=== PATIENT | female | born 1930 | race Caucasian/White ===

== ENCOUNTER 2017-09-12 14:55 | Inpatient (IN) | payer OTHER ==
[2017-09-12 15:24] VITALS: BMI 17.2
--- NOTE | 2017-09-12 15:27 | PDOC ---
History of Present Illness - General Chief Complaint: Bleeding from Anus Stated Complaint: RECTAL BLEEDING Time Seen by Provider: 09/12/17 15:25 History Source: Patient, Family (Daughter interpreted) Exam Limitations: No Limitations - History of Present Illness Initial Comments: 09/12/17 16:20 Pt is an 87 yo F with PMHx of mitral stenosis and Afib (on warfarin), TIA (no deficits), bladder cancer (in remission), low blood pressure presenting with a week's hx of dark stools that became darker this am. As a result, patient called her daughter (from [place]) who brought her into the ED today along with what looked like dark tarry stool in a bowl. No omi red blood was noted recently, but about a month earlier, she had noticed tissue stained with blood while wiping. Patient denies constipation. The pt lives at home with her . The pt also describes increased generalized weakness, but no dizziness , no nausea/vomiting, no bleeding from any other orifice, no fever, no abdominal pain or hematuria. Pt has no cough, no chest pain or palpitations, no SOB. Patient takes 3mg of warfarin every weekday and skips weekends. Last dose was Wednesday. Patient passed stool last this am. No prior hx of diarrhea, no jaundice. She had endoscopy and colonoscopy about 3 years ago and had been treated for H. Pylori infection previously. 09/12/17 18:43 Timing/Duration: 1 week Severity: moderate Associated Symptoms: reports: weakness. denies: chest pain, cough, diaphoresis , fever/chills, headaches, shortness of breath, syncope Past History - Travel Traveled outside of the country in the last 30 days: No Close contact w/someone who was outside of country & ill: No - Past Medical History Allergies/Adverse Reactions: Allergies Allergy/AdvReac Type Severity Reaction Status Date / Time No Known Allergies Allergy Verified 09/12/17 15:49 Home Medications: Ambulatory Orders Metoprolol Tartrate [Lopressor -] 25 mg PO DAILY #0 04/17/13 Warfarin Sodium [Coumadin] 3 mg PO DAILY #0 04/17/13 Digoxin [Lanoxin -] 0.125 mg PO Q48H 09/12/17 Anemia: No Asthma: No Cardiac Disorders: Yes (MITRAL VALVE STENOSIS, afib) CVA: Yes COPD: No Dementia: Yes GI Disorders: Yes (H Pylori) HTN: Yes - Surgical History Cholecystectomy: Yes - Immunization History Td Vaccination: No Immunization Up to Date: No - Suicide/Smoking/Psychosocial Hx Smoking History: Never smoked Have you smoked in the past 12 months: No Information on smoking cessation initiated: No Hx Alcohol Use: No Drug/Substance Use Hx: No Substance Use Type: None Review of Systems - Review of Systems Able to Perform ROS?: Yes (The daughter helped ) Is the patient limited Kyrgyz proficient: No Constitutional: Yes: Loss of Appetite (eats small amounts of food). No: Chills , Diaphoresis, Fever HEENTM: No: Nose Bleeding Respiratory: No: Cough, Orthopnea, Shortness of Breath, SOB at Rest, Productive cough, Hemoptysis Cardiac (ROS): No: Chest Pain, Edema, Palpitations, Syncope ABD/GI: Yes: Tarry Stools. No: Abdominal Distended, Constipated, Difficulty Swallowing, Nausea, Vomiting : No: Burning, Dysuria, Discharge, Flank Pain, Hematuria, Incontinence Musculoskeletal: No: Back Pain Neurological: No: Headache, Numbness, Paresthesia, Unsteady Gait Hematologic/Lymphatic: No: Anemia, Easy Bleeding *Physical Exam - Vital Signs Last Vital Signs Temp Pulse Resp BP Pulse Ox 97.5 F L 75 20 127/57 98 09/12/17 15:16 09/12/17 15:16 09/12/17 15:16 09/12/17 15:16 09/12/17 15:16 - Physical Exam General Appearance: Yes: Appropriately Dressed, Thin HEENT: positive: Normal ENT Inspection, Symmetrical, Pharynx Normal, Other (No scleral icterus, no pale conjuctiva) Neck: positive: Supple Respiratory/Chest: positive: Lungs Clear, Normal Breath Sounds Cardiovascular: positive: Regular Rate, S1, S2, Irregularly Irregular Vascular Pulses: Dorsalis-Pedis (R): 2+, Doralis-Pedis (L): 2+ Gastrointestinal/Abdominal: positive: Normal Bowel Sounds, Soft Rectal Exam: positive: other (Anterior skin tag, no hemorrhoids, no obvious masses, soft stool in vault, maroon colored stool on gloved finger) Musculoskeletal: positive: Normal Inspection Extremity: positive: Normal Capillary Refill Integumentary: positive: Warm Neurologic: positive: Fully Oriented, Alert, Normal Mood/Affect, Motor Strength 5/5 ED Treatment Course - LABORATORY CBC & Chemistry Diagram: 09/13/17 07:00 09/13/17 07:00 Medical Decision Making - Medical Decision Making 09/12/17 18:[address] Lockwood. Spoke with him,but was referred to Dr Zarate who is employee communications manager. Spoke with Dr Zarate Pt noted to be currently hemodynamically stable-not hypotensive or tachycardic, with no active bleeding since the am - labs were still pending at the time. He wanted to be called back following results of labs for INR and current CBC 09/12/17 18:49 Dr Zarate called back and put in a note with his recommendations- including iv Vit K, repeat CBC, transfusion treshold at 8g 09/12/17 18:[address] Beltre and he will need for hospitalist to admit Spoke with Dr Lawrence who has accepted the patient for admission to tele *DC/Admit/Observation/Transfer Diagnosis at time of Disposition: GI bleed Qualifiers: GI bleed type/associated pathology: unspecified gastrointestinal hemorrhage type Qualified Code(s): K92.2 - Gastrointestinal hemorrhage, unspecified - Discharge Dispostion Condition at time of disposition: Fair Admit: Yes - Referrals - Patient Instructions - Post Discharge Activity - Attestations Physician Attestion: 09/12/17 18:57 Ree Santacruz MD
[2017-09-12] MEDS ORDERED: PANTOPRAZOLE SODIUM 80 MG in SODIUM CHLORIDE 100 ML IVPB SCH ×2 (16:00→21:30)
[2017-09-12] MEDS ORDERED: PANTOPRAZOLE SODIUM 40 MG VIAL IVPUSH ONE (16:09)
[2017-09-12] MEDS ORDERED: PANTOPRAZOLE SODIUM 40 MG VIAL ONE (16:29)
[2017-09-12] MEDS ORDERED: PANTOPRAZOLE SODIUM 40 MG/100 ML BAG IVPB ONE (16:38)
--- NOTE | 2017-09-12 16:44 | PDOC ---
Attending Attestation - Resident Resident Name: NeetaRee I - ED Attending Attestation I have performed the following: I have examined & evaluated the patient, The case was reviewed & discussed with the resident, I agree w/resident's findings & plan, Exceptions are as noted - HPI HPI: 09/12/17 16:40 "Pt is a 71 yo F with a PMHx of Atrial Fibrillation (on Warfarin), Hypotension, Bladder CA who presents to the ED with dark stool for the past two weeks. Patient notes maroon colored stools this morning. Pt also endorses generalized weakness. Denies lightheadedness/dizziness. Denies CP/SOB/palpitations. Denies abdominal pain. Denies N/V. Pt states she stopped her warfarin 2 days ago due to concern for GI bleed. Pt reports h/o H pylori, no other known GI problems. PCP: Dr. Beltre " - Physicial Exam PE: 09/12/17 16:41 "GENERAL: Awake, alert, and fully oriented, in no acute distress HEAD: No signs of trauma EYES: PERRLA, EOMI, sclera anicteric, conjunctiva clear ENT: Auricles normal inspection, hearing grossly normal, nares patent, oropharynx clear without exudates. Moist mucosa NECK: Nontender, no stepoffs, Normal ROM, supple, no lymphadenopathy, JVD, or masses LUNGS: Breath sounds equal, clear to auscultation bilaterally. No wheezes, and no crackles HEART: Regular rate and rhythm, normal S1 and S2, no murmurs, rubs or gallops ABDOMEN: Soft, nontender, normoactive bowel sounds. No guarding, no rebound. No masses EXTREMITIES: Normal range of motion, no edema. No clubbing or cyanosis. No cords, erythema, or tenderness NEUROLOGICAL: Cranial nerves II through XII intact. 5/5 strength and sensation in all extremities, Normal speech, normal gait SKIN: Warm, Dry, normal turgor, no rashes or lesions noted." RECTAL: + maroon stool - Medical Decision Making 09/12/17 16:41 87 F with likely GI bleed. Suspect upper GI source given melenotic stool. Pt has h/o afib, will r/o mesenteric ischemia with lactate. - Labs, coags, T&S - Protonix gtt - GI consult - Admit
[2017-09-12 16:57] LABS: BASO % 0.6 % (0-2.0); EOS % 2.3 % (0-4.5); HEMATOCRIT 27.8 % (32.4-45.2); HEMOGLOBIN 9.1 GM/dL (10.7-15.3); LYMPH % 23.7 % (8-40); MCHC 32.8 g/dl (32.0-36.0); MEAN CELL VOLUME 94.5 fl (80-96); MEAN PLT VOLUME 8.9 fl (7.5-11.1); MONO % 12.3 % (3.8-10.2); NEUT % 61.1 % (42.8-82.8); PLATELET COUNT 131 K/MM3 (134-434); RBC 2.94 M/mm3 (3.60-5.2); RDW 16.8 % (11.6-15.6); WHITE BLOOD COUNT 5.1 K/mm3 (4.0-10.0)
[2017-09-12 17:10] LABS: INR 2.89 (0.82-1.09); PROTHROMBIN TIME (PATIENT) 32.7 SEC (9.98-11.88)
[2017-09-12 17:12] LABS: ACTIVATED PTT 37.6 SECONDS (26.9-34.4)
[2017-09-12 17:26] LABS: ALBUMIN 3.1 g/dl (3.4-5.0); ANION GAP 7 (8-16); BILIRUBIN,TOTAL 0.8 mg/dL (0.2-1.0); BLOOD UREA NITROGEN 24 mg/dL (7-18); CALCIUM 8.4 mg/dL (8.5-10.1); CHLORIDE 110 mmol/L (98-107); CO2 26 mmol/L (21-32); CREATININE 0.8 mg/dL (0.55-1.02); GLUCOSE,RANDOM 84 mg/dL (74-106); POTASSIUM 3.8 mmol/L (3.5-5.1); SGOT/AST 21 U/L (15-37); SGPT/ALT 15 U/L (12-78); SODIUM 143 mmol/L (136-145); TOT PROT 6.3 g/dl (6.4-8.2)
[2017-09-12 17:37] LABS: ALK PHOS 87 U/L (45-117)
--- NOTE | 2017-09-12 17:48 | PN ---
Progress Note (short form) - Note Progress Note: GI CONSULTATION: PLEASE SEE THE COMPLETE CONSULT DICTATON IN BRIEF: ELD 87F WITH CARDAIC/NEUROLOGIC DISEASE/AF ON A/C WOTIH ASA AND COUMADIN ADMIT WITH WEAKNESS AND MARROON STOOL PRE-HYDRATION HGB 9.1, DOWN FROM 13 IN 2013 LYTES PENDING SUSPECT POST-HYDRATION WUILL DROP TO 8 AND PT WILL LIKELY WARRANT A UNIT OR PRBC BASED UPON AGE NOW HEMODYNE STABLE AND INR OF 4/ PT OF 30 WULD GIVE VITMAIN K TO BRING DOWN INR IF SHE BECOMES UNSTABLE, THEN WOULD GIVE FFP SUSPECT LBIG/ LIKELY DIVERTICULAR OR A DIFFUSE OOZE ?AVM'S WILL TRY TO ACCESS PRIOR EGD/COLON REPORTS FROM> 6 YEARS AGO RECC: CLEARS PO/ NPO AT MN/ IV PPI/ VIT K F/U H/H--IF HGB <8-8.5 CONSIDER PRBC'S F/U COAGS BASED ONHER STATUS IN NEXT 16 HOURS, MAY NEED EGD/COLON AND OR CT ANGIO VERONIQUE YE MD
[2017-09-12] MEDS ORDERED: PHYTONADIONE 10 MG/1 ML AMP IVPB ONE (18:19)
[2017-09-12] MEDS ORDERED: PHYTONADIONE 10 MG/1 ML AMP ONE (18:25)
--- NOTE | 2017-09-12 18:29 | CONS ---
DATE OF CONSULTATION: 09/12/2017 I was asked by the ER team to evaluate the patient for GI bleeding. The patient is an 87-year-old woman from [place] who speaks limited Swedish. The history is via her daughter at the bedside. Apparently the patient is known to Dr. Lockwood and they report that she has had endoscopy and colonoscopy in the past. Initially they thought 3 years ago, but maybe more like 5 or 6 years ago. They do not really recall the findings, but do not believe they found anything too significant. She does have a history of Helicobacter pylori supposedly and a sensitive stomach. Other than that, the history that the patient has had over the past couple of days to a week is some darker stools. She became a little bit more weak and dizzy and her appetite has been off. She called the daughter who noted this and yesterday apparently she even had a darker stool, so she came to the hospital. The patient has not had any significant abdominal pain, nausea, vomiting, or upper GI symptoms. No dysphagia or odynophagia. Her appetite has been fair of late, but she has not been losing significant weight, according to the family member. The patient does take chronic anticoagulation with Coumadin for multiple cardiac and neurologic issues. PAST MEDICAL HISTORY: Apparently the patient has a past medical history that includes chronic atrial fibrillation. She has had a CVA in the past. She has atherosclerotic coronary artery disease, carotid artery disease, mitral stenosis, hyperlipidemia, and a history of bladder cancer and she is status post cholecystectomy. SOCIAL HISTORY: The patient is from [place]. 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 She lives at home with the . She does not smoke or drink. MEDICATIONS: They were uncertain of, but according to the hospital record, it looks like the last medications listed were actually from 2012. She has basically been on Coumadin, some metoprolol, digoxin, multiple cardiac medications, Lipitor, aspirin. Currently in the ER she is getting simply IV Protonix. PHYSICAL EXAMINATION: General: She is slightly pale in appearance, but in absolutely no acute distress. Vital Signs: Stable. Her systolic blood pressure is above 130. She is not tachycardic. Her heart rate is in the 70s. HEENT: Her sclerae are anicteric. Neck: Supple. Abdomen: Flat, symmetric. No significant scarring. Bowel sounds are quite active. There are no masses, rebound, or guarding. There is no tenderness to deep palpation. Rectal: Reveals omi maroon stool that is strongly guaiac positive. LABORATORY DATA: A lot of her lab tests are still pending, but what is currently back from today is a white count of 5, hemoglobin of 9.1, hematocrit of 27, with an MCV of 94 and 131,000 platelets. Her hemoglobin last was in 2013 and was noted to be 13. Her coagulations reveal an elevated INR at 4 with a Pro time of 30. Her chemistries are still pending. Her serum potassium is 4.6. Her lactic acid is 1.5. Her electrolytes and renal function are still pending. Her liver enzymes are still pending. IMPRESSION: It is my impression that the patient is an 87-year-old woman from [place] with multiple cardiac and neurologic issues. She is status post cerebrovascular accident, has heart disease, carotid disease, chronic atrial fibrillation on Digoxin, anticoagulation with Coumadin and aspirin, and currently comes in with a hemodynamically stable gastrointestinal bleed, which appears to be lower at this time, based on the fact that it is more bright red blood. She is hemodynamically stable and has no upper gastrointestinal complaints. The BUN and creatinine are currently pending. Her hemoglobin has gone from a baseline of 13 back in 2013; we do not have recent labs to compare, down to 9.1. RECOMMENDATIONS: At this time, I would recommend that she be monitored to Intensive Care Unit setting, she undergo follow up labs, she be given a unit of packed cells, she be kept on a proton pump inhibitor, and we will evaluate in the morning whether she should undergo an upper endoscopy. If negative, she will then need colonoscopy after a GoLYTELY purge. If she remains stable and once her INR is improved, then she may be best off having the endoscopy and colonoscopy at the same time after GoLYTELY purge in 48 hours from now. So for now, I would certainly give her some vitamin K and if she has onset of active or hemodynamic significant bleeding, then she is going to need some FFP. At the present time, I would keep her on a clear liquid diet or n.p.o. with IV proton pump inhibition and we will continue to be available to aid in management of this patient. BERNARD PIPER M.D. TONI/[id number]
--- NOTE | 2017-09-12 20:22 | HP ---
CHIEF COMPLAINT: Generalized Weakness, Maroon stools PCP: Dr. Beltre HISTORY OF PRESENT ILLNESS: 87 y/o with a PMH of Afib (on Coumadin), TIA (no deficits), Mitral Valve Stenosis, HTN, HLD, Bladder Ca (in remission). Who presents to the ED with her daughter for low blood pressure, generalized weakness x 1 week, maroon stools x am. Patient is [place] and only speaks Citizen Of [place]. 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 Patient reports rectal bleeding all day from melena to BRB. Patient reports having her last colonoscopy with Dr. childress, 3 years ago- found bacteria. Patient denies abdominal pain and cramping. Patient denies fever , chills, cough, dizziness, WILDER, SOB, CP, N/V/D, hematuria, dysuria. ER course was notable for: (1) Stool Occult- positive (2) Hgb 9.1 (3) Recent Travel: None PAST MEDICAL HISTORY: See HPI PAST SURGICAL HISTORY: Cholecystectomy Social History: Smoking: Never Alcohol: None Drugs: None Resides with spouse Family History: Non-contributory Allergies No Known Allergies Allergy (Verified 09/12/17 15:49) HOME MEDICATIONS: Home Medications Medication Instructions Recorded Metoprolol Tartrate [Lopressor -] 25 mg PO DAILY #0 04/17/13 Warfarin Sodium [Coumadin] 3 mg PO DAILY #0 04/17/13 Digoxin [Lanoxin -] 0.125 mg PO Q48H 09/12/17 REVIEW OF SYSTEMS CONSTITUTIONAL: generalized weakness, malaise, Absent: fever, chills, diaphoresis, loss of appetite, weight change HEENT: Absent: rhinorrhea, nasal congestion, throat pain, throat swelling, difficulty swallowing, mouth swelling, ear pain, eye pain, visual changes CARDIOVASCULAR: Absent: chest pain, syncope, palpitations, irregular heart rate, lightheadedness , peripheral edema RESPIRATORY: Absent: cough, shortness of breath, dyspnea with exertion, orthopnea, wheezing, stridor, hemoptysis GASTROINTESTINAL: maroon stools, melena, hematochezia Absent: abdominal pain, abdominal distension, nausea, vomiting, diarrhea, constipation GENITOURINARY: Absent: dysuria, frequency, urgency, hesitancy, hematuria, flank pain, genital pain MUSCULOSKELETAL: Absent: myalgia, arthralgia, joint swelling, back pain, neck pain SKIN: Absent: rash, itching, pallor HEMATOLOGIC/IMMUNOLOGIC: Absent: easy bleeding, easy bruising, lymphadenopathy, frequent infections ENDOCRINE: Absent: unexplained weight gain, unexplained weight loss, heat intolerance, cold intolerance NEUROLOGIC: Absent: headache, focal weakness or paresthesias, dizziness, unsteady gait, seizure, mental status changes, bladder or bowel incontinence PSYCHIATRIC: Absent: anxiety, depression, suicidal or homicidal ideation, hallucinations. PHYSICAL EXAMINATION Vital Signs - 24 hr 09/12/17 09/12/17 15:16 15:57 Temperature 97.5 F L Pulse Rate 75 Respiratory 20 Rate Blood Pressure 127/57 O2 Sat by Pulse 98 98 Oximetry (%) GENERAL: Awake, alert, and fully oriented, in no acute distress. HEAD: Normal with no signs of trauma. EYES: Pupils equal, round and reactive to light, extraocular movements intact, sclera anicteric, conjunctiva clear. No lid lag. EARS, NOSE, THROAT: Ears normal, nares patent, oropharynx clear without exudates. Dry mucous membranes. NECK: Normal range of motion, supple without lymphadenopathy, JVD, or masses. LUNGS: Breath sounds equal, clear to auscultation bilaterally. No wheezes, and no crackles. No accessory muscle use. HEART: Irregular rate and rhythm, normal S1 and S2 systolic grade 2 murmur. No rub or gallop. ABDOMEN: Soft, nontender, not distended, hypoactive bowel sounds, no guarding, no rebound, no masses. No hepatomegaly or splenomegaly. MUSCULOSKELETAL: Normal range of motion at all joints. No bony deformities or tenderness. No CVA tenderness. UPPER EXTREMITIES: 2+ pulses, warm, well-perfused. No cyanosis. No clubbing. No peripheral edema. LOWER EXTREMITIES: 2+ pulses, warm, well-perfused. No calf tenderness. No peripheral edema. NEUROLOGICAL: Cranial nerves II-XII intact. Normal speech. Gait not observed. PSYCHIATRIC: Cooperative. Good eye contact. Appropriate mood and affect. SKIN: Warm, dry, normal turgor, no rashes or lesions noted, normal capillary refill. Laboratory Results - last 24 hr 09/12/17 09/12/17 09/12/17 16:24 16:24 16:24 WBC 5.1 D RBC 2.94 L D Hgb 9.1 L D Hct 27.8 L D MCV 94.5 MCH 31.0 MCHC 32.8 RDW 16.8 H D Plt Count 131 L MPV 8.9 Neutrophils % 61.1 Lymphocytes % 23.7 D Monocytes % 12.3 H Eosinophils % 2.3 Basophils % 0.6 PT with INR 32.70 H INR 2.89 H PTT (Actin FS) 37.6 H Sodium 143 Potassium 3.8 Chloride 110 H Carbon Dioxide 26 Anion Gap 7 L BUN 24 H Creatinine 0.8 Creat Clearance w eGFR > 60 Random Glucose 84 Lactic Acid Calcium 8.4 L Total Bilirubin 0.8 D AST 21 ALT 15 Alkaline Phosphatase 87 Total Protein 6.3 L Albumin 3.1 L Stool Occult Blood Digoxin 0.2918 L Blood Type Antibody Screen 09/12/17 09/12/17 09/12/17 16:24 16:24 16:24 WBC RBC Hgb Hct MCV MCH MCHC RDW Plt Count MPV Neutrophils % Lymphocytes % Monocytes % Eosinophils % Basophils % PT with INR INR PTT (Actin FS) Sodium Potassium Chloride Carbon Dioxide Anion Gap BUN Creatinine Creat Clearance w eGFR Random Glucose Lactic Acid 1.5 Calcium Total Bilirubin AST ALT Alkaline Phosphatase Total Protein Albumin Stool Occult Blood Positive Digoxin Blood Type AB NEGATIVE Antibody Screen Negative ASSESSMENT/PLAN: 87 y/o woman presents to the ED with weakness, maroon stools. Admitted to Telemetry Acute GI Bleed Problems: 1. Acute GI Bleed 2. Generalized Weakness 3. Hypertension 4. Atrial Fibrillation 5. TIA 6. Hyperlipidemia 7. Bladder Ca 8. Mitral Valve Stenosis FEN - Replete lytes prn - NPO Code Status: Full Code Dispo: Requires inpatient Care Problem List - Problem (1) GI bleed Assessment/Plan: - Likely secondary to Diverticular - GI following - Hgb 9.1 - INR 2.89 - Stool Occult- positive - Will transfuse with PRBCs if Hgb < 8-8.5 - Clear Diet till midnight - NPO after midnight - Repeat CBC tonight, then AM - Monitor vitals Code(s): K92.2 - GASTROINTESTINAL HEMORRHAGE, UNSPECIFIED (2) Afib Assessment/Plan: - [id number] 6 - INR 2.89 - Hold Coumadin 2/2 GI Bleed - Dig Level- 0.2918 - Continue Digoxin - EKG- reviewed - Continue cardiac monitoring Code(s): I48.91 - UNSPECIFIED ATRIAL FIBRILLATION (3) TIA (transient ischemic attack) Assessment/Plan: - See Above Code(s): G45.9 - TRANSIENT CEREBRAL ISCHEMIC ATTACK, UNSPECIFIED (4) Mitral valve stenosis Assessment/Plan: - INR 2.89 - Will hold Coumadin 2/2 GI Bleed Code(s): I05.0 - RHEUMATIC MITRAL STENOSIS (5) HTN (hypertension) Assessment/Plan: - stable - Monitor BP - Hold home med tonight 2/2 GI Bleed - Monitor renal function Code(s): I10 - ESSENTIAL (PRIMARY) HYPERTENSION (6) Bladder cancer Assessment/Plan: - stable - In remission - f/u with Oncology outpatient as indicated Code(s): C67.9 - MALIGNANT NEOPLASM OF BLADDER, UNSPECIFIED (7) DVT prophylaxis Assessment/Plan: - OOB - SCDs - Hold AC 2/2 Acute GI Bleed Code(s): [id number] - Visit type - Emergency Visit Emergency Visit: Yes ED Registration Date: 09/12/17 Care time: The patient presented to the Emergency Department on the above date and was hospitalized for further evaluation of their emergent condition. - New Patient This patient is new to me today: Yes Date on this admission: 09/12/17 - Critical Care Critical Care patient: No Hospitalist Screening - Colonoscopy Questionnaire Colonoscopy Questionnaire: Colonoscopy Questionnaire - Patient: 50 - 75 years old and never had a screening colonoscopy: No History of colon or rectal polyps, or CA: No History of IBD, Crohn's disease or UC: No History of abdominal radiation therapy as a child: No - Relative: 1 with colon or rectal CA, or polyps at age 60 or younger: Unknown Colon or rectal CA diagnosed at age 45 or younger: Unknown Multiple relatives with colon or rectal CA: Unknown - Outcome: Screening Result: Negative Screen
[2017-09-12] MEDS: PANTOPRAZOLE SODIUM 160 MG in DEXTROSE 5%-WATER - 290 ML IVPB SCH (22:29)
[2017-09-12 23:38] LABS: BASO % 0.4 % (0-2.0); EOS % 2.5 % (0-4.5); HEMATOCRIT 26.5 % (32.4-45.2); HEMOGLOBIN 8.9 GM/dL (10.7-15.3); LYMPH % 24.3 % (8-40); MCH 31.4 pg (25.7-33.7); MCHC 33.5 g/dl (32.0-36.0); MEAN CELL VOLUME 93.9 fl (80-96); MEAN PLT VOLUME 8.4 fl (7.5-11.1); MONO % 11.1 % (3.8-10.2); NEUT % 61.7 % (42.8-82.8); PLATELET COUNT 126 K/MM3 (134-434); RBC 2.83 M/mm3 (3.60-5.2); RDW 16.7 % (11.6-15.6)
--- NOTE | 2017-09-13 07:22 | PN ---
Progress Note, Physician Chief Complaint: 87 y.o F with valvular AFIB , on Coumadin was admitted to ER for generalized weakness and maroon stools and was found to have GI bleed. History of Present Illness: RHD. Mitral stenosis. Chronic AFIB. Previously CVA/TIA. LE varicose veins. History of bladder cancer - Current Medication List Current Medications: Active Medications Digoxin (Lanoxin -) 0.125 mg PO Q48H [facility] Pantoprazole Sodium 160 mg/ (Dextrose) 290 mls @ 14.5 mls/hr IVPB Q20H [facility] Last Admin: 09/12/17 22:29 Dose: 14.5 mls/hr Metoprolol Tartrate (Lopressor -) 25 mg PO DAILY [facility] - Objective Vital Signs: Vital Signs Temperature 97.7 F 09/13/17 06:00 Pulse Rate 87 09/13/17 06:00 Respiratory Rate 19 09/13/17 06:00 Blood Pressure 124/59 09/13/17 06:00 O2 Sat by Pulse Oximetry (%) 94 L 09/12/17 22:39 Constitutional: Yes: Anxious, Mild Distress Eyes: Yes: Conjunctiva Clear, EOM Intact HENT: Yes: Atraumatic, Normocephalic Neck: Yes: Supple, Trachea Midline Cardiovascular: Yes: Tachycardia, Pulse Irregular, S1, S2 Respiratory: Yes: Regular, CTA Bilaterally Gastrointestinal: Yes: Soft, Melena, Rectal Bleeding. No: Ascites, Tenderness, Vomiting ...Rectal Exam: Yes: Deferred Genitourinary: No: Anuria, Bladder Distention Breast(s): Yes: WNL Musculoskeletal: Yes: WNL Extremities: No: Cold, Cyanosis Edema: LLE: Trace, RLE: Trace Peripheral Pulses WNL: Yes Integumentary: Yes: WNL Neurological: Yes: WNL ...Motor Strength: WNL Psychiatric: Yes: WNL Labs: INR, PTT INR 2.89 (0.82-1.09) H 09/12/17 16:24 Problem List - Problems (1) Afib Assessment/Plan: Hold Coumadin. Continue Metoprolol and Digoxin PO. Telemetry Code(s): I48.91 - UNSPECIFIED ATRIAL FIBRILLATION Qualifiers: Atrial fibrillation type: chronic Qualified Code(s): I48.2 - Chronic atrial fibrillation (2) GI bleed Assessment/Plan: GI follow up, colonoscopy for evaluating LGI bleed Code(s): K92.2 - GASTROINTESTINAL HEMORRHAGE, UNSPECIFIED Qualifiers: GI bleed type/associated pathology: unspecified gastrointestinal hemorrhage type Qualified Code(s): K92.2 - Gastrointestinal hemorrhage, unspecified (3) Mitral valve stenosis Code(s): I05.0 - RHEUMATIC MITRAL STENOSIS (4) TIA (transient ischemic attack) Assessment/Plan: Risk of TIA /CVA is high. Will re-start Coumadin when stable. Code(s): G45.9 - TRANSIENT CEREBRAL ISCHEMIC ATTACK, UNSPECIFIED
[2017-09-13 07:37] LABS: BASO % 0.5 % (0-2.0); EOS % 2.2 % (0-4.5); HEMATOCRIT 26.7 % (32.4-45.2); LYMPH % 18.8 % (8-40); MCH 31.6 pg (25.7-33.7); MCHC 33.7 g/dl (32.0-36.0); MEAN CELL VOLUME 93.7 fl (80-96); MEAN PLT VOLUME 8.2 fl (7.5-11.1); MONO % 9.2 % (3.8-10.2); NEUT % 69.3 % (42.8-82.8); PLATELET COUNT 127 K/MM3 (134-434); RBC 2.85 M/mm3 (3.60-5.2); RDW 16.3 % (11.6-15.6); WHITE BLOOD COUNT 6.3 K/mm3 (4.0-10.0)
[2017-09-13 07:47] LABS: INR 1.48 (0.82-1.09); PROTHROMBIN TIME (PATIENT) 16.7 SEC (9.98-11.88)
[2017-09-13 07:56] LABS: ANION GAP 6 (8-16); BLOOD UREA NITROGEN 19 mg/dL (7-18); CALCIUM 8.1 mg/dL (8.5-10.1); CHLORIDE 110 mmol/L (98-107); CO2 26 mmol/L (21-32); CREATININE 0.8 mg/dL (0.55-1.02); GLUCOSE,RANDOM 85 mg/dL (74-106); MAGNESIUM 1.6 mg/dL (1.8-2.4); PHOSPHOROUS 2.9 mg/dL (2.5-4.9); POTASSIUM 3.9 mmol/L (3.5-5.1); SODIUM 142 mmol/L (136-145)
[2017-09-13] MEDS: DIGOXIN 0.125 MG TABLET (FP) PO SCH ×2 (08:45→11:34)
[2017-09-13] MEDS: METOPROLOL TARTRATE 50 MG TABLET (FP) PO SCH ×2 (08:45→11:35)
[2017-09-13 10:39] LABS: ARTERIAL BLD GAS O2 SATURATION 86.7 % (90-98.9); ARTERIAL BLOOD GAS BASE EXCESS -0.2 meq/l (-2-2); ARTERIAL BLOOD GAS PCO2 35.8 mmHg (35-45); ARTERIAL BLOOD GAS PO2 53.4 mmHg (68-100); ARTERIAL BLOOD GAS pH 7.43 (7.35-7.45)
[2017-09-13 10:40] LABS: ALLENS TEST POSITIVE
--- NOTE | 2017-09-13 11:08 | EKG ---
Test Reason : Blood Pressure : / mmHG Vent. Rate : 087 BPM Atrial Rate : 357 BPM P-R Int : 000 ms QRS Dur : 076 ms QT Int : 368 ms P-R-T Axes : 000 073 065 degrees QTc Int : 442 ms ATRIAL FIBRILLATION T WAVE ABNORMALITY, CONSIDER ANTERIOR ISCHEMIA ABNORMAL ECG WHEN COMPARED WITH ECG OF 15-APR-2013 09:12, NO SIGNIFICANT CHANGE WAS FOUND Confirmed by SERGE JACKSON MD ([id number]) on 09/13/2017 11:08:17 AM Referred By: Confirmed By:SERGE JACKSON MD
--- NOTE | 2017-09-13 12:33 | PN ---
GI Progress Note Subjective: GI Note: The bleeding has fortunately subsided without requiring transfusion. She should ideally have EGD and a colonoscopy before resuming her anticoagulation but I suspect that her cardiopulmonary status will preclude this. I discussed her situation with Dr Beltre and cardiology and pulmonary will be consulted. In the interim I have obtained informed consents for both EGD and colonoscopy after informed Diane in her chinik language of the potential for such risks as perforation and hemorrhage as well as cardiopulmonary arrest. She last had both procedures done in 2007 when no significant findings were made. - Objective Vital Signs: Vital Signs Temperature 97.7 F 09/13/17 06:00 Pulse Rate 122 H 09/13/17 08:58 Respiratory Rate 18 09/13/17 08:58 Blood Pressure 130/56 09/13/17 08:58 O2 Sat by Pulse Oximetry (%) 94 L 09/12/17 22:39 Constitutional: No Distress ...Auscultate: Yes: Normoactive Bowel Sounds ...Palpate: Yes: Soft, Other (nontender) Labs: CBC, BMP 09/13/17 07:00 09/13/17 07:00 INR, PTT INR 1.48 (0.82-1.09) H D 09/13/17 07:00 Laboratory Tests 09/12/17 09/12/17 09/13/17 16:24 16:24 07:00 WBC 6.3 Hgb 9.1 L D 9.0 L Plt Count 127 L INR 2.89 H 09/13/17 07:00 WBC Hgb Plt Count INR 1.48 H D Problem List - Problems (1) GI bleed Assessment/Plan: Potential bleeding etiologies include vascular ectasias, erosive gastritis / GERD or ulcer disease, diverticuli and neoplasms among others. Await cardiology and pulmonary consultation to determine the feasibility of endoscopy. Code(s): K92.2 - GASTROINTESTINAL HEMORRHAGE, UNSPECIFIED Qualifiers: GI bleed type/associated pathology: unspecified gastrointestinal hemorrhage type Qualified Code(s): K92.2 - Gastrointestinal hemorrhage, unspecified
--- NOTE | 2017-09-13 12:44 | CON.CARD ---
Consult Consult Specialty:: Cardiology Reason for Consultation:: clearence for endoscopy - History of Present Illness History of Present Illness: PMH CVA - no residual weakness ( subtherapeutic INR ) 2012 HHD HTN Moderate AR Moderate Mitral stenosis mean gradient 5-7 mmHg 2016 Rheumatic heart disease - History Source History Provided By: Patient, Medical Record - Past Medical History Cardio/Vascular: Yes: AFIB, Mitral Stenosis - Alcohol/Substance Use Hx Alcohol Use: No - Smoking History Smoking history: Never smoked Have you smoked in the past 12 months: No Home Medications - Allergies Allergies/Adverse Reactions: Allergies Allergy/AdvReac Type Severity Reaction Status Date / Time No Known Allergies Allergy Verified 09/12/17 15:49 - Home Medications Home Medications: Ambulatory Orders Metoprolol Tartrate [Lopressor -] 25 mg PO DAILY #0 04/17/13 Warfarin Sodium [Coumadin] 3 mg PO DAILY #0 04/17/13 Digoxin [Lanoxin -] 0.125 mg PO Q48H 09/12/17 Review of Systems - Review of Systems Constitutional: reports: No Symptoms Eyes: reports: No Symptoms HENT: reports: No Symptoms Neck: reports: No Symptoms Cardiovascular: reports: No Symptoms Gastrointestinal: reports: Melena Genitourinary: reports: No Symptoms Breasts: reports: No Symptoms Reported Musculoskeletal: reports: No Symptoms Integumentary: reports: No Symptoms Neurological: reports: No Symptoms Endocrine: reports: No Symptoms Hematology/Lymphatic: reports: No Symptoms Psychiatric: reports: No Symptoms Vital Signs: Vital Signs Temperature 97.7 F 09/13/17 06:00 Pulse Rate 122 H 09/13/17 08:58 Respiratory Rate 18 09/13/17 08:58 Blood Pressure 130/56 09/13/17 08:58 O2 Sat by Pulse Oximetry (%) 94 L 09/12/17 22:39 Constitutional: Yes: Well Nourished, No Distress, Calm Eyes: Yes: WNL, Conjunctiva Clear, EOM Intact HENT: Yes: WNL, Atraumatic, Normocephalic Neck: Yes: WNL, Supple, Trachea Midline Respiratory: Yes: WNL, Regular, CTA Bilaterally Gastrointestinal: Yes: WNL, Normal Bowel Sounds Renal/: Yes: WNL Cardiovascular: Yes: WNL, Regular Rate and Rhythm Musculoskeletal: Yes: WNL Extremities: Yes: WNL Integumentary: Yes: WNL Neurological: Yes: WNL, Alert, Oriented ...Motor Strength: WNL Psychiatric: Yes: WNL, Alert, Oriented - Other Data Labs, Other Data: CBC, BMP 09/13/17 07:00 09/13/17 07:00 INR, PTT INR 1.48 (0.82-1.09) H D 09/13/17 07:00 Imaging - Results Chest X-ray: Pending EKG: Image Reviewed (af rep abn) Assessment/Plan A fib CVA - no residual weakness ( subtherapeutic INR ) 2012 HHD HTN Moderate AR Moderate Mitral stenosis mean gradient 5-7 mmHg 2017 Rheumatic heart disease GI bleed Recent ECHO nl EF mod MS moderate PHT Plan Patient is cleared for endoscopy from cardiac point of view. AC should be restarted MARIA ANTONIA when allowed from GI point of view - since patient is very high risk for CVA ( h/o CVA/ MS/ AF)
--- NOTE | 2017-09-13 14:38 | PN ---
Progress Note (short form) - Note Progress Note: PULMONARY CONSULTATION DICTATED 09/13/17 IMP ACUTE HYPOXEMIC RESPIRATORY FAILURE ETIOLOGY TO BE DETERMINED ?CHF,? CHRONIC LUNG DISEASE ?ILD,COPD GI BLEED AFIB MITRAL STENOSIS PULMONARY HTN RHD H/O TIA PLAN O2 CHEST X-RAY RATE CONTROL MONITOR H+H DR HEATH Problem List - Problems (1) Hypoxemia requiring supplemental oxygen Code(s): R09.02 - HYPOXEMIA; Z99.81 - DEPENDENCE ON SUPPLEMENTAL OXYGEN (2) Afib Code(s): I48.91 - UNSPECIFIED ATRIAL FIBRILLATION Qualifiers: Atrial fibrillation type: chronic Qualified Code(s): I48.2 - Chronic atrial fibrillation (3) Bladder cancer Code(s): C67.9 - MALIGNANT NEOPLASM OF BLADDER, UNSPECIFIED (4) GI bleed Code(s): K92.2 - GASTROINTESTINAL HEMORRHAGE, UNSPECIFIED Qualifiers: GI bleed type/associated pathology: unspecified gastrointestinal hemorrhage type Qualified Code(s): K92.2 - Gastrointestinal hemorrhage, unspecified (5) HTN (hypertension) Code(s): I10 - ESSENTIAL (PRIMARY) HYPERTENSION (6) Mitral valve stenosis Code(s): I05.0 - RHEUMATIC MITRAL STENOSIS (7) TIA (transient ischemic attack) Code(s): G45.9 - TRANSIENT CEREBRAL ISCHEMIC ATTACK, UNSPECIFIED (8) Acute hypoxemic respiratory failure Code(s): J96.01 - ACUTE RESPIRATORY FAILURE WITH HYPOXIA
--- NOTE | 2017-09-13 17:24 | CONS ---
DATE OF CONSULTATION: 09/13/2017 PULMONARY CONSULTATION REFERRING PHYSICIAN: Paul Beltre MD HISTORY OF PRESENT ILLNESS: The patient is an 87-year-old white female with past medical history of atrial fibrillation maintained on Coumadin, TIA, mitral stenosis, hypertension, hyperlipidemia, bladder CA in remission, apparently nonsmoker, admitted to [facility] secondary to low blood pressure, generalized weakness for 1 week, and loose stools in the morning. According to the patient' s daughter, the patient started developing and noted to have low bp and generalized weakness for a week. On day of admission, she has loose stools. Apparently denied any complaints of chest pain, nausea, or vomiting. Apparently, she was having rectal bleeding all day from melena and then turned to bright red blood. Apparently, she had a colonoscopy 3 years ago and found to have bacteria. Patient was admitted. On admission, she was noted to be hypotensive with blood pressure 100/56. She was also noted to have a hemoglobin of initially 9.1 g and hematocrit is 27. She was evaluated by Dr. Villeda earlier, and patient is scheduled for a colonoscopy. Of note, earlier today the patient was evaluated with the nurse, and routine pulse oximetry was noted at 75 on RA. She was placed on 3 L with improvement in her O2 saturation. She is a nonsmoker. There is no apparent history of occupational exposure to chemicals. Although reviewing the old medical record, she has had a history of hypercapnic respiratory failure in the past with a pH of 7.33 and a PCO2 of 52 and a PO2 of 41 that was on 2 L in 2010. She underwent a repeat blood gas earlier today which revealed a PO2 of 53. Patient denies shortness of breath or cough. No chest pains or palpitations. PAST MEDICAL HISTORY: Includes atrial fibrillation, patient's INR on admission was therapeutic at 2.89; mitral stenosis; history of hypoxemia, 2010; TIA: mitral stenosis; hypertension; hyperlipidemia; bladder CA in remission. REVIEW OF SYSTEMS: Unable to obtain at this time. Patient speaks Korean. CURRENT MEDICATIONS: Include Lopressor, digoxin, and pantoprazole. PHYSICAL EXAMINATION: General: The patient is an elderly white female, thin, well developed, awake, alert, in no acute distress. Vital Signs: She is currently afebrile. Blood pressure is 130/56, respiratory rate is 18, O2 saturation initially was 75 on room air, currently 98 on 3 L, heart rate is 110. HEENT: Exam is normocephalic, atraumatic. Neck: Supple. Heart: Irregularly irregular. S1, S2. Chest: Bibasilar crackles. Abdomen: Soft. Bowel sounds positive. Extremities: No cyanosis or edema. LABORATORIES: WBC is 6.3, hemoglobin 9, hematocrit 26, platelet count 127,000. INR is 1.48, initially 2.89. Blood gas pH 7.43, PCO2 of 35, PO2 of 53, bicarbonate of 23, and a saturation of 86. BUN 19, creatinine 0.8. Chest x-ray not performed, will order. IMPRESSION: 1. Hypoxemic respiratory failure etiology undetermined, possible underlying congestive heart failure, chronic underlying pulmonary disease in view of the patient's history of respiratory failure with hypercapnic hypoxic respiratory failure in the past. 2. Gastrointestinal bleed. 3. Atrial fibrillation. 4. Mitral stenosis. 5. History of transient ischemic attack. PLAN: Supplemental O2. Obtain chest x-ray. Monitor hemoglobin and hematocrit. Further recommendations to follow after the chest x-ray is performed. LEONCIO HEATH M.D. [id number] MTDD
[2017-09-13] MEDS ORDERED: MAGNESIUM SULF 50% (8.12 MEQ/2 ML-1 GM VIAL) IVPB ONE (20:00)
[2017-09-13] MEDS ORDERED: MAGNESIUM SULFATE IN WATER 2 GM/50 ML IVPB IVPB ONE (21:00)
[2017-09-13] MEDS: PANTOPRAZOLE SODIUM 160 MG in DEXTROSE 5%-WATER - 290 ML IVPB SCH (22:01)
[2017-09-14 07:28] LABS: BASO % 0.5 % (0-2.0); HEMATOCRIT 27.4 % (32.4-45.2); HEMOGLOBIN 9.1 GM/dL (10.7-15.3); LYMPH % 21.4 % (8-40); MCH 31.6 pg (25.7-33.7); MCHC 33.4 g/dl (32.0-36.0); MEAN CELL VOLUME 94.5 fl (80-96); MONO % 9.3 % (3.8-10.2); NEUT % 64.8 % (42.8-82.8); PLATELET COUNT 126 K/MM3 (134-434); RDW 16.2 % (11.6-15.6); WHITE BLOOD COUNT 6.9 K/mm3 (4.0-10.0)
[2017-09-14 07:43] LABS: INR 1.17 (0.82-1.09); PROTHROMBIN TIME (PATIENT) 13.2 SEC (9.7-13.0)
[2017-09-14 07:56] LABS: ALBUMIN 2.8 g/dl (3.4-5.0); ALK PHOS 83 U/L (45-117); ANION GAP 6 (8-16); BILIRUBIN,TOTAL 2.5 mg/dL (0.2-1.0); BLOOD UREA NITROGEN 15 mg/dL (7-18); CHLORIDE 110 mmol/L (98-107); CO2 27 mmol/L (21-32); CREATININE 0.9 mg/dL (0.55-1.02); GLUCOSE,RANDOM 84 mg/dL (74-106); SGOT/AST 17 U/L (15-37); SGPT/ALT 11 U/L (12-78); SODIUM 143 mmol/L (136-145); TOT PROT 5.7 g/dl (6.4-8.2)
--- NOTE | 2017-09-14 09:52 | PN ---
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 ( subtherapeutic INR ) 2012 HHD HTN Moderate AR Moderate Mitral stenosis mean gradient 5-7 mmHg 2016 Rheumatic heart disease - Current Medication List Current Medications: Active Medications Digoxin (Lanoxin -) 0.125 mg PO Q2D [facility] Last Admin: 09/13/17 11:34 Dose: Not Given Pantoprazole Sodium 160 mg/ (Dextrose) 290 mls @ 14.5 mls/hr IVPB Q20H [facility] Last Admin: 09/13/17 22:01 Dose: 14.5 mls/hr Metoprolol Tartrate (Lopressor -) 25 mg PO DAILY [facility] Last Admin: 09/13/17 11:35 Dose: Not Given - Objective Vital Signs: Vital Signs Temperature 98.4 F 09/14/17 09:01 Pulse Rate 72 09/14/17 09:01 Respiratory Rate 20 09/14/17 09:01 Blood Pressure 126/54 09/14/17 09:01 O2 Sat by Pulse Oximetry (%) 98 09/14/17 08:46 Eyes: Yes: WNL, Conjunctiva Clear, EOM Intact HENT: Yes: WNL, Atraumatic, Normocephalic Neck: Yes: WNL, Supple, Trachea Midline Cardiovascular: Yes: WNL, Regular Rate and Rhythm Respiratory: Yes: WNL, Regular, CTA Bilaterally Gastrointestinal: Yes: WNL, Normal Bowel Sounds Genitourinary: Yes: WNL Musculoskeletal: Yes: WNL Extremities: Yes: WNL Edema: No Integumentary: Yes: WNL Neurological: Yes: WNL, Alert, Oriented ...Motor Strength: WNL Psychiatric: Yes: WNL Labs: CBC, BMP 09/14/17 07:10 09/14/17 07:10 INR, PTT INR 1.17 (0.82-1.09) H 09/14/17 07:10 Assessment/Plan A fib CVA - no residual weakness ( subtherapeutic INR ) 2012 HHD HTN Moderate AR Moderate Mitral stenosis mean gradient 5-7 mmHg 2016 Rheumatic heart disease GI bleed Recent ECHO nl EF mod MS moderate PHT Plan Patient is cleared for endoscopy from cardiac point of view. AC should be restarted MARIA ANTONIA when allowed from GI point of view - since patient is very high risk for CVA ( h/o CVA/ MS/ AF)
[2017-09-14 10:20] LABS: BASO % 0.5 % (0-2.0); EOS % 3.4 % (0-4.5); HEMATOCRIT 26.3 % (32.4-45.2); HEMOGLOBIN 8.8 GM/dL (10.7-15.3); LYMPH % 15.8 % (8-40); MCH 31.4 pg (25.7-33.7); MCHC 33.4 g/dl (32.0-36.0); MEAN PLT VOLUME 8.1 fl (7.5-11.1); MONO % 9.9 % (3.8-10.2); NEUT % 70.4 % (42.8-82.8); PLATELET COUNT 125 K/MM3 (134-434); RDW 16.1 % (11.6-15.6); WHITE BLOOD COUNT 6.4 K/mm3 (4.0-10.0)
--- NOTE | 2017-09-14 10:47 | PN ---
Progress Note, Physician History of Present Illness: pulmonary alert,no distress on nasal O2 sat 99% . pt noted to have bloody ( bright red blood) earlier. - Current Medication List Current Medications: Active Medications Digoxin (Lanoxin -) 0.125 mg PO Q2D [facility] Last Admin: 09/13/17 11:34 Dose: Not Given Pantoprazole Sodium 160 mg/ (Dextrose) 290 mls @ 14.5 mls/hr IVPB Q20H [facility] Last Admin: 09/13/17 22:01 Dose: 14.5 mls/hr Metoprolol Tartrate (Lopressor -) 25 mg PO DAILY [facility] Last Admin: 09/13/17 11:35 Dose: Not Given - Objective Vital Signs: Vital Signs Temperature 98.4 F 09/14/17 09:01 Pulse Rate 72 09/14/17 09:01 Respiratory Rate 20 09/14/17 09:01 Blood Pressure 126/54 09/14/17 09:01 O2 Sat by Pulse Oximetry (%) 98 09/14/17 08:46 Constitutional: Yes: Calm, Thin Eyes: Yes: WNL HENT: Yes: WNL Neck: Yes: WNL Cardiovascular: Yes: Pulse Irregular, S1, S2 Respiratory: Yes: Rales ( yasmin crackles) Gastrointestinal: Yes: Normal Bowel Sounds, Soft Extremities: Yes: WNL Edema: No Labs: CBC, BMP 09/14/17 10:00 09/14/17 07:10 INR, PTT INR 1.17 (0.82-1.09) H 09/14/17 07:10 - ....Imaging Chest X-ray: Report Reviewed, Image Reviewed (mild congestion increased marking bilaterally,small left pleural effusion) Problem List - Problems (1) Hypoxemia requiring supplemental oxygen Code(s): R09.02 - HYPOXEMIA; Z99.81 - DEPENDENCE ON SUPPLEMENTAL OXYGEN (2) Afib Code(s): I48.91 - UNSPECIFIED ATRIAL FIBRILLATION Qualifiers: Atrial fibrillation type: chronic Qualified Code(s): I48.2 - Chronic atrial fibrillation (3) Bladder cancer Code(s): C67.9 - MALIGNANT NEOPLASM OF BLADDER, UNSPECIFIED (4) GI bleed Code(s): K92.2 - GASTROINTESTINAL HEMORRHAGE, UNSPECIFIED Qualifiers: GI bleed type/associated pathology: unspecified gastrointestinal hemorrhage type Qualified Code(s): K92.2 - Gastrointestinal hemorrhage, unspecified (5) HTN (hypertension) Code(s): I10 - ESSENTIAL (PRIMARY) HYPERTENSION (6) Mitral valve stenosis Code(s): I05.0 - RHEUMATIC MITRAL STENOSIS (7) TIA (transient ischemic attack) Code(s): G45.9 - TRANSIENT CEREBRAL ISCHEMIC ATTACK, UNSPECIFIED (8) Acute hypoxemic respiratory failure Code(s): J96.01 - ACUTE RESPIRATORY FAILURE WITH HYPOXIA Assessment/Plan IMP ACUTE HYPOXEMIC RESPIRATORY FAILURE ETIOLOGY TO BE DETERMINED ?CHF,? CHRONIC LUNG DISEASE ?ILD,COPD GI BLEED ACTIVE AFIB MITRAL STENOSIS PULMONARY HTN RHD H/O TIA PLAN O2 CHEST CT RATE CONTROL MONITOR H+H IN VIEW OF ACTIVE GI BLEEDING THERE NO PULMONARY CONTRAINDICATION FOR GI W/U DR HEATH Problem List - Problems (1) Hypoxemia requiring supplemental oxygen Code(s): R09.02 - HYPOXEMIA; Z99.81 - DEPENDENCE ON SUPPLEMENTAL OXYGEN (2) Afib Code(s): I48.91 - UNSPECIFIED ATRIAL FIBRILLATION Qualifiers: Atrial fibrillation type: chronic Qualified Code(s): I48.2 - Chronic atrial fibrillation (3) Bladder cancer Code(s): C67.9 - MALIGNANT NEOPLASM OF BLADDER, UNSPECIFIED (4) GI bleed Code(s): K92.2 - GASTROINTESTINAL HEMORRHAGE, UNSPECIFIED Qualifiers: GI bleed type/associated pathology: unspecified gastrointestinal hemorrhage type Qualified Code(s): K92.2 - Gastrointestinal hemorrhage, unspecified (5) HTN (hypertension) Code(s): I10 - ESSENTIAL (PRIMARY) HYPERTENSION (6) Mitral valve stenosis Code(s): I05.0 - RHEUMATIC MITRAL STENOSIS (7) TIA (transient ischemic attack) Code(s): G45.9 - TRANSIENT CEREBRAL ISCHEMIC ATTACK, UNSPECIFIED (8) Acute hypoxemic respiratory failure Code(s): J96.01 - ACUTE RESPIRATORY FAILURE WITH HYPOXIA
[2017-09-14] MEDS: METOPROLOL TARTRATE 50 MG TABLET (FP) PO SCH (10:52)
--- NOTE | 2017-09-14 13:03 | PN ---
Progress Note, Physician Chief Complaint: Episode of BRBPR. History of Present Illness: RHD. Mitral stenosis. Chronic AFIB. Previously CVA/TIA. LE varicose veins. History of bladder cancer - Current Medication List Current Medications: Active Medications Digoxin (Lanoxin -) 0.125 mg PO Q2D [facility] Last Admin: 09/13/17 11:34 Dose: Not Given Pantoprazole Sodium 160 mg/ (Dextrose) 290 mls @ 14.5 mls/hr IVPB Q20H [facility] Last Admin: 09/13/17 22:01 Dose: 14.5 mls/hr Metoprolol Tartrate (Lopressor -) 25 mg PO DAILY [facility] Last Admin: 09/14/17 10:52 Dose: 25 mg - Objective Vital Signs: Vital Signs Temperature 98.4 F 09/14/17 09:01 Pulse Rate 72 09/14/17 09:01 Respiratory Rate 20 09/14/17 09:01 Blood Pressure 126/54 09/14/17 09:01 O2 Sat by Pulse Oximetry (%) 98 09/14/17 08:46 Constitutional: Yes: Anxious Eyes: Yes: Conjunctiva Clear, EOM Intact HENT: Yes: Atraumatic, Normocephalic Neck: Yes: Supple, Trachea Midline Cardiovascular: Yes: Tachycardia, Pulse Irregular (AFIB) Respiratory: Yes: Regular, Diminished (RLL), On Nasal O2, Rales (few B/B) ...Rectal Exam: Yes: Deferred Genitourinary: No: Anuria, Bladder Distention Breast(s): Yes: WNL Musculoskeletal: No: Back Pain, Joint Stiffness Extremities: Yes: WNL, Other (varicose veins) Edema: No Peripheral Pulses WNL: Yes Neurological: Yes: Alert, Oriented ...Motor Strength: WNL Psychiatric: Yes: WNL Labs: CBC, BMP 09/14/17 10:00 09/14/17 07:10 INR, PTT INR 1.17 (0.82-1.09) H 09/14/17 07:10 - ....Imaging Cat Scan: Pending (Chest/abdomen/pelvis) Problem List - Problems (1) Afib Assessment/Plan: Hold Coumadin. Continue Metoprolol and Digoxin PO. Telemetry Code(s): I48.91 - UNSPECIFIED ATRIAL FIBRILLATION Qualifiers: Atrial fibrillation type: chronic Qualified Code(s): I48.2 - Chronic atrial fibrillation (2) GI bleed Assessment/Plan: GI follow up, colonoscopy for evaluating LGI bleed CT chest/abdomen/pelvis -pending Code(s): K92.2 - GASTROINTESTINAL HEMORRHAGE, UNSPECIFIED Qualifiers: GI bleed type/associated pathology: unspecified gastrointestinal hemorrhage type Qualified Code(s): K92.2 - Gastrointestinal hemorrhage, unspecified (3) Mitral valve stenosis Code(s): I05.0 - RHEUMATIC MITRAL STENOSIS (4) TIA (transient ischemic attack) Assessment/Plan: Risk of TIA /CVA is high. Will re-start Coumadin when stable. Code(s): G45.9 - TRANSIENT CEREBRAL ISCHEMIC ATTACK, UNSPECIFIED (5) Hypoxemia requiring supplemental oxygen Assessment/Plan: B/L pleural effusion R>L related to CHF. 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 Continue NC O2, seen by pulmonology Code(s): R09.02 - HYPOXEMIA; Z99.81 - DEPENDENCE ON SUPPLEMENTAL OXYGEN (6) Coagulopathy Assessment/Plan: Related to Coumadin. Received vit K. Now with recurrent GI bleed. Will need to A/C when stable Code(s): D68.9 - COAGULATION DEFECT, UNSPECIFIED
[2017-09-14] MEDS ORDERED: PEG3350/SOD SULF,BICARB,CL/KCL 4,000 ML SOLN.RECON PO ONE (14:11)
--- NOTE | 2017-09-14 14:20 | PN ---
GI Progress Note Subjective: GI NOte: Had an episode with large amount of hematochezia this morning. CTA however reveals no active bleeding and her Hb remains relatively stable. Given this it is quite possible that she has an hemorrhoidal bleed. If these are internal hemorrhoids then a rubber band ligation would be indicated. I have therefore discussed his with Diane and extended her consent to include rubber band ligation of internal hemorhoids. Antibiotic prophylaxis will therefore be ordered. Cardiology and pulmonary consultation are greatly appreciated and have cleared the patient for both endoscopies. Will proceed with prep today and undertake procedures tomorrow so that anticoagulation can be resumed - Objective Vital Signs: Vital Signs Temperature 98.4 F 09/14/17 09:01 Pulse Rate 72 09/14/17 09:01 Respiratory Rate 20 09/14/17 09:01 Blood Pressure 126/54 09/14/17 09:01 O2 Sat by Pulse Oximetry (%) 98 09/14/17 08:46 Laboratory Tests 09/12/17 09/12/17 09/14/17 16:24 23:15 07:10 Hgb 9.1 L D 8.9 L 9.1 L 09/14/17 10:00 Hgb 8.8 L Constitutional: No Distress Cardiovascular: Yes: Pulse Irregular, Murmur (early diastolic murmur) Respiratory: Yes: CTA Bilaterally ...Auscultate: Yes: Normoactive Bowel Sounds ...Palpate: Yes: Soft, Other (nontender) Labs: CBC, BMP 09/14/17 10:00 09/14/17 07:10 INR, PTT INR 1.17 (0.82-1.09) H 09/14/17 07:10 Problem List - Problems (1) GI bleed Assessment/Plan: Given her bleeding pattern the most likely etiology is hemorrhoidal bleeding. Cardiology and pulmonary clearances appreciated. Code(s): K92.2 - GASTROINTESTINAL HEMORRHAGE, UNSPECIFIED Qualifiers: GI bleed type/associated pathology: unspecified gastrointestinal hemorrhage type Qualified Code(s): K92.2 - Gastrointestinal hemorrhage, unspecified
[2017-09-14] MEDS ORDERED: METOPROLOL TARTRATE 25 MG TABLET (FP) PO SCH (14:39)
[2017-09-14] MEDS ORDERED: BISACODYL 5 MG TABLET.DR (FP) PO ONE (20:00)
[2017-09-14] MEDS: PANTOPRAZOLE 40 MG TABLET (FP) PO SCH (21:27)
[2017-09-15] MEDS ORDERED: ceFAZolin SODIUM 1 GM VIAL ONE ×3 (06:08→22:33)
[2017-09-15] MEDS ORDERED: DEXTROSE 5%-WATER - 50 ML IVPB ONE ×3 (06:08→22:34)
[2017-09-15] MEDS: CEFAZOLIN 1 GM in DEXTROSE 5%-WATER - 50 ML IVPB SCH ×3 (06:16→22:40)
[2017-09-15 06:54] LABS: BASO % 0.5 % (0-2.0); EOS % 1.7 % (0-4.5); HEMATOCRIT 26.6 % (32.4-45.2); HEMOGLOBIN 8.9 GM/dL (10.7-15.3); LYMPH % 18.6 % (8-40); MCH 31.4 pg (25.7-33.7); MCHC 33.3 g/dl (32.0-36.0); MEAN CELL VOLUME 94.2 fl (80-96); MEAN PLT VOLUME 8.3 fl (7.5-11.1); NEUT % 68.2 % (42.8-82.8); PLATELET COUNT 136 K/MM3 (134-434); RBC 2.83 M/mm3 (3.60-5.2); RDW 16.3 % (11.6-15.6); WHITE BLOOD COUNT 6.9 K/mm3 (4.0-10.0)
[2017-09-15 07:11] LABS: INR 1.23 (0.82-1.09); PROTHROMBIN TIME (PATIENT) 13.9 SEC (9.7-13.0)
[2017-09-15 07:22] LABS: ALBUMIN 2.9 g/dl (3.4-5.0); ANION GAP 7 (8-16); BLOOD UREA NITROGEN 14 mg/dL (7-18); CALCIUM 7.9 mg/dL (8.5-10.1); CHLORIDE 108 mmol/L (98-107); CO2 27 mmol/L (21-32); CREATININE 0.8 mg/dL (0.55-1.02); GLUCOSE,RANDOM 75 mg/dL (74-106); MAGNESIUM 1.8 mg/dL (1.8-2.4); POTASSIUM 3.4 mmol/L (3.5-5.1); SGOT/AST 18 U/L (15-37); SGPT/ALT 12 U/L (12-78); SODIUM 142 mmol/L (136-145)
[2017-09-15 07:24] LABS: ALK PHOS 82 U/L (45-117); BILIRUBIN,TOTAL 1.9 mg/dL (0.2-1.0); TOT PROT 5.5 g/dl (6.4-8.2)
[2017-09-15] MEDS: PANTOPRAZOLE 40 MG TABLET (FP) PO SCH ×2 (10:05→22:40)
--- NOTE | 2017-09-15 12:18 | PN ---
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 ( subtherapeutic INR ) 2012 HHD HTN Moderate AR Moderate Mitral stenosis mean gradient 5-7 mmHg 2017 Rheumatic heart disease - Current Medication List Current Medications: Active Medications Digoxin (Lanoxin -) 0.125 mg PO Q2D [facility] Last Admin: 09/13/17 11:34 Dose: Not Given Cefazolin Sodium 1 gm/ (Dextrose) 50 mls @ 100 mls/hr IVPB BID [facility] Stop: 09/18/17 23:00 Last Admin: 09/15/17 06:16 Dose: 100 mls/hr Metoprolol Tartrate (Lopressor -) 25 mg PO DAILY [facility] Pantoprazole Sodium (Protonix -) 40 mg PO BID [facility] Last Admin: 09/14/17 21:27 Dose: 40 mg - Objective Vital Signs: Vital Signs Temperature 98.3 F 09/15/17 06:00 Pulse Rate 93 H 09/15/17 06:00 Respiratory Rate 17 09/15/17 06:00 Blood Pressure 102/50 09/15/17 06:00 O2 Sat by Pulse Oximetry (%) 96 09/14/17 21:00 Eyes: Yes: WNL, Conjunctiva Clear, EOM Intact HENT: Yes: WNL, Atraumatic, Normocephalic Neck: Yes: WNL, Supple, Trachea Midline Cardiovascular: Yes: Pulse Irregular, S1, S2 Respiratory: Yes: WNL, Regular, CTA Bilaterally Gastrointestinal: Yes: WNL, Normal Bowel Sounds Genitourinary: Yes: WNL Musculoskeletal: Yes: WNL Extremities: Yes: WNL Edema: No Integumentary: Yes: WNL Neurological: Yes: WNL, Alert, Oriented ...Motor Strength: WNL Psychiatric: Yes: WNL Labs: CBC, BMP 09/15/17 06:25 09/15/17 06:25 INR, PTT INR 1.23 (0.82-1.09) H 09/15/17 06:25 Assessment/Plan A fib CVA - no residual weakness ( subtherapeutic INR ) 2012 HHD HTN Moderate AR Moderate Mitral stenosis mean gradient 5-7 mmHg 2017 Rheumatic heart disease GI bleed Recent ECHO nl EF mod MS moderate PHT Plan Patient is cleared for endoscopy from cardiac point of view. AC should be restarted MARIA ANTONIA when allowed from GI point of view - since patient is very high risk for CVA ( h/o CVA/ MS/ AF)
[2017-09-15] MEDS ORDERED: LIDOCAINE HCL/PF 1% SDV 5ML VIAL ONE (12:34)
[2017-09-15] MEDS ORDERED: PROPOFOL 20 ML ONE (12:34)
[2017-09-15] MEDS ORDERED: ESMOLOL HCL 100,000 MCG/10 ML VIAL ONE (12:38)
--- NOTE | 2017-09-15 14:25 | PN ---
Progress Note, Physician Chief Complaint: Patient was seen after EGD/Colonoscopy, discussed with Dr. 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 Spoke to Jackie, explained high risk of CVA, hemiplegia etc and . Unfortunately Comadin has to be held as per GI x 2 weeks as per GI. Will re-start MARIA ANTONIA History of Present Illness: RHD. Mitral stenosis. Chronic AFIB. Previously CVA/TIA. LE varicose veins. History of bladder cancer - Current Medication List Current Medications: Active Medications Digoxin (Lanoxin -) 0.125 mg PO Q2D [facility] Last Admin: 09/13/17 11:34 Dose: Not Given Cefazolin Sodium 1 gm/ (Dextrose) 50 mls @ 100 mls/hr IVPB BID [facility] Stop: 09/18/17 23:00 Last Admin: 09/15/17 06:16 Dose: 100 mls/hr Metoprolol Tartrate (Lopressor -) 25 mg PO DAILY [facility] Pantoprazole Sodium (Protonix -) 40 mg PO BID [facility] Last Admin: 09/14/17 21:27 Dose: 40 mg - Objective Vital Signs: Vital Signs Temperature 97.7 F 09/15/17 13:52 Pulse Rate 82 09/15/17 13:52 Respiratory Rate 18 09/15/17 13:52 Blood Pressure 106/47 09/15/17 13:52 O2 Sat by Pulse Oximetry (%) 97 09/15/17 13:52 Constitutional: Yes: Calm, Cachectic, Pallor, Thin Eyes: Yes: Conjunctiva Clear, EOM Intact HENT: Yes: Atraumatic, Normocephalic Neck: Yes: Supple, Trachea Midline Cardiovascular: Yes: Tachycardia, Murmur (systolic, diastolic), S1, S2 Respiratory: Yes: Regular, CTA Bilaterally Gastrointestinal: Yes: Normal Bowel Sounds, Soft. No: Abdomen, Obese, Ascites ...Rectal Exam: Yes: Deferred Genitourinary: No: Anuria, Bladder Distention, CVA Tenderness - Left, CVA Tenderness - Right Extremities: Yes: Other (varicose veins) Peripheral Pulses WNL: No Neurological: Yes: Alert. No: Aphasia, Pre-Existing Deficit, Seizure ...Motor Strength: WNL Psychiatric: Yes: WNL Labs: CBC, BMP 09/15/17 06:25 09/15/17 06:25 INR, PTT INR 1.23 (0.82-1.09) H 09/15/17 06:25 Problem List - Problems (1) Afib Assessment/Plan: Hold Coumadin. Continue Metoprolol and Digoxin PO. Telemetry Code(s): I48.91 - UNSPECIFIED ATRIAL FIBRILLATION Qualifiers: Atrial fibrillation type: chronic Qualified Code(s): I48.2 - Chronic atrial fibrillation (2) GI bleed Assessment/Plan: AVOID A/C x2 weeks GI F/U Code(s): K92.2 - GASTROINTESTINAL HEMORRHAGE, UNSPECIFIED Qualifiers: GI bleed type/associated pathology: unspecified gastrointestinal hemorrhage type Qualified Code(s): K92.2 - Gastrointestinal hemorrhage, unspecified (3) Mitral valve stenosis Assessment/Plan: Not on A/C Rate control Code(s): I05.0 - RHEUMATIC MITRAL STENOSIS (4) Hypoxemia requiring supplemental oxygen Assessment/Plan: B/L pleural effusion R>L related to CHF. 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 Continue NC O2, seen by pulmonology Code(s): R09.02 - HYPOXEMIA; Z99.81 - DEPENDENCE ON SUPPLEMENTAL OXYGEN (5) Coagulopathy Assessment/Plan: Related to Coumadin. Received vit K. Now with recurrent GI bleed. Will need to A/C when stable Code(s): D68.9 - COAGULATION DEFECT, UNSPECIFIED
--- NOTE | 2017-09-15 14:26 | PN ---
Progress Note (short form) - Note Progress Note: GI Procedures NOte: Please see EGD and colonoscopy reports. No UGI bleeding. The colonoscopy was extremely difficult due to a redundant weak walled colon that was prone to looping. The greatest amount of blood was found in the cecum but was collecting there from two bleeding hepatic flexure angiodypslasias which were ablated using APC. The findings were discussed with Dr Beltre, the patient and her daughter , Jackie. Given the APC ulcers, no anticoagulation should be given for 10 days. The CVA risk was discussed with the patient and her daughter. Problem List - Problems (1) GI bleed Code(s): K92.2 - GASTROINTESTINAL HEMORRHAGE, UNSPECIFIED Qualifiers: Qualified Code(s): K92.2 - Gastrointestinal hemorrhage, unspecified
[2017-09-15] MEDS: METOPROLOL TARTRATE 25 MG TABLET (FP) PO SCH ×2 (15:26→22:40)
[2017-09-15] MEDS: DIGOXIN 0.125 MG TABLET (FP) PO SCH (15:27)
[2017-09-16 06:56] LABS: HEMOGLOBIN 9.1 GM/dL (10.7-15.3); MCH 31.5 pg (25.7-33.7); MCHC 33.5 g/dl (32.0-36.0); MEAN CELL VOLUME 93.9 fl (80-96); MEAN PLT VOLUME 8.3 fl (7.5-11.1); PLATELET COUNT 138 K/MM3 (134-434); RBC 2.88 M/mm3 (3.60-5.2); RDW 16.2 % (11.6-15.6); WHITE BLOOD COUNT 7.4 K/mm3 (4.0-10.0)
[2017-09-16 07:11] LABS: ANION GAP 8 (8-16); BLOOD UREA NITROGEN 13 mg/dL (7-18); CALCIUM 8.2 mg/dL (8.5-10.1); CHLORIDE 107 mmol/L (98-107); CO2 27 mmol/L (21-32); CREATININE 0.8 mg/dL (0.55-1.02); GLUCOSE,RANDOM 70 mg/dL (74-106); POTASSIUM 3.7 mmol/L (3.5-5.1); SODIUM 142 mmol/L (136-145)
[2017-09-16 07:24] LABS: INR 1.19 (0.82-1.09); PROTHROMBIN TIME (PATIENT) 13.4 SEC (9.7-13.0)
--- NOTE | 2017-09-16 07:52 | PN ---
Progress Note, Physician Chief Complaint: No bleeding last night, today comfortable, no pain History of Present Illness: RHD. Mitral stenosis. Chronic AFIB. Previously CVA/TIA. LE varicose veins. History of bladder cancer - Current Medication List Current Medications: Active Medications Digoxin (Lanoxin -) 0.125 mg PO Q2D [facility] Last Admin: 09/15/17 15:27 Dose: 0.125 mg Cefazolin Sodium 1 gm/ (Dextrose) 50 mls @ 100 mls/hr IVPB BID [facility] Stop: 09/18/17 23:00 Last Admin: 09/15/17 22:40 Dose: 100 mls/hr Metoprolol Tartrate (Lopressor -) 25 mg PO BID [facility] Last Admin: 09/15/17 22:40 Dose: 25 mg Pantoprazole Sodium (Protonix -) 40 mg PO BID [facility] Last Admin: 09/15/17 22:40 Dose: 40 mg - Objective Vital Signs: Vital Signs Temperature 97.6 F 09/16/17 05:00 Pulse Rate 67 09/16/17 05:00 Respiratory Rate 17 09/16/17 05:00 Blood Pressure 124/47 09/16/17 05:00 O2 Sat by Pulse Oximetry (%) 96 09/15/17 21:00 Constitutional: Yes: No Distress, Anxious, Mild Distress, Pallor, Thin Eyes: Yes: Conjunctiva Clear, EOM Intact HENT: Yes: Atraumatic Neck: Yes: Supple, Trachea Midline. No: Lymphadenopathy Cardiovascular: Yes: Pulse Irregular (AFIB with controlled VR), S1, S2 Respiratory: Yes: Regular, CTA Bilaterally Gastrointestinal: Yes: Normal Bowel Sounds, Soft. No: Abdomen, Obese, Ascites ...Rectal Exam: Yes: Deferred Genitourinary: No: Anuria Breast(s): Yes: WNL Extremities: Yes: WNL, Other (Vaeicose veins). No: Amputation, Calf Tenderness , Cyanosis Edema: No Peripheral Pulses WNL: No Neurological: Yes: Alert, Oriented, Cran Nerves II-XII Intact. No: Aphasia, Asterixis, Ataxia, Dysarthria, Facial Droop, Lethargy, Loss of Sensation, Numbness, Pre-Existing Deficit, Seizure, Tremors, Unresponsive ...Motor Strength: WNL Psychiatric: Yes: WNL Labs: CBC, BMP 09/16/17 06:20 09/16/17 06:20 INR, PTT INR 1.19 (0.82-1.09) H 09/16/17 06:20 Problem List - Problems (1) Afib Assessment/Plan: D/C for 10 days Coumadin. Continue Metoprolol and Digoxin PO. Telemetry Code(s): I48.91 - UNSPECIFIED ATRIAL FIBRILLATION Qualifiers: Atrial fibrillation type: chronic Qualified Code(s): I48.2 - Chronic atrial fibrillation (2) GI bleed Assessment/Plan: AVOID A/C x10 days GI F/U observe for recurrent bleeding Code(s): K92.2 - GASTROINTESTINAL HEMORRHAGE, UNSPECIFIED Qualifiers: GI bleed type/associated pathology: unspecified gastrointestinal hemorrhage type Qualified Code(s): K92.2 - Gastrointestinal hemorrhage, unspecified (3) Mitral valve stenosis Assessment/Plan: Not on A/C Rate control Code(s): I05.0 - RHEUMATIC MITRAL STENOSIS (4) Hypoxemia requiring supplemental oxygen Assessment/Plan: B/L pleural effusion R>L related to CHF. 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 Continue NC O2, seen by pulmonology Code(s): R09.02 - HYPOXEMIA; Z99.81 - DEPENDENCE ON SUPPLEMENTAL OXYGEN (5) Coagulopathy Assessment/Plan: Related to Coumadin. Received vit K. Now with recurrent GI bleed. Will need to A/C when stable Code(s): D68.9 - COAGULATION DEFECT, UNSPECIFIED
[2017-09-16] MEDS ORDERED: ceFAZolin SODIUM 1 GM VIAL ONE ×2 (08:10→22:13)
[2017-09-16] MEDS ORDERED: DEXTROSE 5%-WATER - 50 ML IVPB ONE ×2 (08:11→22:13)
[2017-09-16] MEDS: CEFAZOLIN 1 GM in DEXTROSE 5%-WATER - 50 ML IVPB SCH ×2 (09:16→22:17)
[2017-09-16] MEDS: METOPROLOL TARTRATE 25 MG TABLET (FP) PO SCH ×2 (09:16→22:17)
[2017-09-16] MEDS: PANTOPRAZOLE 40 MG TABLET (FP) PO SCH ×2 (09:16→22:17)
--- NOTE | 2017-09-16 09:57 | PN ---
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 ( subtherapeutic INR ) 2012 HHD HTN Moderate AR Moderate Mitral stenosis mean gradient 5-7 mmHg 2016 Rheumatic heart disease - Current Medication List Current Medications: Active Medications Digoxin (Lanoxin -) 0.125 mg PO Q2D [facility] Last Admin: 09/15/17 15:27 Dose: 0.125 mg Cefazolin Sodium 1 gm/ (Dextrose) 50 mls @ 100 mls/hr IVPB BID [facility] Stop: 09/18/17 23:00 Last Admin: 09/16/17 09:16 Dose: 100 mls/hr Metoprolol Tartrate (Lopressor -) 25 mg PO BID [facility] Last Admin: 09/16/17 09:16 Dose: 25 mg Pantoprazole Sodium (Protonix -) 40 mg PO BID [facility] Last Admin: 09/16/17 09:16 Dose: 40 mg - Objective Vital Signs: Vital Signs Temperature 97.6 F 09/16/17 05:00 Pulse Rate 67 09/16/17 05:00 Respiratory Rate 17 09/16/17 05:00 Blood Pressure 124/47 09/16/17 05:00 O2 Sat by Pulse Oximetry (%) 96 09/15/17 21:00 Eyes: Yes: WNL, Conjunctiva Clear, EOM Intact HENT: Yes: WNL, Atraumatic, Normocephalic Neck: Yes: WNL, Supple, Trachea Midline Cardiovascular: Yes: Pulse Irregular, S1, S2 Respiratory: Yes: WNL, Regular, CTA Bilaterally Gastrointestinal: Yes: WNL, Normal Bowel Sounds Genitourinary: Yes: WNL Musculoskeletal: Yes: WNL Extremities: Yes: WNL Edema: No Integumentary: Yes: WNL Neurological: Yes: WNL, Alert, Oriented ...Motor Strength: WNL Psychiatric: Yes: WNL Labs: CBC, BMP 09/16/17 06:20 09/16/17 06:20 INR, PTT INR 1.19 (0.82-1.09) H 09/16/17 06:20 Assessment/Plan A fib CVA - no residual weakness ( subtherapeutic INR ) 2012 HHD HTN Moderate AR Moderate Mitral stenosis mean gradient 5-7 mmHg 2016 Rheumatic heart disease LGI bleed Recent ECHO nl EF mod MS moderate PHT Plan GI note appreciated -two bleeding hepatic flexure angiodypslasias which were ablated using APC 10 days of AC as per GI recommendation due to high risks of bleeding patient is very high risk for CVA ( h/o CVA/ MS/ AF) d/c telemetry
--- NOTE | 2017-09-16 12:10 | PN ---
Progress Note (short form) - Note Progress Note: PULMONARY Denies shortness of breath or chest pain. No fevers recorded. Last Vital Signs Temp Pulse Resp BP Pulse Ox 97.6 F 67 17 124/47 96 09/16/17 05:00 09/16/17 05:00 09/16/17 05:00 09/16/17 05:00 09/15/17 21:00 Intake & Output 09/13/17 09/14/17 09/15/17 09/16/17 23:59 23:59 23:59 23:59 Intake Total 338 1062 1880 140 Balance 338 1062 1880 140 Gen: NAD lying supine Heart: RRR, +systolic murmur Lung: decreased breath sounds at the bases Abd: soft, nontender Ext: no edema CBC, BMP 09/16/17 06:20 09/16/17 06:20 Active Medications Digoxin (Lanoxin -) 0.125 mg PO Q2D [facility] Last Admin: 09/15/17 15:27 Dose: 0.125 mg Cefazolin Sodium 1 gm/ (Dextrose) 50 mls @ 100 mls/hr IVPB BID [facility] Stop: 09/18/17 23:00 Last Admin: 09/16/17 09:16 Dose: 100 mls/hr Metoprolol Tartrate (Lopressor -) 25 mg PO BID [facility] Last Admin: 09/16/17 09:16 Dose: 25 mg Pantoprazole Sodium (Protonix -) 40 mg PO BID [facility] Last Admin: 09/16/17 09:16 Dose: 40 mg A/P GI Bleed/Angiodysplasia s/p APC Acute on Chronic Diastolic Heart Failure Atrial Fibrillation Mitral Stenosis Interstitial Lung Disease Pulmonary HTN Pleural Effusions h/o TIA - rate controlled - holding anticoagulation, resume when ok with GI - consider diuresis with lasix - monitor urine output, creatinine - DVT prophylaxis
[2017-09-16 14:33] LABS: RETICULOCYTES 2.49 % (0.5-1.5)
[2017-09-17] MEDS: PANTOPRAZOLE 40 MG TABLET (FP) PO SCH ×2 (09:36→21:09)
[2017-09-17] MEDS: DIGOXIN 0.125 MG TABLET (FP) PO SCH (09:36)
[2017-09-17] MEDS: METOPROLOL TARTRATE 25 MG TABLET (FP) PO SCH ×2 (09:36→21:09)
--- NOTE | 2017-09-17 09:42 | PN ---
Progress Note, Physician Chief Complaint: Tolerates clear liquids, no Bleed History of Present Illness: RHD. Mitral stenosis. Chronic AFIB. Previously CVA/TIA. LE varicose veins. History of bladder cancer - Current Medication List Current Medications: Active Medications Digoxin (Lanoxin -) 0.125 mg PO Q2D [facility] Last Admin: 09/17/17 09:36 Dose: 0.125 mg Metoprolol Tartrate (Lopressor -) 25 mg PO BID [facility] Last Admin: 09/17/17 09:36 Dose: 25 mg Pantoprazole Sodium (Protonix -) 40 mg PO BID [facility] Last Admin: 09/17/17 09:36 Dose: 40 mg - Objective Vital Signs: Vital Signs Temperature 98.8 F 09/17/17 05:00 Pulse Rate 77 09/17/17 09:36 Respiratory Rate 20 09/17/17 05:00 Blood Pressure 130/72 09/17/17 05:00 O2 Sat by Pulse Oximetry (%) 98 09/16/17 21:00 Constitutional: Yes: Anxious, Mild Distress, Pallor, Thin Eyes: Yes: Conjunctiva Clear, EOM Intact HENT: Yes: Atraumatic, Normocephalic Neck: Yes: Supple, Trachea Midline Cardiovascular: Yes: Pulse Irregular, Murmur (diast with OS of MS and decresceno LSB of AI), S1, S2 Respiratory: Yes: Regular, On Nasal O2. No: Dullness Gastrointestinal: Yes: Normal Bowel Sounds, Soft. No: Ascites ...Rectal Exam: Yes: Deferred Genitourinary: No: Anuria Musculoskeletal: Yes: Back Pain Extremities: Yes: Other. No: Cold, Cyanosis (varicose veins) Integumentary: Yes: WNL Neurological: Yes: WNL ...Motor Strength: WNL Psychiatric: Yes: WNL Labs: CBC, BMP 09/16/17 06:20 09/16/17 06:20 INR, PTT INR 1.19 (0.82-1.09) H 09/16/17 06:20 Problem List - Problems (1) Afib Assessment/Plan: D/C for 10 days Coumadin. Continue Metoprolol and Digoxin PO. Telemetry Code(s): I48.91 - UNSPECIFIED ATRIAL FIBRILLATION Qualifiers: Atrial fibrillation type: chronic Qualified Code(s): I48.2 - Chronic atrial fibrillation (2) GI bleed Assessment/Plan: AVOID A/C x10 days GI F/U observe for recurrent bleeding Advance diet Code(s): K92.2 - GASTROINTESTINAL HEMORRHAGE, UNSPECIFIED Qualifiers: GI bleed type/associated pathology: unspecified gastrointestinal hemorrhage type Qualified Code(s): K92.2 - Gastrointestinal hemorrhage, unspecified (3) Mitral valve stenosis Code(s): I05.0 - RHEUMATIC MITRAL STENOSIS (4) Hypoxemia requiring supplemental oxygen Assessment/Plan: B/L pleural effusion R>L related to CHF. 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 ILD as pulmonology?- will order pre and post ex pulse ox Code(s): R09.02 - HYPOXEMIA; Z99.81 - DEPENDENCE ON SUPPLEMENTAL OXYGEN (5) Coagulopathy Assessment/Plan: Related to Coumadin. Received vit K. Now with recurrent GI bleed. Will need to A/C when stable Code(s): D68.9 - COAGULATION DEFECT, UNSPECIFIED
--- NOTE | 2017-09-17 09:44 | DS ---
Physical Examination Vital Signs: Vital Signs Temperature 98.8 F 09/17/17 05:00 Pulse Rate 77 09/17/17 09:36 Respiratory Rate 20 09/17/17 05:00 Blood Pressure 130/72 09/17/17 05:00 O2 Sat by Pulse Oximetry (%) 98 09/16/17 21:00 Constitutional: Yes: Anxious, Mild Distress Eyes: Yes: Conjunctiva Clear, EOM Intact HENT: Yes: Atraumatic, Normocephalic Neck: Yes: Supple, Trachea Midline Cardiovascular: Yes: Tachycardia, Pulse Irregular, Murmur Respiratory: Yes: Regular, CTA Bilaterally Gastrointestinal: Yes: Soft. No: Abdomen, Obese, Palpable Mass ...Rectal Exam: Yes: Deferred Extremities: No: Amputation, Calf Tenderness Edema: No Integumentary: Yes: WNL Neurological: Yes: WNL ...Motor Strength: WNL Psychiatric: Yes: WNL Labs: CBC, BMP 09/16/17 06:20 09/16/17 06:20 Discharge Summary Reason For Visit: GASTROINTESTINAL HEMORRHAGE Current Active Problems Acute hypoxemic respiratory failure (Acute) Coagulopathy (Acute) Hypoxemia requiring supplemental oxygen (Acute) Condition: Fair - Instructions Referrals: Paul Beltre MD [Primary Care Provider] - Disposition: VNS/HOME HEALTH CARE - Home Medications Comprehensive Discharge Medication List: Ambulatory Orders Metoprolol Tartrate [Lopressor -] 25 mg PO DAILY #0 04/17/13 Warfarin Sodium [Coumadin] 3 mg PO DAILY #0 04/17/13 Digoxin [Lanoxin -] 0.125 mg PO Q48H 09/12/17
--- NOTE | 2017-09-17 11:00 | PN ---
Progress Note, Physician History of Present Illness: pulmonary alert,nad,-sob,-cp.pt does not qualify for home o2 - Current Medication List Current Medications: Active Medications Digoxin (Lanoxin -) 0.125 mg PO Q2D [facility] Last Admin: 09/17/17 09:36 Dose: 0.125 mg Metoprolol Tartrate (Lopressor -) 25 mg PO BID [facility] Last Admin: 09/17/17 09:36 Dose: 25 mg Pantoprazole Sodium (Protonix -) 40 mg PO BID [facility] Last Admin: 09/17/17 09:36 Dose: 40 mg - Objective Vital Signs: Vital Signs Temperature 98.8 F 09/17/17 05:00 Pulse Rate 77 09/17/17 10:22 Respiratory Rate 20 09/17/17 05:00 Blood Pressure 130/72 09/17/17 05:00 O2 Sat by Pulse Oximetry (%) 97 09/17/17 10:22 Constitutional: Yes: Well Nourished, Calm Eyes: Yes: WNL HENT: Yes: WNL Neck: Yes: WNL Cardiovascular: Yes: Pulse Irregular, S1, S2 Respiratory: Yes: CTA Bilaterally Gastrointestinal: Yes: Normal Bowel Sounds, Soft Extremities: Yes: WNL Edema: No Labs: Problem List - Problems (1) Hypoxemia requiring supplemental oxygen Code(s): R09.02 - HYPOXEMIA; Z99.81 - DEPENDENCE ON SUPPLEMENTAL OXYGEN (2) Afib Code(s): I48.91 - UNSPECIFIED ATRIAL FIBRILLATION Qualifiers: Atrial fibrillation type: chronic Qualified Code(s): I48.2 - Chronic atrial fibrillation (3) Bladder cancer Code(s): C67.9 - MALIGNANT NEOPLASM OF BLADDER, UNSPECIFIED (4) GI bleed Code(s): K92.2 - GASTROINTESTINAL HEMORRHAGE, UNSPECIFIED Qualifiers: GI bleed type/associated pathology: unspecified gastrointestinal hemorrhage type Qualified Code(s): K92.2 - Gastrointestinal hemorrhage, unspecified (5) HTN (hypertension) Code(s): I10 - ESSENTIAL (PRIMARY) HYPERTENSION (6) Mitral valve stenosis Code(s): I05.0 - RHEUMATIC MITRAL STENOSIS (7) TIA (transient ischemic attack) Code(s): G45.9 - TRANSIENT CEREBRAL ISCHEMIC ATTACK, UNSPECIFIED (8) Acute hypoxemic respiratory failure Code(s): J96.01 - ACUTE RESPIRATORY FAILURE WITH HYPOXIA Assessment/Plan A/P GI Bleed/Angiodysplasia s/p APC Acute on Chronic Diastolic Heart Failure Atrial Fibrillation Mitral Stenosis Interstitial Lung Disease Pulmonary HTN Pleural Effusions h/o TIA - rate controlled - anticoagulation, resume when ok with GI - DVT prophylaxis DR HEATH
[2017-09-17 12:53] LABS: BASO % 0.4 % (0-2.0); HEMATOCRIT 28.6 % (32.4-45.2); HEMOGLOBIN 9.5 GM/dL (10.7-15.3); LYMPH % 13.8 % (8-40); MCH 31.5 pg (25.7-33.7); MCHC 33.3 g/dl (32.0-36.0); MEAN CELL VOLUME 94.4 fl (80-96); MEAN PLT VOLUME 7.4 fl (7.5-11.1); MONO % 9.8 % (3.8-10.2); PLATELET COUNT 162 K/MM3 (134-434); RBC 3.03 M/mm3 (3.60-5.2); WHITE BLOOD COUNT 7.4 K/mm3 (4.0-10.0)
--- NOTE | 2017-09-17 13:08 | PN ---
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 ( subtherapeutic INR ) 2012 HHD HTN Moderate AR Moderate Mitral stenosis mean gradient 5-7 mmHg 2016 Rheumatic heart disease - Current Medication List Current Medications: Active Medications Digoxin (Lanoxin -) 0.125 mg PO Q2D [facility] Last Admin: 09/17/17 09:36 Dose: 0.125 mg Metoprolol Tartrate (Lopressor -) 25 mg PO BID [facility] Last Admin: 09/17/17 09:36 Dose: 25 mg Pantoprazole Sodium (Protonix -) 40 mg PO BID [facility] Last Admin: 09/17/17 09:36 Dose: 40 mg - Objective Vital Signs: Vital Signs Temperature 98.1 F 09/17/17 09:00 Pulse Rate 77 09/17/17 10:22 Respiratory Rate 18 09/17/17 09:00 Blood Pressure 130/45 09/17/17 09:00 O2 Sat by Pulse Oximetry (%) 97 09/17/17 10:22 Eyes: Yes: WNL, Conjunctiva Clear, EOM Intact HENT: Yes: WNL, Atraumatic, Normocephalic Neck: Yes: WNL, Supple, Trachea Midline Cardiovascular: Yes: Pulse Irregular, S1, S2 Respiratory: Yes: WNL, Regular, CTA Bilaterally Gastrointestinal: Yes: WNL, Normal Bowel Sounds Genitourinary: Yes: WNL Musculoskeletal: Yes: WNL Extremities: Yes: WNL Edema: No Integumentary: Yes: WNL Neurological: Yes: WNL, Alert, Oriented ...Motor Strength: WNL Psychiatric: Yes: WNL Labs: CBC, BMP 09/16/17 06:20 INR, PTT INR 1.19 (0.82-1.09) H 09/16/17 06:20 Assessment/Plan A fib CVA - no residual weakness ( subtherapeutic INR ) 2012 HHD HTN Moderate AR Moderate Mitral stenosis mean gradient 5-7 mmHg 2016 Rheumatic heart disease LGI bleed Recent ECHO nl EF mod MS moderate PHT Plan GI note appreciated -two bleeding hepatic flexure angiodypslasias which were ablated using APC 10 days of AC as per GI recommendation due to high risks of bleeding patient is very high risk for CVA ( h/o CVA/ MS/ AF) will f/u as the outpatient
--- NOTE | 2017-09-17 15:38 | PN ---
GI Progress Note Subjective: Gi NOte: No bleeding since the cauterization. Fortunately no pain. Tolerating solids. - Objective Vital Signs: Vital Signs Temperature 98.5 F 09/17/17 14:00 Pulse Rate 79 09/17/17 14:00 Respiratory Rate 20 09/17/17 14:00 Blood Pressure 113/45 09/17/17 14:00 O2 Sat by Pulse Oximetry (%) 97 09/17/17 10:22 Laboratory Tests 09/16/17 09/17/17 06:20 12:40 Hgb 9.1 L 9.5 L Constitutional: No Distress ...Auscultate: Yes: Normoactive Bowel Sounds ...Palpate: Yes: Soft, Other (nontender) Labs: CBC, BMP 09/17/17 12:40 09/16/17 06:20 INR, PTT INR 1.19 (0.82-1.09) H 09/16/17 06:20 Assessment/Plan Resolved angiodysplasia bleed. No GI objections to discharge. Refrain from A/C until 10 days pass following the procedure Problem List - Problems (1) GI bleed Code(s): K92.2 - GASTROINTESTINAL HEMORRHAGE, UNSPECIFIED Qualifiers: GI bleed type/associated pathology: unspecified gastrointestinal hemorrhage type Qualified Code(s): K92.2 - Gastrointestinal hemorrhage, unspecified
[2017-09-18 08:04] LABS: BASO % 0.4 % (0-2.0); EOS % 1.6 % (0-4.5); HEMATOCRIT 25.5 % (32.4-45.2); HEMOGLOBIN 8.7 GM/dL (10.7-15.3); MCH 31.8 pg (25.7-33.7); MEAN CELL VOLUME 93.3 fl (80-96); MEAN PLT VOLUME 7.9 fl (7.5-11.1); MONO % 13.5 % (3.8-10.2); NEUT % 68.5 % (42.8-82.8); PLATELET COUNT 138 K/MM3 (134-434); RBC 2.73 M/mm3 (3.60-5.2); RDW 15.7 % (11.6-15.6); WHITE BLOOD COUNT 7.7 K/mm3 (4.0-10.0)
[2017-09-18] MEDS: METOPROLOL TARTRATE 25 MG TABLET (FP) PO SCH (09:59)
[2017-09-18] MEDS: PANTOPRAZOLE 40 MG TABLET (FP) PO SCH (09:59)
--- NOTE | 2017-09-18 11:10 | PN ---
Progress Note (short form) - Note Progress Note: PULMONARY Denies shortness of breath or chest pain. Last Vital Signs Temp Pulse Resp BP Pulse Ox 98.9 F 89 18 107/52 100 09/18/17 09:58 09/18/17 09:58 09/18/17 09:58 09/18/17 09:58 09/18/17 09:55 Gen: NAD lying supine Heart: RRR, +systolic murmur Lung: decreased breath sounds at the bases Abd: soft, nontender Ext: no edema CBC, BMP 09/18/17 07:27 09/16/17 06:20 Active Medications Digoxin (Lanoxin -) 0.125 mg PO Q2D [facility] Last Admin: 09/17/17 09:36 Dose: 0.125 mg Metoprolol Tartrate (Lopressor -) 25 mg PO BID [facility] Last Admin: 09/18/17 09:59 Dose: 25 mg Pantoprazole Sodium (Protonix -) 40 mg PO BID [facility] Last Admin: 09/18/17 09:59 Dose: 40 mg A/P GI Bleed/Angiodysplasia s/p APC Acute on Chronic Diastolic Heart Failure Atrial Fibrillation Mitral Stenosis Interstitial Lung Disease Pulmonary HTN Pleural Effusions h/o TIA - rate controlled - holding anticoagulation, resume when ok with GI - DVT prophylaxis - d/c planning
[2017-09-18 18:20] VITALS: BP 108/50; PULSE 88; TEMP 99.3
== END 2017-09-18 21:29 | disposition home health service (06) | DRG 813 ==
LOC: JER 14:55 → JERBED 18:58 → JER 19:54 → J4W 22:19
PROVIDERS: ADMIT Internal Medicine; ATTEND Nurse Practitioner Acute Care
PROC: 0D5L8ZZ Destruction of Transverse Colon, Via Natural or Artificial Opening Endoscopic (ICD-10-PCS; principal; 2017-09-15 11:00)
DX: D68.32 Hemorrhagic disorder due to extrinsic circulating anticoagulants (principal); K55.21 Angiodysplasia of colon with hemorrhage; I50.33 Acute on chronic diastolic (congestive) heart failure; J96.01 Acute respiratory failure with hypoxia; J84.9 Interstitial pulmonary disease, unspecified; I05.0 Rheumatic mitral stenosis; I11.0 Hypertensive heart disease with heart failure; I27.20 Pulmonary hypertension, unspecified; R53.1 Weakness
CPT/HCPCS: 36415; 36600; 71045-TC-FY; 71260-TC; 74174-TC; 80048; 80053; 80162; 82272; 82803; 83605; 83735; 83880; 84100; 85025; 85027; 85044; 85610; 85730; 86140; 86850; 86900; 86901; 93005; 93010; 93306-TC; 94761; 99285-25

== ENCOUNTER 2017-09-24 14:12 | Inpatient (IN) | payer OTHER ==
--- NOTE | 2017-09-24 14:39 | PDOC ---
History of Present Illness - General History Source: Patient, Family Exam Limitations: No Limitations - History of Present Illness Initial Comments: 09/24/17 15:27 The patient is a 87 year old female, [place]er speaking, accompanied by son, with a significant past medical history of AFib(on Coumadin), mitral valve stenosis, CVA (some residual balance issues), hyperlipidemia, and hypertension, who presents to the emergency department with right arm pain and numbness since earlier today. The patient reports she first noted an achy pain at her elbow and wrist approximately 2 hours ago, which lasted about an hour, with associated numbness and weakness. Patient reports her pain has resolved, but her numbness and weakness persists in her right arm. She reports when her symptoms first started she felt diaphoretic, weak, and dizzy, but denies any head trauma, headache,lightheadedness, changes in vision, neck or back pain, changes in speech, or changes in gait. Patient reports her symptoms are different than when she had her CVA. She denies any chest pain, shortness of breath, diaphoresis, or palpitations. She denies any fever or chills. She denies any abdominal pain, nausea, vomiting, diarrhea,constipation, melena, or hematochezia. Patient reports she has not been on Coumadin for approximately 1.5 weeks due to recent history of GI bleed. She denies any recent travel or sick contacts. Allergies: NKDA Past Surgical History: Cholecystectomy Social History: Non smoker. No ETOH or recreational drug use. PCP: Dr. Beltre Food Preparation Kitchen Aide: Dr. Cho GI: Dr. Lockwood <Ada Morales - Last Filed: 09/24/17 16:53> <Nessa Spears - Last Filed: 09/24/17 19:41> - General History Source: Patient, Family Exam Limitations: No Limitations <Linda Wylie - Last Filed: 09/25/17 21:02> - General Chief Complaint: Weakness Stated Complaint: WEAKNESS Time Seen by Provider: 09/24/17 14:32 Past History <Ada Morales - Last Filed: 09/24/17 16:53> <Nessa Spears - Last Filed: 09/24/17 19:41> - Past Medical History Anemia: No Asthma: No Cardiac Disorders: Yes (MITRAL VALVE STENOSIS, afib) CVA: Yes COPD: No Dementia: Yes GI Disorders: Yes (H Pylori) HTN: Yes - Surgical History Cholecystectomy: Yes - Immunization History Td Vaccination: No Immunization Up to Date: No - Suicide/Smoking/Psychosocial Hx Smoking History: Never smoked Have you smoked in the past 12 months: No Hx Alcohol Use: No Drug/Substance Use Hx: No Substance Use Type: None <Linda Wylie - Last Filed: 09/25/17 21:02> - Past Medical History Allergies/Adverse Reactions: Allergies Allergy/AdvReac Type Severity Reaction Status Date / Time No Known Allergies Allergy Verified 09/12/17 15:49 Home Medications: Ambulatory Orders Digoxin [Lanoxin -] 0.125 mg PO Q48H 09/12/17 Metoprolol Tartrate [Lopressor -] 25 mg PO BID #60 tab 09/17/17 Review of Systems - Review of Systems Able to Perform ROS?: Yes Comments:: 09/24/17 15:27 GENERAL/CONSTITUTIONAL: +Generalized weakness. No: fever, chills, loss of appetite. HEAD, EYES, EARS, NOSE AND THROAT: No: change in vision, ear pain, discharge, sore throat, throat swelling. CARDIOVASCULAR: +Diaphoresis. No: chest pain, lightheadedness, palpitations, syncope RESPIRATORY: No: cough, shortness of breath, wheezing, hemoptysis, stridor. GASTROINTESTINAL: No: nausea, vomiting, abdominal cramping, diarrhea, rectal bleeding, constipation. GENITOURINARY: No: dysuria, hematuria, frequency, urgency, flank pain. MUSCULOSKELETAL: +Right arm numbness, weakness, and pain. No: back pain, neck pain, joint pain, muscle swelling or pain SKIN AND BREASTS: No: lesions, pallor, rash or easy bruising. NEUROLOGIC: +Dizziness. No: headache, paresthesias, weakness ENDOCRINE: No: unexplained weight gain or loss HEMATOLOGIC/LYMPHATIC: No: anemia, easy bleeding, swelling nodes <Morales,Giomilsy - Last Filed: 09/24/17 16:53> *Physical Exam - Vital Signs Last Vital Signs Temp Pulse Resp BP Pulse Ox 98.7 F 74 20 128/71 96 09/24/17 14:40 09/24/17 14:40 09/24/17 14:40 09/24/17 14:40 09/24/17 14:40 - Physical Exam Comments: 09/24/17 15:27 GENERAL: The patient is in no acute distress. HEAD: Normal with no signs of trauma. EYES: PERRLA, EOMI, sclera anicteric, conjunctiva clear. ENT: Ears normal, nares patent, oropharynx clear without exudates. Moist mucous membranes. NECK: Normal range of motion, supple without lymphadenopathy, JVD, or masses. LUNGS: Breath sounds equal, clear to auscultation bilaterally. No wheezes, and no crackles. HEART: Irregularly irregular. No murmur, rub or gallop. ABDOMEN: Soft, nontender, normoactive bowel sounds. No guarding, no rebound. EXTREMITIES: RUE feels cool compared to left hand, and appears dusky in color. No numbness in the palm of her hand, only on radial and ulnar sides. LUE normal. Unable to hold up RUE when pronated, but able to hold up RUE for 10 seconds when supinated. No edema. No clubbing or cyanosis. No erythema, or tenderness. NEUROLOGICAL: Decreased sensation to medial and lateral aspect of right hand. Cranial nerves II through XII grossly intact. Normal speech. MUSCULOSKELETAL: Back non-tender to palpation, no CVA tenderness SKIN: Warm, Dry, normal turgor, no rashes or lesions noted. <Morales,Giomilsy - Last Filed: 09/24/17 16:53> - Vital Signs Last Vital Signs Temp Pulse Resp BP Pulse Ox 98.7 F 82 20 136/56 96 09/24/17 14:40 09/24/17 15:40 09/24/17 16:17 09/24/17 15:40 09/24/17 16:17 <Nessa Spears - Last Filed: 09/24/17 19:41> ED Treatment Course - LABORATORY CBC & Chemistry Diagram: 09/24/17 15:40 09/24/17 15:28 - RADIOLOGY Radiograph Interpretation: 09/24/17 16:42 EXAM: Duplex US RUE INTERPRETED BY: Dr. Mackenzie REVIEWED BY: Dr. Wylie IMPRESSION: Diminished monophasic flow is seen within the right subclavian, axillary, brachial, radial and ulnar arteries. The following peak systolic flow velocities were obtained: right subclavian artery 85 cm/s, axillary artery 44 cm /s, proximal brachial artery 15 cm/s, mid brachial artery 12 cm/s, distal brachial artery 13 cm/s, radial artery 9 cm/s, and ulnar artery 7 cm/s. Impression: Findings are noted consistent with prominently diminished flow throughout the right upper extremity as discussed above. EXAM: Head CT INTERPRETED BY: Dr. Kasper REVIEWED BY: Dr. Wylie IMPRESSION: No significant interval change Moderate atrophy and ventricular dilatation. Focal encephalomalacia/old infarct in the left cerebellum, inferiorly. No gross acute intracranial pathology is identified. Correlate clinically to determine further evaluation and follow-up. <Ada Morales - Last Filed: 09/24/17 16:53> - LABORATORY CBC & Chemistry Diagram: 09/24/17 15:40 09/24/17 15:28 - ADDITIONAL ORDERS Additional order review: Laboratory Results 09/24/17 09/24/17 09/24/17 17:00 15:28 14:44 PT with INR INR PTT (Actin FS) 27.9 Sodium 140 Potassium 4.0 Chloride 107 Carbon Dioxide 27 Anion Gap 6 L BUN 15 Creatinine 0.7 Creat Clearance w eGFR > 60 Random Glucose 83 Calcium 8.2 L Total Bilirubin 0.7 D AST 18 ALT 11 L Alkaline Phosphatase 82 Creatine Kinase 46 Troponin I < 0.02 B-Natriuretic Peptide 2893.77 H Total Protein 6.0 L Albumin 2.8 L Urine Color Urine Appearance Urine pH Ur Specific [place] Urine Protein Urine Glucose (UA) Urine Ketones Urine Blood Urine Nitrite Urine Bilirubin Urine Urobilinogen Ur Leukocyte Esterase Urine WBC (Auto) Urine RBC (Auto) Ur Epithelial Cells Hyaline Casts Urine Mucus Blood Type AB NEGATIVE Antibody Screen Negative 09/24/17 09/24/17 14:43 14:43 PT with INR 13.00 INR 1.15 H PTT (Actin FS) Sodium Potassium Chloride Carbon Dioxide Anion Gap BUN Creatinine Creat Clearance w eGFR Random Glucose Calcium Total Bilirubin AST ALT Alkaline Phosphatase Creatine Kinase Troponin I B-Natriuretic Peptide Total Protein Albumin Urine Color Yellow Urine Appearance Clear Urine pH 5.0 Ur Specific [place] 1.016 Urine Protein Negative Urine Glucose (UA) Negative Urine Ketones Negative Urine Blood 1+ H Urine Nitrite Negative Urine Bilirubin Negative Urine Urobilinogen Negative Ur Leukocyte Esterase Negative Urine WBC (Auto) 4 Urine RBC (Auto) 5 Ur Epithelial Cells Rare Hyaline Casts 1 Urine Mucus Rare Blood Type Antibody Screen 09/24/17 15:40 RBC 2.76 L MCV 92.2 MCHC 33.5 RDW 16.1 H MPV 7.7 Neutrophils % 74.4 Lymphocytes % 13.0 Monocytes % 10.8 H Eosinophils % 1.3 Basophils % 0.5 <ReganNessa - Last Filed: 09/24/17 19:41> - LABORATORY CBC & Chemistry Diagram: 09/25/17 05:00 09/25/17 05:00 - RADIOLOGY Radiology Studies Ordered: Category Date Time Status CHEST X-RAY PORTABLE* [RAD] Stat Radiology 09/24/17 14:37 Ordered <Linda Wylie - Last Filed: 09/25/17 21:02> Medical Decision Making - Medical Decision Making 09/24/17 16:53 First call placed to Dr. Lockwood at 16:45. Awaiting call back. Case discussed with Dr. Lockwood at 16:50. First call placed to Dr. Martin at 16:54. Awaiting call back. Case discussed with Dr. Martin at 16:55. <Ada Morales - Last Filed: 09/24/17 16:53> - Critical Care Time Total Critical Care Time (minutes): 60 Critical Care Statement: The care of this patient involved high complexity decision making to prevent further life threatening deterioration of the patient 's condition and/or to evaluate & treat vital organ system(s) failure or risk of failure. 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, likely healed now Can for forward with anticoagulation if needed 09/24/17 16:[address] Martin Recommends CTA chest and Upper extremity in order to clearly evaluate for the presence/location of thrombus Laboratory Tests 0509/24/17 09/24/17 15:28 15:40 17:00 WBC 4.8 D Hgb 8.5 L Hct 25.5 L Plt Count 182 D PTT (Actin FS) 27.9 BUN 15 Creatinine 0.7 Creatine Kinase 46 Troponin I < 0.02 B-Natriuretic Peptide 2893.77 H 09/24/17 17:12 Hand re assessed Unchanged Call placed to special procedures technologist They can take this patient now Heparin ordered for this patient (no bolus) 09/24/17 17:[address] to be performed and read 09/24/17 19:17 Ct unofficially read by Dr Martin who is in the ER to see this patient She has an axillary thrombus Clinical Impression: axillary thrombus to right arm, initial presentation <Linda Wylie - Last Filed: 09/25/17 21:02> *DC/Admit/Observation/Transfer - Attestations Scribe Attestion: 09/24/17 15:31 Documentation prepared by Ada Morales, acting as ophthalmic medical technician for Linda Wylie MD. <Ada Morales - Last Filed: 09/24/17 16:53> - Discharge Dispostion Admit: Yes <Nessa Spears - Last Filed: 09/24/17 19:41> <Linda Wylie - Last Filed: 09/25/17 21:02> Diagnosis at time of Disposition: DVT of upper extremity (deep vein thrombosis) Afib Qualifiers: Atrial fibrillation type: permanent Qualified Code(s): I48.2 - Chronic atrial fibrillation - Discharge Dispostion Condition at time of disposition: Guarded
[2017-09-24 15:44] LABS: BASO % 0.5 % (0-2.0); EOS % 1.3 % (0-4.5); HEMATOCRIT 25.5 % (32.4-45.2); HEMOGLOBIN 8.5 GM/dL (10.7-15.3); MCH 30.9 pg (25.7-33.7); MCHC 33.5 g/dl (32.0-36.0); MEAN CELL VOLUME 92.2 fl (80-96); MEAN PLT VOLUME 7.7 fl (7.5-11.1); MONO % 10.8 % (3.8-10.2); NEUT % 74.4 % (42.8-82.8); PLATELET COUNT 182 K/MM3 (134-434); RBC 2.76 M/mm3 (3.60-5.2); RDW 16.1 % (11.6-15.6); WHITE BLOOD COUNT 4.8 K/mm3 (4.0-10.0)
[2017-09-24 16:15] LABS: ALBUMIN 2.8 g/dl (3.4-5.0); ANION GAP 6 (8-16); BILIRUBIN,TOTAL 0.7 mg/dL (0.2-1.0); BLOOD UREA NITROGEN 15 mg/dL (7-18); CALCIUM 8.2 mg/dL (8.5-10.1); CHLORIDE 107 mmol/L (98-107); CO2 27 mmol/L (21-32); CREATININE 0.7 mg/dL (0.55-1.02); GLUCOSE,RANDOM 83 mg/dL (74-106); SGOT/AST 18 U/L (15-37); SGPT/ALT 11 U/L (12-78); SODIUM 140 mmol/L (136-145)
[2017-09-24 16:18] LABS: ALK PHOS 82 U/L (45-117); N-TERMINAL BNP 2893.77 pg/ml (5-450)
[2017-09-24 16:26] LABS: INR 1.15 (0.82-1.09)
[2017-09-24] MEDS ORDERED: HEPARIN - 25,000 UNIT in SODIUM CHLORIDE 495 ML IV SCH (17:00)
[2017-09-24] MEDS ORDERED: HEPARIN INFUSION - 25,000 UNITS/500 ML INFUS.BAG IVPB ONE (17:07)
[2017-09-24 17:53] LABS: URINE APPEARANCE CLEAR; URINE BILIRUBIN NEGATIVE (<2.0 mg/dL); URINE COLOR YELLOW; URINE GLUCOSE (UA) NEGATIVE (NEGATIVE); URINE KETONE NEGATIVE (NEGATIVE); URINE LEUK ESTERASE NEGATIVE (NEGATIVE); URINE NITRITE NEGATIVE (NEGATIVE); URINE PROTEIN NEGATIVE (NEGATIVE); URINE UROBILINOGEN NEGATIVE mg/dL (0.2-1.0)
[2017-09-24 17:56] LABS: EPI CELLS RARE /HPF (FEW); URINE HYALINE CAST 1 /lpf; URINE MUCUS RARE
--- NOTE | 2017-09-24 19:25 | CONSULT ---
Consult Consult Specialty:: Vascular Surgery - History of Present Illness History of Present Illness: 87 year old woman with chronic Afib was on anticoagulation until August when she developed GI bleed. 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 She has been off anticoagulation since then. She developed sudden onset of pain, numbness and coolness of the right hand earlier today. Her symptoms have improved since coming to the ER. - History Source History Provided By: Family Member Limitations to Obtaining History: Language Barrier - Past Medical History Cardio/Vascular: Yes: AFIB, Mitral Stenosis - Alcohol/Substance Use Hx Alcohol Use: No - Smoking History Smoking history: Never smoked Have you smoked in the past 12 months: No Home Medications - Allergies Allergies/Adverse Reactions: Allergies Allergy/AdvReac Type Severity Reaction Status Date / Time No Known Allergies Allergy Verified 09/12/17 15:49 - Home Medications Home Medications: Ambulatory Orders Digoxin [Lanoxin -] 0.125 mg PO Q48H 09/12/17 Metoprolol Tartrate [Lopressor -] 25 mg PO BID #60 tab 09/17/17 Physical Exam Vital Signs: Vital Signs Temperature 98.7 F 09/24/17 14:40 Pulse Rate 82 09/24/17 15:40 Respiratory Rate 20 09/24/17 16:17 Blood Pressure 136/56 09/24/17 15:40 O2 Sat by Pulse Oximetry (%) 96 09/24/17 16:17 Constitutional: Yes: Calm Eyes: Yes: WNL HENT: Yes: WNL Neck: Yes: Supple Cardiovascular: Yes: Pulse Irregular Respiratory: Yes: Regular Gastrointestinal: Yes: Soft Extremities: Yes: Other (Right hand is warm with slight cyanosis and delayed capillary refill. Motor and sensory exams are intact. Pulses are not palpable.) Peripheral Pulses WNL: No Labs: CBC, BMP 09/24/17 15:40 09/24/17 15:28 Imaging - Results Cat Scan: Image Reviewed (CTA shows occlusion of right axillary artery.) Ultrasound: Image Reviewed (Diminished flow in right subclavian,. axillary, brachial and distal arteries. Area of arterial occlusion was missed.) Problem List - Problems (1) Axillary artery embolus Assessment/Plan: Currently there is no evidence for limb threatening ischemia. Surgical embolectomy will be scheduled for tomorrow AM. IV Heparin started to prevent further thrombosis. Code(s): I74.2 - EMBOLISM AND THROMBOSIS OF ARTERIES OF THE UPPER EXTREMITIES (2) Afib Assessment/Plan: Decision will need to be lade regarding the safety of resuming chronic anticoagulation. Code(s): I48.91 - UNSPECIFIED ATRIAL FIBRILLATION Qualifiers: Atrial fibrillation type: chronic
[2017-09-24] MEDS ORDERED: HEPARIN NA (PORCINE) 5,000 UNITS/ML 1ML VIAL IVPUSH PRN ×2 (19:40)
--- NOTE | 2017-09-24 21:25 | HP ---
CHIEF COMPLAINT: R arm pain and numbness PCP: Alexsander HISTORY OF PRESENT ILLNESS: This is an 87 year old female with a past medical history significant for afib off her coumadin due to recent GI bleed who presented to the ED with right arm pain and numbness today. Pt denies chest pain, palpitations, headache, dizziness , focal weakness. ER course was notable for: (1) RUE doppler with diminished arterial flow Recent Travel: pt denies PAST MEDICAL HISTORY: Afib, mitral stenosis, CVA, HLD, HTN, recent GI bleed PAST SURGICAL HISTORY: cholecystectomy Social History: Smoking: pt denies Alcohol: pt denies Drugs: pt denies Family History: mother with CVA in her 60s father age 95 sister , pancreatic CA Allergies No Known Allergies Allergy (Verified 09/12/17 15:49) HOME MEDICATIONS: 3 Medication Instructions Recorded Digoxin [Lanoxin -] 0.125 mg PO Q48H 09/12/17 Metoprolol Tartrate [Lopressor -] 25 mg PO BID #60 tab 09/17/17 REVIEW OF SYSTEMS CONSTITUTIONAL: Absent: fever, chills, diaphoresis, generalized weakness, malaise, loss of appetite, weight change HEENT: Absent: rhinorrhea, nasal congestion, throat pain, throat swelling, difficulty swallowing, mouth swelling, ear pain, eye pain, visual changes CARDIOVASCULAR: Absent: chest pain, syncope, palpitations, irregular heart rate, lightheadedness , peripheral edema RESPIRATORY: Absent: cough, shortness of breath, dyspnea with exertion, orthopnea, wheezing, stridor, hemoptysis GASTROINTESTINAL: Absent: abdominal pain, abdominal distension, nausea, vomiting, diarrhea, constipation, melena, hematochezia GENITOURINARY: Absent: dysuria, frequency, urgency, hesitancy, hematuria, flank pain, genital pain MUSCULOSKELETAL: Present: right arm pain Absent: myalgia, arthralgia, joint swelling, back pain, neck pain SKIN: Absent: rash, itching, pallor HEMATOLOGIC/IMMUNOLOGIC: Absent: easy bleeding, easy bruising, lymphadenopathy, frequent infections ENDOCRINE: Absent: unexplained weight gain, unexplained weight loss, heat intolerance, cold intolerance NEUROLOGIC: Absent: headache, focal weakness or paresthesias, dizziness, unsteady gait, seizure, mental status changes, bladder or bowel incontinence PSYCHIATRIC: Absent: anxiety, depression, suicidal or homicidal ideation, hallucinations. PHYSICAL EXAMINATION Vital Signs - 24 hr 3 09/24/17 09/24/17 09/24/17 14:40 15:40 16:17 Temperature 98.7 F Pulse Rate 74 Pulse Rate [ 82 Apical] Respiratory 20 16 20 Rate Blood Pressure 128/71 Blood Pressure 136/56 [Left Arm] O2 Sat by Pulse 96 96 96 Oximetry (%) GENERAL: Awake, alert, and fully oriented, in no acute distress. HEAD: Normal with no signs of trauma. EYES: Pupils equal, round and reactive to light, extraocular movements intact, sclera anicteric, conjunctiva clear. No lid lag. EARS, NOSE, THROAT: Ears normal, nares patent, oropharynx clear without exudates. Moist mucous membranes. NECK: Normal range of motion, supple without lymphadenopathy, JVD, or masses. LUNGS: Breath sounds equal, clear to auscultation bilaterally. No wheezes, and no crackles. No accessory muscle use. HEART: Regular rate and rhythm, normal S1 and S2 without murmur, rub or gallop. ABDOMEN: Soft, nontender, not distended, normoactive bowel sounds, no guarding, no rebound, no masses. No hepatomegaly or splenomegaly. MUSCULOSKELETAL: Normal range of motion at all joints. No bony deformities or tenderness. No CVA tenderness. UPPER EXTREMITIES: absent radial, ulnar, brachial pulses R arm, cool to touch, left: pulses intact, warm, well-perfused. No cyanosis. No clubbing. No peripheral edema. LOWER EXTREMITIES: 2+ pulses, warm, well-perfused. No calf tenderness. No peripheral edema. NEUROLOGICAL: Cranial nerves II-XII intact. Normal speech. Normal gait. PSYCHIATRIC: Cooperative. Good eye contact. Appropriate mood and affect. SKIN: Warm, dry, normal turgor, no rashes or lesions noted, normal capillary refill. Laboratory Results - last 24 hr 3 09/24/17 09/24/17 09/24/17 14:43 14:43 14:44 WBC RBC Hgb Hct MCV MCH MCHC RDW Plt Count MPV Neutrophils % Lymphocytes % Monocytes % Eosinophils % Basophils % PT with INR 13.00 INR 1.15 H PTT (Actin FS) Sodium Potassium Chloride Carbon Dioxide Anion Gap BUN Creatinine Creat Clearance w eGFR Random Glucose Calcium Total Bilirubin AST ALT Alkaline Phosphatase Creatine Kinase Troponin I B-Natriuretic Peptide Total Protein Albumin Urine Color Yellow Urine Appearance Clear Urine pH 5.0 Ur Specific [place] 1.016 Urine Protein Negative Urine Glucose (UA) Negative Urine Ketones Negative Urine Blood 1+ H Urine Nitrite Negative Urine Bilirubin Negative Urine Urobilinogen Negative Ur Leukocyte Esterase Negative Urine WBC (Auto) 4 Urine RBC (Auto) 5 Ur Epithelial Cells Rare Hyaline Casts 1 Urine Mucus Rare Blood Type AB NEGATIVE Antibody Screen Negative 3 09/24/17 09/24/17 09/24/17 15:28 15:40 17:00 WBC 4.8 D RBC 2.76 L Hgb 8.5 L Hct 25.5 L MCV 92.2 MCH 30.9 MCHC 33.5 RDW 16.1 H Plt Count 182 D MPV 7.7 Neutrophils % 74.4 Lymphocytes % 13.0 Monocytes % 10.8 H Eosinophils % 1.3 Basophils % 0.5 PT with INR INR PTT (Actin FS) 27.9 Sodium 140 Potassium 4.0 Chloride 107 Carbon Dioxide 27 Anion Gap 6 L BUN 15 Creatinine 0.7 Creat Clearance w eGFR > 60 Random Glucose 83 Calcium 8.2 L Total Bilirubin 0.7 D AST 18 ALT 11 L Alkaline Phosphatase 82 Creatine Kinase 46 Troponin I < 0.02 B-Natriuretic Peptide 2893.77 H Total Protein 6.0 L Albumin 2.8 L Urine Color Urine Appearance Urine pH Ur Specific [place] Urine Protein Urine Glucose (UA) Urine Ketones Urine Blood Urine Nitrite Urine Bilirubin Urine Urobilinogen Ur Leukocyte Esterase Urine WBC (Auto) Urine RBC (Auto) Ur Epithelial Cells Hyaline Casts Urine Mucus Blood Type Antibody Screen ECG Atrial fibrilation Vent rate 75, QTC [address]/T wave changes Radiology Reports Right upper extremity arterial Doppler ultrasound Impression: Findings are noted consistent with prominently diminished flow throughout the right upper extremity as discussed above. Reported By: Sam Mackenzie MD 09/24/[address] head, non contrast IMPRESSION: No significant interval change Moderate atrophy and ventricular dilatation. Focal encephalomalacia/old infarct in the left cerebellum, inferiorly. No gross acute intracranial pathology is identified. Correlate clinically to determine further evaluation and follow-up. Reported By: Rogelio Kasper MD 09/24/17 1602 ASSESSMENT/PLAN: 87yF with PMH Afib, mitral stenosis, CVA, HLD, HTN, recent GI bleed ( hospitalized 09/12-09/18/17) who presented to the ED with right upper extremity pain and numbness. Right upper extremity arterial occlusion - CTA chest and RUE done, results pending - evaluated by vascular surgery, to go to OR in am for thrombectomy - heparin drip until then, PTT due at 1am - cardiology consult for input on restarting coumadin Recent GI bleed - pt reports no further s/s GI bleed, check stool guaiac Afib - rate controlled, cont current meds - cardio consult for input regarding resumption of coumadin HTN - bp controlled DVT PPX - on heparin drip FEN - defer IVF for now, tolerating po until 12am - bmp in am - NPO after midnight Dispo: Pt currently requires further inpatient management of her emergent condition. Visit type - Emergency Visit Emergency Visit: Yes ED Registration Date: 09/24/17 Care time: The patient presented to the Emergency Department on the above date and was hospitalized for further evaluation of their emergent condition. - New Patient This patient is new to me today: Yes Date on this admission: 09/24/17 - Critical Care Critical Care patient: No Hospitalist Screening - Colonoscopy Questionnaire Colonoscopy Questionnaire: Colonoscopy Questionnaire - Patient: 50 - 75 years old and never had a screening colonoscopy: No History of colon or rectal polyps, or CA: No History of IBD, Crohn's disease or UC: No History of abdominal radiation therapy as a child: No - Relative: 1 with colon or rectal CA, or polyps at age 60 or younger: No Colon or rectal CA diagnosed at age 45 or younger: No Multiple relatives with colon or rectal CA: No - Outcome: Screening Result: Negative Screen
[2017-09-24] MEDS ORDERED: DIGOXIN 0.125 MG TABLET (FP) PO SCH (22:00)
[2017-09-24] MEDS: METOPROLOL TARTRATE 25 MG TABLET (FP) PO SCH (22:20)
[2017-09-25 06:44] VITALS: BMI 16.9
[2017-09-25] MEDS: METOPROLOL TARTRATE 25 MG TABLET (FP) PO SCH ×3 (07:01→22:12)
[2017-09-25 07:33] LABS: HEMATOCRIT 26.7 % (32.4-45.2); HEMOGLOBIN 8.9 GM/dL (10.7-15.3); MCH 30.7 pg (25.7-33.7); MCHC 33.2 g/dl (32.0-36.0); MEAN CELL VOLUME 92.5 fl (80-96); MEAN PLT VOLUME 7.8 fl (7.5-11.1); PLATELET COUNT 194 K/MM3 (134-434); RBC 2.89 M/mm3 (3.60-5.2); RDW 15.8 % (11.6-15.6); WHITE BLOOD COUNT 4.9 K/mm3 (4.0-10.0)
[2017-09-25 07:39] LABS: ANION GAP 8 (8-16); BLOOD UREA NITROGEN 12 mg/dL (7-18); CALCIUM 8.4 mg/dL (8.5-10.1); CHLORIDE 105 mmol/L (98-107); CO2 28 mmol/L (21-32); CREATININE 0.6 mg/dL (0.55-1.02); GLUCOSE,RANDOM 75 mg/dL (74-106); PHOSPHOROUS 3.4 mg/dL (2.5-4.9); POTASSIUM 3.6 mmol/L (3.5-5.1); SODIUM 141 mmol/L (136-145)
--- NOTE | 2017-09-25 08:39 | CON.CARD ---
Consult Consult Specialty:: Cardiology for [facility] Referred by:: Dr. Edwards Reason for Consultation:: Atrial fibrillation - History of Present Illness Chief Complaint: right arm numbness History of Present Illness: "87 year old female, Lao speaking, accompanied by son, with a significant past medical history of AFib(on Coumadin), mitral valve stenosis, CVA (some residual balance issues), hyperlipidemia, and hypertension, who presents to the emergency department with right arm pain and numbness since earlier today. The patient reports she first noted an achy pain at her elbow and wrist approximately 2 hours ago, which lasted about an hour, with associated numbness and weakness. Patient reports her pain has resolved, but her numbness and weakness persists in her right arm. She reports when her symptoms first started she felt diaphoretic, weak, and dizzy, but denies any head trauma, headache, lightheadedness, changes in vision, neck or back pain, changes in speech, or changes in gait. Patient reports her symptoms are different than when she had her CVA. She denies any chest pain, shortness of breath, diaphoresis, or palpitations. She denies any fever or chills. She denies any abdominal pain, nausea, vomiting, diarrhea,constipation, melena, or hematochezia. Patient reports she has not been on Coumadin for approximately 1.5 weeks due to recent history of GI bleed. She denies any recent travel or sick contacts." This was obtained from review of medical record. 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 She was started on IV heparin gtts She denies CP or SOB. She has chronic Afib was on anticoagulation until August when she developed GI bleed. 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 She has been off anticoagulation since then. She developed sudden onset of pain, numbness and coolness of the right hand yesterday. - History Source History Provided By: Medical Record Limitations to Obtaining History: Language Barrier - Past Medical History Cardio/Vascular: Yes: AFIB, Mitral Stenosis Gastrointestinal: Yes: GI Bleed (from AVMs, off AC) ...: No - Alcohol/Substance Use Hx Alcohol Use: No - Smoking History Smoking history: Never smoked Have you smoked in the past 12 months: No Home Medications - Allergies Allergies/Adverse Reactions: Allergies Allergy/AdvReac Type Severity Reaction Status Date / Time No Known Allergies Allergy Verified 09/12/17 15:49 - Home Medications Home Medications: Ambulatory Orders Digoxin [Lanoxin -] 0.125 mg PO Q48H 09/12/17 Metoprolol Tartrate [Lopressor -] 25 mg PO BID #60 tab 09/17/17 Family Disease History - Family Disease History Family History: Unremarkable (non-contributory) Review of Systems Findings/Remarks: see HPI - Review of Systems Constitutional: reports: No Symptoms Eyes: reports: No Symptoms HENT: reports: No Symptoms Neck: reports: No Symptoms Cardiovascular: reports: Other (cool , numb right arm) Respiratory: reports: No Symptoms Gastrointestinal: reports: No Symptoms Genitourinary: reports: No Symptoms Breasts: reports: No Symptoms Reported Neurological: reports: Numbness Endocrine: denies: No Symptoms, Excessive Sweating, Flushing, Increased Hunger, Increased Thirst, Intolerance to Cold, Intolerance to Heat, Unexplained Weight Gain, Unexplained Weight Loss, Other Hematology/Lymphatic: denies: No Symptoms, Easily Bruised, Excessive Bleeding, Swollen Glands, Other Psychiatric: denies: No Symptoms, Altered Sleep Pattern, Anxiety, Depression, Hallucinations, Panic, Paranoia, Suicidal, Other - Risk Factors Known Risk Factors: Yes: Other (AF) Vital Signs: Vital Signs Temperature 97.7 F 09/25/17 06:00 Pulse Rate 65 09/25/17 06:00 Respiratory Rate 16 09/25/17 06:00 Blood Pressure 158/56 09/25/17 06:00 O2 Sat by Pulse Oximetry (%) 98 09/24/17 22:30 Constitutional: Yes: No Distress, Calm Eyes: Yes: Conjunctiva Clear, EOM Intact HENT: Yes: Atraumatic, Normocephalic Neck: Yes: Trachea Midline Respiratory: Yes: CTA Bilaterally Gastrointestinal: Yes: Soft Cardiovascular: Yes: Pulse Irregular JVD: No Carotid Bruit: No Heart Sounds: Yes: S1, S2 (irregular) Murmur: Yes: Diastolic Murmur Edema: No Peripheral Pulses: 2+ Left Carotid, 2+ Right Carotid, 2+ Left Doralis Pedis, 2+ Right Dorsalis Pedis Neurological: Yes: Alert ...Motor Strength: RUE (warm and well perfused this AM) - Other Data Labs, Other Data: CBC, BMP 09/25/17 05:00 09/25/17 05:00 INR, PTT INR 1.15 (0.82-1.09) H 09/24/17 14:43 Troponin, BNP 09/24/17 15:28 Troponin I < 0.02 B-Natriuretic Peptide 2893.77 H Troponin, BNP 09/24/17 15:28 Troponin I < 0.02 B-Natriuretic Peptide 2893.77 H Echo: Report Reviewed (: Moderate MS, mod-severe PHTN; Nl LV fxn) Imaging - Results Chest X-ray: Image Reviewed Cat Scan: Report Reviewed EKG: Image Reviewed Other: Image Reviewed (TELE: AF, rate controlled; pauses noted all < 3 seconds) Problem List - Problems (1) Afib Code(s): I48.91 - UNSPECIFIED ATRIAL FIBRILLATION Qualifiers: Atrial fibrillation type: permanent Qualified Code(s): I48.2 - Chronic atrial fibrillation (2) Axillary artery embolus Code(s): I74.2 - EMBOLISM AND THROMBOSIS OF ARTERIES OF THE UPPER EXTREMITIES (3) Bladder cancer Code(s): C67.9 - MALIGNANT NEOPLASM OF BLADDER, UNSPECIFIED Qualifiers: Bladder location: unspecified site Qualified Code(s): C67.9 - Malignant neoplasm of bladder, unspecified (4) GI bleed Code(s): K92.2 - GASTROINTESTINAL HEMORRHAGE, UNSPECIFIED Qualifiers: GI bleed type/associated pathology: unspecified gastrointestinal hemorrhage type Qualified Code(s): K92.2 - Gastrointestinal hemorrhage, unspecified (5) Mitral valve stenosis Code(s): I05.0 - RHEUMATIC MITRAL STENOSIS Qualifiers: Cardiac valve disease etiology: rheumatic Qualified Code(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 Cont. heparin gtts 2. Await results CTA, vascular f/u 3. Cont dig and metoprolol, rates are well controlled. Pauses noted but not clinically significant. Cont. telemetry. Coverage for [facility]
[2017-09-25] MEDS ORDERED: LIDOCAINE HCL 1%, 10 MG/ML (20ML VIAL) ONE (09:38)
[2017-09-25] MEDS ORDERED: HEPARIN NA (PORCINE) 5,000 UNITS/ML 1ML VIAL ONE ×2 (09:38→10:32)
[2017-09-25] MEDS ORDERED: POVIDONE-IODINE OINTMENT 10% - 28.4 GM TUBE ONE (09:38)
[2017-09-25] MEDS ORDERED: PANTOPRAZOLE SODIUM 40 MG VIAL IVPUSH SCH (10:00)
[2017-09-25] MEDS ORDERED: MIDAZOLAM HCL 2 MG/2 ML SINGLE DOSE VIAL ONE (10:09)
[2017-09-25] MEDS ORDERED: LIDOCAINE HCL 1%, 10 MG/ML (50 mL VIAL) IJ ONE (10:26)
[2017-09-25] MEDS ORDERED: ACETAMINOPHEN 325 MG TABLET (FP) PO PRN (11:15)
[2017-09-25] MEDS ORDERED: ONDANSETRON 4 MG/2 ML VIAL IVPUSH PRN (11:17)
--- NOTE | 2017-09-25 11:17 | OP ---
Operative Note - Note: Operative Date: 09/25/17 Pre-Operative Diagnosis: Right axillary artery embolic occlusion Operation: Right brachial embolectomy Findings: Embolic material retrieved from right axillary artery Post-Operative Diagnosis: Same as Pre-op Surgeon: Tim Martin Anesthesiologist/NET APPLICATION SUPPORT SPECIALIST: Jo Reyna Anesthesia: Fractional Specimens Removed: Right brachial embolus Estimated Blood Loss (mls): 30
[2017-09-25] MEDS ORDERED: LACTATED RINGERS SOLUTION 1,000 ML IV SCH (11:30)
[2017-09-25] MEDS ORDERED: HEPARIN NA (PORCINE) 5,000 UNITS/ML 1ML VIAL IVPUSH PRN ×4 (11:34)
--- NOTE | 2017-09-25 11:45 | OP ---
DATE OF OPERATION: 09/25/2017 SURGEON: Tim Singh MD PROCEDURE: Right brachial embolectomy. PREOPERATIVE DIAGNOSIS: Right axillary artery embolic occlusion. POSTOPERATIVE DIAGNOSIS: Right axillary artery embolic occlusion. ANESTHESIA: Fractional. ANESTHESIOLOGIST: Jo Reyna MD OPERATIVE FINDINGS: Preoperative duplex imaging in the operating room demonstrated the embolic material within the right axillary artery. At exploration the brachial artery was normal without any clot. There was no clot in the distal vessels. There was embolus removed from the axillary artery via the brachial artery. OPERATIVE PROCEDURE: Following routine patient identification with side and site verification, intravenous sedation was established. The right arm was prepped with ChloraPrep. Timeout was performed. Lidocaine 1% was infiltrated just above the elbow crease over the brachial artery which had been imaged preoperatively with duplex. Subcutaneous tissues were divided using cautery for hemostasis. The artery was identified and carefully dissected free. It was encircled proximally and distally with vessel loops. Small side branches were ligated with 4-0 ties and divided. The patient was systemically heparinized. The artery was occluded with the vessel loops and a transverse arteriotomy made. A No. 3 Dipika catheter was passed distally in the brachial artery and withdrawn with no clot and return of arterial backbleeding. The vessel was filled with heparin solution and was occluded with a vessel loop. Passage of the embolectomy catheter proximally returned the axillary embolus with hindu of strong arterial inflow. A 2nd pass of the catheter did not return any additional thrombus. The vessel was filled with heparin solution. The arteriotomy was closed with running suture of 6-0 Prolene. After completion of the suture line the vessels were released and there was good flow through the anastomosis with a palpable radial pulse at the wrist. Bleeding from the suture line was controlled with Surgicel. When hemostasis was achieved the wound was irrigated and closed with interrupted suture of 3-0 Vicryl in subcutaneous tissues and a running subcuticular suture of 4-0 Biosyn on the skin. Sterile dressing was applied and the patient was taken to the recovery room in stable condition. TIM SINGH M.D. VIVIEN/[id number]
[2017-09-25] MEDS ORDERED: oxyCODONE HCL 5 MG TABLET PO PRN (12:39)
[2017-09-25] MEDS: HEPARIN - 25,000 UNIT in SODIUM CHLORIDE 495 ML IV SCH (12:48)
--- NOTE | 2017-09-25 14:35 | EKG ---
Test Reason : Blood Pressure : / mmHG Vent. Rate : 074 BPM Atrial Rate : 312 BPM P-R Int : 000 ms QRS Dur : 076 ms QT Int : 364 ms P-R-T Axes : 000 077 080 degrees QTc Int : 404 ms ATRIAL FIBRILLATION ABNORMAL ECG WHEN COMPARED WITH ECG OF 12-SEP-2017 16:41, NO SIGNIFICANT CHANGE WAS FOUND Confirmed by MD Maldonado Daniel ([id number]) on 09/25/2017 2:35:30 PM Referred By: Confirmed By:Vadim Maldonado MD
[2017-09-25] MEDS: ACETAMINOPHEN 325 MG TABLET (FP) PO PRN (16:48)
--- NOTE | 2017-09-25 17:03 | PN ---
Physical Exam: SUBJECTIVE: Patient seen and examined at the bedside. Comfortable, in no acute distress. OBJECTIVE: Right brachial embolectomy Vital Signs Period Temp Pulse Resp BP Sys/Coulter Pulse Ox Last 24 Hr 97 F-98.8 F 65-92 16-20 116-158/45-70 98-100 GENERAL: The patient is awake, alert, and fully oriented, in no acute distress. HEAD: Normal with no signs of trauma. EYES: PERRL, extraocular movements intact, sclera anicteric, conjunctiva clear. No ptosis. ENT: Ears normal, nares patent, oropharynx clear without exudates, moist mucous membranes. NECK: Trachea midline, full range of motion, supple. LUNGS: Breath sounds equal, anteriorly, clear, no wheezes, no crackles, no accessory muscle use. HEART: Regular rate and rhythm, S1, S2 without murmur, rub or gallop. ABDOMEN: Soft, nontender, nondistended, normoactive bowel sounds, no guarding, no rebound, no hepatosplenomegaly, no masses. EXTREMITIES: 2+ pulses, warm, well-perfused, no edema. NEUROLOGICAL: Cranial nerves II through XII grossly intact. Normal speech, gait not observed. PSYCH: Normal mood, normal affect. SKIN: Warm, dry, normal turgor, no rashes or lesions noted Laboratory Results - last 24 hr 09/24/17 09/24/17 09/25/17 14:43 17:00 01:00 WBC RBC Hgb Hct MCV MCH MCHC RDW Plt Count MPV PTT (Actin FS) 27.9 55.5 H D Sodium Potassium Chloride Carbon Dioxide Anion Gap BUN Creatinine Random Glucose Calcium Phosphorus Magnesium Urine Color Yellow Urine Appearance Clear Urine pH 5.0 Ur Specific [place] 1.016 Urine Protein Negative Urine Glucose (UA) Negative Urine Ketones Negative Urine Blood 1+ H Urine Nitrite Negative Urine Bilirubin Negative Urine Urobilinogen Negative Ur Leukocyte Esterase Negative Urine WBC (Auto) 4 Urine RBC (Auto) 5 Ur Epithelial Cells Rare Hyaline Casts 1 Urine Mucus Rare 09/25/17 09/25/17 09/25/17 05:00 05:00 05:00 WBC 4.9 RBC 2.89 L Hgb 8.9 L Hct 26.7 L MCV 92.5 MCH 30.7 MCHC 33.2 RDW 15.8 H Plt Count 194 MPV 7.8 PTT (Actin FS) 55.8 H Sodium 141 Potassium 3.6 Chloride 105 Carbon Dioxide 28 Anion Gap 8 BUN 12 Creatinine 0.6 Random Glucose 75 Calcium 8.4 L Phosphorus 3.4 Magnesium 2.0 Urine Color Urine Appearance Urine pH Ur Specific [place] Urine Protein Urine Glucose (UA) Urine Ketones Urine Blood Urine Nitrite Urine Bilirubin Urine Urobilinogen Ur Leukocyte Esterase Urine WBC (Auto) Urine RBC (Auto) Ur Epithelial Cells Hyaline Casts Urine Mucus Active Medications Generic Name Dose Route Start Last Admin Trade Name Freq PRN Reason Stop Dose Admin Acetaminophen 650 mg 09/25/17 11:15 09/25/17 16:48 Tylenol - PO 650 mg Q4H PRN Administration FEVER Acetaminophen 325 mg 09/25/17 11:15 Tylenol - PO Q4H PRN PAIN LEVEL 1-5 Digoxin 0.125 mg 09/26/17 22:00 Lanoxin - PO Q48H [facility] Heparin Sodium (Porcine) 1,000 unit 09/25/17 11:34 Heparin - IVPUSH PRN PRN Heparin Heparin Sodium (Porcine) 5,000 unit 09/25/17 11:34 Heparin - IVPUSH PRN PRN Heparin Heparin Sodium (Porcine) 25, 500 mls @ 16 mls/hr 09/25/17 11:34 09/25/17 12: 48 000 unit/ Sodium Chloride IV 800 unit/hr TITR ASUNCION 16 mls/hr Protocol Administration 800 UNIT/HR Metoprolol Tartrate 25 mg 09/25/17 22:00 Lopressor - PO BID [facility] Ondansetron HCl 4 mg 09/25/17 11:17 Zofran Injection IVPUSH Q6H PRN NAUSEA AND/OR VOMITING Oxycodone HCl 5 mg 09/25/17 12:39 Roxicodone - PO Q4H PRN PAIN LEVEL 1-5 Pantoprazole Sodium 40 mg 09/26/17 10:00 Protonix Iv IVPUSH DAILY [facility] ASSESSMENT/PLAN: Patient is an 87 year old female with a significant past medicatl history of Afib, mitral stenosis, CVA, HLD, HTN, recent GI bleed with a recent hospitalization between 09/12-09/18/17. She presents to the ED today with right upper extremity pain and numbness. Vascular: Right upper extremity arterial occlusion CTA with complete occlusion of the right distal axillary artery negative for PE s/p Right brachial embolectomy Continue on heparin drip GI: Recent GI bleed Stool for occult blood ordered Monitor closely while on heparin drip On Protonix 40mg Card: Afib rate controlled On Lopressor 25mg BID Digoxin Hypertension, controlled Monitor BP F.E.N. Fluids: PO Electrolytes: monitor Nutrition: low salt diet Prophy: On heparin drip Protonix Visit type - Emergency Visit Emergency Visit: Yes ED Registration Date: 09/24/17 Care time: The patient presented to the Emergency Department on the above date and was hospitalized for further evaluation of their emergent condition. - New Patient This patient is new to me today: Yes Date on this admission: 09/25/17 - Critical Care Critical Care patient: No - Discharge Referral Referred to [facility] No
[2017-09-26 07:01] LABS: ALBUMIN 2.5 g/dl (3.4-5.0); ANION GAP 6 (8-16); BILIRUBIN,TOTAL 0.6 mg/dL (0.2-1.0); BLOOD UREA NITROGEN 11 mg/dL (7-18); CALCIUM 7.8 mg/dL (8.5-10.1); CHLORIDE 108 mmol/L (98-107); CO2 28 mmol/L (21-32); CREATININE 0.7 mg/dL (0.55-1.02); GLUCOSE,RANDOM 78 mg/dL (74-106); POTASSIUM 3.7 mmol/L (3.5-5.1); SGOT/AST 14 U/L (15-37); SGPT/ALT 9 U/L (12-78); SODIUM 142 mmol/L (136-145); TOT PROT 5.4 g/dl (6.4-8.2)
[2017-09-26 07:02] LABS: ALK PHOS 83 U/L (45-117)
[2017-09-26 07:06] LABS: MCH 30.5 pg (25.7-33.7); MCHC 33.2 g/dl (32.0-36.0); MEAN CELL VOLUME 91.8 fl (80-96); MEAN PLT VOLUME 7.3 fl (7.5-11.1); PLATELET COUNT 207 K/MM3 (134-434); RBC 2.94 M/mm3 (3.60-5.2); RDW 16.1 % (11.6-15.6); WHITE BLOOD COUNT 5.1 K/mm3 (4.0-10.0)
[2017-09-26] MEDS: METOPROLOL TARTRATE 25 MG TABLET (FP) PO SCH (08:33)
--- NOTE | 2017-09-26 09:09 | PN ---
Progress Note (short form) - Note Progress Note: Post op day#!.S/p Right upper extremity thrombectomy under MAC uneventful.Patient stable.No any anesthesia related problem.Patient DC from the anesthesia care.
[2017-09-26 09:11] LABS: ANISOCYTOSIS 1+; MACROCYTOSIS 1+; OVALOCYTE 1+; PLATELET ESTIMATE NORMAL; TARGET CELLS 1+
--- NOTE | 2017-09-26 09:31 | PN ---
Physical Exam: SUBJECTIVE: Patient seen and examined at the bedside. English speaking primarily. OBJECTIVE: s/p Right brachial embolectomy Episode of rapid afib with ambulation this a.m. Vital Signs Period Temp Pulse Resp BP Sys/Coulter Pulse Ox Last 24 Hr 97 F-98.3 F 64-84 16-20 113-151/48-70 96-100 GENERAL: The patient is awake, alert, HEAD: Normal with no signs of trauma. EYES: PERRL, extraocular movements intact, sclera anicteric, conjunctiva clear. No ptosis. ENT: Ears normal, nares patent, oropharynx clear without exudates, moist mucous membranes. NECK: Trachea midline, full range of motion, supple. LUNGS: Breath sounds equal, anteriorly, clear, no wheezes, no crackles, no accessory muscle use. HEART: Regular rate and rhythm, S1, S2 without murmur, rub or gallop. ABDOMEN: Soft, nontender, nondistended, normoactive bowel sounds, no guarding, no Right arm: + pulses NEUROLOGICAL: Normal speech, gait not observed. PSYCH: Normal mood, normal affect. Laboratory Results - last 24 hr 09/26/17 09/26/17 09/26/17 05:00 05:00 05:00 WBC 5.1 RBC 2.94 L Hgb 9.0 L Hct 27.0 L MCV 91.8 MCH 30.5 MCHC 33.2 RDW 16.1 H Plt Count 207 MPV 7.3 L Neutrophils % No Result Required. Neutrophils % (Manual) 71.7 Band Neutrophils % 0.0 Lymphocytes % No Result Required. Lymphocytes % (Manual) 16.2 Monocytes % (Manual) 5 Eosinophils % (Manual) 7.1 H Basophils % (Manual) 0.0 Myelocytes % (Man) 0 Promyelocytes % (Man) 0 Blast Cells % (Manual) 0 Nucleated RBC % 0 Metamyelocytes 0 Platelet Estimate Normal Anisocytosis 1+ Macrocytosis 1+ Target Cells 1+ Ovalocytes 1+ PTT (Actin FS) 64.7 H Sodium 142 Potassium 3.7 Chloride 108 H Carbon Dioxide 28 Anion Gap 6 L BUN 11 Creatinine 0.7 Creat Clearance w eGFR > 60 Random Glucose 78 Calcium 7.8 L Magnesium 2.0 Total Bilirubin 0.6 AST 14 L ALT 9 L Alkaline Phosphatase 83 Total Protein 5.4 L Albumin 2.5 L Active Medications Generic Name Dose Route Start Last Admin Trade Name Freq PRN Reason Stop Dose Admin Acetaminophen 650 mg 09/25/17 11:15 09/25/17 16:48 Tylenol - PO 650 mg Q4H PRN Administration FEVER Acetaminophen 325 mg 09/25/17 11:15 Tylenol - PO Q4H PRN PAIN LEVEL 1-5 Digoxin 0.125 mg 09/26/17 22:00 Lanoxin - PO Q48H [facility] Heparin Sodium (Porcine) 1,000 unit 09/25/17 11:34 Heparin - IVPUSH PRN PRN Heparin Heparin Sodium (Porcine) 5,000 unit 09/25/17 11:34 Heparin - IVPUSH PRN PRN Heparin Heparin Sodium (Porcine) 25, 500 mls @ 16 mls/hr 09/25/17 11:34 09/25/17 12: 48 000 unit/ Sodium Chloride IV 800 unit/hr TITR ASUNCION 16 mls/hr Protocol Administration 800 UNIT/HR Metoprolol Tartrate 25 mg 09/25/17 22:00 09/26/17 08:33 Lopressor - PO 25 mg BID ASUNCION Administration Ondansetron HCl 4 mg 09/25/17 11:17 Zofran Injection IVPUSH Q6H PRN NAUSEA AND/OR VOMITING Oxycodone HCl 5 mg 09/25/17 12:39 Roxicodone - PO Q4H PRN PAIN LEVEL 1-5 Pantoprazole Sodium 40 mg 09/26/17 10:00 Protonix Iv IVPUSH DAILY [facility] ASSESSMENT/PLAN: Patient is an 87 year old female with a significant past medical history of Afib , mitral stenosis, CVA, HLD, HTN, recent GI bleed with a recent hospitalization between 09/12-09/18/17. She presents to the ED today with right upper extremity pain and numbness. Vascular: Right upper extremity arterial occlusion CTA with complete occlusion of the right distal axillary artery negative for PE s/p Right brachial embolectomy on 09/25/2017 On heparin drip GI: Recent GI bleed Stool for occult blood ordered Monitor closely while on heparin drip On Protonix 40mg Card: Afib rate controlled, had burst of rapid heart rate with ambulation Lopressor 50mg BID (increased by cardiology) Digoxin q48 Hypertension, controlled Monitor BP F.E.N. Fluids: PO Electrolytes: monitor Nutrition: low salt diet Prophy: On heparin drip Protonix Visit type - Emergency Visit Emergency Visit: Yes ED Registration Date: 09/24/17 Care time: The patient presented to the Emergency Department on the above date and was hospitalized for further evaluation of their emergent condition. - New Patient This patient is new to me today: No - Critical Care Critical Care patient: No - Discharge Referral Referred to [facility] No
--- NOTE | 2017-09-26 09:51 | PN ---
Progress Note, Physician Chief Complaint: s/p right brachial embolectomy TELE: periods of AF w/ RVR w/ exertion - Current Medication List Current Medications: Active Medications Acetaminophen (Tylenol -) 650 mg PO Q4H PRN PRN Reason: FEVER Last Admin: 09/25/17 16:48 Dose: 650 mg Acetaminophen (Tylenol -) 325 mg PO Q4H PRN PRN Reason: PAIN LEVEL 1-5 Digoxin (Lanoxin -) 0.125 mg PO Q48H REPLACED BY [facility] Heparin Sodium (Porcine) (Heparin -) 1,000 unit IVPUSH PRN PRN PRN Reason: Heparin Heparin Sodium (Porcine) (Heparin -) 5,000 unit IVPUSH PRN PRN PRN Reason: Heparin Heparin Sodium (Porcine) 25, (000 unit/ Sodium Chloride) 500 mls @ 16 mls/hr IV TITR ASUNCION; 800 UNIT/HR PRN Reason: Protocol Last Admin: 09/25/17 12:48 Dose: 800 unit/hr, 16 mls/hr Metoprolol Tartrate (Lopressor -) 25 mg PO BID REPLACED BY [facility] Last Admin: 09/26/17 08:33 Dose: 25 mg Ondansetron HCl (Zofran Injection) 4 mg IVPUSH Q6H PRN PRN Reason: NAUSEA AND/OR VOMITING Oxycodone HCl (Roxicodone -) 5 mg PO Q4H PRN PRN Reason: PAIN LEVEL 1-5 Pantoprazole Sodium (Protonix Iv) 40 mg IVPUSH DAILY REPLACED BY [facility] - Objective Vital Signs: Vital Signs Temperature 98.3 F 09/26/17 06:00 Pulse Rate 76 09/26/17 06:00 Respiratory Rate 20 09/26/17 06:00 Blood Pressure 129/70 09/26/17 06:00 O2 Sat by Pulse Oximetry (%) 96 09/25/17 20:54 Constitutional: Yes: No Distress Cardiovascular: Yes: Pulse Irregular Respiratory: Yes: CTA Bilaterally Musculoskeletal: Yes: Other (right hand warm, 2+ radial pulse) Edema: No Neurological: Yes: Alert, Oriented ...Motor Strength: WNL Labs: CBC, BMP 09/26/17 05:00 09/26/17 05:00 INR, PTT INR 1.15 (0.82-1.09) H 09/24/17 14:43 Laboratory Tests 09/24/17 09/24/17 09/25/17 14:43 15:28 01:00 WBC Hgb Hct Plt Count INR 1.15 H PTT (Actin FS) 55.5 H D Sodium Potassium BUN Creatinine Creatine Kinase 46 Troponin I < 0.02 09/25/17 09/25/17 09/25/17 05:00 05:00 05:00 WBC 4.9 Hgb 8.9 L Hct 26.7 L Plt Count 194 INR PTT (Actin FS) 55.8 H Sodium 141 Potassium 3.6 BUN 12 Creatinine Creatine Kinase Troponin I 09/26/17 09/26/17 09/26/17 05:00 05:00 05:00 WBC 5.1 Hgb 9.0 L Hct Plt Count 207 INR PTT (Actin FS) 64.7 H Sodium Potassium 3.7 BUN Creatinine 0.7 Creatine Kinase Troponin I - ....Imaging EKG: Image Reviewed Problem List - Problems (1) Afib Code(s): I48.91 - UNSPECIFIED ATRIAL FIBRILLATION Qualifiers: Atrial fibrillation type: permanent Qualified Code(s): I48.2 - Chronic atrial fibrillation (2) Axillary artery embolus Code(s): I74.2 - EMBOLISM AND THROMBOSIS OF ARTERIES OF THE UPPER EXTREMITIES (3) Bladder cancer Code(s): C67.9 - MALIGNANT NEOPLASM OF BLADDER, UNSPECIFIED Qualifiers: Bladder location: unspecified site Qualified Code(s): C67.9 - Malignant neoplasm of bladder, unspecified (4) GI bleed Code(s): K92.2 - GASTROINTESTINAL HEMORRHAGE, UNSPECIFIED Qualifiers: GI bleed type/associated pathology: unspecified gastrointestinal hemorrhage type Qualified Code(s): K92.2 - Gastrointestinal hemorrhage, unspecified (5) Mitral valve stenosis Code(s): I05.0 - RHEUMATIC MITRAL STENOSIS Qualifiers: Cardiac valve disease etiology: rheumatic Qualified Code(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 Cont. heparin gtts 2. Titrate Lopressor Coverage for [facility]
[2017-09-26] MEDS: PANTOPRAZOLE SODIUM 40 MG VIAL IVPUSH SCH (09:56)
[2017-09-26] MEDS: METOPROLOL TARTRATE 50 MG TABLET (FP) PO SCH ×2 (10:00→22:09)
--- NOTE | 2017-09-26 18:01 | PN ---
Progress Note (short form) - Note Progress Note: POD 1 VSS Right arm dressing dry, minimal swelling hand warm, 2+ radial pulse Imp: S/p right brachial embolectomy Plan: IV Heparin, await decision on resuming oral anticoagulants in light of recent GI bleed Problem List - Problems (1) Axillary artery embolus Code(s): I74.2 - EMBOLISM AND THROMBOSIS OF ARTERIES OF THE UPPER EXTREMITIES (2) Afib Code(s): I48.91 - UNSPECIFIED ATRIAL FIBRILLATION Qualifiers: Atrial fibrillation type: permanent Qualified Code(s): I48.2 - Chronic atrial fibrillation
[2017-09-26] MEDS: DIGOXIN 0.125 MG TABLET (FP) PO SCH (22:09)
[2017-09-26] MEDS: HEPARIN - 25,000 UNIT in SODIUM CHLORIDE 495 ML IV SCH (22:10)
[2017-09-27 07:12] LABS: HEMATOCRIT 25.4 % (32.4-45.2); HEMOGLOBIN 8.4 GM/dL (10.7-15.3); MCH 30.2 pg (25.7-33.7); MEAN CELL VOLUME 91.5 fl (80-96); MEAN PLT VOLUME 7.7 fl (7.5-11.1); PLATELET COUNT 217 K/MM3 (134-434); RBC 2.78 M/mm3 (3.60-5.2); RDW 15.9 % (11.6-15.6); WHITE BLOOD COUNT 5.3 K/mm3 (4.0-10.0)
[2017-09-27 08:17] LABS: INR 1.12 (0.82-1.09); PROTHROMBIN TIME (PATIENT) 12.7 SEC (9.7-13.0)
[2017-09-27] MEDS ORDERED: WARFARIN NA 5 MG TABLET (UD) PO ONE (08:27)
--- NOTE | 2017-09-27 08:34 | PN ---
Progress Note (short form) - Note Progress Note: Anesthesia post op note POD#1. S/P Right brachial embolectomy. Pat seen and examined. VSS. No complaints. tolerating po, ambulating. No apparent post anesthesia complications. Signed off.
--- NOTE | 2017-09-27 08:38 | PN ---
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 The patient underwent successful embolectomy and was started on IV Heparin. No GI bleed. Doing well. Re-starting Coumadin was discussed wt GI and at this point they feel that the risks of CVA or embolic evets would justify re-starting Coumadin PO. Today comfortable, NAD. Vital Signs Temp 97.8 F 09/27/17 05:45 Pulse 74 09/27/17 05:45 Resp 20 09/27/17 05:45 BP 121/52 09/27/17 05:45 Pulse Ox 97 09/26/17 21:00 Intake & Output 09/26/17 09/26/17 09/27/17 11:59 23:59 11:59 Intake Total 292 472 196 Balance 292 472 196 Weight 90 lb Intake: IV 192 272 96 Saline Lock 192 272 96 Oral 100 200 100 Other: Voiding Method Toilet Toilet # Unmeasured Voids Void 2 1 Bowel Movement No Height 5 ft 1 in Body Mass Index (BMI) 16.9 lungs are Clear JVD B/L Heart S1S2 irregular, irregular, DM with OS, VR controlled. Abdomen soft, NT, ND No CCE RUE-+3 radial/ulnar pulses. dRESSING DRY, intact Current Active Problems Problem Status Onset Afib Acute Axillary artery embolus Acute DVT of upper extremity (deep vein thrombosis) Acute Laboratory Results - last 24 hr 09/26/17 09/27/17 09/27/17 05:00 06:30 06:30 WBC 5.3 RBC 2.78 L Hgb 8.4 L Hct 25.4 L MCV 91.5 MCH 30.2 MCHC 33.0 RDW 15.9 H Plt Count 217 MPV 7.7 Neutrophils % (Manual) 71.7 Band Neutrophils % 0.0 Lymphocytes % (Manual) 16.2 Monocytes % (Manual) 5 Eosinophils % (Manual) 7.1 H Basophils % (Manual) 0.0 Myelocytes % (Man) 0 Promyelocytes % (Man) 0 Blast Cells % (Manual) 0 Nucleated RBC % 0 Metamyelocytes 0 Platelet Estimate Normal Anisocytosis 1+ Macrocytosis 1+ Target Cells 1+ Ovalocytes 1+ PT with INR INR PTT (Actin FS) 64.2 H 09/27/17 06:30 WBC RBC Hgb Hct MCV MCH MCHC RDW Plt Count MPV Neutrophils % (Manual) Band Neutrophils % Lymphocytes % (Manual) Monocytes % (Manual) Eosinophils % (Manual) Basophils % (Manual) Myelocytes % (Man) Promyelocytes % (Man) Blast Cells % (Manual) Nucleated RBC % Metamyelocytes Platelet Estimate Anisocytosis Macrocytosis Target Cells Ovalocytes PT with INR 12.70 INR 1.12 PTT (Actin FS) Plan PT/INR daily Start Coumadin PO daily Continue meds
[2017-09-27] MEDS: PANTOPRAZOLE SODIUM 40 MG VIAL IVPUSH SCH (09:13)
[2017-09-27] MEDS: METOPROLOL TARTRATE 50 MG TABLET (FP) PO SCH ×2 (09:13→22:34)
[2017-09-27] MEDS: HEPARIN - 25,000 UNIT in SODIUM CHLORIDE 495 ML IV SCH (09:14)
[2017-09-27 10:06] LABS: BASO % 0.7 % (0-2.0); EOS % 3.8 % (0-4.5); HEMATOCRIT 25.2 % (32.4-45.2); HEMOGLOBIN 8.5 GM/dL (10.7-15.3); LYMPH % 22.5 % (8-40); MCH 30.8 pg (25.7-33.7); MCHC 33.5 g/dl (32.0-36.0); MEAN CELL VOLUME 91.8 fl (80-96); MONO % 11.7 % (3.8-10.2); NEUT % 61.3 % (42.8-82.8); PLATELET COUNT 223 K/MM3 (134-434); RBC 2.74 M/mm3 (3.60-5.2); WHITE BLOOD COUNT 5.3 K/mm3 (4.0-10.0)
[2017-09-27 10:20] LABS: ALBUMIN 2.5 g/dl (3.4-5.0); ANION GAP 5 (8-16); BLOOD UREA NITROGEN 8 mg/dL (7-18); CALCIUM 7.8 mg/dL (8.5-10.1); CHLORIDE 111 mmol/L (98-107); CO2 26 mmol/L (21-32); CREATININE 0.6 mg/dL (0.55-1.02); GLUCOSE,RANDOM 71 mg/dL (74-106); POTASSIUM 4.1 mmol/L (3.5-5.1); SGOT/AST 16 U/L (15-37); SGPT/ALT 10 U/L (12-78); SODIUM 142 mmol/L (136-145)
[2017-09-27 10:21] LABS: ALK PHOS 85 U/L (45-117); BILIRUBIN,TOTAL 0.6 mg/dL (0.2-1.0); TOT PROT 5.5 g/dl (6.4-8.2)
--- NOTE | 2017-09-27 11:43 | PN ---
Progress Note (short form) - Note Progress Note: POD#2 Right brachial embolectomy Vital Signs Period Temp Pulse Resp BP Sys/Coulter Pulse Ox Last 24 Hr 97.8 F-98.2 F 74-98 18-20 104-143/47-70 97 Right upper extremity: hand warm, +2 Radial/ulnar pulse. Human Resource Assistant strength good and moving extremity/hand without difficulty. dressing changed inc c/d/i. No ecchymosis/erythema. replaced dressing with new 4x4/tegaderm gauze. CBC, BMP 09/27/17 08:00 09/27/17 10:00 Laboratory Tests 09/27/17 09/27/17 06:30 06:30 PT with INR 12.70 INR 1.12 PTT (Actin FS) 64.2 H A/p: 87 yo female s/p right brachial embolectomy, POD#2 Hand warm, incision dry IV heparin and pt written for coumadin 5mg tonight and 3mg tomorrow by the medical team <Darline Muhammad - Last Filed: 09/27/17 11:49> Problem List - Problems (1) Axillary artery embolus Code(s): I74.2 - EMBOLISM AND THROMBOSIS OF ARTERIES OF THE UPPER EXTREMITIES (2) Afib Code(s): I48.91 - UNSPECIFIED ATRIAL FIBRILLATION Qualifiers: Atrial fibrillation type: permanent Qualified Code(s): I48.2 - Chronic atrial fibrillation <Tim Martin - Last Filed: 09/27/17 16:36>
--- NOTE | 2017-09-27 13:17 | PN ---
Progress Note, Physician History of Present Illness: "87 year old female, Malawian speaking, accompanied by son, with a significant past medical history of AFib(on Coumadin), mitral valve stenosis, CVA (some residual balance issues), hyperlipidemia, and hypertension, who presents to the emergency department with right arm pain and numbness since earlier today. The patient reports she first noted an achy pain at her elbow and wrist approximately 2 hours ago, which lasted about an hour, with associated numbness and weakness. Patient reports her pain has resolved, but her numbness and weakness persists in her right arm. She reports when her symptoms first started she felt diaphoretic, weak, and dizzy, but denies any head trauma, headache, lightheadedness, changes in vision, neck or back pain, changes in speech, or changes in gait. Patient reports her symptoms are different than when she had her CVA. She denies any chest pain, shortness of breath, diaphoresis, or palpitations. She denies any fever or chills. She denies any abdominal pain, nausea, vomiting, diarrhea,constipation, melena, or hematochezia. Patient reports she has not been on Coumadin for approximately 1.5 weeks due to recent history of GI bleed. She denies any recent travel or sick contacts." - Current Medication List Current Medications: Active Medications Acetaminophen (Tylenol -) 650 mg PO Q4H PRN PRN Reason: FEVER Last Admin: 09/25/17 16:48 Dose: 650 mg Acetaminophen (Tylenol -) 325 mg PO Q4H PRN PRN Reason: PAIN LEVEL 1-5 Digoxin (Lanoxin -) 0.125 mg PO Q48H [facility] Last Admin: 09/26/17 22:09 Dose: 0.125 mg Heparin Sodium (Porcine) (Heparin -) 1,000 unit IVPUSH PRN PRN PRN Reason: Heparin Heparin Sodium (Porcine) (Heparin -) 5,000 unit IVPUSH PRN PRN PRN Reason: Heparin Heparin Sodium (Porcine) 25, (000 unit/ Sodium Chloride) 500 mls @ 16 mls/hr IV TITR ASUNCION; 800 UNIT/HR PRN Reason: Protocol Last Admin: 09/27/17 09:14 Dose: 800 unit/hr, 16 mls/hr Metoprolol Tartrate (Lopressor -) 50 mg PO BID [facility] Last Admin: 09/27/17 09:13 Dose: 50 mg Ondansetron HCl (Zofran Injection) 4 mg IVPUSH Q6H PRN PRN Reason: NAUSEA AND/OR VOMITING Oxycodone HCl (Roxicodone -) 5 mg PO Q4H PRN PRN Reason: PAIN LEVEL 1-5 Pantoprazole Sodium (Protonix Iv) 40 mg IVPUSH DAILY [facility] Last Admin: 09/27/17 09:13 Dose: 40 mg Warfarin Sodium (Coumadin -) 3 mg PO DAILY@1800 [facility] - Objective Vital Signs: Vital Signs Temperature 97.8 F 09/27/17 09:00 Pulse Rate 82 09/27/17 09:00 Respiratory Rate 18 09/27/17 09:00 Blood Pressure 133/66 09/27/17 09:00 O2 Sat by Pulse Oximetry (%) 97 09/27/17 09:00 Eyes: Yes: WNL, Conjunctiva Clear, EOM Intact HENT: Yes: WNL, Atraumatic, Normocephalic Neck: Yes: WNL, Supple, Trachea Midline Cardiovascular: Yes: Pulse Irregular, Murmur, S1, S2 Respiratory: Yes: WNL, Regular, CTA Bilaterally Gastrointestinal: Yes: WNL, Normal Bowel Sounds Genitourinary: Yes: WNL Musculoskeletal: Yes: WNL Extremities: Yes: WNL Edema: No Integumentary: Yes: WNL Neurological: Yes: WNL, Alert, Oriented ...Motor Strength: WNL Psychiatric: Yes: WNL Labs: CBC, BMP 09/27/17 08:00 09/27/17 10:00 INR, PTT INR 1.12 (0.82-1.09) 09/27/17 06:30 Assessment/Plan IMP: Permanent AF, periods RVR Moderate MS H/o GI bleed off AC RUE arterial insufficiency w/p right brachial embolectomy anemia REC: 1. Cont. heparin gtts transition to coumadin 2. Titrate Lopressor f/u HCT
[2017-09-28 07:31] LABS: HEMATOCRIT 27.8 % (32.4-45.2); HEMOGLOBIN 9.3 GM/dL (10.7-15.3); MCH 30.7 pg (25.7-33.7); MCHC 33.3 g/dl (32.0-36.0); MEAN CELL VOLUME 92.2 fl (80-96); MEAN PLT VOLUME 7.8 fl (7.5-11.1); PLATELET COUNT 230 K/MM3 (134-434); RBC 3.02 M/mm3 (3.60-5.2); RDW 15.8 % (11.6-15.6); WHITE BLOOD COUNT 5.6 K/mm3 (4.0-10.0)
[2017-09-28 08:14] LABS: INR 1.16 (0.82-1.09); PROTHROMBIN TIME (PATIENT) 13.1 SEC (9.7-13.0)
[2017-09-28] MEDS: PANTOPRAZOLE SODIUM 40 MG VIAL IVPUSH SCH (11:11)
[2017-09-28] MEDS: METOPROLOL TARTRATE 50 MG TABLET (FP) PO SCH ×2 (11:11→21:54)
--- NOTE | 2017-09-28 13:37 | PN ---
Progress Note, Physician Chief Complaint: Patient feels well Right arm/hand warm with good pulse History of Present Illness: RHD. Mitral stenosis. Chronic AFIB. Previously CVA/TIA. LE varicose veins. History of bladder cancer - Current Medication List Current Medications: Active Medications Acetaminophen (Tylenol -) 650 mg PO Q4H PRN PRN Reason: FEVER Last Admin: 09/25/17 16:48 Dose: 650 mg Acetaminophen (Tylenol -) 325 mg PO Q4H PRN PRN Reason: PAIN LEVEL 1-5 Digoxin (Lanoxin -) 0.125 mg PO Q48H [facility] Last Admin: 09/26/17 22:09 Dose: 0.125 mg Heparin Sodium (Porcine) (Heparin -) 1,000 unit IVPUSH PRN PRN PRN Reason: Heparin Heparin Sodium (Porcine) (Heparin -) 5,000 unit IVPUSH PRN PRN PRN Reason: Heparin Heparin Sodium (Porcine) 25, (000 unit/ Sodium Chloride) 500 mls @ 16 mls/hr IV TITR ASUNCION; 800 UNIT/HR PRN Reason: Protocol Last Admin: 09/27/17 09:14 Dose: 800 unit/hr, 16 mls/hr Metoprolol Tartrate (Lopressor -) 50 mg PO BID [facility] Last Admin: 09/28/17 11:11 Dose: 50 mg Ondansetron HCl (Zofran Injection) 4 mg IVPUSH Q6H PRN PRN Reason: NAUSEA AND/OR VOMITING Oxycodone HCl (Roxicodone -) 5 mg PO Q4H PRN PRN Reason: PAIN LEVEL 1-5 Pantoprazole Sodium (Protonix Iv) 40 mg IVPUSH DAILY [facility] Last Admin: 09/28/17 11:11 Dose: 40 mg Warfarin Sodium (Coumadin -) 3 mg PO DAILY@1800 [facility] - Objective Vital Signs: Vital Signs Temperature 98.1 F 09/28/17 06:00 Pulse Rate 81 09/28/17 09:10 Respiratory Rate 22 09/28/17 09:10 Blood Pressure 149/52 09/28/17 09:10 O2 Sat by Pulse Oximetry (%) 94 L 09/27/17 21:00 Constitutional: Yes: No Distress, Calm, Pallor, Thin Eyes: Yes: Conjunctiva Clear, EOM Intact HENT: Yes: Atraumatic, Normocephalic Neck: Yes: Supple, Trachea Midline Cardiovascular: Yes: Pulse Irregular, JVD, Murmur (DM of MS, OS) Respiratory: Yes: Regular, CTA Bilaterally (Few rales). No: Cough Gastrointestinal: Yes: Normal Bowel Sounds. No: Abdomen, Obese ...Rectal Exam: Yes: Deferred Genitourinary: No: Anuria Breast(s): Yes: WNL Musculoskeletal: No: Joint Stiffness, Joint Swelling Extremities: No: Amputation, Calf Tenderness Edema: No Peripheral Pulses WNL: Yes Integumentary: Yes: Venous Stasis Changes Wound/Incision: Yes: Clean/Dry Neurological: Yes: Alert, Oriented ...Motor Strength: WNL Psychiatric: Yes: WNL Labs: CBC, BMP 09/28/17 07:10 09/27/17 10:00 INR, PTT INR 1.16 (0.82-1.09) H 09/28/17 07:10 Problem List - Problems (1) Afib Assessment/Plan: Continue Heparin Coumadin PO Follow INR Code(s): I48.91 - UNSPECIFIED ATRIAL FIBRILLATION Qualifiers: Atrial fibrillation type: permanent Qualified Code(s): I48.2 - Chronic atrial fibrillation (2) Axillary artery embolus Assessment/Plan: Follow RUE pulses Code(s): I74.2 - EMBOLISM AND THROMBOSIS OF ARTERIES OF THE UPPER EXTREMITIES (3) GI bleed Assessment/Plan: No GI bleed S/P GI bleed from AVM, S/p ablations AVM Pt at increased risk of re-bleed Discussed with GI Will attemt to keep INR around 2.0 Code(s): K92.2 - GASTROINTESTINAL HEMORRHAGE, UNSPECIFIED Qualifiers: GI bleed type/associated pathology: unspecified gastrointestinal hemorrhage type Qualified Code(s): K92.2 - Gastrointestinal hemorrhage, unspecified (4) Severe protein-calorie malnutrition Assessment/Plan: Supplements with Ensure PO Code(s): E43 - UNSPECIFIED SEVERE PROTEIN-CALORIE MALNUTRITION
--- NOTE | 2017-09-28 15:02 | PN ---
Progress Note, Physician Chief Complaint: Ptr A&Ox3; no pain in hand; no chest pain. History of Present Illness: The patient is a 87 year old white woman, Ukrainian speaking, accompanied by son, with a significant past medical history of AFib(on Coumadin), mitral valve stenosis, CVA (some residual balance issues), hyperlipidemia, and hypertension, who presents to the emergency department with right arm pain and numbness since earlier today. The patient reports she first noted an achy pain at her elbow and wrist approximately 2 hours ago, which lasted about an hour, with associated numbness and weakness. Patient reports her pain has resolved, but her numbness and weakness persists in her right arm. She reports when her symptoms first started she felt diaphoretic, weak, and dizzy, but denies any head trauma, headache,lightheadedness, changes in vision, neck or back pain, changes in speech, or changes in gait. Patient reports her symptoms are different than when she had her CVA. She denies any chest pain, shortness of breath, diaphoresis, or palpitations. She denies any fever or chills. She denies any abdominal pain, nausea, vomiting, diarrhea,constipation, melena, or hematochezia. Patient reports she has not been on Coumadin for approximately 1.5 weeks due to recent history of GI bleed. She denies any recent travel or sick contacts. Allergies: NKDA Past Surgical History: Cholecystectomy Social History: Non smoker. No ETOH or recreational drug use. PCP: Dr. Beltre Air Battle Manager: Dr. Cho GI: Dr. Lockwood - Current Medication List Current Medications: Active Medications Acetaminophen (Tylenol -) 650 mg PO Q4H PRN PRN Reason: FEVER Last Admin: 09/25/17 16:48 Dose: 650 mg Acetaminophen (Tylenol -) 325 mg PO Q4H PRN PRN Reason: PAIN LEVEL 1-5 Digoxin (Lanoxin -) 0.125 mg PO Q48H [facility] Last Admin: 09/26/17 22:09 Dose: 0.125 mg Heparin Sodium (Porcine) (Heparin -) 1,000 unit IVPUSH PRN PRN PRN Reason: Heparin Heparin Sodium (Porcine) (Heparin -) 5,000 unit IVPUSH PRN PRN PRN Reason: Heparin Heparin Sodium (Porcine) 25, (000 unit/ Sodium Chloride) 500 mls @ 16 mls/hr IV TITR ASUNCION; 800 UNIT/HR PRN Reason: Protocol Last Admin: 09/27/17 09:14 Dose: 800 unit/hr, 16 mls/hr Metoprolol Tartrate (Lopressor -) 50 mg PO BID [facility] Last Admin: 09/28/17 11:11 Dose: 50 mg Ondansetron HCl (Zofran Injection) 4 mg IVPUSH Q6H PRN PRN Reason: NAUSEA AND/OR VOMITING Oxycodone HCl (Roxicodone -) 5 mg PO Q4H PRN PRN Reason: PAIN LEVEL 1-5 Pantoprazole Sodium (Protonix Iv) 40 mg IVPUSH DAILY [facility] Last Admin: 09/28/17 11:11 Dose: 40 mg Warfarin Sodium (Coumadin -) 5 mg PO DAILY@1800 [facility] - Objective Vital Signs: Vital Signs Temperature 98.1 F 09/28/17 06:00 Pulse Rate 81 09/28/17 09:10 Respiratory Rate 22 09/28/17 09:10 Blood Pressure 149/52 09/28/17 09:10 O2 Sat by Pulse Oximetry (%) 94 L 09/27/17 21:00 Constitutional: Yes: No Distress Eyes: Yes: WNL HENT: Yes: WNL Neck: Yes: WNL Cardiovascular: Yes: Pulse Irregular Respiratory: Yes: WNL Gastrointestinal: Yes: Soft ...Rectal Exam: Yes: Deferred Genitourinary: No: Anuria Breast(s): Yes: WNL Musculoskeletal: Yes: Muscle Weakness Extremities: Yes: WNL Edema: No Peripheral Pulses WNL: Yes Integumentary: Yes: WNL Neurological: Yes: WNL Psychiatric: Yes: WNL Labs: CBC, BMP 09/28/17 07:10 09/27/17 10:00 INR, PTT INR 1.16 (0.82-1.09) H 09/28/17 07:10 Abnormal Lab Results 09/28/17 09/28/17 09/28/17 07:10 07:10 07:10 RBC 3.02 L Hgb 9.3 L Hct 27.8 L RDW 15.8 H PT with INR 13.10 H INR 1.16 H PTT (Actin FS) 82.3 H - ....Imaging Other: Image Reviewed (telemtery: AF with controlled VR) Problem List - Problems (1) Afib Assessment/Plan: On metoprolol tartrate bid for HR and BP. On digoxin: keep level 0.5-1.0 (level ordered from today's blood). On IV heparin; restart warfarin (valvular AF). Code(s): I48.91 - UNSPECIFIED ATRIAL FIBRILLATION Qualifiers: Atrial fibrillation type: permanent Qualified Code(s): I48.2 - Chronic atrial fibrillation (2) Axillary artery embolus Code(s): I74.2 - EMBOLISM AND THROMBOSIS OF ARTERIES OF THE UPPER EXTREMITIES (3) Bladder cancer Code(s): C67.9 - MALIGNANT NEOPLASM OF BLADDER, UNSPECIFIED Qualifiers: Bladder location: unspecified site Qualified Code(s): C67.9 - Malignant neoplasm of bladder, unspecified (4) GI bleed Assessment/Plan: hx anemia with ?GI bleed-->stopping warfarin weeks ago. Code(s): K92.2 - GASTROINTESTINAL HEMORRHAGE, UNSPECIFIED Qualifiers: GI bleed type/associated pathology: unspecified gastrointestinal hemorrhage type Qualified Code(s): K92.2 - Gastrointestinal hemorrhage, unspecified (5) HTN (hypertension) Code(s): I10 - ESSENTIAL (PRIMARY) HYPERTENSION (6) Mitral valve stenosis Code(s): I05.0 - RHEUMATIC MITRAL STENOSIS Qualifiers: Cardiac valve disease etiology: rheumatic Qualified Code(s): I05.0 - Rheumatic mitral stenosis
--- NOTE | 2017-09-28 17:19 | PATH ---
Surgical Pathology Report Patient Name: GILBERTO GUILLAUME [facility]. Rec. #: [id number] /Age/Gender: 1930 (Age: 87) / F Account: [id number] Location: 4 W TELEMETRY U Taken: 09/25/2017 Received: 09/27/2017 Reported: 09/28/2017 Physicians: Tim Martin M.D. Specimen(s) Received RIGHT BRACHIAL EMBOLUS Clinical History It Right brachial embolism Final Diagnosis BRACHIAL, RIGHT, EMBOLUS, EMBOLECTOMY: BLOOD/FIBRIN CLOT. Electronically Signed Pushpa Poole M.D. Gross Description Received in formalin labeled "right brachial embolus," is a 1.7 x 1.0 x 0.3 cm aggregate of red-brown blood clot. The specimen is entirely submitted in one cassette. /09/27/201709/27/2017
[2017-09-28] MEDS ORDERED: WARFARIN NA 3 MG TABLET PO SCH (18:00)
[2017-09-28] MEDS: WARFARIN NA 5 MG TABLET (UD) PO SCH (19:01)
[2017-09-28] MEDS: DIGOXIN 0.125 MG TABLET (FP) PO SCH (21:52)
--- NOTE | 2017-09-29 07:54 | PN ---
Progress Note, Physician Chief Complaint: Poor appetite, weakness History of Present Illness: RHD. Mitral stenosis. Chronic AFIB. Previously CVA/TIA. LE varicose veins. History of bladder cancer - Current Medication List Current Medications: Active Medications Acetaminophen (Tylenol -) 650 mg PO Q4H PRN PRN Reason: FEVER Last Admin: 09/25/17 16:48 Dose: 650 mg Acetaminophen (Tylenol -) 325 mg PO Q4H PRN PRN Reason: PAIN LEVEL 1-5 Digoxin (Lanoxin -) 0.125 mg PO Q48H [facility] Last Admin: 09/28/17 21:52 Dose: 0.125 mg Heparin Sodium (Porcine) (Heparin -) 1,000 unit IVPUSH PRN PRN PRN Reason: Heparin Heparin Sodium (Porcine) (Heparin -) 5,000 unit IVPUSH PRN PRN PRN Reason: Heparin Heparin Sodium (Porcine) 25, (000 unit/ Sodium Chloride) 500 mls @ 16 mls/hr IV TITR ASUNCION; 800 UNIT/HR PRN Reason: Protocol Last Admin: 09/27/17 09:14 Dose: 800 unit/hr, 16 mls/hr Metoprolol Tartrate (Lopressor -) 50 mg PO BID [facility] Last Admin: 09/28/17 21:54 Dose: 50 mg Ondansetron HCl (Zofran Injection) 4 mg IVPUSH Q6H PRN PRN Reason: NAUSEA AND/OR VOMITING Oxycodone HCl (Roxicodone -) 5 mg PO Q4H PRN PRN Reason: PAIN LEVEL 1-5 Pantoprazole Sodium (Protonix Iv) 40 mg IVPUSH DAILY [facility] Last Admin: 09/28/17 11:11 Dose: 40 mg Warfarin Sodium (Coumadin -) 5 mg PO DAILY@1800 [facility] Last Admin: 09/28/17 19:01 Dose: 5 mg - Objective Vital Signs: Vital Signs Temperature 98.6 F 09/29/17 05:40 Pulse Rate 68 09/29/17 05:40 Respiratory Rate 18 09/29/17 05:40 Blood Pressure 132/41 09/29/17 05:40 O2 Sat by Pulse Oximetry (%) 97 09/28/17 21:00 Constitutional: Yes: Anxious, Cachectic, Pallor, Thin Eyes: Yes: Conjunctiva Clear, EOM Intact HENT: Yes: Atraumatic, Normocephalic. No: Drooling Neck: Yes: Supple, Trachea Midline Cardiovascular: Yes: Pulse Irregular, JVD, Murmur (DM with), S1, S2. No: Rub Respiratory: Yes: Regular, CTA Bilaterally Gastrointestinal: Yes: Normal Bowel Sounds, Soft ...Rectal Exam: Yes: Deferred Genitourinary: No: Anuria, Bladder Distention, CVA Tenderness - Left, CVA Tenderness - Right Breast(s): Yes: WNL Musculoskeletal: No: Joint Stiffness, Joint Swelling Extremities: Yes: WNL, Other (varicose veins) Edema: No Integumentary: Yes: WNL Wound/Incision: Yes: Unapproximated Neurological: Yes: WNL, Alert ...Motor Strength: WNL Psychiatric: Yes: WNL Labs: CBC, BMP 09/27/17 10:00 INR, PTT INR 1.16 (0.82-1.09) H 09/28/17 07:10 Problem List - Problems (1) Afib Assessment/Plan: Continue Heparin Coumadin PO Follow INR Code(s): I48.91 - UNSPECIFIED ATRIAL FIBRILLATION Qualifiers: Atrial fibrillation type: permanent Qualified Code(s): I48.2 - Chronic atrial fibrillation (2) Axillary artery embolus Assessment/Plan: Follow RUE pulses Code(s): I74.2 - EMBOLISM AND THROMBOSIS OF ARTERIES OF THE UPPER EXTREMITIES (3) GI bleed Assessment/Plan: No GI bleed S/P GI bleed from AVM, S/p ablations AVM Pt at increased risk of re-bleed Discussed with GI Will attemt to keep INR around 2.0 Code(s): K92.2 - GASTROINTESTINAL HEMORRHAGE, UNSPECIFIED Qualifiers: GI bleed type/associated pathology: unspecified gastrointestinal hemorrhage type Qualified Code(s): K92.2 - Gastrointestinal hemorrhage, unspecified (4) Severe protein-calorie malnutrition Assessment/Plan: Supplements with Ensure PO Code(s): E43 - UNSPECIFIED SEVERE PROTEIN-CALORIE MALNUTRITION (5) Mitral stenosis and aortic incompetence Assessment/Plan: Discussed with cardiology No surgical treatment recommended Code(s): I08.0 - RHEUMATIC DISORDERS OF BOTH MITRAL AND AORTIC VALVES
[2017-09-29 09:06] LABS: INR 1.17 (0.82-1.09); PROTHROMBIN TIME (PATIENT) 13.2 SEC (9.7-13.0)
[2017-09-29 09:21] LABS: HEMATOCRIT 25.3 % (32.4-45.2); HEMOGLOBIN 8.5 GM/dL (10.7-15.3); MCH 30.8 pg (25.7-33.7); MCHC 33.8 g/dl (32.0-36.0); MEAN CELL VOLUME 91.2 fl (80-96); MEAN PLT VOLUME 8.3 fl (7.5-11.1); PLATELET COUNT 243 K/MM3 (134-434); RBC 2.77 M/mm3 (3.60-5.2); WHITE BLOOD COUNT 6.2 K/mm3 (4.0-10.0)
[2017-09-29] MEDS: METOPROLOL TARTRATE 50 MG TABLET (FP) PO SCH ×2 (11:07→21:35)
[2017-09-29] MEDS: PANTOPRAZOLE SODIUM 40 MG VIAL IVPUSH SCH (11:07)
--- NOTE | 2017-09-29 11:41 | PN ---
Progress Note, Physician History of Present Illness: "87 year old female, Hong Konger speaking, accompanied by son, with a significant past medical history of AFib(on Coumadin), mitral valve stenosis, CVA (some residual balance issues), hyperlipidemia, and hypertension, who presents to the emergency department with right arm pain and numbness since earlier today. The patient reports she first noted an achy pain at her elbow and wrist approximately 2 hours ago, which lasted about an hour, with associated numbness and weakness. Patient reports her pain has resolved, but her numbness and weakness persists in her right arm. She reports when her symptoms first started she felt diaphoretic, weak, and dizzy, but denies any head trauma, headache, lightheadedness, changes in vision, neck or back pain, changes in speech, or changes in gait. Patient reports her symptoms are different than when she had her CVA. She denies any chest pain, shortness of breath, diaphoresis, or palpitations. She denies any fever or chills. She denies any abdominal pain, nausea, vomiting, diarrhea,constipation, melena, or hematochezia. Patient reports she has not been on Coumadin for approximately 1.5 weeks due to recent history of GI bleed. She denies any recent travel or sick contacts." - Current Medication List Current Medications: Active Medications Acetaminophen (Tylenol -) 650 mg PO Q4H PRN PRN Reason: FEVER Last Admin: 09/25/17 16:48 Dose: 650 mg Acetaminophen (Tylenol -) 325 mg PO Q4H PRN PRN Reason: PAIN LEVEL 1-5 Digoxin (Lanoxin -) 0.125 mg PO Q48H [facility] Last Admin: 09/28/17 21:52 Dose: 0.125 mg Heparin Sodium (Porcine) (Heparin -) 1,000 unit IVPUSH PRN PRN PRN Reason: Heparin Heparin Sodium (Porcine) (Heparin -) 5,000 unit IVPUSH PRN PRN PRN Reason: Heparin Heparin Sodium (Porcine) 25, (000 unit/ Sodium Chloride) 500 mls @ 16 mls/hr IV TITR ASUNCION; 800 UNIT/HR PRN Reason: Protocol Last Admin: 09/27/17 09:14 Dose: 800 unit/hr, 16 mls/hr Metoprolol Tartrate (Lopressor -) 50 mg PO BID [facility] Last Admin: 09/29/17 11:07 Dose: 50 mg Ondansetron HCl (Zofran Injection) 4 mg IVPUSH Q6H PRN PRN Reason: NAUSEA AND/OR VOMITING Oxycodone HCl (Roxicodone -) 5 mg PO Q4H PRN PRN Reason: PAIN LEVEL 1-5 Pantoprazole Sodium (Protonix Iv) 40 mg IVPUSH DAILY [facility] Last Admin: 09/29/17 11:07 Dose: 40 mg Warfarin Sodium (Coumadin -) 5 mg PO DAILY@1800 [facility] Last Admin: 09/28/17 19:01 Dose: 5 mg - Objective Vital Signs: Vital Signs Temperature 98.6 F 09/29/17 05:40 Pulse Rate 68 09/29/17 05:40 Respiratory Rate 18 09/29/17 05:40 Blood Pressure 132/41 09/29/17 05:40 O2 Sat by Pulse Oximetry (%) 97 09/29/17 09:00 Eyes: Yes: WNL, Conjunctiva Clear, EOM Intact HENT: Yes: WNL, Atraumatic, Normocephalic Neck: Yes: WNL, Supple, Trachea Midline Cardiovascular: Yes: Pulse Irregular, Murmur, S1, S2 Respiratory: Yes: WNL, Regular, CTA Bilaterally Gastrointestinal: Yes: WNL, Normal Bowel Sounds Genitourinary: Yes: WNL Musculoskeletal: Yes: WNL Extremities: Yes: WNL Edema: No Integumentary: Yes: WNL Neurological: Yes: WNL, Alert, Oriented ...Motor Strength: WNL Psychiatric: Yes: WNL Labs: CBC, BMP 09/29/17 06:30 09/27/17 10:00 INR, PTT INR 1.17 (0.82-1.09) H 09/29/17 06:30 Assessment/Plan IMP: Permanent AF, periods RVR Moderate MS H/o GI bleed off AC RUE arterial insufficiency w/p right brachial embolectomy anemia REC: 1. Cont. heparin gtts transition to coumadin 2. Titrate Lopressor f/u HCT
[2017-09-29] MEDS: WARFARIN NA 5 MG TABLET (UD) PO SCH (18:36)
[2017-09-30] MEDS: HEPARIN - 25,000 UNIT in SODIUM CHLORIDE 495 ML IV SCH ×2 (05:27→09:05)
[2017-09-30 06:33] LABS: HEMATOCRIT 25.9 % (32.4-45.2); HEMOGLOBIN 8.7 GM/dL (10.7-15.3); MCH 30.7 pg (25.7-33.7); MCHC 33.7 g/dl (32.0-36.0); MEAN CELL VOLUME 91.1 fl (80-96); MEAN PLT VOLUME 7.5 fl (7.5-11.1); PLATELET COUNT 246 K/MM3 (134-434); RBC 2.84 M/mm3 (3.60-5.2); RDW 15.9 % (11.6-15.6); WHITE BLOOD COUNT 6.4 K/mm3 (4.0-10.0)
[2017-09-30 06:42] LABS: INR 1.59 (0.82-1.09)
--- NOTE | 2017-09-30 07:51 | PN ---
Progress Note (short form) - Note Progress Note: H/H stable, no new symptoms of GI bleeding. C/o right elbow pain. Vital Signs Temp 98.0 F 09/30/17 05:00 Pulse 81 09/30/17 05:00 Resp 18 09/30/17 05:00 BP 127/49 09/30/17 05:00 Pulse Ox 96 09/29/17 20:10 Intake & Output 09/29/17 09/29/17 09/30/17 11:59 23:59 11:59 Intake Total 412 456 112 Balance 412 456 112 Intake: IV 112 256 112 Heparin - 25,000 Unit In 112 256 112 Normal Saline - 495 ml @ 800 UNIT/HR 16 mls/hr IV TITR ASUNCION Rx#:[id number] Oral 300 200 Other: Voiding Method Toilet Toilet # Unmeasured Voids Void 2 2 2 Bowel Movement No Awake, alert neck JVD Lungs clear Heart S1S2 irregular, irregular, DM and OS Abdomen soft, nt/nd Good radial pulse right arm. Laboratory Results - last 24 hr 09/29/17 09/29/17 09/29/17 06:30 06:30 06:30 WBC 6.2 RBC 2.77 L Hgb 8.5 L Hct 25.3 L MCV 91.2 MCH 30.8 MCHC 33.8 RDW 16.0 H Plt Count 243 MPV 8.3 PT with INR 13.20 H INR 1.17 H PTT (Actin FS) 79.5 H 09/30/17 09/30/17 06:05 06:05 WBC 6.4 RBC 2.84 L Hgb 8.7 L Hct 25.9 L MCV 91.1 MCH 30.7 MCHC 33.7 RDW 15.9 H Plt Count 246 MPV 7.5 PT with INR 18.00 H INR 1.59 H D PTT (Actin FS) Current Active Problems Problem Status Onset Afib Acute Axillary artery embolus Acute DVT of upper extremity (deep vein thrombosis) Acute Mitral stenosis and aortic incompetence Acute Severe protein-calorie malnutrition Acute Plan Continue PO Coumadin Follow INR Heparin IV for the next 24 hrs Problem List - Problems (1) Afib Code(s): I48.91 - UNSPECIFIED ATRIAL FIBRILLATION Qualifiers: Atrial fibrillation type: permanent Qualified Code(s): I48.2 - Chronic atrial fibrillation (2) Axillary artery embolus Code(s): I74.2 - EMBOLISM AND THROMBOSIS OF ARTERIES OF THE UPPER EXTREMITIES (3) GI bleed Code(s): K92.2 - GASTROINTESTINAL HEMORRHAGE, UNSPECIFIED Qualifiers: GI bleed type/associated pathology: unspecified gastrointestinal hemorrhage type Qualified Code(s): K92.2 - Gastrointestinal hemorrhage, unspecified (4) Severe protein-calorie malnutrition Code(s): E43 - UNSPECIFIED SEVERE PROTEIN-CALORIE MALNUTRITION (5) Mitral stenosis and aortic incompetence Code(s): I08.0 - RHEUMATIC DISORDERS OF BOTH MITRAL AND AORTIC VALVES
[2017-09-30] MEDS: METOPROLOL TARTRATE 50 MG TABLET (FP) PO SCH ×2 (10:49→21:04)
[2017-09-30] MEDS: PANTOPRAZOLE SODIUM 40 MG VIAL IVPUSH SCH (10:49)
[2017-09-30] MEDS: ACETAMINOPHEN 325 MG TABLET (FP) PO PRN (10:52)
--- NOTE | 2017-09-30 12:10 | PN ---
Progress Note, Physician Chief Complaint: Ptr A&Ox3; no pain in hand; no chest pain. She does have pain in the right elbow. History of Present Illness: The patient is a 87 year old white woman, German speaking, accompanied by son, with a significant past medical history of AFib(on Coumadin), mitral valve stenosis, CVA (some residual balance issues), hyperlipidemia, and hypertension, who presents to the emergency department with right arm pain and numbness since earlier today. The patient reports she first noted an achy pain at her elbow and wrist approximately 2 hours ago, which lasted about an hour, with associated numbness and weakness. Patient reports her pain has resolved, but her numbness and weakness persists in her right arm. She reports when her symptoms first started she felt diaphoretic, weak, and dizzy, but denies any head trauma, headache,lightheadedness, changes in vision, neck or back pain, changes in speech, or changes in gait. Patient reports her symptoms are different than when she had her CVA. She denies any chest pain, shortness of breath, diaphoresis, or palpitations. She denies any fever or chills. She denies any abdominal pain, nausea, vomiting, diarrhea,constipation, melena, or hematochezia. Patient reports she has not been on Coumadin for approximately 1.5 weeks due to recent history of GI bleed. She denies any recent travel or sick contacts. Allergies: NKDA Past Surgical History: Cholecystectomy Social History: Non smoker. No ETOH or recreational drug use. PCP: Dr. Beltre Manual Arts Teacher: Dr. Cho GI: Dr. Lockwood - Current Medication List Current Medications: Active Medications Acetaminophen (Tylenol -) 650 mg PO Q4H PRN PRN Reason: FEVER Last Admin: 09/25/17 16:48 Dose: 650 mg Acetaminophen (Tylenol -) 325 mg PO Q4H PRN PRN Reason: PAIN LEVEL 1-5 Digoxin (Lanoxin -) 0.125 mg PO Q48H ASUNCION Last Admin: 09/28/17 21:52 Dose: 0.125 mg Heparin Sodium (Porcine) (Heparin -) 1,000 unit IVPUSH PRN PRN PRN Reason: Heparin Heparin Sodium (Porcine) (Heparin -) 5,000 unit IVPUSH PRN PRN PRN Reason: Heparin Heparin Sodium (Porcine) 25, (000 unit/ Sodium Chloride) 500 mls @ 16 mls/hr IV TITR ASUNCION; 800 UNIT/HR PRN Reason: Protocol Last Admin: 09/30/17 09:05 Dose: 700 unit/hr, 14 mls/hr Metoprolol Tartrate (Lopressor -) 50 mg PO BID [facility] Last Admin: 09/30/17 10:49 Dose: 50 mg Ondansetron HCl (Zofran Injection) 4 mg IVPUSH Q6H PRN PRN Reason: NAUSEA AND/OR VOMITING Oxycodone HCl (Roxicodone -) 5 mg PO Q4H PRN PRN Reason: PAIN LEVEL 1-5 Last Admin: 09/30/17 10:52 Dose: 5 mg Pantoprazole Sodium (Protonix Iv) 40 mg IVPUSH DAILY [facility] Last Admin: 09/30/17 10:49 Dose: 40 mg Warfarin Sodium (Coumadin -) 5 mg PO DAILY@1800 [facility] Last Admin: 09/29/17 18:36 Dose: 5 mg - Objective Vital Signs: Vital Signs Temperature 98 F 09/30/17 09:00 Pulse Rate 88 09/30/17 09:00 Respiratory Rate 18 09/30/17 09:00 Blood Pressure 116/60 09/30/17 09:00 O2 Sat by Pulse Oximetry (%) 96 09/29/17 20:10 Labs: CBC, BMP 09/30/17 06:05 09/27/17 10:00 INR, PTT INR 1.59 (0.82-1.09) H D 09/30/17 06:05 Problem List - Problems (1) Afib Assessment/Plan: On metoprolol tartrate bid for HR and BP. On digoxin; if continued use is needed, would keep level 0.5-1.0: presently 0.296. On IV heparin; restarted warfarin (valvular AF); d/c heparin when INR 2-3. Code(s): I48.91 - UNSPECIFIED ATRIAL FIBRILLATION Qualifiers: Atrial fibrillation type: permanent Qualified Code(s): I48.2 - Chronic atrial fibrillation (2) Axillary artery embolus Code(s): I74.2 - EMBOLISM AND THROMBOSIS OF ARTERIES OF THE UPPER EXTREMITIES (3) Bladder cancer Code(s): C67.9 - MALIGNANT NEOPLASM OF BLADDER, UNSPECIFIED Qualifiers: Bladder location: unspecified site Qualified Code(s): C67.9 - Malignant neoplasm of bladder, unspecified (4) GI bleed Assessment/Plan: hx anemia with ?GI bleed-->stopping warfarin weeks ago. Code(s): K92.2 - GASTROINTESTINAL HEMORRHAGE, UNSPECIFIED Qualifiers: GI bleed type/associated pathology: unspecified gastrointestinal hemorrhage type Qualified Code(s): K92.2 - Gastrointestinal hemorrhage, unspecified (5) HTN (hypertension) Code(s): I10 - ESSENTIAL (PRIMARY) HYPERTENSION (6) Mitral valve stenosis Code(s): I05.0 - RHEUMATIC MITRAL STENOSIS Qualifiers: Cardiac valve disease etiology: rheumatic Qualified Code(s): I05.0 - Rheumatic mitral stenosis
--- NOTE | 2017-09-30 13:09 | PN ---
Progress Note (short form) - Note Progress Note: VSS Right arm incision healing well. Minimal swelling Hand warm, 2+ brachial and radial pulses Imp: S/p right brachial embolectomy Plan: Continue anticoagulants as per medicine. Follow up 2 weeks in my office. Problem List - Problems (1) Axillary artery embolus Code(s): I74.2 - EMBOLISM AND THROMBOSIS OF ARTERIES OF THE UPPER EXTREMITIES (2) Afib Code(s): I48.91 - UNSPECIFIED ATRIAL FIBRILLATION Qualifiers: Atrial fibrillation type: permanent Qualified Code(s): I48.2 - Chronic atrial fibrillation
[2017-09-30] MEDS: WARFARIN NA 5 MG TABLET (UD) PO SCH (18:37)
--- NOTE | 2017-09-30 20:37 | CON.GI ---
Consult Consult Specialty:: GI: Dr. Reid covering for Dr. Lockwood who resumes care Referred by:: Dr. Paul Beltre Reason for Consultation:: Vomiting - History of Present Illness Chief Complaint: Gl[place] [employer] Raiser [id number] utilized: "I threw up a couple of times" History of Present Illness: 87F admitted 09/24 secondary to right arm pain. She was found to have a RUE DVT and underwent Rt. Brachail embolectomy 09/25/17. She states that she complained of arm pain earlier today, was given medicine for the pain (appears to have been roxicodone) and then subsequently threw up. She denied any associated abdominal pain. There was no rectal bleeding or melena and she states having a bowel movement every 2-3 days. She recently underwent EGD/Colonoscopy performed by Dr. Lockwood 09/15/17 on a recent admission for rectal bleeding. 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 She has a history of A. Fib and had been on coumadin prior to this. Anticoagulation was held given colon findings and therapeutics. - History Source History Provided By: Patient, Medical Record Limitations to Obtaining History: Poor Historian - Past Medical History Cardio/Vascular: Yes: AFIB, Mitral Stenosis Gastrointestinal: Yes: GI Bleed (from AVMs, off AC) ...: No - Past Surgical History Past Surgical History: Yes: Cholecystectomy (Open) Additional Surgical History: surgery on toes - Alcohol/Substance Use Hx Alcohol Use: No - Smoking History Smoking history: Never smoked Have you smoked in the past 12 months: No - Social History ADL: Independent Place of : Other ([place]) History of Recent Travel: No Home Medications - Allergies Allergies/Adverse Reactions: Allergies Allergy/AdvReac Type Severity Reaction Status Date / Time No Known Allergies Allergy Verified 09/12/17 15:49 - Home Medications Home Medications: Ambulatory Orders Digoxin [Lanoxin -] 0.125 mg PO Q48H 09/12/17 Metoprolol Tartrate [Lopressor -] 25 mg PO BID #60 tab 09/17/17 Family Disease History - Family Disease History Family Disease History: Other: Sister ( from thyroid cancer) Other Family History: No family history of colorectal cancer or other GI malignancy Review of Systems - Review of Systems Constitutional: denies: Fever Respiratory: denies: Cough Gastrointestinal: reports: Nausea (improved), Vomiting (resolved). denies: Abdominal Pain, Constipation, Diarrhea, Rectal Bleeding, Vomiting Blood Physical Exam-GI Vital Signs: Vital Signs Temperature 97.7 F 09/30/17 19:36 Pulse Rate 84 09/30/17 19:36 Respiratory Rate 18 09/30/17 19:37 Blood Pressure 143/71 09/30/17 19:36 O2 Sat by Pulse Oximetry (%) 97 09/30/17 19:37 Constitutional: Yes: Calm Eyes: No: Sclera Icterus Cardiovascular: Yes: Pulse Irregular (with regular rate) Respiratory: Yes: Rhonchi (at left lung base) Gastrointestinal Inspection: Yes: Hernia (non-tender hernia at incision site), Scars (+ RUQ scar). No: Distention ...Auscultate: Yes: Normoactive Bowel Sounds ...Palpate: No: Hepatomegaly, Tenderness ...Percussion: No: Tympanitic ...Rectal Exam: Yes: Other (No external lesions, no masses, no fecal impaction. 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 The timing of her nausea seemed to correlate with Ms. Santo received roxicodone. Advise: Avoidance of opiate analgesia Can change diet to full liquid in AM then sodium controlled for lunch if she is tolerating Aspiration precautions with head of bed elevated 35 degrees No need for IV protonix. Recent EGD revealing only mild gastritis. Can change to protonix 20mg once daily for GI prophylaxis Code(s): R11.10 - VOMITING, UNSPECIFIED Qualifiers: Vomiting type: unspecified Nausea presence: with nausea
[2017-09-30] MEDS: DIGOXIN 0.125 MG TABLET (FP) PO SCH (21:04)
[2017-10-01 07:26] LABS: HEMATOCRIT 25.3 % (32.4-45.2); HEMOGLOBIN 8.4 GM/dL (10.7-15.3); MCH 30.5 pg (25.7-33.7); MCHC 33.3 g/dl (32.0-36.0); MEAN CELL VOLUME 91.5 fl (80-96); MEAN PLT VOLUME 7.3 fl (7.5-11.1); PLATELET COUNT 238 K/MM3 (134-434); RBC 2.77 M/mm3 (3.60-5.2); RDW 15.8 % (11.6-15.6); WHITE BLOOD COUNT 5.7 K/mm3 (4.0-10.0)
[2017-10-01 08:07] LABS: INR 2.48 (0.82-1.09)
--- NOTE | 2017-10-01 08:45 | PN ---
Progress Note (short form) - Note Progress Note: Today feels better, no abdominal pain, no N/v GI consult appreciated. INR therapeutic. 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 RUE good radial pulse Current Active Problems Problem Status Onset Afib Acute Axillary artery embolus Acute DVT of upper extremity (deep vein thrombosis) Acute Mitral stenosis and aortic incompetence Acute Severe protein-calorie malnutrition Acute Vomiting Acute Laboratory Results - last 24 hr 09/30/17 10/01/17 10/01/17 15:15 06:45 06:45 WBC 5.7 RBC 2.77 L Hgb 8.4 L Hct 25.3 L MCV 91.5 MCH 30.5 MCHC 33.3 RDW 15.8 H Plt Count 238 MPV 7.3 L PT with INR INR PTT (Actin FS) 72.9 H 103.7 H D 10/01/17 06:45 WBC RBC Hgb Hct MCV MCH MCHC RDW Plt Count MPV PT with INR 28.00 H INR 2.48 H D PTT (Actin FS) Plan D/C Home on PO Coumadin f/u in the office next week Problem List - Problems (1) Afib Code(s): I48.91 - UNSPECIFIED ATRIAL FIBRILLATION Qualifiers: Atrial fibrillation type: permanent Qualified Code(s): I48.2 - Chronic atrial fibrillation (2) Axillary artery embolus Code(s): I74.2 - EMBOLISM AND THROMBOSIS OF ARTERIES OF THE UPPER EXTREMITIES (3) GI bleed Code(s): K92.2 - GASTROINTESTINAL HEMORRHAGE, UNSPECIFIED Qualifiers: GI bleed type/associated pathology: unspecified gastrointestinal hemorrhage type Qualified Code(s): K92.2 - Gastrointestinal hemorrhage, unspecified (4) Severe protein-calorie malnutrition Code(s): E43 - UNSPECIFIED SEVERE PROTEIN-CALORIE MALNUTRITION (5) Mitral stenosis and aortic incompetence Code(s): I08.0 - RHEUMATIC DISORDERS OF BOTH MITRAL AND AORTIC VALVES
--- NOTE | 2017-10-01 08:47 | DS ---
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 No: Bradycardia, Tachycardia Gastrointestinal: Yes: Normal Bowel Sounds, Soft. No: Abdomen, Obese, Ascites, Palpable Mass, Tenderness ...Rectal Exam: Yes: Deferred Renal/: No: Anuria, Bladder Distention, CVA Tenderness - Left, CVA Tenderness - Right Breast(s): Yes: WNL Musculoskeletal: No: Joint Stiffness, Joint Swelling Extremities: No: Amputation, Calf Tenderness Edema: No Peripheral Pulses WNL: Yes Integumentary: Yes: WNL Wound/Incision: Yes: Clean/Dry Neurological: Yes: WNL ...Motor Strength: WNL Psychiatric: Yes: WNL Labs: CBC, BMP 10/01/17 06:45 09/27/17 10:00 Discharge Summary Reason For Visit: ATRIAL FIBRILLATION; RUE embolism Current Active Problems Afib (Acute) Axillary artery embolus (Acute) DVT of upper extremity (deep vein thrombosis) (Acute) Mitral stenosis and aortic incompetence (Acute) Severe protein-calorie malnutrition (Acute) Vomiting (Acute) Condition: Improved - Instructions Referrals: Paul Beltre MD [Primary Care Provider] - Tim Martin MD [Staff Physician] - 2 Weeks (Call for appointment) - Home Medications Comprehensive Discharge Medication List: Ambulatory Orders Digoxin [Lanoxin -] 0.125 mg PO Q48H 09/12/17 Metoprolol Tartrate [Lopressor -] 25 mg PO BID #60 tab 09/17/17
[2017-10-01] MEDS: METOPROLOL TARTRATE 50 MG TABLET (FP) PO SCH (09:51)
[2017-10-01] MEDS ORDERED: PANTOPRAZOLE 20 MG TABLET (FP) PO SCH (10:00)
--- NOTE | 2017-10-01 11:52 | PN ---
Progress Note, Physician History of Present Illness: "87 year old female, Guinean speaking, accompanied by son, with a significant past medical history of AFib(on Coumadin), mitral valve stenosis, CVA (some residual balance issues), hyperlipidemia, and hypertension, who presents to the emergency department with right arm pain and numbness since earlier today. The patient reports she first noted an achy pain at her elbow and wrist approximately 2 hours ago, which lasted about an hour, with associated numbness and weakness. Patient reports her pain has resolved, but her numbness and weakness persists in her right arm. She reports when her symptoms first started she felt diaphoretic, weak, and dizzy, but denies any head trauma, headache, lightheadedness, changes in vision, neck or back pain, changes in speech, or changes in gait. Patient reports her symptoms are different than when she had her CVA. She denies any chest pain, shortness of breath, diaphoresis, or palpitations. She denies any fever or chills. She denies any abdominal pain, nausea, vomiting, diarrhea,constipation, melena, or hematochezia. Patient reports she has not been on Coumadin for approximately 1.5 weeks due to recent history of GI bleed. She denies any recent travel or sick contacts." - Current Medication List Current Medications: Active Medications Acetaminophen (Tylenol -) 650 mg PO Q4H PRN PRN Reason: FEVER Last Admin: 09/30/17 10:52 Dose: 650 mg Acetaminophen (Tylenol -) 325 mg PO Q4H PRN PRN Reason: PAIN LEVEL 1-5 Digoxin (Lanoxin -) 0.125 mg PO Q48H [facility] Last Admin: 09/30/17 21:04 Dose: 0.125 mg Heparin Sodium (Porcine) (Heparin -) 1,000 unit IVPUSH PRN PRN PRN Reason: Heparin Heparin Sodium (Porcine) (Heparin -) 5,000 unit IVPUSH PRN PRN PRN Reason: Heparin Heparin Sodium (Porcine) 25, (000 unit/ Sodium Chloride) 500 mls @ 16 mls/hr IV TITR ASUNCION; 800 UNIT/HR PRN Reason: Protocol Last Admin: 09/30/17 09:05 Dose: 700 unit/hr, 14 mls/hr Metoprolol Tartrate (Lopressor -) 50 mg PO BID [facility] Last Admin: 10/01/17 09:51 Dose: 50 mg Pantoprazole Sodium (Protonix -) 20 mg PO DAILY ASUNCION Last Admin: 10/01/17 09:51 Dose: 20 mg - Objective Vital Signs: Vital Signs Temperature 98.1 F 10/01/17 05:00 Pulse Rate 82 10/01/17 05:00 Respiratory Rate 18 10/01/17 05:00 Blood Pressure 122/60 10/01/17 05:00 O2 Sat by Pulse Oximetry (%) 97 09/30/17 19:37 Eyes: Yes: WNL, Conjunctiva Clear, EOM Intact HENT: Yes: WNL, Atraumatic, Normocephalic Neck: Yes: WNL, Supple, Trachea Midline Cardiovascular: Yes: WNL, Regular Rate and Rhythm Respiratory: Yes: WNL, Regular, CTA Bilaterally Gastrointestinal: Yes: WNL, Normal Bowel Sounds Genitourinary: Yes: WNL Musculoskeletal: Yes: WNL Extremities: Yes: WNL Edema: No Integumentary: Yes: WNL Neurological: Yes: WNL, Alert, Oriented ...Motor Strength: WNL Psychiatric: Yes: WNL Labs: CBC, BMP 10/01/17 06:45 09/27/17 10:00 INR, PTT INR 2.48 (0.82-1.09) H D 10/01/17 06:45 Assessment/Plan IMP: Permanent AF, periods RVR Moderate MS H/o GI bleed off AC RUE arterial insufficiency w/p right brachial embolectomy anemia REC: 1. Cont. coumadin 2. Titrate Lopressor f/u as outp
[2017-10-01 15:16] VITALS: BP 115/55; PULSE 85; TEMP 97.8
== END 2017-10-01 17:33 | disposition home or self-care (01) | DRG 252 ==
LOC: JER 14:12 → JERBED 19:42 → J4W 21:43
PROVIDERS: ADMIT Internal Medicine; ATTEND Internal Medicine
PROC: 03C70ZZ Extirpation of Matter from Right Brachial Artery, Open Approach (ICD-10-PCS; principal; 2017-09-24)
DX: I74.2 Embolism and thrombosis of arteries of the upper extremities (principal); E43 Unspecified severe protein-calorie malnutrition; R64 Cachexia; Z68.1 Body mass index [BMI] 19.9 or less, adult; I08.0 Rheumatic disorders of both mitral and aortic valves; I83.93 Asymptomatic varicose veins of bilateral lower extremities; I48.2 Chronic atrial fibrillation; Z79.01 Long term (current) use of anticoagulants; E78.5 Hyperlipidemia, unspecified; I10 Essential (primary) hypertension; Z86.718 Personal history of other venous thrombosis and embolism; D64.9 Anemia, unspecified; Z85.51 Personal history of malignant neoplasm of bladder; Z86.73 Personal history of transient ischemic attack (TIA), and cerebral infarction without residual deficits
CPT/HCPCS: 36415; 70450-TC; 71045-TC-FY; 71275-TC; 73206-TC-RT; 74018-TC-FY; 80048; 80053; 80162; 81003; 81015; 82550; 83735; 83880; 84100; 84484; 85025; 85027; 85610; 85730; 86850; 86900; 86901; 87086; 88304-TC; 93005; 93010; 93931; 94760; 99285-25; J1644

== ENCOUNTER 2018-06-14 13:03 | Inpatient (IN) | payer OTHER ==
--- NOTE | 2018-06-14 13:15 | PDOC ---
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 The pt denies recent trauma/injury and endorses compliance w/ her warfarin. Denies having re-vascularization procedure done in her BLE previously. Reports that her L foot to distal 1/3 LLE has paresthesia and acute on chronic LLE 'cesar-ing'. Denies recent illness, fevers/chills, WILDER, vision changes, chest pain, SOB, abdominal pain, N/V/C/D 06/14/18 13:53 Past History - Past Medical History Allergies/Adverse Reactions: Allergies Allergy/AdvReac Type Severity Reaction Status Date / Time No Known Allergies Allergy Verified 06/14/18 18:20 Home Medications: Ambulatory Orders Digoxin [Lanoxin -] 0.25 mg PO Q48H 09/12/17 Metoprolol Tartrate [Lopressor -] 25 mg PO BID 06/02/18 Warfarin Na [Coumadin -] 2 mg PO DAILY@1800 06/02/18 Anemia: No Asthma: No Cardiac Disorders: Yes (MITRAL VALVE STENOSIS, afib on Coumadin) CVA: Yes COPD: No Dementia: Yes (Forgetful) GI Disorders: Yes (H Pylori) HTN: Yes - Surgical History Cholecystectomy: Yes (50 yrs ago) - Immunization History Td Vaccination: No Immunization Up to Date: No - Suicide/Smoking/Psychosocial Hx Smoking History: Never smoked Have you smoked in the past 12 months: No Hx Alcohol Use: No Drug/Substance Use Hx: No Substance Use Type: None Review of Systems - Review of Systems Able to Perform ROS?: Yes Comments:: GENERAL/CONSTITUTIONAL: No fever or chills. No weakness HEAD, EYES, EARS, NOSE AND THROAT: No change in vision. No ear pain or discharge. No sore throat CARDIOVASCULAR: No chest pain or shortness of breath RESPIRATORY: Denies cough, hemoptysis GASTROINTESTINAL: No nausea, vomiting, diarrhea or constipation GENITOURINARY: No dysuria, frequency, or change in urination MUSCULOSKELETAL: chronic back pain; +chronic joint pain SKIN: L ant humphrey wound NEUROLOGIC: No headache, vertigo, loss of consciousness ENDOCRINE: No increased thirst. No abnormal weight change HEMATOLOGIC/LYMPHATIC: +RUE arterial clot in 2017 ALLERGIC/IMMUNOLOGIC: No hives or skin allergy 06/14/18 13:14 *Physical Exam - Vital Signs Vital Signs Temp Pulse Resp BP Pulse Ox 97.5 F L 80 16 172/72 H 97 06/14/18 13:05 06/14/18 13:05 06/14/18 13:05 06/14/18 13:05 06/14/18 13:05 06/14/18 14:02 - Physical Exam Comments: GENERAL: Awake, alert, and fully oriented, in mild distress HEAD: No signs of trauma, normocephalic, atraumatic EYES: PERRLA, EOMI, sclera anicteric, conjunctiva clear ENT: Hearing grossly normal, nares patent, oropharynx clear without exudates LUNGS: No distress, speaks full sentences, clear to auscultation bilaterally HEART: regular rate, irregularly irregular rhythm, no murmur appreciated ABDOMEN: Soft, nontender, normoactive bowel sounds. No guarding, no rebound EXTREMITIES: BLE venous stasis color change; LLE ant humphrey wound reported as chronic; L foot decreased ROM 2/2 pain; L foot generalized TTP NEUROLOGICAL: Cranial nerves II through XII grossly intact. Normal speech, normal gait, no focal sensorimotor deficits SKIN: L ant. humphrey wound w/o purulence or necrosis 06/14/18 13:15 ED Treatment Course - LABORATORY CBC & Chemistry Diagram: 06/14/18 13:46 06/14/18 13:46 Medical Decision Making - Critical Care Time Total Critical Care Time (minutes): 35 Critical Care Statement: The care of this patient involved high complexity decision making to prevent further life threatening deterioration of the patient 's condition and/or to evaluate & treat vital organ system(s) failure or risk of failure. - Medical Decision Making The pt is an 87F w/ a history of RUE arterial thrombus s/p embolectomy 09/2017, a -fib (coumadin), HTN, and chronic LLE wound who presents for 4 hours of acute on chronic LLE w/ associated extremity coolness and paresthesias ED Course CMP, CBC, T/S, Coags, Lactate ECG, CXR CTA for evaluation of acute arterial occlusion Ofirmev 1g IV once for pain 06/14/18 14:05 No leukocytosis No anemia Lytes wnl No GARFIELD LFTs wnl Lactate 1.5 INR 1.15 06/14/18 14:51 06/14/18 15:36 Will start heparin gtt PCP notified -Pepcid for hx of GI bleed Plan for admission for LLE acute arterial occlusion 06/14/18 17:38 Dispo: admit *DC/Admit/Observation/Transfer Diagnosis at time of Disposition: Arterial occlusion, lower extremity Afib Qualifiers: Atrial fibrillation type: unspecified Qualified Code(s): I48.91 - Unspecified atrial fibrillation HTN (hypertension) Qualifiers: Hypertension type: unspecified Qualified Code(s): I10 - Essential (primary) hypertension - Discharge Dispostion Condition at time of disposition: Guarded Decision to Admit order: Yes - Referrals - Patient Instructions - Post Discharge Activity
[2018-06-14] MEDS ORDERED: ACETAMINOPHEN 325 MG TABLET (FP) PO ONE (13:41)
[2018-06-14] MEDS ORDERED: ACETAMINOPHEN 1000 MG/100 ML VIAL (NON FORMULARY) IVPB ONE (13:42)
[2018-06-14] MEDS ORDERED: ACETAMINOPHEN INJECTION 100 ML IVPB ONE (13:45)
[2018-06-14 13:55] LABS: BASO % 0.8 % (0-2.0); HEMATOCRIT 37.4 % (32.4-45.2); HEMOGLOBIN 12.3 GM/dL (10.7-15.3); LYMPH % 18.8 % (8-40); MCH 31.5 pg (25.7-33.7); MCHC 32.9 g/dl (32.0-36.0); MEAN CELL VOLUME 95.7 fl (80-96); MONO % 9.9 % (3.8-10.2); NEUT % 67.5 % (42.8-82.8); PLATELET COUNT 155 K/MM3 (134-434); RBC 3.91 M/mm3 (3.60-5.2); WHITE BLOOD COUNT 4.5 K/mm3 (4.0-10.0)
[2018-06-14 14:14] LABS: INR 1.15 (0.83-1.09); PROTHROMBIN TIME (PATIENT) 13.6 SEC (9.7-13.0)
[2018-06-14 14:16] LABS: ACTIVATED PTT 25.5 SECONDS (25.2-36.5)
[2018-06-14 14:28] LABS: ALBUMIN 3.4 g/dl (3.4-5.0); ALK PHOS 96 U/L (45-117); ANION GAP 7 MMOL/L (8-16); BLOOD UREA NITROGEN 18 mg/dL (7-18); CALCIUM 8.6 mg/dL (8.5-10.1); CHLORIDE 104 mmol/L (98-107); CO2 28 mmol/L (21-32); CREATININE 0.8 mg/dL (0.55-1.3); GLUCOSE,RANDOM 129 mg/dL (74-106); POTASSIUM 3.9 mmol/L (3.5-5.1); SGOT/AST 22 U/L (15-37); SGPT/ALT 17 U/L (13-61); SODIUM 140 mmol/L (136-145)
--- NOTE | 2018-06-14 14:35 | PDOC ---
Attending Attestation - Resident Resident Name: Shawn Chau - ED Attending Attestation I have performed the following: I have examined & evaluated the patient, The case was reviewed & discussed with the resident, I agree w/resident's findings & plan, Exceptions are as noted - HPI HPI: 06/14/18 14:31 The patient is a 87 year old female, with a significant past medical history of HTN, mitral valve stenosis, afib (on warfarin), CVA, Dementia, H Pylori, who presents to the emergency department today complaining of 4 hours of acute onset LLE pain. The patient reports that her left foot feels slightly numb. 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 The patient denies chest pain, shortness of breath, headache and dizziness. Denies recent trauma or injury. Denies fever, chills, nausea, vomit, diarrhea and constipation. Denies dysuria, frequency, urgency and hematuria. Allergies: NKA Past surgical history: Cholecystectomy (50 yrs ago) Social history: No reported PCP: Dr. Beltre - Physicial Exam PE: 06/14/18 14:34 GENERAL: Awake, alert, and fully oriented, in no acute distress. HEAD: No signs of trauma EYES: PERRLA, EOMI, sclera anicteric, conjunctiva clear ENT: Auricles normal inspection, hearing grossly normal, nares patent, oropharynx clear without exudates. Moist mucosa NECK: Nontender, no stepoffs, Normal ROM, supple, no lymphadenopathy, JVD, or masses LUNGS: Breath sounds equal, clear to auscultation bilaterally. No wheezes, and no crackles HEART: Regular rate and rhythm, normal S1 and S2, no murmurs, rubs or gallops ABDOMEN: Soft, nontender, normoactive bowel sounds. No guarding, no rebound. No masses EXTREMITIES: +LLE with diminished DP pulse, cool to touch, diminished strength and sensation, Normal range of motion, no edema. NEUROLOGICAL: Cranial nerves II through XII intact. 5/5 strength and sensation in all extremities, Normal speech, normal gait, normal cerebellar function SKIN: Warm, Dry, normal turgor, no rashes or lesions noted. - Critical Care Time Total Critical Care Time: 60 Critical Care Statement: The care of this patient involved high complexity decision making to prevent further life threatening deterioration of the patient 's condition and/or to evaluate & treat vital organ system(s) failure or risk of failure. - Medical Decision Making 06/14/18 14:34 87 F with sudden onset LLE pain. Suspect acute arterial embolus given h/o Afib. - Labs, coags - CTA lower extremities - Pain control 06/14/18 16:53 Labs wnl INR subtherapeutic CTA obtained, awaiting read Vascular surgery team has evaluated pt, will discuss with Dr. Martin
--- NOTE | 2018-06-14 16:53 | CONSULT ---
Addendum entered and electronically signed by Krish Zepeda PA 06/14/18 17:13: INR subtherapeutic Recommend iv heparin bolus and drip Cardio Consult Echo Original Note: <Krish Zepeda - Last Filed: 06/14/18 16:56> - Consultation REQUESTING PROVIDER: Tim Martin - Vascular Surgery CONSULT REQUEST: We have been asked to surgically evaluate this patient for acute on chronic LLE pain PCP: Alexsander HPI: Called to evaluate 87 yo w/ PMHx as noted below. Arrives at [facility] ED secondary to c/o acute LLE pain x 4 hours. Grandson at bedside an acting as analytical lead as she only speaks Greenlandic. Reports that her distal 1/3 LLE to her toes has paresthesia and acute color change. Per Grandson, grandmother is very active (ambulates, gardens, walks w/o complaint of feeling like her legs get tired). Patient is compliant with her Coumadin (Afib). Denies fever, chills, CP, palpitations, SOB, MCL[place]IN. Denies rest pain or claudication. PMHx: Mitral Valve Stenosis, Afib, CVA, H. Pylori, HTN, RUE arterial occlusion, Chronic LLE wound, GI Bleed (AVM). PAD? PSHx: Cholecystectomy 50 yrs ago. Right brachial embolectomy 09/25/17. Colonoscopy Smoking History: Never smoked Home Medications: Digoxin [Lanoxin -] 0.25 mg PO Q48H 09/12/17 Cephalexin [Keflex] 250 mg PO TID 06/02/18 Metoprolol Tartrate [Lopressor -] 25 mg PO BID 06/02/18 Warfarin Na [Coumadin -] 2 mg PO DAILY@1800 06/02/18 Allergies: NKDA ROS: Systems reviewed and considered negative except for what's contained in HPI. PE: GENERAL: Awake, alert, and fully oriented, in no acute distress. HEAD: Normal with no signs of trauma. HEART: Afib ABDOMEN: Soft, NT. ND. No pulsatile mass. MUSCULOSKELETAL: No CVAT. UE: 2+ pulses, warm, well-perfused. No cyanosis. Cap refill <2 seconds. No peripheral edema. LE: No calf tenderness. No peripheral edema. Palpable RLE DP. Dopplerable PT. LLE with 2.54 x 2.54 cm shallow ulcer NEUROLOGICAL: Normal speech, gait not observed. PSYCH: Cooperative. Good eye contact. Appropriate mood and affect. Last Vital Signs Temp Pulse Resp BP Pulse Ox 97.5 F L 80 16 172/72 H 97 06/14/18 13:05 06/14/18 13:05 06/14/18 13:05 06/14/18 13:05 06/14/18 13:05 CBC, BMP 06/14/18 13:46 06/14/18 13:46 INR, PTT INR 1.15 (0.83-1.09) H 06/14/18 13:46 Blood Type Blood Type AB NEGATIVE 06/14/18 13:54 Problem List - Problems (1) Acute pain of left lower extremity Assessment/Plan: Wound dressed with xeroform / 4x4 / kerlix f/u CTA Vascular Surgery to continue following. Medical optimization Code(s): M79.605 - PAIN IN LEFT LEG (2) Afib Code(s): I48.91 - UNSPECIFIED ATRIAL FIBRILLATION Qualifiers: Atrial fibrillation type: unspecified Qualified Code(s): I48.91 - Unspecified atrial fibrillation (3) HTN (hypertension) Code(s): I10 - ESSENTIAL (PRIMARY) HYPERTENSION Qualifiers: Hypertension type: unspecified Qualified Code(s): I10 - Essential (primary ) hypertension Visit type - Case Type Case Type: ED Admission - Emergency Emergency Visit: Yes Care time: The patient presented to the Emergency Department on the above date and was hospitalized for further evaluation of their emergent condition. - New patient This patient is new to me today: Yes Date on this admission: 06/14/18 <Tim Martin - Last Filed: 06/15/18 19:24> - Consultation REQUESTING PROVIDER: CONSULT REQUEST: We have been asked to surgically evaluate this patient for ( specify). PCP:Paul Beltre HISTORY OF PRESENT ILLNESS: PMHx: PSHx: Home Medications Medication Instructions Recorded Digoxin [Lanoxin -] 0.25 mg PO Q48H 09/12/17 Metoprolol Tartrate [Lopressor -] 25 mg PO BID 06/02/18 Warfarin Sodium [Coumadin] 2 mg PO DAILY 06/14/18 Allergies Allergy/AdvReac Type Severity Reaction Status Date / Time No Known Allergies Allergy Verified 06/14/18 18:20 REVIEW OF SYSTEMS: CONSTITUTIONAL: Absent: fever, chills, diaphoresis, generalized weakness, malaise, loss of appetite, weight change CARDIOVASCULAR: Absent: chest pain, syncope, palpitations, irregular heart rate, lightheadedness , peripheral edema RESPIRATORY: Absent: cough, shortness of breath, dyspnea with exertion, wheezing, stridor, hemoptysis GASTROINTESTINAL: Absent: abdominal pain, abdominal distension, nausea, vomiting, diarrhea, constipation, melena, hematochezia GENITOURINARY: Absent: dysuria, frequency, urgency, hesitancy, hematuria, flank pain, genital pain MUSCULOSKELETAL: Absent: myalgia, arthralgia, joint swelling, back pain, neck pain SKIN: Absent: rash, itching, pallor HEMATOLOGIC/IMMUNOLOGIC: Absent: easy bleeding, easy bruising, lymphadenopathy NEUROLOGIC: Absent: headache, focal weakness, paresthesias, dizziness, unsteady gait, seizure, mental status changes, bladder or bowel incontinence PSYCHIATRIC: Absent: anxiety, depression, suicidal or homicidal ideation, hallucinations. PHYSICAL EXAM: GENERAL: Awake, alert, and fully oriented, in no acute distress. HEAD: Normal with no signs of trauma. EYES: PERRL, sclera anicteric, conjunctiva clear. NECK: Normal ROM, supple without lymphadenopathy, JVD, or masses. LUNGS: Clear to auscultation bilat anteriorly. No wheezes, and no crackles. No accessory muscle use. HEART: Regular rate and rhythm. No murmurs ABDOMEN: Soft, nontender, not distended, normoactive bowel sounds, no guarding, no rebound, no masses. No organomegaly. MUSCULOSKELETAL: Normal ROM at all joints. No bony deformities or tenderness. No CVA tenderness. UPPER EXTREMITIES: 2+ pulses, warm, well-perfused. No cyanosis. Cap refill <2 seconds. No peripheral edema. LOWER EXTREMITIES: 2+ pulses, warm, well-perfused. No calf tenderness. No peripheral edema. NEUROLOGICAL: Normal speech, gait not observed. PSYCH: Cooperative. Good eye contact. Appropriate mood and affect. SKIN: Warm, dry, normal turgor, no rashes or lesions noted. Vital Signs Temperature 98.0 F 06/15/18 15:23 Pulse Rate 72 06/15/18 15:23 Respiratory Rate 20 06/15/18 15:23 Blood Pressure 142/58 L 06/15/18 15:23 O2 Sat by Pulse Oximetry (%) 96 06/15/18 09:00 Lab Results WBC 5.4 K/mm3 (4.0-10.0) 06/15/18 06:00 RBC 3.52 M/mm3 (3.60-5.2) L 06/15/18 06:00 Hgb 11.2 GM/dL (10.7-15.3) 06/15/18 06:00 Hct 33.4 % (32.4-45.2) 06/15/18 06:00 MCV 94.9 fl (80-96) 06/15/18 06:00 MCHC 33.5 g/dl (32.0-36.0) 06/15/18 06:00 RDW 15.4 % (11.6-15.6) 06/15/18 06:00 Plt Count 132 K/MM3 (134-434) L 06/15/18 06:00 Sodium 140 mmol/L (136-145) 06/15/18 06:00 Potassium 3.7 mmol/L (3.5-5.1) 06/15/18 06:00 Chloride 107 mmol/L (98-107) 06/15/18 06:00 Carbon Dioxide 24 mmol/L (21-32) 06/15/18 06:00 Anion Gap 9 MMOL/L (8-16) 06/15/18 06:00 BUN 16 mg/dL (7-18) 06/15/18 06:00 Creatinine 0.9 mg/dL (0.55-1.3) 06/15/18 06:00 Random Glucose 80 mg/dL (74-106) 06/15/18 06:00 Calcium 8.3 mg/dL (8.5-10.1) L 06/15/18 06:00 Blood Type AB NEGATIVE 06/14/18 13:54 Antibody Screen Negative 06/14/18 13:50 INR 1.30 (0.83-1.09) H 06/15/18 06:00 History reviewed and patient examined in ED. Left foot pain for 12 hours, now improved. Prior history of distal embolus to right arm in past. Foot warm with normal capillary refill and doppler PT and DP present, palpable DP on right foot. Patient on IV heparin, CTA showed occlusion of DFA and mid/distal SFA at adductor canal. Imp: embolic occlusion DFA, chronic occlusion of SFA. Plan angiogram for tomorrow.
[2018-06-14] MEDS ORDERED: HEPARIN NA (PORCINE) 5,000 UNITS/ML 1ML VIAL IVPUSH PRN ×2 (17:19)
[2018-06-14] MEDS ORDERED: HEPARIN NA (PORCINE) 5,000 UNITS/ML 1ML VIAL ONE (17:24)
[2018-06-14] MEDS ORDERED: HEPARIN INFUSION - 25,000 UNITS/500 ML INFUS.BAG IVPB ONE (17:25)
[2018-06-14] MEDS ORDERED: HEPARIN INFUSION - 25,000 UNITS/500 ML INFUS.BAG IVPB SCH (17:30)
[2018-06-14] MEDS ORDERED: DIGOXIN 0.25 MG TABLET (FP) PO SCH ×2 (20:45→22:00)
--- NOTE | 2018-06-14 21:15 | CON.CARD ---
Consult Consult Specialty:: Cardiology - History of Present Illness History of Present Illness: HPI: Called to evaluate 87 yo w/ PMHx as noted below. Arrives at [facility] ED secondary to c/o acute LLE pain x 4 hours. Grandson at bedside an acting as american sign language interpreter as she only speaks Wallisian. Reports that her distal 1/3 LLE to her toes has paresthesia and acute color change. Per Grandson, grandmother is very active (ambulates, gardens, walks w/o complaint of feeling like her legs get tired). Patient is compliant with her Coumadin (Afib). Denies fever, chills, CP, palpitations, SOB, MCL[place]HLIN. Denies rest pain or claudication. PMHx: Mitral Valve Stenosis, Afib, CVA, H. Pylori, HTN, RUE arterial occlusion, Chronic LLE wound, GI Bleed (AVM). PAD? PSHx: Cholecystectomy 50 yrs ago. Right brachial embolectomy 09/25/17. 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, off AC) ...: No - Past Surgical History Past Surgical History: Yes: Cholecystectomy (Open) - Alcohol/Substance Use Hx Alcohol Use: No - Smoking History Smoking history: Never smoked Have you smoked in the past 12 months: No - Social History ADL: Independent History of Recent Travel: No Home Medications - Allergies Allergies/Adverse Reactions: Allergies Allergy/AdvReac Type Severity Reaction Status Date / Time No Known Allergies Allergy Verified 06/14/18 18:20 - Home Medications Home Medications: Ambulatory Orders Digoxin [Lanoxin -] 0.25 mg PO Q48H 09/12/17 Metoprolol Tartrate [Lopressor -] 25 mg PO BID 06/02/18 Warfarin Sodium [Coumadin] 2 mg PO DAILY 06/14/18 Family Disease History - Family Disease History Family Disease History: Other: Sister ( from thyroid cancer) Review of Systems Findings/Remarks: leg pain - Review of Systems Constitutional: reports: No Symptoms Eyes: reports: No Symptoms HENT: reports: No Symptoms Neck: reports: No Symptoms Cardiovascular: reports: No Symptoms Gastrointestinal: reports: No Symptoms Genitourinary: reports: No Symptoms Breasts: reports: No Symptoms Reported Musculoskeletal: reports: No Symptoms Integumentary: reports: No Symptoms Neurological: reports: No Symptoms Endocrine: reports: No Symptoms Hematology/Lymphatic: reports: No Symptoms Psychiatric: reports: No Symptoms Vital Signs: Vital Signs Temperature 98.0 F 06/14/18 18:00 Pulse Rate 80 06/14/18 18:00 Respiratory Rate 18 06/14/18 18:00 Blood Pressure 137/79 06/14/18 18:00 O2 Sat by Pulse Oximetry (%) 97 06/14/18 18:00 Constitutional: Yes: Well Nourished, No Distress, Calm Eyes: Yes: WNL, Conjunctiva Clear, EOM Intact HENT: Yes: WNL, Atraumatic, Normocephalic Neck: Yes: WNL, Supple, Trachea Midline Respiratory: Yes: WNL, Regular, CTA Bilaterally Gastrointestinal: Yes: WNL, Normal Bowel Sounds Renal/: Yes: WNL Cardiovascular: Yes: Pulse Irregular Heart Sounds: Yes: S1, S2 Murmur: Yes: Diastolic Murmur Musculoskeletal: Yes: WNL Extremities: Yes: WNL Integumentary: Yes: WNL Neurological: Yes: WNL, Alert, Oriented ...Motor Strength: WNL Psychiatric: Yes: WNL, Alert, Oriented - Other Data Labs, Other Data: CBC, BMP 06/14/18 13:46 06/14/18 13:46 INR, PTT INR 1.15 (0.83-1.09) H 06/14/18 13:46 Imaging - Results Chest X-ray: Image Reviewed (cm no i/e) EKG: Image Reviewed (af rep abn) Problem List - Problems (1) Acute pain of left lower extremity Code(s): M79.605 - PAIN IN LEFT LEG (2) Afib Code(s): I48.91 - UNSPECIFIED ATRIAL FIBRILLATION Qualifiers: Atrial fibrillation type: chronic Qualified Code(s): I48.2 - Chronic atrial fibrillation (3) Arterial occlusion, lower extremity Code(s): I70.209 - UNSP ATHSCL [place] ARTERIES OF EXTREMITIES, UNSP EXTREMITY (4) GI bleed Code(s): K92.2 - GASTROINTESTINAL HEMORRHAGE, UNSPECIFIED Qualifiers: GI bleed type/associated pathology: gastrointestinal hemorrhage with hematemesis Qualified Code(s): K92.0 - Hematemesis (5) HTN (hypertension) Code(s): I10 - ESSENTIAL (PRIMARY) HYPERTENSION Qualifiers: Hypertension type: unspecified Qualified Code(s): I10 - Essential (primary ) hypertension (6) Acute hypoxemic respiratory failure Code(s): J96.01 - ACUTE RESPIRATORY FAILURE WITH HYPOXIA (7) Axillary artery embolus Code(s): I74.2 - EMBOLISM AND THROMBOSIS OF ARTERIES OF THE UPPER EXTREMITIES (8) Bladder cancer Code(s): C67.9 - MALIGNANT NEOPLASM OF BLADDER, UNSPECIFIED Qualifiers: Bladder location: unspecified site Qualified Code(s): C67.9 - Malignant neoplasm of bladder, unspecified (9) Coagulopathy Code(s): D68.9 - COAGULATION DEFECT, UNSPECIFIED (10) DVT of upper extremity (deep vein thrombosis) Code(s): I82.629 - ACUTE EMBOLISM AND THROMBOSIS OF DEEP VN UNSP UP EXTREM (11) DVT prophylaxis Code(s): [id number] - (12) GI bleed Code(s): K92.2 - GASTROINTESTINAL HEMORRHAGE, UNSPECIFIED Qualifiers: GI bleed type/associated pathology: unspecified gastrointestinal hemorrhage type Qualified Code(s): K92.2 - Gastrointestinal hemorrhage, unspecified (13) Hypoxemia requiring supplemental oxygen Code(s): R09.02 - HYPOXEMIA; Z99.81 - DEPENDENCE ON SUPPLEMENTAL OXYGEN (14) Mitral stenosis and aortic incompetence Code(s): I08.0 - RHEUMATIC DISORDERS OF BOTH MITRAL AND AORTIC VALVES (15) Mitral valve stenosis Code(s): I05.0 - RHEUMATIC MITRAL STENOSIS Qualifiers: Cardiac valve disease etiology: rheumatic Qualified Code(s): I05.0 - Rheumatic mitral stenosis (16) Severe protein-calorie malnutrition Code(s): E43 - UNSPECIFIED SEVERE PROTEIN-CALORIE MALNUTRITION (17) Vomiting Code(s): R11.10 - VOMITING, UNSPECIFIED Qualifiers: Vomiting type: unspecified Nausea presence: with nausea Assessment/Plan 87 y.o F with valvular AFIB , moderate rhematic MS presented to ER room yesterday with acute LLE pain after skipping Warfarin. Her INR on admission was 1.1 CTA showed arterial occlusion LLE and after initiating IV Heparin the patient was admitted for further management. Vascular consult saw the patient in the ER 06/14/18 Plan iv heparin f/u vascular surgery
[2018-06-14] MEDS: DOCUSATE SODIUM 100 MG CAPSULE (FP) PO SCH (21:41)
[2018-06-14] MEDS ORDERED: SENNOSIDES 8.6MG TABLET (FP) PO SCH (22:00)
[2018-06-14] MEDS: METOPROLOL TARTRATE 25 MG TABLET (FP) PO SCH (22:37)
[2018-06-14] MEDS: FAMOTIDINE 20 MG/50 ML IVPB 20 MG/50 ML MG IVPB SCH (22:37)
--- NOTE | 2018-06-14 23:23 | HP ---
Admitting History and Physical - Primary Care Physician PCP: Paul Beltre - Admission Chief Complaint: LLE pain/ chronic wound History of Present Illness: 87 y/o with a PMH of Afib (on Coumadin and digoxin), TIA (no deficits), Mitral Valve Stenosis, HTN, HLD, PAD, Bladder Ca (in remission) and Right axillary artery occlusion (2018). Who presents to the ED with her daughter and son to ED due to LLE pain over the course of several hours. Family reports chronic LLE wound which was recently being treated with Keflex, however, abx course was not completed and pt self d/kev on saturday 06/10 due to GI upset. Patient endorses paresthesias and worsening discoloration. Patient denies fever, chills, cough, dizziness, WILDER, SOB, CP, N/V/D, hematuria, dysuria. No recent travel. CTA LLE done in ED. no palpable or dopplerable DP pulses were noted. ED course notable for normal labs, IV APAP given for LLE pain, INR 1.15. Heparin bolus 5000u + drip started in ED vascular was consulted with plans to perform possible surgical intervention pending cardiac clearance. 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 Colonoscopy - Smoking History Smoking history: Never smoked Have you smoked in the past 12 months: No - Alcohol/Substance Use Hx Alcohol Use: No - Social History Usual Living Arrangement: Yes: Alone ADL: Independent History of Recent Travel: No Other Social History: , lives alone. no home services Home Medications - Allergies Allergies/Adverse Reactions: Allergies Allergy/AdvReac Type Severity Reaction Status Date / Time No Known Allergies Allergy Verified 06/14/18 18:20 - Home Medications Home Medications: Ambulatory Orders Digoxin [Lanoxin -] 0.25 mg PO Q48H 09/12/17 Metoprolol Tartrate [Lopressor -] 25 mg PO BID 06/02/18 Warfarin Sodium [Coumadin] 2 mg PO DAILY 06/14/18 Family Disease History - Family Disease History Family Disease History: Other: Sister ( from thyroid cancer) Review of Systems - Review of Systems Constitutional: reports: No Symptoms Eyes: reports: No Symptoms HENT: reports: No Symptoms Neck: reports: No Symptoms Cardiovascular: reports: No Symptoms Respiratory: reports: No Symptoms Gastrointestinal: reports: No Symptoms Genitourinary: reports: No Symptoms Breasts: reports: No Symptoms Reported Musculoskeletal: reports: No Symptoms Integumentary: reports: Wound (LLE) Neurological: reports: Other (Pain LLE) Endocrine: reports: No Symptoms Hematology/Lymphatic: reports: No Symptoms Psychiatric: reports: No Symptoms Physical Examination Vital Signs: Vital Signs Temperature 98.0 F 06/14/18 18:00 Pulse Rate 80 06/14/18 18:00 Respiratory Rate 18 06/14/18 18:00 Blood Pressure 137/79 06/14/18 18:00 O2 Sat by Pulse Oximetry (%) 97 06/14/18 18:00 Constitutional: Yes: No Distress, Calm Eyes: Yes: Conjunctiva Clear, PERRL HENT: Yes: Atraumatic, Normocephalic Neck: Yes: Supple, Trachea Midline Cardiovascular: Yes: Pulse Irregular, Murmur (systolic) Respiratory: Yes: Regular, CTA Bilaterally Gastrointestinal: Yes: Normal Bowel Sounds, Soft ...Rectal Exam: Yes: Deferred Extremities: Yes: Cool, Other (LLE with lateral wound covered with xeroform and celia wrap) Edema: No Peripheral Pulses: Left Radial: 2+, Right Radial: 2+, Left Doralis Pedis: 0, Right Dorsalis Pedis: 1+ Wound/Incision: Yes: Dressing Dry and Intact Neurological: Yes: Alert, Oriented ...Motor Strength: WNL Psychiatric: Yes: Alert, Oriented Labs: CBC, BMP 06/14/18 13:46 06/14/18 13:46 Imaging - Results Chest X-ray: Report Reviewed (CXR 06/14/2018 no significant interval change. Moderate to marked cardiomegaly w/o gross evidence of lung disease.) Cat Scan: Report Reviewed (Aorta with runoff CTA 06/14/2018 official read pending ) Problem List - Problems (1) Arterial occlusion, lower extremity Assessment/Plan: vasc following intervention planned pending cardiac clearance hold coumadin heparin drip started, PTT due at MN. Goal PTT 70-90 Code(s): I70.209 - UNSP ATHSCL [place] ARTERIES OF EXTREMITIES, UNSP EXTREMITY (2) HTN (hypertension) Assessment/Plan: metoprolol 25mg BID cardiac diet Code(s): I10 - ESSENTIAL (PRIMARY) HYPERTENSION Qualifiers: Hypertension type: unspecified Qualified Code(s): I10 - Essential (primary ) hypertension (3) Mitral stenosis and aortic incompetence Assessment/Plan: Dr. Cho follows pt. echo ordered for AM Code(s): I08.0 - RHEUMATIC DISORDERS OF BOTH MITRAL AND AORTIC VALVES (4) Afib Assessment/Plan: hold coumadin check digoxin level in AM Cont cardiac telemetry Code(s): I48.91 - UNSPECIFIED ATRIAL FIBRILLATION Qualifiers: Atrial fibrillation type: unspecified Qualified Code(s): I48.91 - Unspecified atrial fibrillation Assessment/Plan PPX -bleeding precautions -fall precautions -pepcid BID due to h/o GI bleed -bowel regimen with senna and colace -Full code Visit type - Emergency Visit Emergency Visit: Yes ED Registration Date: 06/14/18 Care time: The patient presented to the Emergency Department on the above date and was hospitalized for further evaluation of their emergent condition. - New Patient This patient is new to me today: Yes Date on this admission: 06/14/18 - Critical Care Critical Care patient: No
[2018-06-14] MEDS ORDERED: ACETAMINOPHEN 1000 MG/100 ML VIAL (NON FORMULARY) IVPB PRN (23:53)
[2018-06-15 07:04] LABS: BASO % 0.7 % (0-2.0); EOS % 3.8 % (0-4.5); HEMATOCRIT 33.4 % (32.4-45.2); HEMOGLOBIN 11.2 GM/dL (10.7-15.3); LYMPH % 25.7 % (8-40); MCH 31.8 pg (25.7-33.7); MCHC 33.5 g/dl (32.0-36.0); MEAN CELL VOLUME 94.9 fl (80-96); MEAN PLT VOLUME 8.2 fl (7.5-11.1); MONO % 12.7 % (3.8-10.2); NEUT % 57.1 % (42.8-82.8); PLATELET COUNT 132 K/MM3 (134-434); RBC 3.52 M/mm3 (3.60-5.2); RDW 15.4 % (11.6-15.6); WHITE BLOOD COUNT 5.4 K/mm3 (4.0-10.0)
[2018-06-15 07:16] LABS: INR 1.3 (0.83-1.09); PROTHROMBIN TIME (PATIENT) 15.4 SEC (9.7-13.0)
[2018-06-15 07:49] LABS: ACTIVATED PTT 119.9 SECONDS (25.2-36.5)
[2018-06-15 08:03] LABS: ALK PHOS 82 U/L (45-117); ANION GAP 9 MMOL/L (8-16); BLOOD UREA NITROGEN 16 mg/dL (7-18); CALCIUM 8.3 mg/dL (8.5-10.1); CHLORIDE 107 mmol/L (98-107); CHOLESTEROL 144 mg/dL (50-200); CO2 24 mmol/L (21-32); CREATININE 0.9 mg/dL (0.55-1.3); GLUCOSE,RANDOM 80 mg/dL (74-106); HDL CHOLESTEROL 49 mg/dL (40-60); N-TERMINAL BNP 1679.1 pg/ml (5-450); PHOSPHOROUS 3.5 mg/dL (2.5-4.9); POTASSIUM 3.7 mmol/L (3.5-5.1); SGOT/AST 17 U/L (15-37); SGPT/ALT 16 U/L (13-61); SODIUM 140 mmol/L (136-145); TOT PROT 5.8 g/dl (6.4-8.2); TRIGLYCERIDES 49 mg/dL (0-150)
--- NOTE | 2018-06-15 08:11 | PN ---
Progress Note, Physician Chief Complaint: 87 y.o F with valvular AFIB presented to ER room yesterday with acute LLE pain after skipping Warfarin. Her INR on admission was 1.1 CTA showed arterial occlusion LLE and after initiating IV Heparin the patient was admitted for further management. Vascular consult saw the patient in the ER 06/14/18 History of Present Illness: RHD. Mitral stenosis. Chronic AFIB. 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 LE varicose veins. Chronic ulcer left humphrey . History of bladder cancer - Current Medication List Current Medications: Active Medications Acetaminophen (Ofirmev Injection -) 650 mg IVPB Q6H PRN PRN Reason: PAIN LEVEL 6-10 Last Admin: 06/15/18 02:05 Dose: 650 mg Digoxin (Lanoxin -) 0.25 mg PO Q2D@1000 [facility] Last Admin: 06/14/18 23:27 Dose: 0.25 mg Docusate Sodium (Colace -) 100 mg PO BID [facility] Last Admin: 06/14/18 21:41 Dose: Not Given Heparin Sodium (Porcine) (Heparin -) 1,000 unit IVPUSH PRN PRN PRN Reason: Heparin Last Admin: 06/14/18 17:29 Dose: 1,000 unit Heparin Sodium (Porcine) (Heparin -) 5,000 unit IVPUSH PRN PRN PRN Reason: Heparin Heparin Sodium/Dextrose (Heparin Infusion -) 25,000 units in 500 mls @ 16 mls/ hr IVPB TITR [facility]; Protocol Last Titration: 06/15/18 01:45 Dose: 750 units/hr, 15 mls/hr Famotidine/Sodium Chloride (Pepcid 20 Mg Premixed Ivpb -) 20 mg in 50 mls @ 100 mls/hr IVPB BID [facility] Last Admin: 06/14/18 22:37 Dose: 100 mls/hr Metoprolol Tartrate (Lopressor -) 25 mg PO BID [facility] Last Admin: 06/14/18 22:37 Dose: 25 mg Senna (Senna -) 2 tab PO HS [facility] Last Admin: 06/14/18 21:41 Dose: Not Given - Objective Vital Signs: Vital Signs Temperature 97.9 F 06/15/18 06:00 Pulse Rate 77 06/15/18 06:00 Respiratory Rate 18 06/15/18 06:00 Blood Pressure 131/58 L 06/15/18 06:00 O2 Sat by Pulse Oximetry (%) 97 06/14/18 18:00 Constitutional: Yes: Anxious, Moderate Distress, Pallor, Thin Eyes: Yes: Conjunctiva Clear, EOM Intact HENT: Yes: Atraumatic, Normocephalic Neck: Yes: Supple. No: Decreased ROM, Lymphadenopathy, Rigid, Tenderness, Thyromegaly Cardiovascular: Yes: Pulse Irregular, JVD, S1, S2 Respiratory: Yes: Regular, CTA Bilaterally Gastrointestinal: Yes: Normal Bowel Sounds, Soft, Other (RUQ scar healed.). No : Palpable Mass, Pulsatile Mass ...Rectal Exam: Yes: Deferred Genitourinary: No: Anuria, Bladder Distention, CVA Tenderness - Left, CVA Tenderness - Right Breast(s): Yes: WNL Extremities: Yes: Cool (left foot) Edema: No Peripheral Pulses WNL: No Peripheral Pulses: Left Doralis Pedis: 0, Right Dorsalis Pedis: 1+ Integumentary: Yes: Venous Stasis Changes (ulcer left humphrey) ...Motor Strength: WNL Psychiatric: Yes: Alert, Oriented. No: Agitated, Suicidal Ideation Labs: CBC, BMP 06/15/18 06:00 06/15/18 06:00 INR, PTT INR 1.30 (0.83-1.09) H 06/15/18 06:00 Problem List - Problems (1) Afib Assessment/Plan: Continue IV Heparin. Cardiology consult appreciated. Code(s): I48.91 - UNSPECIFIED ATRIAL FIBRILLATION Qualifiers: Atrial fibrillation type: chronic Qualified Code(s): I48.2 - Chronic atrial fibrillation (2) Arterial occlusion, lower extremity Assessment/Plan: Continue IV Heparin. Spoke to vascular surgeon Dr Martin , he is considering LLE angioplasty. Code(s): I70.209 - UNSP ATHSCL [place] ARTERIES OF EXTREMITIES, UNSP EXTREMITY (3) GI bleed Assessment/Plan: Continue IV Famotidine BID. Follow H/H. Code(s): K92.2 - GASTROINTESTINAL HEMORRHAGE, UNSPECIFIED Qualifiers: GI bleed type/associated pathology: gastrointestinal hemorrhage with hematemesis Qualified Code(s): K92.0 - Hematemesis
[2018-06-15] MEDS ORDERED: LACTATED RINGERS SOLUTION 1,000 ML/1,000 ML INFUS.BAG IV SCH (08:30)
[2018-06-15] MEDS: FAMOTIDINE 20 MG/50 ML IVPB 20 MG/50 ML MG IVPB SCH (09:14)
[2018-06-15] MEDS: DOCUSATE SODIUM 100 MG CAPSULE (FP) PO SCH (09:14)
[2018-06-15] MEDS: METOPROLOL TARTRATE 25 MG TABLET (FP) PO SCH (09:15)
--- NOTE | 2018-06-15 10:02 | EKG ---
Test Reason : Blood Pressure : / mmHG Vent. Rate : 075 BPM Atrial Rate : 060 BPM P-R Int : 000 ms QRS Dur : 078 ms QT Int : 398 ms P-R-T Axes : 000 060 071 degrees QTc Int : 444 ms ATRIAL FIBRILLATION ABNORMAL ECG WHEN COMPARED WITH ECG OF 24-SEP-2017 14:29, NONSPECIFIC T WAVE ABNORMALITY NOW EVIDENT IN INFERIOR LEADS Confirmed by LEVI MESA, JAYANT ([id number]) on 06/15/2018 10:01:51 AM Referred By: Confirmed By:JAYANT SIMS MD
--- NOTE | 2018-06-15 10:11 | PN ---
Progress Note (short form) - Note Progress Note: Dr. Beltre attending at bedside this am. Pt complains of pain at ulcer site. She was made aware that she is npo for angiogram today. Vital Signs Period Temp Pulse Resp BP Sys/Coulter Pulse Ox Last 24 Hr 97.5 F-98.0 F 76-82 16-18 131-172/58-79 97-97 GEN: appears comfortable LLE: no palpable or pulse with doppler detected today. Forefoot cool. Ulcer unchanged to LLE, small 1x1 cm clean base ulcer. CBC, BMP 06/15/18 06:00 06/15/18 06:00 Laboratory Tests 06/15/18 06:00 PT with INR 15.40 H INR 1.30 H PTT (Actin FS) 119.9 H A/P: 87 yo female with LLE acute on chronic ischemia to LLE Plan for OR today as per Dr. Treviño, the pt is npo. IV heparin as per the protocol. Being held now for increased value and restarted at lower dose, repeat PTT at 3 today
--- NOTE | 2018-06-15 12:21 | PN ---
Progress Note, Physician History of Present Illness: HPI: Called to evaluate 87 yo w/ PMHx as noted below. Arrives at [facility] ED secondary to c/o acute LLE pain x 4 hours. Grandson at bedside an acting as nurse ortho as she only speaks [place]. Reports that her distal 1/3 LLE to her toes has paresthesia and acute color change. Per Grandson, grandmother is very active (ambulates, gardens, walks w/o complaint of feeling like her legs get tired). Patient is compliant with her Coumadin (Afib). Denies fever, chills, CP, palpitations, SOB, [place]. Denies rest pain or claudication. PMHx: Mitral Valve Stenosis, Afib, CVA, H. Pylori, HTN, RUE arterial occlusion, Chronic LLE wound, GI Bleed (AVM). PAD? PSHx: Cholecystectomy 50 yrs ago. Right brachial embolectomy 09/25/17. Colonoscopy - Current Medication List Current Medications: Active Medications Acetaminophen (Ofirmev Injection -) 650 mg IVPB Q6H PRN PRN Reason: PAIN LEVEL 6-10 Last Admin: 06/15/18 02:05 Dose: 650 mg Digoxin (Lanoxin -) 0.25 mg PO Q2D@1000 [facility] Last Admin: 06/14/18 23:27 Dose: 0.25 mg Docusate Sodium (Colace -) 100 mg PO BID [facility] Last Admin: 06/15/18 09:14 Dose: 100 mg Gentamicin Sulfate (Garamycin 0.1% Ointment -) 1 applic TP QID [facility] Heparin Sodium (Porcine) (Heparin -) 1,000 unit IVPUSH PRN PRN PRN Reason: Heparin Last Admin: 06/14/18 17:29 Dose: 1,000 unit Heparin Sodium (Porcine) (Heparin -) 5,000 unit IVPUSH PRN PRN PRN Reason: Heparin Heparin Sodium/Dextrose (Heparin Infusion -) 25,000 units in 500 mls @ 16 mls/ hr IVPB TITR [facility]; Protocol Stop: 06/15/18 16:00 Last Titration: 06/15/18 09:15 Dose: 600 units/hr, 12 mls/hr Famotidine/Sodium Chloride (Pepcid 20 Mg Premixed Ivpb -) 20 mg in 50 mls @ 100 mls/hr IVPB BID [facility] Last Admin: 06/15/18 09:14 Dose: 100 mls/hr Lactated Ringer's (Lactated Ringers Solution) 1,000 ml in 1,000 mls @ 42 mls/ hr IV ASDIR [facility] Last Admin: 06/15/18 09:15 Dose: 42 mls/hr Metoprolol Tartrate (Lopressor -) 25 mg PO BID [facility] Last Admin: 06/15/18 09:15 Dose: 25 mg Senna (Senna -) 2 tab PO HS [facility] Last Admin: 06/14/18 21:41 Dose: Not Given - Objective Vital Signs: Vital Signs Temperature 97.7 F 06/15/18 10:00 Pulse Rate 62 06/15/18 10:00 Respiratory Rate 20 06/15/18 10:00 Blood Pressure 152/71 06/15/18 10:00 O2 Sat by Pulse Oximetry (%) 96 06/15/18 09:00 Eyes: Yes: WNL, Conjunctiva Clear, EOM Intact HENT: Yes: WNL, Atraumatic, Normocephalic Neck: Yes: WNL, Supple, Trachea Midline Cardiovascular: Yes: Pulse Irregular, Murmur, S1, S2 Respiratory: Yes: WNL, Regular, CTA Bilaterally Gastrointestinal: Yes: WNL, Normal Bowel Sounds Genitourinary: Yes: WNL Musculoskeletal: Yes: WNL Extremities: Yes: WNL Edema: No Peripheral Pulses: Left Doralis Pedis: 0 Integumentary: Yes: WNL Neurological: Yes: WNL, Alert, Oriented ...Motor Strength: WNL Psychiatric: Yes: WNL Labs: CBC, BMP 06/15/18 06:00 06/15/18 06:00 INR, PTT INR 1.30 (0.83-1.09) H 06/15/18 06:00 Problem List - Problems (1) Acute pain of left lower extremity Code(s): M79.605 - PAIN IN LEFT LEG (2) Afib Code(s): I48.91 - UNSPECIFIED ATRIAL FIBRILLATION Qualifiers: Atrial fibrillation type: chronic Qualified Code(s): I48.2 - Chronic atrial fibrillation (3) Arterial occlusion, lower extremity Code(s): I70.209 - UNSP ATHSCL [place] ARTERIES OF EXTREMITIES, UNSP EXTREMITY (4) GI bleed Code(s): K92.2 - GASTROINTESTINAL HEMORRHAGE, UNSPECIFIED Qualifiers: GI bleed type/associated pathology: gastrointestinal hemorrhage with hematemesis Qualified Code(s): K92.0 - Hematemesis (5) HTN (hypertension) Code(s): I10 - ESSENTIAL (PRIMARY) HYPERTENSION Qualifiers: Hypertension type: unspecified Qualified Code(s): I10 - Essential (primary ) hypertension (6) Acute hypoxemic respiratory failure Code(s): J96.01 - ACUTE RESPIRATORY FAILURE WITH HYPOXIA (7) Axillary artery embolus Code(s): I74.2 - EMBOLISM AND THROMBOSIS OF ARTERIES OF THE UPPER EXTREMITIES (8) Bladder cancer Code(s): C67.9 - MALIGNANT NEOPLASM OF BLADDER, UNSPECIFIED Qualifiers: Bladder location: unspecified site Qualified Code(s): C67.9 - Malignant neoplasm of bladder, unspecified (9) Coagulopathy Code(s): D68.9 - COAGULATION DEFECT, UNSPECIFIED (10) DVT of upper extremity (deep vein thrombosis) Code(s): I82.629 - ACUTE EMBOLISM AND THROMBOSIS OF DEEP VN UNSP UP EXTREM (11) DVT prophylaxis Code(s): FGY4281 - (12) GI bleed Code(s): K92.2 - GASTROINTESTINAL HEMORRHAGE, UNSPECIFIED Qualifiers: GI bleed type/associated pathology: unspecified gastrointestinal hemorrhage type Qualified Code(s): K92.2 - Gastrointestinal hemorrhage, unspecified (13) Hypoxemia requiring supplemental oxygen Code(s): R09.02 - HYPOXEMIA; Z99.81 - DEPENDENCE ON SUPPLEMENTAL OXYGEN (14) Mitral stenosis and aortic incompetence Code(s): I08.0 - RHEUMATIC DISORDERS OF BOTH MITRAL AND AORTIC VALVES (15) Mitral valve stenosis Code(s): I05.0 - RHEUMATIC MITRAL STENOSIS Qualifiers: Cardiac valve disease etiology: rheumatic Qualified Code(s): I05.0 - Rheumatic mitral stenosis (16) Severe protein-calorie malnutrition Code(s): E43 - UNSPECIFIED SEVERE PROTEIN-CALORIE MALNUTRITION (17) Vomiting Code(s): R11.10 - VOMITING, UNSPECIFIED Qualifiers: Vomiting type: unspecified Nausea presence: with nausea Assessment/Plan 87 y.o F with valvular AFIB , moderate rhematic MS presented to ER room yesterday with acute LLE pain after skipping Warfarin. Her INR on admission was 1.1 CTA showed arterial occlusion LLE and after initiating IV Heparin the patient was admitted for further management. Vascular consult saw the patient in the ER 06/14/18 Plan iv heparin f/u vascular surgery for OR today for thrombectomy LLext
--- NOTE | 2018-06-15 12:37 | CON.GI ---
Consult Consult Specialty:: Gastroenterology Referred by:: Dr Beltre Reason for Consultation:: Abdominal pain and nausea - History of Present Illness Chief Complaint: LLE pain History of Present Illness: 87F is admitted for LLE pain found to be due to a vascular occlusion with intervention planned by Olga Lidia Bermudez later today. She developed nausea and dyspepsia which Diane attributes to antibiotics. She speaks to me in her [place]ian language. She denies constipation, diarrhea and vomiting. No colicky abdominal pain to suggest bowel ischemia. EGD on 09/15/17 revealed mild gastritis. 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 - Past Medical History [employer]: Yes: TIA Cardio/Vascular: Yes: AFIB, Mitral Stenosis Gastrointestinal: Yes: Gastritis, GI Bleed (09/15 hepatic flexure AVM bleed cauterized) Renal/: Yes: Cancer (bladder (in remission)) ...: No - Past Surgical History Past Surgical History: Yes: Cholecystectomy (Open), Colonoscopy, Upper Endoscopy - Alcohol/Substance Use Hx Alcohol Use: No - Smoking History Smoking history: Never smoked Have you smoked in the past 12 months: No - Social History Usual Living Arrangement: With Child ADL: Family Assistance Place of : Other ([place]) Came to [place] (year): age 22 History of Recent Travel: No Home Medications - Allergies Allergies/Adverse Reactions: Allergies Allergy/AdvReac Type Severity Reaction Status Date / Time No Known Allergies Allergy Verified 06/14/18 18:20 - Home Medications Home Medications: Ambulatory Orders Digoxin [Lanoxin -] 0.25 mg PO Q48H 09/12/17 Metoprolol Tartrate [Lopressor -] 25 mg PO BID 06/02/18 Warfarin Sodium [Coumadin] 2 mg PO DAILY 06/14/18 Family Disease History - Family Disease History Family Disease History: Diabetes: Father, CA: Sister ( from thyroid cancer, gastric ca), Other: Mother (CVA), Sister Review of Systems - Review of Systems Constitutional: reports: Lethargy, Loss of Appetite Eyes: reports: No Symptoms HENT: reports: No Symptoms Neck: reports: No Symptoms Cardiovascular: reports: Palpitations Respiratory: reports: No Symptoms Gastrointestinal: reports: Abdominal Pain, Nausea Physical Exam-GI Vital Signs: Vital Signs Temperature 97.7 F 06/15/18 10:00 Pulse Rate 62 06/15/18 10:00 Respiratory Rate 20 06/15/18 10:00 Blood Pressure 152/71 06/15/18 10:00 O2 Sat by Pulse Oximetry (%) 96 06/15/18 09:00 CBC,CMP WBC 5.4 K/mm3 (4.0-10.0) 06/15/18 06:00 RBC 3.52 M/mm3 (3.60-5.2) L 06/15/18 06:00 Hgb 11.2 GM/dL (10.7-15.3) 06/15/18 06:00 Hct 33.4 % (32.4-45.2) 06/15/18 06:00 MCV 94.9 fl (80-96) 06/15/18 06:00 MCH 31.8 pg (25.7-33.7) 06/15/18 06:00 MCHC 33.5 g/dl (32.0-36.0) 06/15/18 06:00 RDW 15.4 % (11.6-15.6) 06/15/18 06:00 Plt Count 132 K/MM3 (134-434) L 06/15/18 06:00 MPV 8.2 fl (7.5-11.1) 06/15/18 06:00 Absolute Neuts (auto) 3.1 K/mm3 (1.5-8.0) 06/15/18 06:00 Neutrophils % 57.1 % (42.8-82.8) 06/15/18 06:00 Lymphocytes % 25.7 % (8-40) D 06/15/18 06:00 Monocytes % 12.7 % (3.8-10.2) H 06/15/18 06:00 Eosinophils % 3.8 % (0-4.5) 06/15/18 06:00 Basophils % 0.7 % (0-2.0) 06/15/18 06:00 Nucleated RBC % 0 % (0-0) 06/15/18 06:00 Sodium 140 mmol/L (136-145) 06/15/18 06:00 Potassium 3.7 mmol/L (3.5-5.1) 06/15/18 06:00 Chloride 107 mmol/L (98-107) 06/15/18 06:00 Carbon Dioxide 24 mmol/L (21-32) 06/15/18 06:00 Anion Gap 9 MMOL/L (8-16) 06/15/18 06:00 BUN 16 mg/dL (7-18) 06/15/18 06:00 Creatinine 0.9 mg/dL (0.55-1.3) 06/15/18 06:00 Creat Clearance w eGFR 59.51 (>60) 06/15/18 06:00 Random Glucose 80 mg/dL (74-106) 06/15/18 06:00 Hemoglobin A1c % 5.5 % (4.2-6.3) 06/15/18 06:00 Lactic Acid 1.5 mmol/L (0.4-2.0) 06/14/18 13:50 Calcium 8.3 mg/dL (8.5-10.1) L 06/15/18 06:00 Phosphorus 3.5 mg/dL (2.5-4.9) 06/15/18 06:00 Magnesium 2.0 mg/dL (1.8-2.4) 06/15/18 06:00 Total Bilirubin 1.0 mg/dL (0.2-1) 06/15/18 06:00 AST 17 U/L (15-37) 06/15/18 06:00 ALT 16 U/L (13-61) 06/15/18 06:00 Alkaline Phosphatase 82 U/L (45-117) 06/15/18 06:00 Creatine Kinase 54 U/L (26-192) 06/15/18 06:00 Troponin I 0.03 ng/ml (0.00-0.05) 06/15/18 06:00 B-Natriuretic Peptide 1679.1 pg/ml (5-450) H 06/15/18 06:00 Total Protein 5.8 g/dl (6.4-8.2) L 06/15/18 06:00 Albumin 3.0 g/dl (3.4-5.0) L 06/15/18 06:00 Triglycerides 49 mg/dL (0-150) 06/15/18 06:00 Cholesterol 144 mg/dL (50-200) 06/15/18 06:00 Total LDL Cholesterol 83 mg/dL (5-100) 06/15/18 06:00 HDL Cholesterol 49 mg/dL (40-60) 06/15/18 06:00 Current Medications Generic Name Dose Route Start Last Admin Trade Name Anh PRN Reason Stop Dose Admin Acetaminophen 650 mg 06/14/18 23:53 06/15/18 02:05 Ofirmev Injection - IVPB 650 mg Q6H PRN Administration PAIN LEVEL 6-10 Digoxin 0.25 mg 06/14/18 22:00 06/14/18 23:27 Lanoxin - PO 0.25 mg Q2D@1000 [facility] Administration Docusate Sodium 100 mg 06/14/18 22:00 06/15/18 09:14 Colace - PO 100 mg BID [facility] Administration Gentamicin Sulfate 1 applic 06/15/18 14:00 Garamycin 0.1% Ointment - TP QID [facility] Heparin Sodium (Porcine) 1,000 unit 06/14/18 17:19 06/14/18 17:29 Heparin - IVPUSH 1,000 unit PRN PRN Administration Heparin Heparin Sodium (Porcine) 5,000 unit 06/14/18 17:19 Heparin - IVPUSH PRN PRN Heparin Heparin Sodium/Dextrose 25,000 units in 500 mls @ 16 mls/hr 06/14/18 17:30 09:15 Heparin Infusion - IVPB 06/15/18 16:00 600 units/hr TITR [facility] 12 mls/hr Titration Protocol 800 UNITS/HR Famotidine/Sodium Chloride 20 mg in 50 mls @ 100 mls/hr 06/14/18 22:00 09:14 Pepcid 20 Mg Premixed Ivpb - IVPB 100 mls/hr BID [facility] Administration Lactated Ringer's 1,000 ml in 1,000 mls @ 42 mls/hr 06/15/18 08:30 06/15/18 09:15 Lactated Ringers Solution IV 42 mls/hr ASDIR [facility] Administration Metoprolol Tartrate 25 mg 06/14/18 22:00 06/15/18 09:15 Lopressor - PO 25 mg BID [facility] Administration Senna 2 tab 06/14/18 22:00 06/14/18 21:41 Senna - PO Not Given HS [facility] Constitutional: Yes: Calm Eyes: Yes: Conjunctiva Clear HENT: Yes: Atraumatic Cardiovascular: Yes: Pulse Irregular Respiratory: Yes: CTA Bilaterally Gastrointestinal Inspection: Yes: Scars (healed oblique RUQ incision) ...Auscultate: Yes: Normoactive Bowel Sounds ...Palpate: Yes: Soft, Other (nontender) ...Rectal Exam: Yes: Guaiac Negative (brown guaiac negative stool) Labs: CBC, BMP 06/15/18 06:00 06/15/18 06:00 INR, PTT INR 1.30 (0.83-1.09) H 06/15/18 06:00 Problem List - Problems (1) Dyspepsia Assessment/Plan: I suspect that this dyspepsia and nausea are related to the antibiotics as Diane claims. No further investigation is planned at this time but a PPI will be given to protect against stress gastritis . Code(s): R10.13 - EPIGASTRIC PAIN (2) Nausea Code(s): R11.0 - NAUSEA (3) Angiodysplasia of colon with hemorrhage Code(s): K55.21 - ANGIODYSPLASIA OF COLON WITH HEMORRHAGE (4) Gastritis Code(s): K29.70 - GASTRITIS, UNSPECIFIED, WITHOUT BLEEDING (5) History of cholecystectomy Code(s): Z90.49 - ACQUIRED ABSENCE OF OTHER SPECIFIED PARTS OF DIGESTIVE TRACT (6) Acute pain of left lower extremity Code(s): M79.605 - PAIN IN LEFT LEG (7) Afib Code(s): I48.91 - UNSPECIFIED ATRIAL FIBRILLATION Qualifiers: Atrial fibrillation type: chronic Qualified Code(s): I48.2 - Chronic atrial fibrillation (8) Mitral valve stenosis Code(s): I05.0 - RHEUMATIC MITRAL STENOSIS Qualifiers: Cardiac valve disease etiology: rheumatic Qualified Code(s): I05.0 - Rheumatic mitral stenosis Assessment/Plan Dyspepsia and nausea due to antibiotic intolerance PPI to protect against stress gastritis
[2018-06-15] MEDS ORDERED: PT OWN MED DRAWER 7, Y5N ONE ×2 (13:23→23:33)
[2018-06-15] MEDS: GENTAMICIN SO4 0.1% TOPICAL OINTMENT 15 GM/TUBE TUBE TP SCH ×2 (13:24→17:33)
--- NOTE | 2018-06-15 14:37 | ECHO ---
Name: GILBERTO GUILLAUME Exam:Adult Echocardiogram Study Date: 06/15/2018 11:50 AM Age: 87 yrs Reason For Study: A-Fib Height: 59 in Weight: 92 lb BSA: 1.3 m2 MMode/2D Measurements & Calculations IVSd: 0.83 cm Ao root diam: 2.6 cm LVIDd: 4.5 cm LA dimension: 4.3 cm LVIDs: 3.1 cm LVPWd: 0.77 cm EDV(Teich): 93.5 ml LVOT diam: 2.0 cm ESV(Teich): 37.3 ml LAV (MOD-bp): 77.7 ml Doppler Measurements & Calculations MV E max constantine: 122.0 cm/sec MVA(VTI): 0.93 cm2 MV A max constantine: 75.9 cm/sec MV V2 max: 209.6 cm/sec MV E/A: 1.6 MV max P.6 mmHg MV dec time: 0.16 sec MV V2 mean: 139.9 cm/sec MV mean P.7 mmHg MV V2 VTI: 64.0 cm Ao V2 max: 213.4 cm/sec AI max constantine: 454.4 cm/sec Ao max P.2 mmHg AI max P.7 mmHg Ao V2 mean: 124.6 cm/sec Ao mean P.0 mmHg AI dec slope: 208.7 cm/sec2 Ao V2 VTI: 38.9 cm MAGALI(I,D): 1.5 cm2 AI P1/2t: 637.6 msec MAGALI(V,D): 1.2 cm2 LV V1 max P.8 mmHg SV(LVOT): 59.3 ml LV V1 mean P.6 mmHg LV V1 max: 83.2 cm/sec LV V1 mean: 58.5 cm/sec LV V1 VTI: 19.4 cm TR max constantine: 323.7 cm/sec Med Peak E' Constantine: 4.0 cm/sec TR max P.6 mmHg Med E/e': 30.3 Lat Peak E' Constantine: 5.1 cm/sec Lat E/e': 23.9 PI Vmax: 252.5 cm/sec Procedure A two-dimensional transthoracic echocardiogram with color flow and Doppler was performed. Left Ventricle The left ventricular size, thickness and function are normal. The left ventricular ejection fraction is normal. The left ventricular wall motion is normal. Right Ventricle The right ventricle is normal in size and function. Atria The left atrium is severely dilated. The right atrium is moderate to severely dilated. Mitral Valve Rheumatic mitral stenosis. There is moderate mitral stenosis. There is trace mitral regurgitation. Tricuspid Valve There is mild tricuspid valve thickening. There is no tricuspid stenosis. There is moderate to severe tricuspid regurgitation. Right ventricular systolic pressure is elevated at 50-60mmHg. Aortic Valve The aortic valve is normal in structure and function. No hemodynamically significant valvular aortic stenosis. Moderate aortic regurgitation. Pulmonic Valve The pulmonic valve is not well visualized. There is no pulmonic valvular stenosis. Moderate pulmonic valvular regurgitation. Great Vessels The aortic root is normal size. Pericardium/Pleura There is a mild pericardial effusion. Interpretation Summary The left ventricular size, thickness and function are normal The left ventricular ejection fraction is normal. The left ventricular wall motion is normal. The left atrium is severely dilated. Rheumatic mitral stenosis. There is moderate mitral stenosis. The right atrium is moderate to severely dilated. There is a mild pericardial effusion. Moderate pulmonic valvular regurgitation. Moderate aortic regurgitation. There is trace mitral regurgitation. There is moderate to severe tricuspid regurgitation. Right ventricular systolic pressure is elevated at 50-60mmHg. MD Easton Cho 06/15/2018 02:37 PM
[2018-06-15] MEDS ORDERED: LIDOCAINE HCL/PF 2% SDV 5ML VIAL ONE (15:52)
[2018-06-15] MEDS ORDERED: PROPOFOL 20 ML ONE ×2 (15:53→17:47)
[2018-06-15] MEDS ORDERED: ONDANSETRON 4 MG/2 ML VIAL IVPUSH PRN ×2 (15:58→19:46)
[2018-06-15] MEDS ORDERED: HEPARIN NA (PORCINE) 5,000 UNITS/ML 1ML VIAL ONE ×2 (16:05→18:33)
[2018-06-15] MEDS ORDERED: LIDOCAINE HCL 1%, 10 MG/ML (20ML VIAL) ONE (16:05)
[2018-06-15] MEDS ORDERED: MIDAZOLAM HCL 2 MG/2 ML SINGLE DOSE VIAL ONE (16:54)
[2018-06-15] MEDS ORDERED: ceFAZolin SODIUM 1 GM VIAL IVPB ONE (17:17)
[2018-06-15] MEDS ORDERED: SODIUM CHLORIDE 0.9% P/F 10 ML VIAL IJ ONE (17:17)
[2018-06-15] MEDS ORDERED: ceFAZolin SODIUM 1 GM VIAL ONE (17:17)
[2018-06-15] MEDS ORDERED: ROCURONIUM BROMIDE 50 MG/5 ML VIAL ONE (17:23)
[2018-06-15] MEDS ORDERED: LIDOCAINE HCL 1%, 10 MG/ML (20ML VIAL) INF ONE (17:26)
[2018-06-15] MEDS ORDERED: ALTEPLASE 2 MG VIAL CVP ONE ×2 (17:45→19:46)
[2018-06-15] MEDS ORDERED: DEXAMETHASONE SOD PHOSPHATE 4 MG/1 ML VIAL ONE (18:49)
[2018-06-15] MEDS ORDERED: KETOROLAC TROMETHAMINE 30 MG/1 ML VIAL ONE (18:49)
[2018-06-15] MEDS ORDERED: ETOMIDATE 20 MG/10 ML AMPUL IVPUSH ONE (18:51)
[2018-06-15] MEDS ORDERED: POVIDONE-IODINE OINTMENT 10% - 28.4 GM TUBE ONE (18:52)
--- NOTE | 2018-06-15 19:33 | OP ---
Operative Note - Note: Operative Date: 06/15/18 Pre-Operative Diagnosis: Occlusion left femoral artery Operation: Angiogram with angioplasty and TPA administration left deep and superficial femoral artery. Open left femoral thrombectomy Findings: Occlusion of deep femoral artery distal to origin Occlusion of distal SFA Patent popliteal, AT and PT arteries. Post-Operative Diagnosis: Same as Pre-op Surgeon: Tim Martin Supervisor Cigar Processing: Darline Muhammad Anesthesiologist/POWER TOOL REPAIR TECHNICIAN: Patrice Tan Anesthesia: General Specimens Removed: Embolic material from deep and superficial femoral arteries Estimated Blood Loss (mls): 50
[2018-06-15] MEDS ORDERED: HEPARIN NA (PORCINE) 5,000 UNITS/ML 1ML VIAL IVPUSH PRN ×2 (19:46)
[2018-06-15] MEDS ORDERED: PROTAMINE SULFATE 50 MG/5 ML VIAL ONE (19:54)
[2018-06-15] MEDS ORDERED: VASOPRESSIN 20 UNITS/ML VIAL IV ONE (19:54)
[2018-06-15] MEDS ORDERED: PROTAMINE SULFATE 50 MG/5 ML VIAL IVPUSH ONE (20:00)
[2018-06-15 20:05] LABS: HEMATOCRIT 28.3 % (32.4-45.2); HEMOGLOBIN 9.3 GM/dL (10.7-15.3); MCH 31.6 pg (25.7-33.7); MEAN CELL VOLUME 95.9 fl (80-96); MEAN PLT VOLUME 8.1 fl (7.5-11.1); PLATELET COUNT 133 K/MM3 (134-434); RBC 2.95 M/mm3 (3.60-5.2); RDW 15.1 % (11.6-15.6); WHITE BLOOD COUNT 9.4 K/mm3 (4.0-10.0)
[2018-06-15 20:30] LABS: ALBUMIN 2.5 g/dl (3.4-5.0); ALK PHOS 72 U/L (45-117); ANION GAP 7 MMOL/L (8-16); BILIRUBIN,TOTAL 0.9 mg/dL (0.2-1); BLOOD UREA NITROGEN 13 mg/dL (7-18); CHLORIDE 111 mmol/L (98-107); CO2 25 mmol/L (21-32); GLUCOSE,RANDOM 99 mg/dL (74-106); POTASSIUM 3.6 mmol/L (3.5-5.1); SGOT/AST 17 U/L (15-37); SGPT/ALT 15 U/L (13-61); SODIUM 143 mmol/L (136-145); TOT PROT 5.4 g/dl (6.4-8.2)
--- NOTE | 2018-06-15 23:09 | CONSULT ---
Consult Consult Specialty:: ICU Reason for Consultation:: ICU monitoring post open left femoral thrombectomy - History of Present Illness Chief Complaint: left leg pain History of Present Illness: pt is bulgarian speaking, son provided the history and aided in translation. chart reviewed for pmhx and previous events. 87 yr old woman with afib on coumadin, mitral stenosis, HTN, HLD, hx of GI bleed , brought in by family for left leg pain for past 2 wks.as per son, patient lives in the basement of the house. 2 weeks ago she hurt her left lower leg and was bleeding for few days she took a lower dose of the warfarin to decr the bleeding and this morning she developed pain and discoloration in her left leg and was brought to the hospital by her family. - History Source History Provided By: Patient, Family Member Limitations to Obtaining History: Language Barrier - Past Medical History DIRECTOR PRODUCT DEVELOPMENT: Yes: TIA Cardio/Vascular: Yes: AFIB, Mitral Stenosis Gastrointestinal: Yes: Gastritis, GI Bleed (09/15 hepatic flexure AVM bleed cauterized) Renal/: Yes: Cancer (bladder (in remission)) ...: No - Past Surgical History Past Surgical History: Yes: Cholecystectomy (Open), Colonoscopy, Upper Endoscopy - Alcohol/Substance Use Hx Alcohol Use: No - Smoking History Smoking history: Never smoked Have you smoked in the past 12 months: No - Social History Usual Living Arrangement: With Child ADL: Family Assistance History of Recent Travel: No Home Medications - Allergies Allergies/Adverse Reactions: Allergies Allergy/AdvReac Type Severity Reaction Status Date / Time No Known Allergies Allergy Verified 06/14/18 18:20 - Home Medications Home Medications: Ambulatory Orders Digoxin [Lanoxin -] 0.25 mg PO Q48H 09/12/17 Metoprolol Tartrate [Lopressor -] 25 mg PO BID 06/02/18 Warfarin Sodium [Coumadin] 2 mg PO DAILY 06/14/18 Family Disease History - Family Disease History Family Disease History: Diabetes: Father, CA: Sister ( from thyroid cancer, gastric ca), Other: Mother (CVA), Sister Review of Systems Unable to obtain ROS, reason: as reported by the son - Review of Systems Constitutional: denies: Unintentional Wgt. Loss, Weakness Cardiovascular: denies: Chest Pain, Palpitations, Shortness of Breath Respiratory: reports: No Symptoms Gastrointestinal: reports: Abdominal Pain Musculoskeletal: reports: Extremity Pain (leg left) Neurological: reports: No Symptoms Hematology/Lymphatic: denies: Easily Bruised, Excessive Bleeding Physical Exam Vital Signs: Vital Signs Temperature 97.6 F 06/15/18 22:40 Pulse Rate 85 06/15/18 22:40 Respiratory Rate 16 06/15/18 22:40 Blood Pressure 112/75 06/15/18 22:40 O2 Sat by Pulse Oximetry (%) 100 06/15/18 22:30 Constitutional: Yes: No Distress, Calm Eyes: Yes: Conjunctiva Clear, EOM Intact, PERRL HENT: Yes: Atraumatic, Normocephalic. No: Pharyngeal Erythema, Thrush Neck: Yes: Supple, Trachea Midline. No: Lymphadenopathy, Thyromegaly Cardiovascular: Yes: Pulse Irregular, S1, S2 Respiratory: Yes: Regular, CTA Bilaterally Gastrointestinal: Yes: Normal Bowel Sounds, Soft Extremities: Yes: Other (left femoral dressing with blood contained under tegaderm, left thigh wrapped with compression wrap, soft, left ankle dressing CDI) Edema: No Peripheral Pulses WNL: Yes (doppler DP and TP pulses on left leg) Neurological: Yes: Alert, Oriented (to person, knows this is a hospital) Labs: CBC, BMP 06/15/18 19:50 06/15/18 19:50 Assessment/Plan 87 yr old woman with Afib on coumadin with recent missed doses presented to the ED for left leg pain found to have occlusion left femoral s/p open left femoral thrombectomy likely due to subtherapeutic INR. had post-op mild bleeding at femoral incision site and swelling at left thigh, had sandbag placed at site and compression wrapping around thigh with cessation of bleeding and improvement of thigh swelling Neurological - normally oriented x3, confused post-op, re-evaluate in the morning Cardiovascular - Afib, s/p thrombectomy - was on heparin drip for left femoral occlusion, now held while being monitored post-op for bleeding - doppler pulse checks q1h, pain control with tylenol - on dig q48hr, lopressor 25mg po BID - to resume AC as per vasc surgery - pain control as needed Respiratory maintaining own airway, on nasal cannula 4lpm Renal monitor renal fxn closely s/p flouroscopy Fluids, electrolytes, nutrition (FEN) LR @42cc/hr regular soft diet, as per son she eats soft diet at home - schuler in place Hematology close monitoring post-op for anemia, currently stable, repeat in the AM thrombocytopenia - could be acute phase reactant, intermittently low in chart, trend Gastrointestinal - had dyspepsia pre-op GI consulted, likely due to recent abx use Prophylaxis protonix IVpush 40 senna and colace for bowel regimen SCD for VTE PT consulted to evaluate mobility Full code as per son
[2018-06-15] MEDS: LACTATED RINGERS SOLUTION 1,000 ML/1,000 ML INFUS.BAG IV SCH (23:31)
[2018-06-16] MEDS: SENNOSIDES 8.6MG TABLET (FP) PO SCH ×2 (00:07→21:56)
[2018-06-16] MEDS: METOPROLOL TARTRATE 25 MG TABLET (FP) PO SCH ×3 (00:07→21:56)
[2018-06-16] MEDS: DOCUSATE SODIUM 100 MG CAPSULE (FP) PO SCH ×3 (00:07→21:57)
[2018-06-16] MEDS: GENTAMICIN SO4 0.1% TOPICAL OINTMENT 15 GM/TUBE TUBE TP SCH ×5 (00:08→21:59)
[2018-06-16] MEDS: ACETAMINOPHEN 1000 MG/100 ML VIAL (NON FORMULARY) IVPB PRN ×2 (00:10→06:17)
[2018-06-16 00:31] LABS: HEMATOCRIT 31.7 % (32.4-45.2); HEMOGLOBIN 10.7 GM/dL (10.7-15.3); MCH 31.7 pg (25.7-33.7); MCHC 33.7 g/dl (32.0-36.0); MEAN PLT VOLUME 8.3 fl (7.5-11.1); PLATELET COUNT 121 K/MM3 (134-434); RBC 3.38 M/mm3 (3.60-5.2); RDW 15.4 % (11.6-15.6); WHITE BLOOD COUNT 15.1 K/mm3 (4.0-10.0)
[2018-06-16 06:32] LABS: BASO % 0.1 % (0-2.0); HEMATOCRIT 31.5 % (32.4-45.2); HEMOGLOBIN 10.7 GM/dL (10.7-15.3); LYMPH % 7.7 % (8-40); MCH 31.8 pg (25.7-33.7); MCHC 33.9 g/dl (32.0-36.0); MEAN CELL VOLUME 93.9 fl (80-96); MEAN PLT VOLUME 8.6 fl (7.5-11.1); MONO % 3.4 % (3.8-10.2); NEUT % 88.8 % (42.8-82.8); PLATELET COUNT 122 K/MM3 (134-434); RBC 3.36 M/mm3 (3.60-5.2); RDW 15.9 % (11.6-15.6); WHITE BLOOD COUNT 9.7 K/mm3 (4.0-10.0)
[2018-06-16 06:56] LABS: ALBUMIN 2.6 g/dl (3.4-5.0); ALK PHOS 69 U/L (45-117); ANION GAP 9 MMOL/L (8-16); BILIRUBIN,TOTAL 1.9 mg/dL (0.2-1); BLOOD UREA NITROGEN 21 mg/dL (7-18); CALCIUM 7.5 mg/dL (8.5-10.1); CHLORIDE 110 mmol/L (98-107); CO2 23 mmol/L (21-32); CREATININE 1.1 mg/dL (0.55-1.3); GLUCOSE,RANDOM 115 mg/dL (74-106); POTASSIUM 4.5 mmol/L (3.5-5.1); SGOT/AST 16 U/L (15-37); SGPT/ALT 15 U/L (13-61); SODIUM 142 mmol/L (136-145); TOT PROT 5.3 g/dl (6.4-8.2)
--- NOTE | 2018-06-16 08:06 | PN ---
Progress Note, Physician Chief Complaint: The patient underwent yesterdayleft femoral TPA and angioplasty and open thrombectomy. Comfortable in the ICU today, denies LLE pain. History of Present Illness: RHD. Mitral stenosis. Chronic AFIB. 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 LE varicose veins. Chronic ulcer left humphrey . History of bladder cancer - Current Medication List Current Medications: Active Medications Acetaminophen (Ofirmev Injection -) 650 mg IVPB Q6H PRN PRN Reason: PAIN LEVEL 6-10 Last Admin: 06/16/18 06:17 Dose: 650 mg Chlorhexidine Gluconate (Hibiclens For Decolonization -) 1 applic TP HS [facility] Digoxin (Lanoxin -) 0.25 mg PO Q2D@1000 [facility] Docusate Sodium (Colace -) 100 mg PO BID [facility] Last Admin: 06/16/18 00:07 Dose: 100 mg Gentamicin Sulfate (Garamycin 0.1% Ointment -) 1 applic TP QID [facility] Last Admin: 06/16/18 00:08 Dose: 1 applic Lactated Ringer's (Lactated Ringers Solution) 1,000 ml in 1,000 mls @ 42 mls/ hr IV ASDIR [facility] Last Admin: 06/15/18 23:31 Dose: Not Given Metoprolol Tartrate (Lopressor -) 25 mg PO BID [facility] Last Admin: 06/16/18 00:07 Dose: 25 mg Mupirocin (Bactroban Ointment (For Decolonization) -) 1 applic NS BID [facility] Stop: 06/20/18 21:59 Pantoprazole Sodium (Protonix Iv) 40 mg IVPUSH DAILY [facility] Senna (Senna -) 2 tab PO [facility] Last Admin: 06/16/18 00:07 Dose: 2 tab - Objective Vital Signs: Vital Signs Temperature 97.1 F L 06/16/18 06:00 Pulse Rate 68 06/16/18 07:15 Respiratory Rate 18 06/16/18 07:15 Blood Pressure 94/45 L 06/16/18 07:15 O2 Sat by Pulse Oximetry (%) 100 06/16/18 07:53 Constitutional: Yes: No Distress, Calm, Pallor, Thin Eyes: Yes: Conjunctiva Clear, EOM Intact HENT: Yes: Atraumatic, Normocephalic. No: Drooling Neck: Yes: Supple, Trachea Midline. No: Decreased ROM, Lymphadenopathy Cardiovascular: Yes: Pulse Irregular, JVD, Murmur (OS, protodiastolic and presystolic), S1 (Accentuated) Respiratory: Yes: Regular, CTA Bilaterally. No: Diminished Gastrointestinal: Yes: Normal Bowel Sounds, Soft. No: Abdomen, Obese, Ascites ...Rectal Exam: Yes: Deferred Genitourinary: No: Anuria, Bladder Distention Breast(s): Yes: WNL Extremities: No: Calf Tenderness, Cold, Cyanosis Edema: No Peripheral Pulses WNL: No Integumentary: Yes: Other (LEFT LE ulcer) Wound/Incision: Yes: Dressing Dry and Intact Neurological: Yes: Alert, Oriented. No: Aphasia, Dysarthria ...Motor Strength: WNL Psychiatric: Yes: WNL Labs: CBC, BMP 06/16/18 05:30 06/16/18 05:30 INR, PTT INR 1.30 (0.83-1.09) H 06/15/18 06:00 Problem List - Problems (1) Afib Assessment/Plan: When allowed by surgery restart IV Heparin. Cardiology consult f/u Restart Coumadin when allowed by surgery. Code(s): I48.91 - UNSPECIFIED ATRIAL FIBRILLATION Qualifiers: Atrial fibrillation type: chronic Qualified Code(s): I48.2 - Chronic atrial fibrillation (2) Arterial occlusion, lower extremity Assessment/Plan: restart Heparin per surgery vascular f/u Code(s): I70.209 - UNSP ATHSCL [place] ARTERIES OF EXTREMITIES, UNSP EXTREMITY (3) GI bleed Assessment/Plan: Continue IV Famotidine BID. Follow H/H. Code(s): K92.2 - GASTROINTESTINAL HEMORRHAGE, UNSPECIFIED Qualifiers: GI bleed type/associated pathology: gastrointestinal hemorrhage with hematemesis Qualified Code(s): K92.0 - Hematemesis
--- NOTE | 2018-06-16 08:50 | PN ---
Progress Note, Physician Chief Complaint: Pt sitting up in bed; denies pain. 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 The pt denies recent trauma/injury and endorses compliance w/ her warfarin. Denies having re-vascularization procedure done in her BLE previously. Reports that her L foot to distal 1/3 LLE has paresthesia and acute on chronic LLE 'cesar-ing'. - Current Medication List Current Medications: Active Medications Acetaminophen (Ofirmev Injection -) 650 mg IVPB Q6H PRN PRN Reason: PAIN LEVEL 6-10 Last Admin: 06/16/18 06:17 Dose: 650 mg Chlorhexidine Gluconate (Hibiclens For Decolonization -) 1 applic TP HS [facility] Digoxin (Lanoxin -) 0.25 mg PO Q2D@1000 [facility] Docusate Sodium (Colace -) 100 mg PO BID [facility] Last Admin: 06/16/18 00:07 Dose: 100 mg Gentamicin Sulfate (Garamycin 0.1% Ointment -) 1 applic TP QID [facility] Last Admin: 06/16/18 00:08 Dose: 1 applic Lactated Ringer's (Lactated Ringers Solution) 1,000 ml in 1,000 mls @ 42 mls/ hr IV ASDIR [facility] Last Admin: 06/15/18 23:31 Dose: Not Given Metoprolol Tartrate (Lopressor -) 25 mg PO BID [facility] Last Admin: 06/16/18 00:07 Dose: 25 mg Mupirocin (Bactroban Ointment (For Decolonization) -) 1 applic NS BID [facility] Stop: 06/20/18 21:59 Pantoprazole Sodium (Protonix Iv) 40 mg IVPUSH DAILY [facility] Senna (Senna -) 2 tab PO HS [facility] Last Admin: 06/16/18 00:07 Dose: 2 tab - Objective Vital Signs: Vital Signs Temperature 97.1 F L 06/16/18 06:00 Pulse Rate 68 06/16/18 07:15 Respiratory Rate 18 06/16/18 07:15 Blood Pressure 94/45 L 06/16/18 07:15 O2 Sat by Pulse Oximetry (%) 100 06/16/18 07:53 Constitutional: Yes: Calm, Thin Eyes: Yes: WNL HENT: Yes: WNL Neck: Yes: WNL Cardiovascular: Yes: Pulse Irregular, S1 (varies in intensiy) Respiratory: Yes: Regular Gastrointestinal: Yes: Soft ...Rectal Exam: Yes: Deferred Genitourinary: No: Anuria Breast(s): Yes: WNL Musculoskeletal: Yes: Muscle Weakness Extremities: Yes: Cool Edema: No Peripheral Pulses WNL: No Peripheral Pulses: Left Doralis Pedis: 1+ Integumentary: Yes: Bruising, Venous Stasis Changes, Other (left foot bandaged) Wound/Incision: Yes: Dressing Dry and Intact Neurological: Yes: WNL Psychiatric: Yes: WNL Labs: CBC, BMP 06/16/18 05:30 06/16/18 05:30 INR, PTT INR 1.30 (0.83-1.09) H 06/15/18 06:00 Abnormal Lab Results 06/14/18 06/15/18 06/15/18 13:50 14:15 19:50 WBC RBC 2.95 L Hgb 9.3 L Hct 28.3 L D RDW Plt Count 133 L Absolute Neuts (auto) Neutrophils % Lymphocytes % Monocytes % PTT (Actin FS) 79.5 H Chloride Anion Gap BUN Random Glucose Calcium Total Bilirubin Total Protein Albumin Crossmatch See Detail 06/15/18 06/16/18 06/16/18 19:50 00:00 05:30 WBC 15.1 H RBC 3.38 L 3.36 L Hgb Hct 31.7 L 31.5 L RDW 15.9 H Plt Count 121 L 122 L Absolute Neuts (auto) 8.6 H Neutrophils % 88.8 H D Lymphocytes % 7.7 L D Monocytes % 3.4 L PTT (Actin FS) Chloride 111 H Anion Gap 7 L BUN Random Glucose Calcium 8.0 L Total Bilirubin Total Protein 5.4 L Albumin 2.5 L Crossmatch 06/16/18 05:30 WBC RBC Hgb Hct RDW Plt Count Absolute Neuts (auto) Neutrophils % Lymphocytes % Monocytes % PTT (Actin FS) Chloride 110 H Anion Gap BUN 21 H Random Glucose 115 H Calcium 7.5 L Total Bilirubin 1.9 H Total Protein 5.3 L Albumin 2.6 L Crossmatch - ....Imaging Other: Image Reviewed (telemtery: AF with controlled VR) Problem List - Problems (1) Moderate to severe pulmonary hypertension Assessment/Plan: Hx diastolic CHF, moderate mS and AR. Code(s): I27.20 - PULMONARY HYPERTENSION, UNSPECIFIED (2) Afib Assessment/Plan: Now off digoxin. On metoprolol for HR and BP control; telemetry shows perios of AF with RVR; will increase metoprolol to 25 mg bid. Keep INR 2-3 with warfarin. Code(s): I48.91 - UNSPECIFIED ATRIAL FIBRILLATION Qualifiers: Atrial fibrillation type: chronic Qualified Code(s): I48.2 - Chronic atrial fibrillation (3) Arterial occlusion, lower extremity Assessment/Plan: Deep femoral artery occlusion distal to origin. Distal SFA occlusion. Popliteal AT and PT arteries: patent. Pt is now s/p LE Angiogram with angioplasty and TPA administration of left deep and superficial femoral artery; open left femoral thrombectomy (Dr. Martin). As per pt's RN, surgical permission to restart anticoagulation. IV heparin until warfarin-->therapeutic INR (as discussed with Dr. Beltre, valvular AF precludes use of DOAC). Code(s): I70.209 - UNSP ATHSCL [place] ARTERIES OF EXTREMITIES, UNSP EXTREMITY (4) HTN (hypertension) Code(s): I10 - ESSENTIAL (PRIMARY) HYPERTENSION Qualifiers: Hypertension type: unspecified Qualified Code(s): I10 - Essential (primary ) hypertension (5) Mitral stenosis and aortic incompetence Code(s): I08.0 - RHEUMATIC DISORDERS OF BOTH MITRAL AND AORTIC VALVES (6) Severe protein-calorie malnutrition Code(s): E43 - UNSPECIFIED SEVERE PROTEIN-CALORIE MALNUTRITION (7) Pericardial effusion Assessment/Plan: Mild (on ECHO). Code(s): I31.3 - PERICARDIAL EFFUSION (NONINFLAMMATORY) (8) Cardiomegaly Assessment/Plan: ECHO:normal LVEF and LV size; significant bilateral atrial diatation; moderate MS; moderately severe TR, moderate SD and AR; mild pericardial effusion. Code(s): I51.7 - CARDIOMEGALY (9) Anemia Code(s): D64.9 - ANEMIA, UNSPECIFIED Assessment/Plan CCU time spent evaluating pt, formulating plan: 35 minutes.
[2018-06-16] MEDS: PANTOPRAZOLE SODIUM 40 MG VIAL IVPUSH SCH (09:22)
[2018-06-16] MEDS ORDERED: WARFARIN NA 5 MG TABLET (UD) PO ONE ×2 (09:47→18:00)
[2018-06-16 09:48] LABS: MAGNESIUM 1.8 mg/dL (1.8-2.4)
--- NOTE | 2018-06-16 09:49 | PN ---
Progress Note (short form) - Note Progress Note: POD 1 Following femoral thrombectomy she became hypotensive in PACU and was resuscitated with transfusion, pressors and fluid. This AM she is awake and alert, complains of thigh pain. BP 90 systolic Both groins clean and dry, no swelling. left thigh swelling, soft, no change from last evening. Left foot warm with 3+ PT doppler Hgb 10.7 after 1 unit PRBC yesterday, no change since midnight Imp: Post-op hypotension resolved. Small hematoma in left thigh related to wire induced perforation of branch of deep femoral artery. No evidence for ongoing blood loss. Plan: May resume Heparin drip Monitor pulses. Resume diet and activity as per ICU team.
[2018-06-16] MEDS ORDERED: DIGOXIN 0.25 MG TABLET (FP) PO SCH (10:00)
[2018-06-16] MEDS ORDERED: PANTOPRAZOLE SODIUM 40 MG VIAL IVPUSH SCH (10:00)
[2018-06-16] MEDS ORDERED: HEPARIN NA (PORCINE) 5,000 UNITS/ML 1ML VIAL IVPUSH PRN ×2 (10:14)
[2018-06-16] MEDS ORDERED: PT OWN MED DRAWER 7, Y5N ONE ×2 (10:33→12:31)
[2018-06-16] MEDS ORDERED: oxyCODONE HCL 5 MG TABLET PO PRN (11:15)
--- NOTE | 2018-06-16 11:55 | PN ---
Teaching Attending Note Name of Resident: Holly Rubin ATTENDING PHYSICIAN STATEMENT I saw and evaluated the patient. I reviewed the resident's note and discussed the case with the resident. I agree with the resident's findings and plan as documented. SUBJECTIVE: Pt seen and examined in the ICU. Some discomfort in left leg. Denies shortness of breath or chest pain. No fevers recorded. OBJECTIVE: Vital Signs Period Temp Pulse Resp BP Sys/Coulter Pulse Ox Last 24 Hr 96.0 F-98.0 F 47-127 14-22 41-156/21-98 94-100 Intake & Output 06/13/18 06/14/18 06/15/18 06/16/18 23:59 23:59 23:59 23:59 Intake Total 2224 1862 Output Total 600 300 Balance 1624 1562 Weight 41.532 kg Gen: NAD at rest Heart: RRR Lung: decreased breath sounds at the bases Abd: soft, nontender Ext: cool +dopplers CBC, BMP 06/16/18 05:30 06/16/18 05:30 Active Medications Acetaminophen (Ofirmev Injection -) 650 mg IVPB Q6H PRN PRN Reason: PAIN LEVEL 6-10 Last Admin: 06/16/18 06:17 Dose: 650 mg Chlorhexidine Gluconate (Hibiclens For Decolonization -) 1 applic TP HS [facility] Digoxin (Lanoxin -) 0.25 mg PO Q2D@1000 [facility] Last Admin: 06/16/18 09:22 Dose: 0.25 mg Docusate Sodium (Colace -) 100 mg PO BID [facility] Last Admin: 06/16/18 09:22 Dose: 100 mg Gentamicin Sulfate (Garamycin 0.1% Ointment -) 1 applic TP QID [facility] Last Admin: 06/16/18 09:23 Dose: 1 applic Heparin Sodium (Porcine) (Heparin -) 1,000 unit IVPUSH PRN PRN PRN Reason: Heparin Heparin Sodium (Porcine) (Heparin -) 5,000 unit IVPUSH PRN PRN PRN Reason: Heparin Lactated Ringer's (Lactated Ringers Solution) 1,000 ml in 1,000 mls @ 42 mls/ hr IV ASDIR [facility] Last Admin: 06/15/18 23:31 Dose: Not Given Heparin Sodium (Porcine) 25, (000 unit/ Sodium Chloride) 500 mls @ 16 mls/hr IV TITR [facility]; Protocol Metoprolol Tartrate (Lopressor -) 25 mg PO BID [facility] Last Admin: 06/16/18 09:23 Dose: Not Given Mupirocin (Bactroban Ointment (For Decolonization) -) 1 applic NS BID [facility] Stop: 06/21/18 21:59 Oxycodone HCl (Roxicodone -) 5 mg PO Q6H PRN PRN Reason: PAIN LEVEL 6-10 Pantoprazole Sodium (Protonix Iv) 40 mg IVPUSH DAILY [facility] Last Admin: 06/16/18 09:22 Dose: 40 mg Senna (Senna -) 2 tab PO [facility] Last Admin: 06/16/18 00:07 Dose: 2 tab Warfarin Sodium (Coumadin -) 5 mg PO ONCE@1800 [facility] Stop: 06/16/18 18:01 Warfarin Sodium (Coumadin -) 2 mg PO DAILY@1800 [facility] ASSESSMENT AND PLAN: Acute Deep Femoral Artery Occlusion s/p Angiogram/Angioplasty/Thrombolysis/Open Left Femoral Thrombectomy Post op Bleeding Atrial Fibrillation Mitral Stenosis Pulmonary HTN HTN Hyperlipidemia - pulse checks - resume anticoagulation - monitor surgical site - monitor H/H - IVF boluses as needed - monitor urine output, creatinine - pain control - continue ICU monitoring critical care time spent in reviewing chart, evaluating patient and formulating plan 35 min
[2018-06-16] MEDS: HEPARIN - 25,000 UNIT in SODIUM CHLORIDE 495 ML IV SCH (12:35)
--- NOTE | 2018-06-16 14:57 | PN ---
Physical Exam: SUBJECTIVE: Patient seen and examined this morning s/p Angiogram, Angioplasty of Left Deep and superficial Femoral artery. No longer complaining of pain. Denies any fevers, chills, chest pain, SOB, nausea, vomiting, diarrhea, constipation. OBJECTIVE: Vital Signs Period Temp Pulse Resp BP Sys/Coulter Pulse Ox Last 24 Hr 96.0 F-98.0 F 47-127 14-22 41-156/21-98 94-100 GENERAL: A&Ox3, NAD, Vietnamese Speaking HEAD: NCAT EYES: PERRL, EOMI ENT: Moist mucous membranes. NECK: Supple. LUNGS: Diminished breath sounds at the bases, no wheezes, no crackles HEART: Regular rate and rhythm, S1, S2, Grade 2/6 systolic ABDOMEN: Soft, nontender, nondistended, + bowel sounds, no guarding, no rebound EXTREMITIES: Dopplerable pulses, B/L LE venous statsis changes. Left lower extremity thigh wound wrapped in dressing without tenderness or surrounding edema. Additionally, Left lower extremity 1x2 cm wound site near the ankle without active drainage. NEUROLOGICAL: Cranial nerves II through XII grossly intact. SKIN: Warm, dry Laboratory Results - last 24 hr 06/14/18 06/15/18 06/15/18 13:50 14:15 19:50 WBC 9.4 RBC 2.95 L Hgb 9.3 L Hct 28.3 L D MCV 95.9 MCH 31.6 MCHC 33.0 RDW 15.1 Plt Count 133 L MPV 8.1 Absolute Neuts (auto) Neutrophils % Lymphocytes % Monocytes % Eosinophils % Basophils % Nucleated RBC % PTT (Actin FS) 79.5 H Sodium Potassium Chloride Carbon Dioxide Anion Gap BUN Creatinine Creat Clearance w eGFR Random Glucose Calcium Magnesium Total Bilirubin AST ALT Alkaline Phosphatase Total Protein Albumin TSH Blood Type AB NEGATIVE Antibody Screen Negative Crossmatch See Detail 06/15/18 06/15/18 06/16/18 19:50 19:54 00:00 WBC 15.1 H RBC 3.38 L Hgb 10.7 Hct 31.7 L MCV 94.0 MCH 31.7 MCHC 33.7 RDW 15.4 Plt Count 121 L MPV 8.3 Absolute Neuts (auto) Neutrophils % Lymphocytes % Monocytes % Eosinophils % Basophils % Nucleated RBC % PTT (Actin FS) Cancelled Sodium 143 Potassium 3.6 Chloride 111 H Carbon Dioxide 25 Anion Gap 7 L BUN 13 Creatinine 1.0 Creat Clearance w eGFR 52.69 Random Glucose 99 Calcium 8.0 L Magnesium Total Bilirubin 0.9 AST 17 ALT 15 Alkaline Phosphatase 72 Total Protein 5.4 L Albumin 2.5 L TSH Blood Type Antibody Screen Crossmatch 06/16/18 06/16/18 06/16/18 05:30 05:30 05:30 WBC 9.7 RBC 3.36 L Hgb 10.7 Hct 31.5 L MCV 93.9 MCH 31.8 MCHC 33.9 RDW 15.9 H Plt Count 122 L MPV 8.6 Absolute Neuts (auto) 8.6 H Neutrophils % 88.8 H D Lymphocytes % 7.7 L D Monocytes % 3.4 L Eosinophils % 0.0 D Basophils % 0.1 Nucleated RBC % 0 PTT (Actin FS) 26.5 Sodium 142 Potassium 4.5 Chloride 110 H Carbon Dioxide 23 Anion Gap 9 BUN 21 H Creatinine 1.1 Creat Clearance w eGFR 47.21 Random Glucose 115 H Calcium 7.5 L Magnesium 1.8 Total Bilirubin 1.9 H AST 16 ALT 15 Alkaline Phosphatase 69 Total Protein 5.3 L Albumin 2.6 L TSH 1.06 Blood Type Antibody Screen Crossmatch Active Medications Acetaminophen (Ofirmev Injection -) 650 mg IVPB Q6H PRN PRN Reason: PAIN LEVEL 6-10 Last Admin: 06/16/18 06:17 Dose: 650 mg Chlorhexidine Gluconate (Hibiclens For Decolonization -) 1 applic TP HS [facility] Digoxin (Lanoxin -) 0.25 mg PO Q2D@1000 [facility] Last Admin: 06/16/18 09:22 Dose: 0.25 mg Docusate Sodium (Colace -) 100 mg PO BID [facility] Last Admin: 06/16/18 09:22 Dose: 100 mg Gentamicin Sulfate (Garamycin 0.1% Ointment -) 1 applic TP QID [facility] Last Admin: 06/16/18 09:23 Dose: 1 applic Heparin Sodium (Porcine) (Heparin -) 1,000 unit IVPUSH PRN PRN PRN Reason: Heparin Heparin Sodium (Porcine) (Heparin -) 5,000 unit IVPUSH PRN PRN PRN Reason: Heparin Lactated Ringer's (Lactated Ringers Solution) 1,000 ml in 1,000 mls @ 42 mls/ hr IV ASDIR [facility] Last Admin: 06/15/18 23:31 Dose: Not Given Heparin Sodium (Porcine) 25, (000 unit/ Sodium Chloride) 500 mls @ 16 mls/hr IV TITR [facility]; Protocol Last Admin: 06/16/18 12:35 Dose: 800 unit/hr, 16 mls/hr Metoprolol Tartrate (Lopressor -) 25 mg PO BID [facility] Last Admin: 06/16/18 09:23 Dose: Not Given Mupirocin (Bactroban Ointment (For Decolonization) -) 1 applic NS BID [facility] Stop: 06/21/18 21:59 Oxycodone HCl (Roxicodone -) 5 mg PO Q6H PRN PRN Reason: PAIN LEVEL 6-10 Pantoprazole Sodium (Protonix Iv) 40 mg IVPUSH DAILY [facility] Last Admin: 06/16/18 09:22 Dose: 40 mg Senna (Senna -) 2 tab PO HS [facility] Last Admin: 06/16/18 00:07 Dose: 2 tab Warfarin Sodium (Coumadin -) 5 mg PO ONCE@1800 [facility] Stop: 06/16/18 18:01 Warfarin Sodium (Coumadin -) 2 mg PO DAILY@1800 [facility] ASSESSMENT/PLAN: 87 y/o F with PMHx of Afib (on coumadin and digoxin), TIA (no deficits), Mitral Valve Stenosis, HTN, HLD, PAD, Bladder Ca (in remission), Right axillary artery occlusion (2018) who was found to 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 Martin) Consulted -Cardiology (Dr. Henley) consulted, Appreciate Rec's -Continue Heparin Drip -Warfarin 5mg x1 this evening; Resume 2mg dosing from tmrw, INR goal 2.5-3.5 -Monitor Pulses Q1H -Continue home dose digoxin; Keep level 0.5-1.0 -Continue home dose Metoprolol -Pain control with Tylenol, Oxycodone -Continue to monitor H&H; S/P 1 unit pRBCs PostOp -Bolus (500 mls) as needed for hypotension -EKG: ATRIAL FIBRILLATION, ST & T WAVE ABNORMALITY, VR 75, QTc 444 -ECHO: LV EF is normal, LV wall motion is normal, Rheumatic MS, Moderate MS, Mild pericardial effusion, Moderate PVR, Moderate AR, Trace MR, moderate to severe TR #Pulmonary -Maintaining airway -Continue Supplemental O2 to maintain SpO2 >90% #GI Elevated Total Biliruibin Recent Dyspepsia Hx of GI Bleed -GI (Dr. Lockwood) consulted, Appreciate Rec's -Continue Famotidine -Bowel regimen via Senna, Colace -Continue to monitor Total Biliruibin #Renal Hx of Bladder Ca (in remission) -No Active issues -Continue to monitor #Hematology Leukocytosis, likely reactive Thrombocytopenia S/P 1 Unit pRBCs Post OP -Continue to monitor for Anemia, Thrombocytopenia post-op -No active bleeding #Endocrine Hx of DM -Recent A1c 5.5 -BGMs ISS ACHS #ID Leukocytosis, Afebrile -Likely reactive, No source of infection -Continue to monitor off Abx #PPx -DVT: Heparin Drip -GI: Protonix #FEN -LR @ 42 mls/hr -Lytes WNL -Soft diet #FTD -maintain Sarmiento Dispo: Continue to monitor in ICU Code Status; Full code Visit type - Emergency Visit Emergency Visit: Yes ED Registration Date: 06/14/18 Care time: The patient presented to the Emergency Department on the above date and was hospitalized for further evaluation of their emergent condition. - New Patient This patient is new to me today: Yes Date on this admission: 06/16/18 - Critical Care Critical Care patient: Yes Total Critical Care Time (in minutes): 50 Critical Care Statement: The care of this patient involved high complexity decision making to prevent further life threatening deterioration of the patient 's condition and/or to evaluate & treat vital organ system(s) failure or risk of failure.
[2018-06-16] MEDS: LACTATED RINGERS SOLUTION 1,000 ML/1,000 ML INFUS.BAG IV SCH (21:57)
[2018-06-16] MEDS: MUPIROCIN 2% TOPICAL OINTMENT FOR DECOLONIZATION NS SCH (21:57)
[2018-06-16] MEDS: CHLORHEXIDINE GLUCONATE 4% CLEANSER FOR DECOLONIZATION TP SCH (21:59)
[2018-06-17 06:27] LABS: BASO % 0.2 % (0-2.0); EOS % 0.5 % (0-4.5); HEMATOCRIT 26.8 % (32.4-45.2); HEMOGLOBIN 9.3 GM/dL (10.7-15.3); LYMPH % 11.3 % (8-40); MCH 32.1 pg (25.7-33.7); MCHC 34.7 g/dl (32.0-36.0); MEAN CELL VOLUME 92.4 fl (80-96); MEAN PLT VOLUME 8.2 fl (7.5-11.1); MONO % 6.6 % (3.8-10.2); NEUT % 81.4 % (42.8-82.8); PLATELET COUNT 128 K/MM3 (134-434); RBC 2.91 M/mm3 (3.60-5.2); RDW 15.8 % (11.6-15.6); WHITE BLOOD COUNT 15.3 K/mm3 (4.0-10.0)
[2018-06-17 06:40] LABS: INR 1.6 (0.83-1.09)
--- NOTE | 2018-06-17 07:33 | PN ---
Progress Note (short form) - Note Progress Note: 87yo F s/p LLE thrombectomy, pt seen and examined at bedside. Pt started on heparin drip yesterday as per medicine/cardiology. Pt denies leg pain or swelling. Last Vital Signs Temp Pulse Resp BP Pulse Ox 98.6 F 64 17 108/33 L 100 06/17/18 06:00 06/17/18 06:00 06/17/18 06:00 06/17/18 06:00 06/16/18 20:48 CBC, BMP 06/17/18 05:15 PE: Gen: a&O x3 Resp: breathing comfortably Ext: LLE show dopplarable DP pulse, incision is clean and dry, no pulsatile masses, no edema. Problem List - Problems (1) Arterial occlusion, lower extremity Assessment/Plan: Plan -continue heparin drip and bridge to oral anticoagulation as per medicine -OOB -GI ppx -consider transfer to floor if cleared by Med/ICU Code(s): I70.209 - UNSP ATHSCL [place] ARTERIES OF EXTREMITIES, UNSP EXTREMITY
[2018-06-17 07:53] LABS: ALBUMIN 2.7 g/dl (3.4-5.0); ALK PHOS 66 U/L (45-117); ANION GAP 9 MMOL/L (8-16); BILIRUBIN,DIRECT 0.3 mg/dL (0.0-0.2); BILIRUBIN,TOTAL 0.7 mg/dL (0.2-1); BLOOD UREA NITROGEN 34 mg/dL (7-18); CALCIUM 7.8 mg/dL (8.5-10.1); CHLORIDE 111 mmol/L (98-107); CO2 24 mmol/L (21-32); CREATININE 1.2 mg/dL (0.55-1.3); GLUCOSE,RANDOM 84 mg/dL (74-106); MAGNESIUM 1.9 mg/dL (1.8-2.4); PHOSPHOROUS 2.8 mg/dL (2.5-4.9); POTASSIUM 4.4 mmol/L (3.5-5.1); SGOT/AST 14 U/L (15-37); SGPT/ALT 13 U/L (13-61); SODIUM 143 mmol/L (136-145); TOT PROT 5.2 g/dl (6.4-8.2)
--- NOTE | 2018-06-17 08:42 | PN ---
Progress Note, Physician Chief Complaint: Feels less pain in left foot, Heparin drip and po Coumadin restarted History of Present Illness: RHD. Mitral stenosis. Chronic AFIB. 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 LE varicose veins. Chronic ulcer left humphrey . History of bladder cancer - Current Medication List Current Medications: Active Medications Acetaminophen (Ofirmev Injection -) 650 mg IVPB Q6H PRN PRN Reason: PAIN LEVEL 6-10 Last Admin: 06/16/18 06:17 Dose: 650 mg Chlorhexidine Gluconate (Hibiclens For Decolonization -) 1 applic TP HS [facility] Last Admin: 06/16/18 21:59 Dose: 1 applic Docusate Sodium (Colace -) 100 mg PO BID [facility] Last Admin: 06/16/18 21:57 Dose: 100 mg Gentamicin Sulfate (Garamycin 0.1% Ointment -) 1 applic TP QID [facility] Last Admin: 06/16/18 21:59 Dose: 1 applic Heparin Sodium (Porcine) (Heparin -) 1,000 unit IVPUSH PRN PRN PRN Reason: Heparin Heparin Sodium (Porcine) (Heparin -) 5,000 unit IVPUSH PRN PRN PRN Reason: Heparin Lactated Ringer's (Lactated Ringers Solution) 1,000 ml in 1,000 mls @ 42 mls/ hr IV ASDIR [facility] Last Admin: 06/16/18 21:57 Dose: 42 mls/hr Heparin Sodium (Porcine) 25, (000 unit/ Sodium Chloride) 500 mls @ 16 mls/hr IV TITR [facility]; Protocol Last Titration: 06/17/18 07:45 Dose: 0 unit/hr, 0 mls/hr Metoprolol Tartrate (Lopressor -) 12.5 mg PO BID [facility] Last Admin: 06/16/18 21:56 Dose: 12.5 mg Mupirocin (Bactroban Ointment (For Decolonization) -) 1 applic NS BID [facility] Stop: 06/21/18 21:59 Last Admin: 06/16/18 21:57 Dose: 1 applic Oxycodone HCl (Roxicodone -) 5 mg PO Q6H PRN PRN Reason: PAIN LEVEL 6-10 Pantoprazole Sodium (Protonix Iv) 40 mg IVPUSH DAILY [facility] Last Admin: 06/16/18 09:22 Dose: 40 mg Senna (Senna -) 2 tab PO HS [facility] Last Admin: 06/16/18 21:56 Dose: 2 tab Warfarin Sodium (Coumadin -) 2 mg PO DAILY@1800 [facility] - Objective Vital Signs: Vital Signs Temperature 98.6 F 06/17/18 06:00 Pulse Rate 64 06/17/18 06:00 Respiratory Rate 17 06/17/18 06:00 Blood Pressure 108/33 L 06/17/18 06:00 O2 Sat by Pulse Oximetry (%) 100 06/16/18 20:48 Constitutional: Yes: Anxious, Mild Distress Eyes: Yes: Conjunctiva Clear, EOM Intact HENT: Yes: Atraumatic, Normocephalic Neck: Yes: Supple, Trachea Midline Cardiovascular: Yes: Pulse Irregular, JVD Respiratory: Yes: Regular, CTA Bilaterally Gastrointestinal: Yes: Normal Bowel Sounds, Soft. No: Abdomen, Obese Genitourinary: No: Anuria Breast(s): Yes: WNL Musculoskeletal: No: Joint Stiffness, Joint Swelling, Muscle Weakness Extremities: Yes: Other (varicose veins). No: Calf Tenderness, Cold Edema: No Peripheral Pulses WNL: No Integumentary: Yes: Other (left humphrey ulcer) Neurological: Yes: Alert, Oriented, Unsteady Gait. No: Aphasia, Dysarthria ...Motor Strength: WNL Psychiatric: Yes: WNL Labs: CBC, BMP 06/17/18 05:15 06/17/18 05:15 INR, PTT INR 1.60 (0.83-1.09) H 06/17/18 05:15 Problem List - Problems (1) Afib Assessment/Plan: Follow INR and stop Heparin when therapeutic. Code(s): I48.91 - UNSPECIFIED ATRIAL FIBRILLATION Qualifiers: Atrial fibrillation type: chronic Qualified Code(s): I48.2 - Chronic atrial fibrillation (2) Arterial occlusion, lower extremity Assessment/Plan: vascular f/u Code(s): I70.209 - UNSP ATHSCL [place] ARTERIES OF EXTREMITIES, UNSP EXTREMITY (3) GI bleed Assessment/Plan: Continue IV Famotidine BID. Follow H/H. Code(s): K92.2 - GASTROINTESTINAL HEMORRHAGE, UNSPECIFIED Qualifiers: GI bleed type/associated pathology: gastrointestinal hemorrhage with hematemesis Qualified Code(s): K92.0 - Hematemesis
[2018-06-17] MEDS: HEPARIN - 25,000 UNIT in SODIUM CHLORIDE 495 ML IV SCH (08:45)
--- NOTE | 2018-06-17 09:22 | OP ---
DATE OF OPERATION: 06/15/2018 SURGEON: Tim Martin MD SHIP JOINER: ERNIE Craig PROCEDURE: Ultrasound-guided cannulation of the right common femoral artery. Angiogram of the left lower extremity. Second order cannulation, left lower extremity artery. Infusion of tPA into the left deep femoral artery. Angioplasty of the left superficial femoral artery. Open thromboembolectomy of the left femoral artery. PREOPERATIVE DIAGNOSIS: Left lower extremity ischemia with occlusion of the superficial femoral and deep femoral arteries. POSTOPERATIVE DIAGNOSIS: Left lower extremity ischemia with occlusion of the superficial femoral and deep femoral arteries. ANESTHESIA: General. ANESTHESIOLOGIST: Patrice Tan MD OPERATIVE FINDINGS: There was occlusion of the left deep femoral artery distal to its origin, with reconstitution distally. This appeared to be embolic in nature. There was also occlusion of the distal left superficial femoral artery for approximately 3 cm of length, with collaterals around the area suggesting a more chronic occlusion. This also proved to be embolic material in this area. OPERATIVE PROCEDURE: The patient was brought to the operating room and placed in the supine position. Intravenous sedation was established, later changed to general anesthesia. Both groins were prepped with ChloraPrep and sterilely draped. Timeout was performed. Using real time duplex imaging, the right common femoral artery was identified and found to be patent with pulsatile flow. Lidocaine 1% was infiltrated over the vessel, and under ultrasound guidance it was cannulated with a Micropuncture needle. A wire was advanced proximally and the needle was exchanged for a 5-Stateless catheter. The catheter was exchanged over the wire for a 5-Stateless sheath. An Omniflush catheter was advanced into the abdominal aorta, and angiography was performed showing no evidence of stenosis or occlusion of the iliac and vessels. The wire was then advanced into the left iliac artery distally to the level of the common femoral artery. The catheter was advanced over the wire, and angiography of the left femoral artery was obtained. Distal images were obtained by repositioning the table and C-arm. A stiff wire was passed through the catheter, and it was exchanged for a long 6-Stateless sheath. Using road mapping, the sheath was advanced into the deep femoral artery. The patient was systemically heparinized. A wire and catheter were then advanced through the area of occlusion into the distal deep femoral artery. Angiography was performed to confirm distal placement. Next, 4 mg of tPA was then infused through the sheath directly into the deep femoral artery. A 3-Stateless Dipika catheter was advanced over the wire and used to remove embolic material from the vessel. This material was sent to Pathology. Additional imaging revealed partial occlusion of the vessel. Decision was made to treat the superficial femoral artery and restore distal flow. Therefore, the sheath was pulled back into the common femoral artery and redirected into the superficial femoral artery over a wire. A wire and catheter were then advanced to the point of occlusion and through the area of occlusion into the distal femoral artery. Angiography showed a patent distal femoral, popliteal, and tibial arteries. A filter wire was then advanced through the catheter into the popliteal artery. The catheter was removed. The Dipika catheter was used to remove thrombotic material from the vessel, and then the vessel was dilated with a 5 mm x 40 mm angioplasty balloon. There was then complete resolution of the stenosis. Decision was made to transition to an open thrombectomy at this point. Therefore, the filter was removed through a catheter, and the sheath was pulled back into the iliac artery. A longitudinal incision was made over the left common femoral artery, and subcutaneous tissues were divided with cautery. The common, deep, and superficial femoral arteries were individually secured with Vesseloops. The arteries were occluded with the Vesseloops and a transverse arteriotomy made in the distal common femoral artery over the bifurcation. No. 3 Dipika catheter was passed into the deep femoral artery and withdrawn, with removal of thrombus. The vessel was flushed with heparin saline solution. Thrombectomy of the superficial femoral artery was then performed, with removal of thrombus. Angiography directly into both deep and superficial femoral arteries was obtained. This revealed resolution of the occlusion. There was a small area of extravasation off of the branch of the deep femoral artery, presumably due to a wire injury. Distal flow in the leg through the popliteal and tibial arteries was seen, with runoff to the foot via the anterior tibial and peroneal arteries, with collaterals to the posterior circulation. The arteriotomy was then closed with interrupted and running suture of 6-0 Prolene. Flow was restored to the leg, and there were good Doppler signals in both deep and superficial femoral vessels. The wound was closed with interrupted suture of 3-0 Vicryl on the subcutaneous tissues and skin femi. The sheath was then pulled back over the aortic bifurcation and removed. The arteriotomy was closed with a Perclose device. Sterile dressings were applied and the patient was taken to recovery room in stable condition. Alfredo [id number]
[2018-06-17] MEDS ORDERED: PT OWN MED DRAWER 7, Y5N ONE ×2 (10:04→22:29)
[2018-06-17] MEDS: PANTOPRAZOLE SODIUM 40 MG VIAL IVPUSH SCH (10:11)
[2018-06-17] MEDS: GENTAMICIN SO4 0.1% TOPICAL OINTMENT 15 GM/TUBE TUBE TP SCH ×4 (10:16→22:31)
[2018-06-17] MEDS: MUPIROCIN 2% TOPICAL OINTMENT FOR DECOLONIZATION NS SCH ×2 (10:16→22:30)
[2018-06-17] MEDS: METOPROLOL TARTRATE 25 MG TABLET (FP) PO SCH ×2 (10:16→22:27)
[2018-06-17] MEDS: DOCUSATE SODIUM 100 MG CAPSULE (FP) PO SCH ×2 (10:17→22:27)
[2018-06-17 11:07] LABS: INR 1.72 (0.83-1.09); PROTHROMBIN TIME (PATIENT) 20.4 SEC (9.7-13.0)
--- NOTE | 2018-06-17 12:00 | PN ---
Physical Exam: SUBJECTIVE: Patient seen and examined this morning. Primarily latvian speaking ( [employer] [id number]). Denies any pain over the wound site. No Active bleeding overnight, No acute events. Denies any fevers, chills, chest pain, SOB OBJECTIVE: Vital Signs Period Temp Pulse Resp BP Sys/Coulter Pulse Ox Last 24 Hr 97.7 F-98.6 F 59-90 15-18 95-128/30-80 100 GENERAL: A&Ox3, NAD HEAD: NCAT EYES: PERRL, EOMI ENT: Moist mucous membranes. NECK: Supple. LUNGS: Diminished breath sounds at the bases, no wheezes, no crackles HEART: Regular rate and rhythm, S1, S2, Grade 2/6 systolic ABDOMEN: Soft, nontender, nondistended, + bowel sounds, no guarding, no rebound EXTREMITIES: Dopplerable pulses, B/L LE venous statsis changes. Left lower extremity thigh wound wrapped in dressing without tenderness or surrounding edema. Additionally, Left lower extremity 1x2 cm wound site near the ankle without active drainage. NEUROLOGICAL: Cranial nerves II through XII grossly intact. SKIN: Warm, dry Laboratory Results - last 24 hr 06/16/18 06/17/18 06/17/18 18:00 05:15 05:15 WBC RBC Hgb Hct MCV MCH MCHC RDW Plt Count MPV Absolute Neuts (auto) Neutrophils % Lymphocytes % Monocytes % Eosinophils % Basophils % Nucleated RBC % PT with INR INR PTT (Actin FS) 103.5 H 108.1 H Sodium 143 Potassium 4.4 Chloride 111 H Carbon Dioxide 24 Anion Gap 9 BUN 34 H Creatinine 1.2 Creat Clearance w eGFR 42.70 Random Glucose 84 Calcium 7.8 L Phosphorus 2.8 Magnesium 1.9 Total Bilirubin 0.7 Direct Bilirubin 0.3 H AST 14 L ALT 13 Alkaline Phosphatase 66 Total Protein 5.2 L Albumin 2.7 L 06/17/18 06/17/18 06/17/18 05:15 05:15 10:05 WBC 15.3 H RBC 2.91 L Hgb 9.3 L Hct 26.8 L MCV 92.4 MCH 32.1 MCHC 34.7 RDW 15.8 H Plt Count 128 L MPV 8.2 Absolute Neuts (auto) 12.5 H Neutrophils % 81.4 Lymphocytes % 11.3 D Monocytes % 6.6 D Eosinophils % 0.5 D Basophils % 0.2 Nucleated RBC % 0 PT with INR 19.00 H 20.40 H INR 1.60 H 1.72 H PTT (Actin FS) Sodium Potassium Chloride Carbon Dioxide Anion Gap BUN Creatinine Creat Clearance w eGFR Random Glucose Calcium Phosphorus Magnesium Total Bilirubin Direct Bilirubin AST ALT Alkaline Phosphatase Total Protein Albumin Active Medications Acetaminophen (Ofirmev Injection -) 650 mg IVPB Q6H PRN PRN Reason: PAIN LEVEL 6-10 Last Admin: 06/16/18 06:17 Dose: 650 mg Chlorhexidine Gluconate (Hibiclens For Decolonization -) 1 applic TP HS [facility] Last Admin: 06/16/18 21:59 Dose: 1 applic Docusate Sodium (Colace -) 100 mg PO BID [facility] Last Admin: 06/17/18 10:17 Dose: 100 mg Gentamicin Sulfate (Garamycin 0.1% Ointment -) 1 applic TP QID [facility] Last Admin: 06/17/18 10:16 Dose: Not Given Heparin Sodium (Porcine) (Heparin -) 1,000 unit IVPUSH PRN PRN PRN Reason: Heparin Heparin Sodium (Porcine) (Heparin -) 5,000 unit IVPUSH PRN PRN PRN Reason: Heparin Lactated Ringer's (Lactated Ringers Solution) 1,000 ml in 1,000 mls @ 42 mls/ hr IV ASDIR [facility] Last Admin: 06/16/18 21:57 Dose: 42 mls/hr Heparin Sodium (Porcine) 25, (000 unit/ Sodium Chloride) 500 mls @ 16 mls/hr IV TITR [facility]; Protocol Last Admin: 06/17/18 08:45 Dose: 500 unit/hr, 10 mls/hr Metoprolol Tartrate (Lopressor -) 12.5 mg PO BID [facility] Last Admin: 06/17/18 10:16 Dose: Not Given Mupirocin (Bactroban Ointment (For Decolonization) -) 1 applic NS BID [facility] Stop: 06/21/18 21:59 Last Admin: 06/17/18 10:16 Dose: 1 applic Oxycodone HCl (Roxicodone -) 5 mg PO Q6H PRN PRN Reason: PAIN LEVEL 6-10 Pantoprazole Sodium (Protonix Iv) 40 mg IVPUSH DAILY [facility] Last Admin: 06/17/18 10:11 Dose: 40 mg Senna (Senna -) 2 tab PO HS [facility] Last Admin: 06/16/18 21:56 Dose: 2 tab Warfarin Sodium (Coumadin -) 2 mg PO DAILY@1800 [facility] ASSESSMENT/PLAN: 87 y/o F with PMHx of Afib (on coumadin and digoxin), TIA (no deficits), Mitral Valve Stenosis, HTN, HLD, PAD, Bladder Ca (in remission), Right axillary artery occlusion (2018) who was found to 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 Martin) Consulted -Cardiology (Dr. Henley) consulted, Appreciate Rec's -Continue Heparin Drip -Warfarin 2mg; INR goal 2.5-3.5 -Monitor Pulses Q1H -Continue home dose digoxin; Keep level 0.5-1.0 -Home dose Metoprolol decreased to 12.5mg BID -Pain control with Tylenol, Oxycodone -Continue to monitor H&H; S/P 1 unit pRBCs PostOp -Bolus (500 mls) as needed for hypotension -EKG: ATRIAL FIBRILLATION, ST & T WAVE ABNORMALITY, VR 75, QTc 444 -ECHO: LV EF is normal, LV wall motion is normal, Rheumatic MS, Moderate MS, Mild pericardial effusion, Moderate PVR, Moderate AR, Trace MR, moderate to severe TR #Pulmonary -Maintaining airway -Continue Supplemental O2 to maintain SpO2 >90% #GI Elevated Total Biliruibin, resolved Recent Dyspepsia Hx of GI Bleed -GI (Dr. Lockwood) consulted, Appreciate Rec's -Continue Famotidine -Bowel regimen via Senna, Colace #Renal Hx of Bladder Ca (in remission) -No Active issues -Continue to monitor #Hematology Leukocytosis, likely reactive Thrombocytopenia S/P 1 Unit pRBCs Post OP -Continue to monitor for Anemia, Thrombocytopenia post-op -No active bleeding #Endocrine Hx of DM -Recent A1c 5.5 -BGMs ISS ACHS #ID Leukocytosis, Afebrile -No source of infection -Continue to monitor off Abx #PPx -DVT: Heparin Drip -GI: Protonix #FEN -LR @ 42 mls/hr -Lytes WNL -Soft diet #FTD -maintain Sarmiento Dispo: Transfer to Tele Code Status; Full code Visit type - Emergency Visit Emergency Visit: Yes ED Registration Date: 06/14/18 Care time: The patient presented to the Emergency Department on the above date and was hospitalized for further evaluation of their emergent condition. - New Patient This patient is new to me today: No - Critical Care Critical Care patient: Yes Total Critical Care Time (in minutes): 36 Critical Care Statement: The care of this patient involved high complexity decision making to prevent further life threatening deterioration of the patient 's condition and/or to evaluate & treat vital organ system(s) failure or risk of failure.
--- NOTE | 2018-06-17 12:37 | PN ---
Teaching Attending Note Name of Resident: Holly Rubin ATTENDING PHYSICIAN STATEMENT I saw and evaluated the patient. I reviewed the resident's note and discussed the case with the resident. I agree with the resident's findings and plan as documented. SUBJECTIVE: Patient seen and examined in the ICU. Reports only mild discomfort in her left leg. Denies shortness of breath or chest pain. No fevers recorded. OBJECTIVE: Intake & Output 06/14/18 06/15/18 06/16/18 06/17/18 23:59 23:59 23:59 23:59 Intake Total 2224 3482 435 Output Total 600 700 100 Balance 1624 2782 335 Weight 91 lb 9 oz 91 lb 100 lb 3 oz Last Vital Signs Temp Pulse Resp BP Pulse Ox 97.7 F 63 17 103/44 L 100 06/17/18 10:00 06/17/18 12:00 06/17/18 12:00 06/17/18 12:00 06/17/18 09:00 Active Medications Acetaminophen (Ofirmev Injection -) 650 mg IVPB Q6H PRN PRN Reason: PAIN LEVEL 6-10 Last Admin: 06/16/18 06:17 Dose: 650 mg Chlorhexidine Gluconate (Hibiclens For Decolonization -) 1 applic TP HS ASUNCION Last Admin: 06/16/18 21:59 Dose: 1 applic Docusate Sodium (Colace -) 100 mg PO BID [facility] Last Admin: 06/17/18 10:17 Dose: 100 mg Gentamicin Sulfate (Garamycin 0.1% Ointment -) 1 applic TP QID [facility] Last Admin: 06/17/18 10:16 Dose: Not Given Heparin Sodium (Porcine) (Heparin -) 1,000 unit IVPUSH PRN PRN PRN Reason: Heparin Heparin Sodium (Porcine) (Heparin -) 5,000 unit IVPUSH PRN PRN PRN Reason: Heparin Lactated Ringer's (Lactated Ringers Solution) 1,000 ml in 1,000 mls @ 42 mls/ hr IV ASDIR ASUNCION Last Admin: 06/16/18 21:57 Dose: 42 mls/hr Heparin Sodium (Porcine) 25, (000 unit/ Sodium Chloride) 500 mls @ 16 mls/hr IV TITR ASUNCION; Protocol Last Admin: 06/17/18 08:45 Dose: 500 unit/hr, 10 mls/hr Metoprolol Tartrate (Lopressor -) 12.5 mg PO BID [facility] Last Admin: 06/17/18 10:16 Dose: Not Given Mupirocin (Bactroban Ointment (For Decolonization) -) 1 applic NS BID [facility] Stop: 06/21/18 21:59 Last Admin: 06/17/18 10:16 Dose: 1 applic Oxycodone HCl (Roxicodone -) 5 mg PO Q6H PRN PRN Reason: PAIN LEVEL 6-10 Pantoprazole Sodium (Protonix Iv) 40 mg IVPUSH DAILY [facility] Last Admin: 06/17/18 10:11 Dose: 40 mg Senna (Senna -) 2 tab PO HS [facility] Last Admin: 06/16/18 21:56 Dose: 2 tab Warfarin Sodium (Coumadin -) 2 mg PO DAILY@1800 [facility] Gen: NAD at rest Heart: RRR Lung: decreased breath sounds at the bases Abd: soft, nontender Ext: warm, (+) dopplers Laboratory Results - last 24 hr 06/16/18 06/17/18 06/17/18 18:00 05:15 05:15 WBC RBC Hgb Hct MCV MCH MCHC RDW Plt Count MPV Absolute Neuts (auto) Neutrophils % Lymphocytes % Monocytes % Eosinophils % Basophils % Nucleated RBC % PT with INR INR PTT (Actin FS) 103.5 H 108.1 H Sodium 143 Potassium 4.4 Chloride 111 H Carbon Dioxide 24 Anion Gap 9 BUN 34 H Creatinine 1.2 Creat Clearance w eGFR 42.70 Random Glucose 84 Calcium 7.8 L Phosphorus 2.8 Magnesium 1.9 Total Bilirubin 0.7 Direct Bilirubin 0.3 H AST 14 L ALT 13 Alkaline Phosphatase 66 Total Protein 5.2 L Albumin 2.7 L 06/17/18 06/17/18 06/17/18 05:15 05:15 10:05 WBC 15.3 H RBC 2.91 L Hgb 9.3 L Hct 26.8 L MCV 92.4 MCH 32.1 MCHC 34.7 RDW 15.8 H Plt Count 128 L MPV 8.2 Absolute Neuts (auto) 12.5 H Neutrophils % 81.4 Lymphocytes % 11.3 D Monocytes % 6.6 D Eosinophils % 0.5 D Basophils % 0.2 Nucleated RBC % 0 PT with INR 19.00 H 20.40 H INR 1.60 H 1.72 H PTT (Actin FS) Sodium Potassium Chloride Carbon Dioxide Anion Gap BUN Creatinine Creat Clearance w eGFR Random Glucose Calcium Phosphorus Magnesium Total Bilirubin Direct Bilirubin AST ALT Alkaline Phosphatase Total Protein Albumin ASSESSMENT AND PLAN: Acute Deep Femoral Artery Occlusion s/p Angiogram/Angioplasty/Thrombolysis/Open Left Femoral Thrombectomy Post op Bleeding Atrial Fibrillation Mitral Stenosis Pulmonary HTN HTN Hyperlipidemia - pulse checks - IV Heparin per protocol & Coumadin - monitor surgical site for bleeding - monitor H/H - IVF boluses as needed - monitor urine output, creatinine - pain control - Cardiac Telemetry monitoring Dr Morrell Critical care time spent in reviewing chart, evaluating patient and formulating plan 35 min
[2018-06-17] MEDS ORDERED: WARFARIN NA 2 MG TABLET (UD) PO SCH (18:00)
--- NOTE | 2018-06-17 20:57 | PATH ---
Surgical Pathology Report Patient Name: GILBERTO GUILLAUME [facility]. Rec. 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 Specimen(s) Received TISSUE OF LOWER LEFT LEG Clinical History Occlusion of left lower extremity Final Diagnosis CLOT, LEG, LEFT, OPEN THROMBECTOMY: BLOOD/FIBRIN CLOT. Electronically Signed Pushpa Poole M.D. Gross Description Received in formalin labeled "clot left leg," is a 1.8 x 1.0 x 0.2 cm aggregate of red-brown portions of blood clot. The specimen is submitted in toto in one cassette. /06/16/2018 saudi06/16/2018
[2018-06-17] MEDS: SENNOSIDES 8.6MG TABLET (FP) PO SCH (22:27)
[2018-06-17] MEDS: CHLORHEXIDINE GLUCONATE 4% CLEANSER FOR DECOLONIZATION TP SCH (22:31)
[2018-06-17] MEDS: LACTATED RINGERS SOLUTION 1,000 ML/1,000 ML INFUS.BAG IV SCH (22:31)
[2018-06-18 05:58] LABS: HEMATOCRIT 23.5 % (32.4-45.2); HEMOGLOBIN 8.4 GM/dL (10.7-15.3); MCHC 35.5 g/dl (32.0-36.0); PLATELET COUNT 123 K/MM3 (134-434); RBC 2.53 M/mm3 (3.60-5.2); WHITE BLOOD COUNT 9.1 K/mm3 (4.0-10.0)
[2018-06-18 07:48] LABS: ALBUMIN 2.5 g/dl (3.4-5.0); ALK PHOS 77 U/L (45-117); ANION GAP 4 MMOL/L (8-16); BILIRUBIN,TOTAL 0.8 mg/dL (0.2-1); BLOOD UREA NITROGEN 17 mg/dL (7-18); CALCIUM 7.6 mg/dL (8.5-10.1); CHLORIDE 111 mmol/L (98-107); CO2 27 mmol/L (21-32); CREATININE 0.8 mg/dL (0.55-1.3); GLUCOSE,RANDOM 86 mg/dL (74-106); POTASSIUM 4.1 mmol/L (3.5-5.1); SGOT/AST 24 U/L (15-37); SGPT/ALT 15 U/L (13-61); SODIUM 142 mmol/L (136-145); TOT PROT 5.1 g/dl (6.4-8.2)
--- NOTE | 2018-06-18 08:11 | PN ---
Progress Note (short form) - Note Progress Note: PULM/CCM Patient seen and examined in the ICU. Not on O2. Walking to bathroom, eating. INR bet 2 - 3 off Heparin. Active Medications Acetaminophen (Tylenol -) 650 mg PO Q6H PRN PRN Reason: PAIN LEVEL 4 - 6 Last Admin: 06/18/18 17:51 Dose: 650 mg Docusate Sodium (Colace -) 100 mg PO BID [facility] Gentamicin Sulfate (Garamycin 0.1% Ointment -) 1 applic TP DAILY [facility] Last Admin: 06/18/18 11:45 Dose: Not Given Heparin Sodium (Porcine) (Heparin -) 1,000 unit IVPUSH PRN PRN PRN Reason: Heparin Heparin Sodium (Porcine) (Heparin -) 5,000 unit IVPUSH PRN PRN PRN Reason: Heparin Lactated Ringer's (Lactated Ringers Solution) 1,000 ml in 1,000 mls @ 42 mls/ hr IV ASDIR [facility] Metoprolol Tartrate (Lopressor -) 12.5 mg PO BID [facility] Oxycodone HCl (Roxicodone -) 5 mg PO Q6H PRN PRN Reason: PAIN LEVEL 6-10 Pantoprazole Sodium (Protonix -) 40 mg PO DAILY [facility] Last Admin: 06/18/18 11:50 Dose: 40 mg Senna (Senna -) 2 tab PO HS [facility] Warfarin Sodium (Coumadin -) 2 mg PO DAILY@1800 [facility] Last Admin: 06/18/18 17:50 Dose: 2 mg Vital Signs Period Temp Pulse Resp BP Sys/Coulter Pulse Ox Last 24 Hr 97.8 F-98 F 48-89 17-21 96-140/32-54 100-100 Intake & Output 06/15/18 06/16/18 06/17/18 06/18/18 23:59 23:59 23:59 23:59 Intake Total 2224 3482 1616 1639 Output Total 265 703 8874 750 Balance 1624 2782 616 889 Weight 41.277 kg 45.444 kg 46.068 kg Gen: NAD at rest Heart: RRR Lung: decreased breath sounds at the bases Abd: soft, nontender, groin dressing dry Ext: + Pulses, L foot warm --> palpable DP pulses CBC, BMP 06/18/18 13:30 06/18/18 05:30 INR, PTT INR 2.13 (0.83-1.09) H 06/18/18 05:30 ASSESS: s/p Acute Deep L Femoral Artery Occlusion s/p Angiogram/Angioplasty/Thrombolysis/Open Left Femoral Thrombectomy Post op Bleeding Atrial Fibrillation Mitral Stenosis Pulmonary HTN HTN Hyperlipidemia PLAN: - Cont L LE pulse checks - Cont Coumadin - monitor surgical site for bleeding - monitor H/H - IVF boluses as needed - monitor urine output, creatinine - Pain control - Increase walking as tolerated. - D/c --> Tele DGL, [facility] ICU PULM/CCM 4459 Critical care time spent in reviewing chart, evaluating patient and formulating plan 36 min Critical Care Total Critical Care Time (in minutes): 36 Critical Care Statement: The care of this patient involved high complexity decision making to prevent further life threatening deterioration of the patient 's condition and/or to evaluate & treat vital organ system(s) failure or risk of failure.
[2018-06-18] MEDS: ACETAMINOPHEN 1000 MG/100 ML VIAL (NON FORMULARY) IVPB PRN (08:47)
--- NOTE | 2018-06-18 08:48 | PN ---
Physical Exam: SUBJECTIVE: Patient seen and examined in icu. sitting up in chair, eating her breakfast. appears comfortable. OBJECTIVE: awaiting inr left lower ext wound dressing c/d/i Vital Signs Period Temp Pulse Resp BP Sys/Coulter Pulse Ox Last 24 Hr 97.7 F-98 F 59-89 - 97-140/39-54 100-100 GENERAL: The patient is awake, alert, and fully oriented, in no acute distress. thin, frail appearing, HEAD: Normal with no signs of trauma. EYES: PERRL, extraocular movements intact, sclera anicteric, conjunctiva clear. No ptosis. ENT: Ears normal, nares patent, oropharynx clear without exudates, moist mucous membranes. NECK: Trachea midline, full range of motion, supple. LUNGS: Breath sounds equal, clear to auscultation bilaterally, no wheezes, no crackles, no accessory muscle use. HEART: Regular rate and rhythm ABDOMEN: Soft, nontender, nondistended, normoactive bowel sounds, no guarding, no rebound, no hepatosplenomegaly, no masses. EXTREMITIES: LLE ulceratin with gentamycin ointment treatment NEUROLOGICAL: calm PSYCH: Normal mood, normal affect. SKIN: LLE ulcer Laboratory Results - last 24 hr 06/14/18 06/17/18 06/17/18 13:50 10:05 15:00 WBC RBC Hgb Hct MCV MCH MCHC RDW Plt Count MPV PT with INR 20.40 H INR 1.72 H PTT (Actin FS) 82.1 H Sodium Potassium Chloride Carbon Dioxide Anion Gap BUN Creatinine Creat Clearance w eGFR Random Glucose Calcium Total Bilirubin AST ALT Alkaline Phosphatase Total Protein Albumin Crossmatch See Detail 06/18/18 06/18/18 06/18/18 05:30 05:30 05:30 WBC 9.1 RBC 2.53 L Hgb 8.4 L Hct 23.5 L MCV 93.0 MCH 33.0 MCHC 35.5 RDW 15.0 Plt Count 123 L MPV 8.0 PT with INR INR PTT (Actin FS) 76.8 H Sodium 142 Potassium 4.1 Chloride 111 H Carbon Dioxide 27 Anion Gap 4 L BUN 17 Creatinine 0.8 Creat Clearance w eGFR > 60 Random Glucose 86 Calcium 7.6 L Total Bilirubin 0.8 AST 24 ALT 15 Alkaline Phosphatase 77 Total Protein 5.1 L Albumin 2.5 L Crossmatch Active Medications Generic Name Dose Route Start Last Admin Trade Name Freq PRN Reason Stop Dose Admin Chlorhexidine Gluconate 1 applic 06/16/18 22:00 06/17/18 22:31 Hibiclens For Decolonization - TP 1 applic HS ASUNCION Administration Docusate Sodium 100 mg 06/15/18 22:00 06/17/18 22:27 Colace - PO 100 mg BID [facility] Administration Gentamicin Sulfate 1 applic 06/15/18 22:00 06/17/18 22:31 Garamycin 0.1% Ointment - TP 1 applic QID [facility]UNCION Administration Heparin Sodium (Porcine) 1,000 unit 06/16/18 10:14 Heparin - IVPUSH PRN PRN Heparin Heparin Sodium (Porcine) 5,000 unit 06/16/18 10:14 Heparin - IVPUSH PRN PRN Heparin Lactated Ringer's 1,000 ml in 1,000 mls @ 42 mls/hr 06/15/18 19:46 06/17/18 22:31 Lactated Ringers Solution IV Not Given ASDIR ASUNCION Heparin Sodium (Porcine) 25, 500 mls @ 16 mls/hr 06/16/18 10:15 06/17/18 15: 00 000 unit/ Sodium Chloride IV 450 unit/hr TITR ASUNCION 9 mls/hr Titration Protocol 800 UNIT/HR Metoprolol Tartrate 12.5 mg 06/16/18 22:00 06/17/18 22:27 Lopressor - PO 12.5 mg BID [facility] Administration Mupirocin 1 applic 06/16/18 22:00 06/17/18 22:30 Bactroban Ointment (For Decolonization) - NS 06/21/18 21:59 1 applic BID [facility] Administration Oxycodone HCl 5 mg 06/16/18 11:15 Roxicodone - PO Q6H PRN PAIN LEVEL 6-10 Pantoprazole Sodium 40 mg 06/16/18 10:00 06/17/18 10:11 Protonix Iv IVPUSH 40 mg DAILY [facility] Administration Senna 2 tab 06/15/18 22:00 06/17/18 22:27 Senna - PO 2 tab HS ASUNCION Administration Warfarin Sodium 2 mg 06/17/18 18:00 06/17/18 17:54 Coumadin - PO 2 mg DAILY@1800 AS[facility]ION Administration ASSESSMENT/PLAN: Patient is an 87 year old female with a past medical 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 Presents to the ED for chronic LLE pain. Noted to have subtherapeutic inr and started on heparin drip with bridge to coumadin problem list RHD. Mitral stenosis. Chronic AFIB. 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 Open left femoral thrombectomy POD#3 femoral thrombectomy. became hypotensive in pacu. monitored in icu. Right upper extremity arterial occlusion history Dressing changes with gentamycin Heme Blood loss anemia Slight drop in hmg/hct today. low stable. will monitor GI: History GI bleed Monitor closely while on heparin drip On Protonix 40mg Card: Afib rate controlled, Lopressor 12.5 mg BID Hypertension, controlled Monitor BP Subtherapeutic INR On heparin drip to coumadin bridge Await todays inr, stop INR when inr therapeutic (2-3 inr) F.E.N. Fluids: PO Electrolytes: monitor Nutrition: low salt diet Prophy: On heparin drip with bridge to coumadin Protonix Visit type - Emergency Visit Emergency Visit: Yes ED Registration Date: 06/14/18 Care time: The patient presented to the Emergency Department on the above date and was hospitalized for further evaluation of their emergent condition. - New Patient This patient is new to me today: Yes Date on this admission: 06/18/18 - Critical Care Critical Care patient: Yes Total Critical Care Time (in minutes): 45 Critical Care Statement: The care of this patient involved high complexity decision making to prevent further life threatening deterioration of the patient 's condition and/or to evaluate & treat vital organ system(s) failure or risk of failure. - Discharge Referral Referred to [facility] No
[2018-06-18] MEDS ORDERED: ACETAMINOPHEN 325 MG TABLET (FP) PO PRN (08:52)
[2018-06-18 08:53] LABS: INR 2.13 (0.83-1.09); PROTHROMBIN TIME (PATIENT) 25.3 SEC (9.7-13.0)
[2018-06-18] MEDS: DOCUSATE SODIUM 100 MG CAPSULE (FP) PO SCH ×2 (09:04→22:07)
[2018-06-18] MEDS: MUPIROCIN 2% TOPICAL OINTMENT FOR DECOLONIZATION NS SCH (09:04)
[2018-06-18] MEDS: METOPROLOL TARTRATE 25 MG TABLET (FP) PO SCH ×2 (09:05→22:07)
[2018-06-18] MEDS: GENTAMICIN SO4 0.1% TOPICAL OINTMENT 15 GM/TUBE TUBE TP SCH ×2 (09:05→11:45)
--- NOTE | 2018-06-18 09:40 | PN ---
Progress Note, Physician - Current Medication List Current Medications: Active Medications Acetaminophen (Tylenol -) 650 mg PO Q6H PRN PRN Reason: PAIN LEVEL 4 - 6 Chlorhexidine Gluconate (Hibiclens For Decolonization -) 1 applic TP HS [facility] Last Admin: 06/17/18 22:31 Dose: 1 applic Docusate Sodium (Colace -) 100 mg PO BID [facility] Last Admin: 06/18/18 09:04 Dose: 100 mg Gentamicin Sulfate (Garamycin 0.1% Ointment -) 1 applic TP QID [facility] Last Admin: 06/18/18 09:05 Dose: 1 applic Heparin Sodium (Porcine) (Heparin -) 1,000 unit IVPUSH PRN PRN PRN Reason: Heparin Heparin Sodium (Porcine) (Heparin -) 5,000 unit IVPUSH PRN PRN PRN Reason: Heparin Lactated Ringer's (Lactated Ringers Solution) 1,000 ml in 1,000 mls @ 42 mls/ hr IV ASDIR [facility] Last Admin: 06/17/18 22:31 Dose: Not Given Heparin Sodium (Porcine) 25, (000 unit/ Sodium Chloride) 500 mls @ 16 mls/hr IV TITR [facility]; Protocol Last Titration: 06/17/18 15:00 Dose: 450 unit/hr, 9 mls/hr Metoprolol Tartrate (Lopressor -) 12.5 mg PO BID [facility] Last Admin: 06/18/18 09:05 Dose: 12.5 mg Mupirocin (Bactroban Ointment (For Decolonization) -) 1 applic NS BID [facility] Stop: 06/21/18 21:59 Last Admin: 06/18/18 09:04 Dose: 1 applic Oxycodone HCl (Roxicodone -) 5 mg PO Q6H PRN PRN Reason: PAIN LEVEL 6-10 Pantoprazole Sodium (Protonix -) 40 mg PO DAILY [facility] Senna (Senna -) 2 tab PO HS [facility] Last Admin: 06/17/18 22:27 Dose: 2 tab Warfarin Sodium (Coumadin -) 2 mg PO DAILY@1800 [facility] Last Admin: 06/17/18 17:54 Dose: 2 mg - Objective Vital Signs: Vital Signs Temperature 98 F 06/18/18 09:13 Pulse Rate 86 06/18/18 09:12 Respiratory Rate 21 H 06/18/18 09:12 Blood Pressure 96/48 L 06/18/18 09:12 O2 Sat by Pulse Oximetry (%) 100 06/18/18 07:19 Constitutional: Yes: No Distress, Calm Eyes: Yes: Conjunctiva Clear Cardiovascular: Yes: Pulse Irregular Respiratory: Yes: CTA Bilaterally Gastrointestinal: Yes: Soft Edema: No Peripheral Pulses WNL: Yes Neurological: Yes: Alert, Oriented Labs: CBC, BMP 06/18/18 05:30 06/18/18 05:30 INR, PTT INR 2.13 (0.83-1.09) H 06/18/18 05:30 Laboratory Tests 06/15/18 06/18/18 06/18/18 06:00 05:30 05:30 WBC 9.1 Hgb 8.4 L Hct 23.5 L Plt Count 123 L INR PTT (Actin FS) 76.8 H Sodium Potassium BUN Creatinine AST ALT Alkaline Phosphatase Digoxin 1.12 06/18/18 06/18/18 05:30 05:30 WBC Hgb Hct Plt Count INR 2.13 H PTT (Actin FS) Sodium 142 Potassium 4.1 BUN 17 Creatinine 0.8 AST 24 ALT 15 Alkaline Phosphatase 77 Digoxin - ....Imaging EKG: Image Reviewed (AF, short self limited episodes SEAN, couplets.) Assessment/Plan ASSESSMENT AND PLAN: Acute Deep Femoral Artery Occlusion s/p Angiogram/Angioplasty/Thrombolysis/Open Left Femoral Thrombectomy Post op Bleeding Atrial Fibrillation Mitral Stenosis Pulmonary HTN HTN Hyperlipidemia - pulse checks - IV Heparin per protocol & Coumadin ; can d/c heparin gtts as INR is therapeutic - monitor surgical site for bleeding - monitor H/H - monitor urine output, creatinine - pain control - Cardiac Telemetry monitoring Coverage for Kale
--- NOTE | 2018-06-18 10:34 | PN ---
Progress Note (short form) - Note Progress Note: VSS Groin dressing dry Left foot warm, palpable DP pulse INR > 2 Stable OOB Increase walking as tolerated.
[2018-06-18] MEDS: PANTOPRAZOLE 40 MG TABLET (FP) PO SCH (11:50)
[2018-06-18 14:02] LABS: HEMATOCRIT 25.6 % (32.4-45.2); HEMOGLOBIN 8.8 GM/dL (10.7-15.3); MCH 32.5 pg (25.7-33.7); MCHC 34.4 g/dl (32.0-36.0); MEAN CELL VOLUME 94.6 fl (80-96); MEAN PLT VOLUME 8.3 fl (7.5-11.1); PLATELET COUNT 137 K/MM3 (134-434); RBC 2.71 M/mm3 (3.60-5.2); RDW 15.4 % (11.6-15.6); WHITE BLOOD COUNT 9.4 K/mm3 (4.0-10.0)
[2018-06-18] MEDS ORDERED: HEPARIN NA (PORCINE) 5,000 UNITS/ML 1ML VIAL IVPUSH PRN ×2 (15:52)
[2018-06-18] MEDS ORDERED: oxyCODONE HCL 5 MG TABLET PO PRN (15:52)
[2018-06-18] MEDS ORDERED: ACETAMINOPHEN 325 MG TABLET (FP) ONE (17:42)
[2018-06-18] MEDS: WARFARIN NA 2 MG TABLET (UD) PO SCH (17:50)
[2018-06-18] MEDS: LACTATED RINGERS SOLUTION 1,000 ML/1,000 ML INFUS.BAG IV SCH (17:54)
[2018-06-18] MEDS: SENNOSIDES 8.6MG TABLET (FP) PO SCH (22:07)
[2018-06-19] MEDS ORDERED: ALPRAZolam 0.25 MG TABLET PO STA (01:41)
[2018-06-19 05:51] LABS: BASO % 0.4 % (0-2.0); HEMATOCRIT 21.4 % (32.4-45.2); HEMOGLOBIN 7.5 GM/dL (10.7-15.3); LYMPH % 11.6 % (8-40); MCH 32.9 pg (25.7-33.7); MCHC 35.2 g/dl (32.0-36.0); MEAN CELL VOLUME 93.5 fl (80-96); MEAN PLT VOLUME 8.3 fl (7.5-11.1); MONO % 7.1 % (3.8-10.2); NEUT % 78.9 % (42.8-82.8); PLATELET COUNT 122 K/MM3 (134-434); RBC 2.29 M/mm3 (3.60-5.2); RDW 15.4 % (11.6-15.6); WHITE BLOOD COUNT 8.4 K/mm3 (4.0-10.0)
[2018-06-19 06:41] LABS: ALBUMIN 2.4 g/dl (3.4-5.0); ALK PHOS 80 U/L (45-117); ANION GAP 2 MMOL/L (8-16); BILIRUBIN,TOTAL 0.6 mg/dL (0.2-1); BLOOD UREA NITROGEN 12 mg/dL (7-18); CALCIUM 7.6 mg/dL (8.5-10.1); CHLORIDE 110 mmol/L (98-107); CO2 29 mmol/L (21-32); CREATININE 0.7 mg/dL (0.55-1.3); GLUCOSE,RANDOM 91 mg/dL (74-106); SGOT/AST 26 U/L (15-37); SGPT/ALT 20 U/L (13-61); SODIUM 141 mmol/L (136-145); TOT PROT 5.2 g/dl (6.4-8.2)
[2018-06-19 08:50] LABS: INR 2.26 (0.83-1.09); PROTHROMBIN TIME (PATIENT) 26.9 SEC (9.7-13.0)
--- NOTE | 2018-06-19 09:14 | PN ---
Physical Exam: SUBJECTIVE: Patient seen and examined in the ICU, awaiting transfer to telemetry. 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 patient awake, alert, in no distress, ate breakfast no signs of bleeding on groin, bandages c/d/i. left ankle wound dry hmg/hct dropping to <8.0 - will repeat labs at 11a.m., if remains low, will transfuse 1 unit 2/2 to cardiac disease Vital Signs Period Temp Pulse Resp BP Sys/Coulter Pulse Ox Last 24 Hr 97.8 F-98 F 48-81 17-21 100-124/32-46 92 GENERAL: The patient is awake, alert, and fully oriented, in no acute distress. thin, frail appearing, HEAD: Normal with no signs of trauma. EYES: PERRL, extraocular movements intact, sclera anicteric, conjunctiva clear. No ptosis. ENT: Ears normal, nares patent, oropharynx clear without exudates, moist mucous membranes. NECK: Trachea midline, full range of motion, supple. LUNGS: Breath sounds equal, clear to auscultation bilaterally, no wheezes, no crackles, no accessory muscle use. HEART: Regular rate and rhythm ABDOMEN: Soft, nontender, nondistended, normoactive bowel sounds, no guarding, no rebound, no hepatosplenomegaly, no masses. EXTREMITIES: LLE ulceratin with gentamycin ointment treatment NEUROLOGICAL: calm PSYCH: Normal mood, normal affect. SKIN: LLE ulcer Laboratory Results - last 24 hr 06/14/18 06/18/18 06/19/18 13:50 13:30 05:30 WBC 9.4 RBC 2.71 L Hgb 8.8 L Hct 25.6 L MCV 94.6 MCH 32.5 MCHC 34.4 RDW 15.4 Plt Count 137 MPV 8.3 Absolute Neuts (auto) Neutrophils % Lymphocytes % Monocytes % Eosinophils % Basophils % Nucleated RBC % PT with INR INR PTT (Actin FS) 33.7 Sodium Potassium Chloride Carbon Dioxide Anion Gap BUN Creatinine Creat Clearance w eGFR Random Glucose Calcium Total Bilirubin AST ALT Alkaline Phosphatase Total Protein Albumin Blood Type AB NEGATIVE Antibody Screen Negative Crossmatch See Detail 06/19/18 06/19/18 06/19/18 05:30 05:30 05:30 WBC 8.4 RBC 2.29 L Hgb 7.5 L Hct 21.4 L D MCV 93.5 MCH 32.9 MCHC 35.2 RDW 15.4 Plt Count 122 L MPV 8.3 Absolute Neuts (auto) 6.6 Neutrophils % 78.9 Lymphocytes % 11.6 Monocytes % 7.1 Eosinophils % 2.0 D Basophils % 0.4 Nucleated RBC % 0 PT with INR 26.90 H INR 2.26 H PTT (Actin FS) Sodium 141 Potassium 4.0 Chloride 110 H Carbon Dioxide 29 Anion Gap 2 L BUN 12 Creatinine 0.7 Creat Clearance w eGFR > 60 Random Glucose 91 Calcium 7.6 L Total Bilirubin 0.6 AST 26 ALT 20 Alkaline Phosphatase 80 Total Protein 5.2 L Albumin 2.4 L Blood Type Antibody Screen Crossmatch Active Medications Generic Name Dose Route Start Last Admin Trade Name Freq PRN Reason Stop Dose Admin Acetaminophen 650 mg 06/18/18 08:52 06/18/18 17:51 Tylenol - PO 650 mg Q6H PRN Administration PAIN LEVEL 4 - 6 Docusate Sodium 100 mg 06/18/18 22:00 06/18/18 22:07 Colace - PO 100 mg BID [facility]UNCION Administration Gentamicin Sulfate 1 applic 06/18/18 10:00 06/18/18 11:45 Garamycin 0.1% Ointment - TP Not Given DAILY [facility] Lactated Ringer's 1,000 ml in 1,000 mls @ 42 mls/hr 06/18/18 15:52 06/18/18 17:54 Lactated Ringers Solution IV 42 mls/hr ASDIR ASUNCION Administration Metoprolol Tartrate 12.5 mg 06/18/18 22:00 06/18/18 22:07 Lopressor - PO 12.5 mg BID ASUNCION Administration Oxycodone HCl 5 mg 06/18/18 15:52 06/18/18 22:07 Roxicodone - PO 5 mg Q6H PRN Administration PAIN LEVEL 6-10 Pantoprazole Sodium 40 mg 06/18/18 10:00 06/18/18 11:50 Protonix - PO 40 mg DAILY [facility]ION Administration Senna 2 tab 06/18/18 22:00 06/18/18 22:07 Senna - PO 2 tab HS ASUNCION Administration Warfarin Sodium 2 mg 06/18/18 18:00 06/18/18 17:50 Coumadin - PO 2 mg DAILY@1800 [facility] Administration ASSESSMENT/PLAN: Patient is an 87 year old female with a past medical 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 Presents to the ED for chronic LLE pain. Noted to have subtherapeutic inr and started on heparin drip with bridge to coumadin problem list RHD. Mitral stenosis. Chronic AFIB. 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 Open left femoral thrombectomy POD#4 femoral thrombectomy. dressing are dry/intact. Left lower ext ulcer Dressing changes with gentamycin Heme Blood loss anemia Slight drop in hmg/hct again today. will repeat labs at 11pm. if remains low (below 8), will transfuse 1 unit prbc 2/2 to cardiac disease GI: History GI bleed, no signs of bleeding On Protonix 40mg Card: Afib rate controlled, Lopressor 12.5 mg BID Hypertension, controlled Monitor BP Subtherapeutic INR, resolved. INR 2.1. heparin drip stopped. todays INR pending. (goal inr 2-3) F.E.N. Fluids: PO Electrolytes: monitor Nutrition: low salt diet Prophy: coumadin Protonix Visit type - Emergency Visit Emergency Visit: Yes ED Registration Date: 06/14/18 Care time: The patient presented to the Emergency Department on the above date and was hospitalized for further evaluation of their emergent condition. - New Patient This patient is new to me today: No - Critical Care Critical Care patient: No - Discharge Referral Referred to [facility] No
[2018-06-19 09:19] LABS: INR 2.29 (0.83-1.09); PROTHROMBIN TIME (PATIENT) 27.3 SEC (9.7-13.0)
[2018-06-19] MEDS: DOCUSATE SODIUM 100 MG CAPSULE (FP) PO SCH ×2 (09:41→22:58)
[2018-06-19] MEDS: METOPROLOL TARTRATE 25 MG TABLET (FP) PO SCH ×2 (09:41→22:59)
[2018-06-19] MEDS: PANTOPRAZOLE 40 MG TABLET (FP) PO SCH (09:41)
[2018-06-19] MEDS: GENTAMICIN SO4 0.1% TOPICAL OINTMENT 15 GM/TUBE TUBE TP SCH (09:46)
--- NOTE | 2018-06-19 09:58 | PN ---
Progress Note (short form) - Note Progress Note: PULM/CCM Seen and examined in ICU. Patient seen and examined in the ICU. No O2. Walking to bathroom, eating. INR bet 2 - 3 off Heparin, good LE pulses B/L Active Medications Acetaminophen (Tylenol -) 650 mg PO Q6H PRN PRN Reason: PAIN LEVEL 4 - 6 Last Admin: 06/18/18 17:51 Dose: 650 mg Docusate Sodium (Colace -) 100 mg PO BID [facility] Last Admin: 06/19/18 09:41 Dose: 100 mg Gentamicin Sulfate (Garamycin 0.1% Ointment -) 1 applic TP DAILY [facility] Last Admin: 06/19/18 09:46 Dose: 1 applic Lactated Ringer's (Lactated Ringers Solution) 1,000 ml in 1,000 mls @ 42 mls/ hr IV ASDIR [facility] Last Admin: 06/18/18 17:54 Dose: 42 mls/hr Metoprolol Tartrate (Lopressor -) 12.5 mg PO BID [facility] Last Admin: 06/19/18 09:41 Dose: 12.5 mg Oxycodone HCl (Roxicodone -) 5 mg PO Q6H PRN PRN Reason: PAIN LEVEL 6-10 Last Admin: 06/18/18 22:07 Dose: 5 mg Pantoprazole Sodium (Protonix -) 40 mg PO DAILY [facility] Last Admin: 06/19/18 09:41 Dose: 40 mg Senna (Senna -) 2 tab PO HS [facility] Last Admin: 06/18/18 22:07 Dose: 2 tab Warfarin Sodium (Coumadin -) 2 mg PO DAILY@1800 [facility] Last Admin: 06/18/18 17:50 Dose: 2 mg Vital Signs Period Temp Pulse Resp BP Sys/Coulter Pulse Ox Last 24 Hr 97.8 F-98 F 48-81 17-20 100-124/32-46 92-92 Intake & Output 06/16/18 06/17/18 06/18/18 06/19/18 23:59 23:59 23:59 23:59 Intake Total 3482 1616 1939 600 Output Total 700 1000 750 Balance 2782 616 1189 600 Weight 41.277 kg 45.444 kg 46.068 kg 46.765 kg CBC, BMP 06/19/18 05:30 06/19/18 05:30 INR, PTT INR 2.29 (0.83-1.09) H 06/19/18 08:45 ASSESS: s/p Acute Deep L Femoral Artery Occlusion s/p Angiogram/Angioplasty/Thrombolysis/Open Left Femoral Thrombectomy Post op Bleeding Atrial Fibrillation Mitral Stenosis Pulmonary HTN HTN Hyperlipidemia PLAN: - Cont L LE pulse checks - Cont Coumadin - monitor surgical site for bleeding - monitor H/H - IVF boluses as needed - monitor urine output, creatinine - Pain control - Increase walking as tolerated. - D/c --> Tele DGL, ACNP-[facility] ICU PULM/CCM [id number] Critical care time spent in reviewing chart, evaluating patient and formulating plan 36 min Critical Care Total Critical Care Time (in minutes): 36 Critical Care Statement: The care of this patient involved high complexity decision making to prevent further life threatening deterioration of the patient 's condition and/or to evaluate & treat vital organ system(s) failure or risk of failure.
--- NOTE | 2018-06-19 10:15 | PN ---
Progress Note, Physician Chief Complaint: Seen and examined in ICU TELE: AF rate controlled. Pauses < 3 seconds. No significant rapid rates H/H dropped a bit No active bleeding noted. - Current Medication List Current Medications: Active Medications Acetaminophen (Tylenol -) 650 mg PO Q6H PRN PRN Reason: PAIN LEVEL 4 - 6 Last Admin: 06/18/18 17:51 Dose: 650 mg Docusate Sodium (Colace -) 100 mg PO BID [facility] Last Admin: 06/19/18 09:41 Dose: 100 mg Gentamicin Sulfate (Garamycin 0.1% Ointment -) 1 applic TP DAILY [facility] Last Admin: 06/19/18 09:46 Dose: 1 applic Lactated Ringer's (Lactated Ringers Solution) 1,000 ml in 1,000 mls @ 42 mls/ hr IV ASDIR [facility] Last Admin: 06/18/18 17:54 Dose: 42 mls/hr Metoprolol Tartrate (Lopressor -) 12.5 mg PO BID [facility] Last Admin: 06/19/18 09:41 Dose: 12.5 mg Oxycodone HCl (Roxicodone -) 5 mg PO Q6H PRN PRN Reason: PAIN LEVEL 6-10 Last Admin: 06/18/18 22:07 Dose: 5 mg Pantoprazole Sodium (Protonix -) 40 mg PO DAILY [facility] Last Admin: 06/19/18 09:41 Dose: 40 mg Senna (Senna -) 2 tab PO HS [facility] Last Admin: 06/18/18 22:07 Dose: 2 tab Warfarin Sodium (Coumadin -) 2 mg PO DAILY@1800 [facility] Last Admin: 06/18/18 17:50 Dose: 2 mg - Objective Vital Signs: Vital Signs Temperature 97.9 F 06/19/18 06:00 Pulse Rate 81 06/19/18 06:00 Respiratory Rate 17 06/19/18 09:00 Blood Pressure 124/43 L 06/19/18 06:00 O2 Sat by Pulse Oximetry (%) 92 L 06/19/18 09:00 Constitutional: Yes: No Distress, Calm Eyes: Yes: Conjunctiva Clear Cardiovascular: Yes: Pulse Irregular Respiratory: Yes: CTA Bilaterally (no rales or wheeizing) Gastrointestinal: Yes: Soft Edema: No (warm) Peripheral Pulses WNL: Yes Neurological: Yes: Alert, Oriented ...Motor Strength: WNL Labs: CBC, BMP 06/19/18 05:30 06/19/18 05:30 INR, PTT INR 2.29 (0.83-1.09) H 06/19/18 08:45 Laboratory Tests 06/18/18 06/18/18 06/19/18 05:30 05:30 05:30 WBC 8.4 Hgb 7.5 L Hct 21.4 L D Plt Count 122 L INR 2.13 H PTT (Actin FS) 76.8 H Sodium Potassium BUN Creatinine AST ALT Alkaline Phosphatase 06/19/18 06/19/18 05:30 08:45 WBC Hgb Hct Plt Count INR 2.29 H PTT (Actin FS) Sodium 141 Potassium 4.0 BUN 12 Creatinine 0.7 AST 26 ALT 20 Alkaline Phosphatase 80 - ....Imaging EKG: Image Reviewed Assessment/Plan ASSESSMENT AND PLAN: Acute Deep Femoral Artery Occlusion s/p Angiogram/Angioplasty/Thrombolysis/Open Left Femoral Thrombectomy Post op Bleeding Atrial Fibrillation Mitral Stenosis Pulmonary HTN HTN Hyperlipidemia - pulse checks - Continue coumadin for now. Heparin d/c'd yesterday - monitor surgical site for bleeding , mild drop in H/H. Repeat CBC. Consider transfuse PRBCs if Hb < 8 - monitor urine output, creatinine - pain control - Cardiac Telemetry monitoring in ICU Coverage for [place]
[2018-06-19 11:42] LABS: BASO % 0.2 % (0-2.0); EOS % 2.5 % (0-4.5); HEMATOCRIT 23.7 % (32.4-45.2); HEMOGLOBIN 8.3 GM/dL (10.7-15.3); LYMPH % 13.1 % (8-40); MCH 33.1 pg (25.7-33.7); MCHC 34.9 g/dl (32.0-36.0); MEAN CELL VOLUME 94.8 fl (80-96); MEAN PLT VOLUME 7.9 fl (7.5-11.1); MONO % 7.3 % (3.8-10.2); NEUT % 76.9 % (42.8-82.8); PLATELET COUNT 154 K/MM3 (134-434); RDW 15.8 % (11.6-15.6); WHITE BLOOD COUNT 8.7 K/mm3 (4.0-10.0)
[2018-06-19] MEDS: WARFARIN NA 2 MG TABLET (UD) PO SCH (18:02)
[2018-06-19] MEDS ORDERED: AMIODARONE HCL 150 MG/3 ML VIAL IVPUSH STA (18:16)
[2018-06-19] MEDS: SENNOSIDES 8.6MG TABLET (FP) PO SCH (22:58)
[2018-06-19] MEDS: LACTATED RINGERS SOLUTION 1,000 ML/1,000 ML INFUS.BAG IV SCH (22:58)
[2018-06-20 06:43] LABS: BASO % 0.3 % (0-2.0); HEMATOCRIT 20.8 % (32.4-45.2); HEMOGLOBIN 7.3 GM/dL (10.7-15.3); LYMPH % 16.4 % (8-40); MCH 33.1 pg (25.7-33.7); MCHC 35.3 g/dl (32.0-36.0); MEAN CELL VOLUME 93.9 fl (80-96); MONO % 9.1 % (3.8-10.2); NEUT % 69.2 % (42.8-82.8); PLATELET COUNT 141 K/MM3 (134-434); RBC 2.21 M/mm3 (3.60-5.2); RDW 15.4 % (11.6-15.6); WHITE BLOOD COUNT 7.6 K/mm3 (4.0-10.0)
[2018-06-20 07:43] LABS: ALBUMIN 2.4 g/dl (3.4-5.0); ALK PHOS 83 U/L (45-117); ANION GAP 5 MMOL/L (8-16); BILIRUBIN,TOTAL 1.2 mg/dL (0.2-1); BLOOD UREA NITROGEN 11 mg/dL (7-18); CALCIUM 7.9 mg/dL (8.5-10.1); CHLORIDE 106 mmol/L (98-107); CO2 28 mmol/L (21-32); CREATININE 0.6 mg/dL (0.55-1.3); GLUCOSE,RANDOM 79 mg/dL (74-106); POTASSIUM 3.8 mmol/L (3.5-5.1); SGOT/AST 21 U/L (15-37); SGPT/ALT 17 U/L (13-61); SODIUM 139 mmol/L (136-145); TOT PROT 5.2 g/dl (6.4-8.2)
--- NOTE | 2018-06-20 08:17 | PN ---
Progress Note, Physician Chief Complaint: Seen on 4W. C/o generalized weakness Noted drop HCT to 20 INT 2.2 History of Present Illness: RHD. Mitral stenosis. Chronic AFIB. 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 LE varicose veins. Chronic ulcer left humphrey . History of bladder cancer - Current Medication List Current Medications: Active Medications Acetaminophen (Tylenol -) 650 mg PO Q6H PRN PRN Reason: PAIN LEVEL 4 - 6 Last Admin: 06/18/18 17:51 Dose: 650 mg Docusate Sodium (Colace -) 100 mg PO BID [facility] Last Admin: 06/19/18 22:58 Dose: 100 mg Gentamicin Sulfate (Garamycin 0.1% Ointment -) 1 applic TP DAILY [facility] Last Admin: 06/19/18 09:46 Dose: 1 applic Lactated Ringer's (Lactated Ringers Solution) 1,000 ml in 1,000 mls @ 42 mls/ hr IV ASDIR [facility] Last Admin: 06/19/18 22:58 Dose: 42 mls/hr Metoprolol Tartrate (Lopressor -) 12.5 mg PO BID [facility] Last Admin: 06/19/18 22:59 Dose: 12.5 mg Oxycodone HCl (Roxicodone -) 5 mg PO Q6H PRN PRN Reason: PAIN LEVEL 6-10 Last Admin: 06/18/18 22:07 Dose: 5 mg Pantoprazole Sodium (Protonix -) 40 mg PO DAILY [facility] Last Admin: 06/19/18 09:41 Dose: 40 mg Senna (Senna -) 2 tab PO HS [facility] Last Admin: 06/19/18 22:58 Dose: 2 tab Warfarin Sodium (Coumadin -) 2 mg PO DAILY@1800 [facility] Last Admin: 06/19/18 18:02 Dose: 2 mg - Objective Vital Signs: Vital Signs Temperature 98 F 06/20/18 05:31 Pulse Rate 74 06/20/18 05:31 Respiratory Rate 20 06/20/18 05:31 Blood Pressure 112/51 L 06/20/18 05:31 O2 Sat by Pulse Oximetry (%) 96 06/19/18 21:00 Constitutional: Yes: Anxious, Mild Distress, Pallor Eyes: Yes: Conjunctiva Clear, EOM Intact HENT: Yes: Atraumatic, Normocephalic Neck: Yes: Supple, Trachea Midline Cardiovascular: Yes: Pulse Irregular, JVD, Murmur (diastolic, OS), S1, S2. No: Bradycardia, Tachycardia Respiratory: Yes: Regular, CTA Bilaterally Gastrointestinal: Yes: Soft. No: Abdomen, Obese, Ascites ...Rectal Exam: Yes: Deferred Genitourinary: No: Anuria, Bladder Distention Breast(s): Yes: Left, Right Musculoskeletal: No: Back Pain, Joint Stiffness Extremities: No: Amputation, Calf Tenderness, Cyanosis Peripheral Pulses WNL: No Neurological: Yes: Alert, Oriented. No: Aphasia ...Motor Strength: WNL Psychiatric: Yes: WNL Labs: CBC, BMP 06/20/18 05:30 06/20/18 05:30 INR, PTT INR 2.29 (0.83-1.09) H 06/19/18 08:45 Problem List - Problems (1) Afib Assessment/Plan: Follow INR and stop Heparin when therapeutic. Code(s): I48.91 - UNSPECIFIED ATRIAL FIBRILLATION Qualifiers: Atrial fibrillation type: chronic Qualified Code(s): I48.2 - Chronic atrial fibrillation (2) Arterial occlusion, lower extremity Assessment/Plan: vascular f/u Code(s): I70.209 - UNSP ATHSCL [place] ARTERIES OF EXTREMITIES, UNSP EXTREMITY (3) GI bleed Assessment/Plan: Continue PO Protonix. Follow H/H. 1 unit PRBC GI f/u Code(s): K92.2 - GASTROINTESTINAL HEMORRHAGE, UNSPECIFIED Qualifiers: GI bleed type/associated pathology: gastrointestinal hemorrhage with hematemesis Qualified Code(s): K92.0 - Hematemesis
[2018-06-20 09:00] LABS: INR 1.96 (0.83-1.09); PROTHROMBIN TIME (PATIENT) 23.3 SEC (9.7-13.0)
--- NOTE | 2018-06-20 09:07 | PN ---
Progress Note, Physician History of Present Illness: HPI: Called to evaluate 87 yo w/ PMHx as noted below. Arrives at [facility] ED secondary to c/o acute LLE pain x 4 hours. Grandson at bedside an acting as boat diesel motor mechanic as she only speaks Armenian. Reports that her distal 1/3 LLE to her toes has paresthesia and acute color change. Per Grandson, grandmother is very active (ambulates, gardens, walks w/o complaint of feeling like her legs get tired). Patient is compliant with her Coumadin (Afib). Denies fever, chills, CP, palpitations, SOB, [place]. Denies rest pain or claudication. PMHx: Mitral Valve Stenosis, Afib, CVA, H. Pylori, HTN, RUE arterial occlusion, Chronic LLE wound, GI Bleed (AVM). PAD? PSHx: Cholecystectomy 50 yrs ago. Right brachial embolectomy 09/25/17. Colonoscopy - Current Medication List Current Medications: Active Medications Acetaminophen (Tylenol -) 650 mg PO Q6H PRN PRN Reason: PAIN LEVEL 4 - 6 Last Admin: 06/18/18 17:51 Dose: 650 mg Docusate Sodium (Colace -) 100 mg PO BID [facility] Last Admin: 06/19/18 22:58 Dose: 100 mg Gentamicin Sulfate (Garamycin 0.1% Ointment -) 1 applic TP DAILY [facility] Last Admin: 06/19/18 09:46 Dose: 1 applic Lactated Ringer's (Lactated Ringers Solution) 1,000 ml in 1,000 mls @ 42 mls/ hr IV ASDIR [facility] Last Admin: 06/19/18 22:58 Dose: 42 mls/hr Metoprolol Tartrate (Lopressor -) 12.5 mg PO BID [facility] Last Admin: 06/19/18 22:59 Dose: 12.5 mg Oxycodone HCl (Roxicodone -) 5 mg PO Q6H PRN PRN Reason: PAIN LEVEL 6-10 Last Admin: 06/18/18 22:07 Dose: 5 mg Pantoprazole Sodium (Protonix -) 40 mg PO DAILY [facility] Last Admin: 06/19/18 09:41 Dose: 40 mg Senna (Senna -) 2 tab PO HS [facility] Last Admin: 06/19/18 22:58 Dose: 2 tab Warfarin Sodium (Coumadin -) 2 mg PO DAILY@1800 [facility] Last Admin: 06/19/18 18:02 Dose: 2 mg - Objective Vital Signs: Vital Signs Temperature 98 F 06/20/18 05:31 Pulse Rate 74 06/20/18 05:31 Respiratory Rate 20 06/20/18 05:31 Blood Pressure 112/51 L 06/20/18 05:31 O2 Sat by Pulse Oximetry (%) 96 06/19/18 21:00 Eyes: Yes: WNL, Conjunctiva Clear, EOM Intact HENT: Yes: WNL, Atraumatic, Normocephalic Neck: Yes: WNL, Supple, Trachea Midline Cardiovascular: Yes: Pulse Irregular, Murmur, S1, S2 Respiratory: Yes: WNL, Regular, CTA Bilaterally Gastrointestinal: Yes: WNL, Normal Bowel Sounds Genitourinary: Yes: WNL Musculoskeletal: Yes: WNL Extremities: Yes: WNL Edema: No Integumentary: Yes: WNL Neurological: Yes: WNL, Alert, Oriented ...Motor Strength: WNL Psychiatric: Yes: WNL Labs: CBC, BMP 06/20/18 05:30 06/20/18 05:30 INR, PTT INR 1.96 (0.83-1.09) H 06/20/18 05:30 Problem List - Problems (1) Acute pain of left lower extremity Code(s): M79.605 - PAIN IN LEFT LEG (2) Afib Code(s): I48.91 - UNSPECIFIED ATRIAL FIBRILLATION Qualifiers: Atrial fibrillation type: chronic Qualified Code(s): I48.2 - Chronic atrial fibrillation (3) Arterial occlusion, lower extremity Code(s): I70.209 - UNSP ATHSCL [place] ARTERIES OF EXTREMITIES, UNSP EXTREMITY (4) GI bleed Code(s): K92.2 - GASTROINTESTINAL HEMORRHAGE, UNSPECIFIED Qualifiers: GI bleed type/associated pathology: gastrointestinal hemorrhage with hematemesis Qualified Code(s): K92.0 - Hematemesis (5) HTN (hypertension) Code(s): I10 - ESSENTIAL (PRIMARY) HYPERTENSION Qualifiers: Hypertension type: unspecified Qualified Code(s): I10 - Essential (primary ) hypertension (6) Acute hypoxemic respiratory failure Code(s): J96.01 - ACUTE RESPIRATORY FAILURE WITH HYPOXIA (7) Axillary artery embolus Code(s): I74.2 - EMBOLISM AND THROMBOSIS OF ARTERIES OF THE UPPER EXTREMITIES (8) Bladder cancer Code(s): C67.9 - MALIGNANT NEOPLASM OF BLADDER, UNSPECIFIED Qualifiers: Bladder location: unspecified site Qualified Code(s): C67.9 - Malignant neoplasm of bladder, unspecified (9) Coagulopathy Code(s): D68.9 - COAGULATION DEFECT, UNSPECIFIED (10) DVT of upper extremity (deep vein thrombosis) Code(s): I82.629 - ACUTE EMBOLISM AND THROMBOSIS OF DEEP VN UNSP UP EXTREM (11) DVT prophylaxis Code(s): [id number] - (12) GI bleed Code(s): K92.2 - GASTROINTESTINAL HEMORRHAGE, UNSPECIFIED Qualifiers: GI bleed type/associated pathology: unspecified gastrointestinal hemorrhage type Qualified Code(s): K92.2 - Gastrointestinal hemorrhage, unspecified (13) Hypoxemia requiring supplemental oxygen Code(s): R09.02 - HYPOXEMIA; Z99.81 - DEPENDENCE ON SUPPLEMENTAL OXYGEN (14) Mitral stenosis and aortic incompetence Code(s): I08.0 - RHEUMATIC DISORDERS OF BOTH MITRAL AND AORTIC VALVES (15) Mitral valve stenosis Code(s): I05.0 - RHEUMATIC MITRAL STENOSIS Qualifiers: Cardiac valve disease etiology: rheumatic Qualified Code(s): I05.0 - Rheumatic mitral stenosis (16) Severe protein-calorie malnutrition Code(s): E43 - UNSPECIFIED SEVERE PROTEIN-CALORIE MALNUTRITION (17) Vomiting Code(s): R11.10 - VOMITING, UNSPECIFIED Qualifiers: Vomiting type: unspecified Nausea presence: with nausea Assessment/Plan Acute Deep Femoral Artery Occlusion s/p Angiogram/Angioplasty/Thrombolysis/Open Left Femoral Thrombectomy Post op Bleeding Atrial Fibrillation Mitral Stenosis Pulmonary HTN HTN Hyperlipidemia - pulse checks - Continue coumadin for now. Heparin d/c'd over the weekend, keep INR 2-3. - monitor surgical site for bleeding , transfuse PRBCs - monitor urine output, creatinine - pain control - Cardiac Telemetry monitoring
[2018-06-20] MEDS: PANTOPRAZOLE 40 MG TABLET (FP) PO SCH (10:15)
[2018-06-20] MEDS: DOCUSATE SODIUM 100 MG CAPSULE (FP) PO SCH ×2 (10:15→21:13)
[2018-06-20] MEDS: METOPROLOL TARTRATE 25 MG TABLET (FP) PO SCH ×2 (10:16→21:12)
[2018-06-20] MEDS: GENTAMICIN SO4 0.1% TOPICAL OINTMENT 15 GM/TUBE TUBE TP SCH (10:50)
--- NOTE | 2018-06-20 14:17 | PN ---
Progress Note (short form) - Note Progress Note: 87yo F s/p Left femoral artery thrombectomy, seen and examined at bedside. Pt complains of some Left thigh pain. Pt found to be anemic over weekend and was transfused. Last Vital Signs Temp Pulse Resp BP Pulse Ox 98 F 70 20 133/65 96 06/20/18 10:00 06/20/18 10:00 06/20/18 10:00 06/20/18 10:00 06/20/18 09:00 CBC, BMP 06/20/18 05:30 06/20/18 05:30 Gen: resting comfortably in no acute distress Resp: breathing comfortably Abd: soft ,nontender, nondistended LLE: shows DP pulse present, incision clean with no pulsatile swelling, mild tenderness with palpation of left thigh, no edema <Morgan Lizarraga - Last Filed: 06/20/18 14:13> - Note Progress Note: No evidence for expanding hematoma. Will get Duplex to evaluate left thigh <Tim Martin - Last Filed: 06/20/18 20:10> Problem List - Problems (1) Arterial occlusion, lower extremity Assessment/Plan: Plan -Pt appears to have good blood flow in LLE -cont medicine work up of anemia and transfuse as needed -increase ambulation and OOB Code(s): I70.209 - UNSP ATHSCL [place] ARTERIES OF EXTREMITIES, UNSP EXTREMITY <Morgan Lizarraga - Last Filed: 06/20/18 14:13>
[2018-06-20] MEDS ORDERED: IRON SUCROSE INJECTION 300 MG in SODIUM CHLORIDE 235 ML IVPB ONE (15:00)
[2018-06-20] MEDS: LACTATED RINGERS SOLUTION 1,000 ML/1,000 ML INFUS.BAG IV SCH ×2 (16:50→19:15)
[2018-06-20] MEDS: WARFARIN NA 2 MG TABLET (UD) PO SCH (17:52)
[2018-06-20] MEDS: SENNOSIDES 8.6MG TABLET (FP) PO SCH (21:12)
[2018-06-20 23:37] VITALS: BMI 20.7
[2018-06-21 08:16] LABS: BASO % 0.3 % (0-2.0); EOS % 2.2 % (0-4.5); HEMATOCRIT 25.9 % (32.4-45.2); HEMOGLOBIN 9.1 GM/dL (10.7-15.3); LYMPH % 11.8 % (8-40); MCH 32.1 pg (25.7-33.7); MCHC 35.1 g/dl (32.0-36.0); MEAN CELL VOLUME 91.4 fl (80-96); MEAN PLT VOLUME 7.6 fl (7.5-11.1); MONO % 10.3 % (3.8-10.2); NEUT % 75.4 % (42.8-82.8); PLATELET COUNT 174 K/MM3 (134-434); RBC 2.84 M/mm3 (3.60-5.2); RDW 16.2 % (11.6-15.6); WHITE BLOOD COUNT 10.5 K/mm3 (4.0-10.0)
[2018-06-21] MEDS: LACTATED RINGERS SOLUTION 1,000 ML/1,000 ML INFUS.BAG IV SCH (08:58)
[2018-06-21] MEDS: DOCUSATE SODIUM 100 MG CAPSULE (FP) PO SCH ×2 (09:01→21:26)
[2018-06-21] MEDS: PANTOPRAZOLE 40 MG TABLET (FP) PO SCH (09:01)
[2018-06-21] MEDS: METOPROLOL TARTRATE 25 MG TABLET (FP) PO SCH ×2 (09:01→21:26)
[2018-06-21 09:21] LABS: INR 1.92 (0.83-1.09); PROTHROMBIN TIME (PATIENT) 22.8 SEC (9.7-13.0)
[2018-06-21 11:28] LABS: ANISOCYTOSIS 0; MACROCYTOSIS 0; PLATELET ESTIMATE NORMAL
[2018-06-21] MEDS: GENTAMICIN SO4 0.1% TOPICAL OINTMENT 15 GM/TUBE TUBE TP SCH (12:01)
--- NOTE | 2018-06-21 12:32 | PN ---
Progress Note, Physician Chief Complaint: Less SOB, No N/v/d Left thigh swollen with hematoma. The daughter reports today an episode of bleeding after phlebotomy 2 days ago. History of Present Illness: RHD. Mitral stenosis. Chronic AFIB. 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 LE varicose veins. Chronic ulcer left humphrey . History of bladder cancer - Current Medication List Current Medications: Active Medications Acetaminophen (Tylenol -) 650 mg PO Q6H PRN PRN Reason: PAIN LEVEL 4 - 6 Last Admin: 06/18/18 17:51 Dose: 650 mg Docusate Sodium (Colace -) 100 mg PO BID [facility] Last Admin: 06/21/18 09:01 Dose: 100 mg Gentamicin Sulfate (Garamycin 0.1% Ointment -) 1 applic TP DAILY [facility] Last Admin: 06/21/18 12:01 Dose: 1 applic Lactated Ringer's (Lactated Ringers Solution) 1,000 ml in 1,000 mls @ 42 mls/ hr IV ASDIR [facility] Last Admin: 06/21/18 08:58 Dose: 42 mls/hr Metoprolol Tartrate (Lopressor -) 12.5 mg PO BID [facility] Last Admin: 06/21/18 09:01 Dose: 12.5 mg Oxycodone HCl (Roxicodone -) 5 mg PO Q6H PRN PRN Reason: PAIN LEVEL 6-10 Last Admin: 06/18/18 22:07 Dose: 5 mg Pantoprazole Sodium (Protonix -) 40 mg PO DAILY [facility] Last Admin: 06/21/18 09:01 Dose: 40 mg Senna (Senna -) 2 tab PO HS [facility] Last Admin: 06/20/18 21:12 Dose: 2 tab Warfarin Sodium (Coumadin -) 2 mg PO DAILY@1800 [facility] Last Admin: 06/20/18 17:52 Dose: 2 mg - Objective Vital Signs: Vital Signs Temperature 98.2 F 06/21/18 09:06 Pulse Rate 109 H 06/21/18 09:06 Respiratory Rate 20 06/21/18 09:06 Blood Pressure 131/66 06/21/18 09:06 O2 Sat by Pulse Oximetry (%) 93 L 06/21/18 09:00 Constitutional: Yes: Calm, Mild Distress Eyes: Yes: Conjunctiva Clear, EOM Intact HENT: Yes: Atraumatic, Normocephalic Neck: Yes: Supple, Trachea Midline Cardiovascular: Yes: Regular Rate and Rhythm, S1, S2 Respiratory: Yes: Regular, CTA Bilaterally Gastrointestinal: Yes: Normal Bowel Sounds, Soft, Abdomen, Obese ...Rectal Exam: Yes: Deferred Genitourinary: No: Anuria, Bladder Distention, CVA Tenderness - Left, CVA Tenderness - Right Breast(s): Yes: WNL Musculoskeletal: Yes: Other (left thigh soft tissue hematoma) Extremities: Yes: Other (left thigh tenderness). No: Cold, Cool, Cyanosis Edema: Yes Wound/Incision: Yes: Clean/Dry Neurological: Yes: WNL ...Motor Strength: WNL Psychiatric: Yes: WNL Labs: CBC, BMP 06/21/18 05:30 06/20/18 05:30 INR, PTT INR 1.92 (0.83-1.09) H 06/21/18 05:30 Problem List - Problems (1) Afib Assessment/Plan: Follow INR and continue Coumadin. Code(s): I48.91 - UNSPECIFIED ATRIAL FIBRILLATION Qualifiers: Atrial fibrillation type: chronic Qualified Code(s): I48.2 - Chronic atrial fibrillation (2) Arterial occlusion, lower extremity Assessment/Plan: s/p open thrombectomy Left LE. vascular f/u Code(s): I70.209 - UNSP ATHSCL [place] ARTERIES OF EXTREMITIES, UNSP EXTREMITY (3) GI bleed Assessment/Plan: Continue PO Protonix. Follow H/H. 1 unit PRBC give Venofer administered. GI f/u-discussed Code(s): K92.2 - GASTROINTESTINAL HEMORRHAGE, UNSPECIFIED Qualifiers: GI bleed type/associated pathology: gastrointestinal hemorrhage with hematemesis Qualified Code(s): K92.0 - Hematemesis (4) Hematoma of left thigh Assessment/Plan: Continue f/u CBC Code(s): S70.12XA - CONTUSION OF LEFT THIGH, INITIAL ENCOUNTER Qualifiers: Encounter type: subsequent encounter Qualified Code(s): S70.12XD - Contusion of left thigh, subsequent encounter
--- NOTE | 2018-06-21 15:30 | PN ---
GI Progress Note Subjective: GI NOte: Recalled to evaluate dwindling Hb that has required transfusion. The patient has some dyspepsia but denies pain. NO nausea or vomiting. Has better feeling in her left leg. 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 I discussed this situation with Dr. Beltre and advised iron replacement with Venofer to help her keep up with the losses which are clearly being accelerated by her need for anticoagulation. She should therefore be keep at the lowest therapeutic levels of A/C.. She may need help with erythropoietin. If these fail then a small bowel double balloon enteroscopy at a tertiary care center will need to be considered. I discussed this with Diane. She wants to avoid any noncritical interventions Code(s): K55.21 - ANGIODYSPLASIA OF COLON WITH HEMORRHAGE (4) Gastritis Code(s): K29.70 - GASTRITIS, UNSPECIFIED, WITHOUT BLEEDING (5) History of cholecystectomy Code(s): Z90.49 - ACQUIRED ABSENCE OF OTHER SPECIFIED PARTS OF DIGESTIVE TRACT (6) Acute pain of left lower extremity Code(s): M79.605 - PAIN IN LEFT LEG (7) Afib Code(s): I48.91 - UNSPECIFIED ATRIAL FIBRILLATION Qualifiers: Atrial fibrillation type: chronic Qualified Code(s): I48.2 - Chronic atrial fibrillation (8) Mitral valve stenosis Code(s): I05.0 - RHEUMATIC MITRAL STENOSIS Qualifiers: Cardiac valve disease etiology: rheumatic Qualified Code(s): I05.0 - Rheumatic mitral stenosis
[2018-06-21] MEDS ORDERED: METOPROLOL TARTRATE 25 MG TABLET (FP) PO ONE (15:58)
--- NOTE | 2018-06-21 16:32 | PN ---
Progress Note, Physician Chief Complaint: Pt c/o left groin pain; denies chest pain or dyspnea. 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 The pt denies recent trauma/injury and endorses compliance w/ her warfarin. Denies having re-vascularization procedure done in her BLE previously. Reports that her L foot to distal 1/3 LLE has paresthesia and acute on chronic LLE 'cesar-ing'. - Current Medication List Current Medications: Active Medications Acetaminophen (Tylenol -) 650 mg PO Q6H PRN PRN Reason: PAIN LEVEL 4 - 6 Last Admin: 06/18/18 17:51 Dose: 650 mg Docusate Sodium (Colace -) 100 mg PO BID [facility] Last Admin: 06/21/18 09:01 Dose: 100 mg Gentamicin Sulfate (Garamycin 0.1% Ointment -) 1 applic TP DAILY [facility] Last Admin: 06/21/18 12:01 Dose: 1 applic Lactated Ringer's (Lactated Ringers Solution) 1,000 ml in 1,000 mls @ 42 mls/ hr IV ASDIR [facility] Last Admin: 06/21/18 08:58 Dose: 42 mls/hr Metoprolol Tartrate (Lopressor -) 25 mg PO BID [facility] Pantoprazole Sodium (Protonix -) 40 mg PO DAILY [facility] Last Admin: 06/21/18 09:01 Dose: 40 mg Senna (Senna -) 2 tab PO HS [facility] Last Admin: 06/20/18 21:12 Dose: 2 tab Warfarin Sodium (Coumadin -) 2 mg PO DAILY@1800 [facility] Last Admin: 06/20/18 17:52 Dose: 2 mg - Objective Vital Signs: Vital Signs Temperature 97.9 F 06/21/18 15:06 Pulse Rate 81 06/21/18 15:06 Respiratory Rate 20 06/21/18 15:06 Blood Pressure 130/53 L 06/21/18 15:06 O2 Sat by Pulse Oximetry (%) 93 L 06/21/18 09:00 Constitutional: Yes: Calm Eyes: Yes: WNL HENT: Yes: WNL Neck: Yes: WNL Cardiovascular: Yes: S1 (varies in intentisy), S2 Respiratory: Yes: Regular Gastrointestinal: Yes: Soft ...Rectal Exam: Yes: Deferred Genitourinary: No: Anuria Breast(s): Yes: WNL Musculoskeletal: Yes: Muscle Weakness Extremities: Yes: Cool Edema: Yes Edema: LUE: 1+ (s/p angioplasty/throbectomy) Peripheral Pulses WNL: No Peripheral Pulses: Left Doralis Pedis: 1+, Right Dorsalis Pedis: 1+ Integumentary: Yes: Incision (dressing dry over left groin cath site; mildly tender and swollen) Wound/Incision: Yes: Dressing Dry and Intact Neurological: Yes: Alert, Oriented, Weakness Psychiatric: Yes: WNL Labs: CBC, BMP 06/21/18 05:30 06/20/18 05:30 INR, PTT INR 1.92 (0.83-1.09) H 06/21/18 05:30 Abnormal Lab Results 06/21/18 06/21/18 05:30 05:30 WBC 10.5 H RBC 2.84 L Hgb 9.1 L Hct 25.9 L D RDW 16.2 H Monocytes % 10.3 H PT with INR 22.80 H INR 1.92 H - ....Imaging Other: Image Reviewed (telemetry: AF with recent periods of RVR) Problem List - Problems (1) Moderate to severe pulmonary hypertension Assessment/Plan: Hx diastolic CHF, moderate MS and AR. Code(s): I27.20 - PULMONARY HYPERTENSION, UNSPECIFIED (2) Afib Assessment/Plan: Now off digoxin. On metoprolol for HR and BP control; telemetry shows periods of AF with RVR; will increase metoprolol to 25 mg bid. Keep INR 2-3 with warfarin. Code(s): I48.91 - UNSPECIFIED ATRIAL FIBRILLATION Qualifiers: Atrial fibrillation type: chronic Qualified Code(s): I48.2 - Chronic atrial fibrillation (3) Arterial occlusion, lower extremity Assessment/Plan: Deep femoral artery occlusion distal to origin. Distal SFA occlusion. Popliteal AT and PT arteries: patent. Pt is now s/p LE Angiogram with angioplasty and TPA administration of left deep and superficial femoral artery; open left femoral thrombectomy (Dr. Martin). co pain at left groin; site; mild swelling and tenderness of thigh; decrease in Hb. Fu with vascular surgeon. On warfarin; keep therapeutic INR. Code(s): I70.209 - UNSP ATHSCL [place] ARTERIES OF EXTREMITIES, UNSP EXTREMITY (4) HTN (hypertension) Code(s): I10 - ESSENTIAL (PRIMARY) HYPERTENSION Qualifiers: Hypertension type: unspecified Qualified Code(s): I10 - Essential (primary ) hypertension (5) Mitral stenosis and aortic incompetence Code(s): I08.0 - RHEUMATIC DISORDERS OF BOTH MITRAL AND AORTIC VALVES (6) Severe protein-calorie malnutrition Code(s): E43 - UNSPECIFIED SEVERE PROTEIN-CALORIE MALNUTRITION (7) Pericardial effusion Assessment/Plan: Mild amount, without hemodynamic compromise (on ECHO). Code(s): I31.3 - PERICARDIAL EFFUSION (NONINFLAMMATORY) (8) Cardiomegaly Assessment/Plan: ECHO:normal LVEF and LV size; significant bilateral atrial dilatation; moderate MS; moderately severe TR, moderate AR and AR; mild pericardial effusion. Code(s): I51.7 - CARDIOMEGALY (9) Anemia Code(s): D64.9 - ANEMIA, UNSPECIFIED
[2018-06-21] MEDS: WARFARIN NA 2 MG TABLET (UD) PO SCH (18:24)
--- NOTE | 2018-06-21 19:39 | PN ---
Progress Note (short form) - Note Progress Note: No c/o VSS Left groin incision clean and dry Left thigh swelling unchanged, soft, non-tender Left foot warm. Duplex left thigh showed fluid collection without evidence for pseudoaneurysm. Arterial flow intact. Stable, no further signs of bleeding. Continue current regimen. May be discharged as per Medicine.
[2018-06-21] MEDS: SENNOSIDES 8.6MG TABLET (FP) PO SCH (21:26)
[2018-06-21] MEDS ORDERED: METOPROLOL TARTRATE 25 MG TABLET (FP) PO SCH (22:00)
[2018-06-22 06:35] LABS: BASO % 0.4 % (0-2.0); HEMATOCRIT 27.8 % (32.4-45.2); HEMOGLOBIN 9.4 GM/dL (10.7-15.3); LYMPH % 8.4 % (8-40); MCH 31.8 pg (25.7-33.7); MCHC 33.8 g/dl (32.0-36.0); MEAN PLT VOLUME 7.4 fl (7.5-11.1); MONO % 10.7 % (3.8-10.2); NEUT % 79.5 % (42.8-82.8); PLATELET COUNT 216 K/MM3 (134-434); RBC 2.96 M/mm3 (3.60-5.2); RDW 16.5 % (11.6-15.6); WHITE BLOOD COUNT 11.4 K/mm3 (4.0-10.0)
--- NOTE | 2018-06-22 08:16 | PN ---
Progress Note (short form) - Note Progress Note: Dr Martin note appreciated. US showed LLE fluid collection , but no pseudoaneurysm. C/o LLE dyscomfort Vital Signs Temp 99.8 F H 06/22/18 05:33 Pulse 102 H 06/22/18 05:33 Resp 20 06/22/18 05:33 BP 136/59 L 06/22/18 05:33 Pulse Ox 95 06/21/18 20:43 Intake & Output 06/21/18 06/21/18 06/22/18 11:59 23:59 11:59 Intake Total 504 1100 504 Balance 504 1100 504 Intake: IV 504 460 504 LACTATED RINGERS SOLUTION 504 460 504 1,000 ml In 1,000 ml @ 42 mls/hr IV ASDIR [facility] Rx #:[id number] Oral 640 Other: Voiding Method Toilet Toilet # Unmeasured Voids Void 2 1 Bowel Movement Yes: small Body Mass Index (BMI) 20.7 Labs noted HCT 27-stable Laboratory Results - last 24 hr 06/21/18 06/21/18 06/22/18 05:30 05:30 05:30 WBC 10.5 H RBC 2.84 L Hgb 9.1 L Hct 25.9 L D MCV 91.4 MCH 32.1 MCHC 35.1 RDW 16.2 H Plt Count 174 D MPV 7.6 Absolute Neuts (auto) 7.9 Neutrophils % 75.4 Neutrophils % (Manual) 78.0 Band Neutrophils % 0.0 Lymphocytes % 11.8 D Lymphocytes % (Manual) 8.0 D Monocytes % 10.3 H Monocytes % (Manual) 8 Eosinophils % 2.2 Eosinophils % (Manual) 3.0 Basophils % 0.3 Basophils % (Manual) 0.0 Myelocytes % (Man) 1 D Promyelocytes % (Man) 0 Blast Cells % (Manual) 0 Nucleated RBC % 0 Metamyelocytes 1 D Hypochromia 0 Platelet Estimate Normal Polychromasia 1+ Poikilocytosis 0 Anisocytosis 0 Microcytosis 0 Macrocytosis 0 Retic Count PT with INR 22.80 H INR 1.92 H PTT (Actin FS) 31.7 Ferritin 06/22/18 06/22/18 06/22/18 05:30 05:30 05:30 WBC 11.4 H RBC 2.96 L Hgb 9.4 L Hct 27.8 L MCV 94.0 MCH 31.8 MCHC 33.8 RDW 16.5 H Plt Count 216 D MPV 7.4 L Absolute Neuts (auto) 9.0 H Neutrophils % 79.5 Neutrophils % (Manual) Band Neutrophils % Lymphocytes % 8.4 D Lymphocytes % (Manual) Monocytes % 10.7 H Monocytes % (Manual) Eosinophils % 1.0 Eosinophils % (Manual) Basophils % 0.4 Basophils % (Manual) Myelocytes % (Man) Promyelocytes % (Man) Blast Cells % (Manual) Nucleated RBC % 0 Metamyelocytes Hypochromia Platelet Estimate Polychromasia Poikilocytosis Anisocytosis Microcytosis Macrocytosis Retic Count 4.53 H D PT with INR INR PTT (Actin FS) Ferritin 760.0 H INR-pending. Awake, alert Neck JVD Lungs Clear. Heart S1s2 OS, pre-systolic and protodiastolic murmur. abdomen soft, NT Ext LLE thigh hematoma, foot warm, not cyanotic, wound improves Groin dreassing clean Current Active Problems Problem Status Onset Acute pain of left lower extremity Acute Afib Acute Anemia Acute Angiodysplasia of colon with hemorrhage Acute Arterial occlusion, lower extremity Acute Cardiomegaly Acute Dyspepsia Acute GI bleed Acute Gastritis Acute HTN (hypertension) Acute Hematoma of left thigh Acute History of cholecystectomy Acute Moderate to severe pulmonary hypertension Acute Nausea Acute Pericardial effusion Acute Plan Would administer 1 dose of Venofer D/C on PO comadin Keep INR 2-3 Control VR AFIB Vascular f/u as outpt Problem List - Problems (1) Afib Code(s): I48.91 - UNSPECIFIED ATRIAL FIBRILLATION Qualifiers: Atrial fibrillation type: chronic Qualified Code(s): I48.2 - Chronic atrial fibrillation (2) Arterial occlusion, lower extremity Code(s): I70.209 - UNSP ATHSCL [place] ARTERIES OF EXTREMITIES, UNSP EXTREMITY (3) GI bleed Code(s): K92.2 - GASTROINTESTINAL HEMORRHAGE, UNSPECIFIED Qualifiers: GI bleed type/associated pathology: gastrointestinal hemorrhage with hematemesis Qualified Code(s): K92.0 - Hematemesis (4) Hematoma of left thigh Code(s): S70.12XA - CONTUSION OF LEFT THIGH, INITIAL ENCOUNTER Qualifiers: Encounter type: subsequent encounter Qualified Code(s): S70.12XD - Contusion of left thigh, subsequent encounter
--- NOTE | 2018-06-22 08:19 | DS ---
Physical Examination Vital Signs: Vital Signs Temperature 99.8 F H 06/22/18 05:33 Pulse Rate 102 H 06/22/18 05:33 Respiratory Rate 20 06/22/18 05:33 Blood Pressure 136/59 L 06/22/18 05:33 O2 Sat by Pulse Oximetry (%) 95 06/21/18 20:43 Constitutional: Yes: No Distress, Calm, Pallor, Thin Eyes: Yes: Conjunctiva Clear, EOM Intact HENT: Yes: Atraumatic, Normocephalic Neck: Yes: Supple, Trachea Midline Cardiovascular: Yes: Pulse Irregular, JVD, Murmur (diastolic), S1, S2 Respiratory: Yes: Regular, CTA Bilaterally Gastrointestinal: Yes: Normal Bowel Sounds, Soft, Hepatomegaly. No: Abdomen, Obese, Vomiting ...Rectal Exam: Yes: Deferred Renal/: No: Anuria, Bladder Distention, CVA Tenderness - Left, CVA Tenderness - Right Breast(s): Yes: WNL Edema: Yes Edema: LLE: 2+ (Hematoma) Wound/Incision: Yes: Clean/Dry Neurological: Yes: Alert, Oriented, Cran Nerves II-XII Intact. No: Aphasia, Asterixis, Confusion, Dysarthria, Loss of Sensation, Numbness ...Motor Strength: WNL Psychiatric: Yes: WNL Labs: CBC, BMP 06/22/18 05:30 06/20/18 05:30 Discharge Summary Reason For Visit: OCCLUSION OF ARTERY OF LOWER EXTREMITY/AFIB/MS Current Active Problems Acute pain of left lower extremity (Acute) Afib (Acute) Anemia (Acute) Angiodysplasia of colon with hemorrhage (Acute) Arterial occlusion, lower extremity (Acute) Cardiomegaly (Acute) Dyspepsia (Acute) GI bleed (Acute) Gastritis (Acute) HTN (hypertension) (Acute) Hematoma of left thigh (Acute) History of cholecystectomy (Acute) Moderate to severe pulmonary hypertension (Acute) Nausea (Acute) Pericardial effusion (Acute) Condition: Improved - Instructions Diet, Activity, Other Instructions: low sodium 2000 sivan Referrals: Paul Beltre MD [Primary Care Provider] - Disposition: HOME - Home Medications Comprehensive Discharge Medication List: Ambulatory Orders Digoxin [Lanoxin -] 0.25 mg PO Q48H 09/12/17 Metoprolol Tartrate [Lopressor -] 25 mg PO BID 06/02/18 Warfarin Sodium [Coumadin] 2 mg PO DAILY 06/14/18 F/u with Dr Martin in the office PT/INR weekly F/u with PMD next week Wound care f/u
[2018-06-22 08:55] LABS: INR 1.56 (0.83-1.09); PROTHROMBIN TIME (PATIENT) 18.5 SEC (9.7-13.0)
[2018-06-22] MEDS ORDERED: IRON SUCROSE INJECTION 100 MG in SODIUM CHLORIDE 95 ML IVPB ONE (09:00)
[2018-06-22] MEDS: PANTOPRAZOLE 40 MG TABLET (FP) PO SCH (09:55)
[2018-06-22] MEDS: DOCUSATE SODIUM 100 MG CAPSULE (FP) PO SCH (09:55)
[2018-06-22] MEDS: METOPROLOL TARTRATE 25 MG TABLET (FP) PO SCH (09:55)
[2018-06-22] MEDS: GENTAMICIN SO4 0.1% TOPICAL OINTMENT 15 GM/TUBE TUBE TP SCH (09:56)
[2018-06-22 14:20] VITALS: BP 110/43; PULSE 109; TEMP 99.3
--- NOTE | 2018-06-22 15:47 | PN ---
Progress Note, Physician History of Present Illness: HPI: Called to evaluate 87 yo w/ PMHx as noted below. Arrives at [facility] ED secondary to c/o acute LLE pain x 4 hours. Grandson at bedside an acting as air analysis technician as she only speaks [place]. Reports that her distal 1/3 LLE to her toes has paresthesia and acute color change. Per Grandson, grandmother is very active (ambulates, gardens, walks w/o complaint of feeling like her legs get tired). Patient is compliant with her Coumadin (Afib). Denies fever, chills, CP, palpitations, SOB, [place]. Denies rest pain or claudication. PMHx: Mitral Valve Stenosis, Afib, CVA, H. Pylori, HTN, RUE arterial occlusion, Chronic LLE wound, GI Bleed (AVM). PAD? PSHx: Cholecystectomy 50 yrs ago. Right brachial embolectomy 09/25/17. Colonoscopy - Objective Vital Signs: Vital Signs Temperature 99.3 F 06/22/18 14:00 Pulse Rate 109 H 06/22/18 14:00 Respiratory Rate 20 06/22/18 14:00 Blood Pressure 110/43 L 06/22/18 14:00 O2 Sat by Pulse Oximetry (%) 92 L 06/22/18 09:00 Eyes: Yes: WNL, Conjunctiva Clear, EOM Intact HENT: Yes: WNL, Atraumatic, Normocephalic Neck: Yes: WNL, Supple, Trachea Midline Cardiovascular: Yes: Pulse Irregular, Murmur Respiratory: Yes: WNL, Regular, CTA Bilaterally Gastrointestinal: Yes: WNL, Normal Bowel Sounds Genitourinary: Yes: WNL Musculoskeletal: Yes: WNL Extremities: Yes: WNL Edema: No Integumentary: Yes: WNL Neurological: Yes: WNL, Alert, Oriented ...Motor Strength: WNL Psychiatric: Yes: WNL Labs: CBC, BMP 06/22/18 05:30 06/20/18 05:30 INR, PTT INR 1.56 (0.83-1.09) H 06/22/18 05:30 Problem List - Problems (1) Acute pain of left lower extremity Code(s): M79.605 - PAIN IN LEFT LEG (2) Afib Code(s): I48.91 - UNSPECIFIED ATRIAL FIBRILLATION Qualifiers: Atrial fibrillation type: chronic Qualified Code(s): I48.2 - Chronic atrial fibrillation (3) Arterial occlusion, lower extremity Code(s): I70.209 - UNSP ATHSCL [place] ARTERIES OF EXTREMITIES, UNSP EXTREMITY (4) GI bleed Code(s): K92.2 - GASTROINTESTINAL HEMORRHAGE, UNSPECIFIED Qualifiers: GI bleed type/associated pathology: gastrointestinal hemorrhage with hematemesis Qualified Code(s): K92.0 - Hematemesis (5) HTN (hypertension) Code(s): I10 - ESSENTIAL (PRIMARY) HYPERTENSION Qualifiers: Hypertension type: unspecified Qualified Code(s): I10 - Essential (primary ) hypertension (6) Acute hypoxemic respiratory failure Code(s): J96.01 - ACUTE RESPIRATORY FAILURE WITH HYPOXIA (7) Axillary artery embolus Code(s): I74.2 - EMBOLISM AND THROMBOSIS OF ARTERIES OF THE UPPER EXTREMITIES (8) Bladder cancer Code(s): C67.9 - MALIGNANT NEOPLASM OF BLADDER, UNSPECIFIED Qualifiers: Bladder location: unspecified site Qualified Code(s): C67.9 - Malignant neoplasm of bladder, unspecified (9) Coagulopathy Code(s): D68.9 - COAGULATION DEFECT, UNSPECIFIED (10) DVT of upper extremity (deep vein thrombosis) Code(s): I82.629 - ACUTE EMBOLISM AND THROMBOSIS OF DEEP VN UNSP UP EXTREM (11) DVT prophylaxis Code(s): [id number] - (12) GI bleed Code(s): K92.2 - GASTROINTESTINAL HEMORRHAGE, UNSPECIFIED Qualifiers: GI bleed type/associated pathology: unspecified gastrointestinal hemorrhage type Qualified Code(s): K92.2 - Gastrointestinal hemorrhage, unspecified (13) Hypoxemia requiring supplemental oxygen Code(s): R09.02 - HYPOXEMIA; Z99.81 - DEPENDENCE ON SUPPLEMENTAL OXYGEN (14) Mitral stenosis and aortic incompetence Code(s): I08.0 - RHEUMATIC DISORDERS OF BOTH MITRAL AND AORTIC VALVES (15) Mitral valve stenosis Code(s): I05.0 - RHEUMATIC MITRAL STENOSIS Qualifiers: Cardiac valve disease etiology: rheumatic Qualified Code(s): I05.0 - Rheumatic mitral stenosis (16) Severe protein-calorie malnutrition Code(s): E43 - UNSPECIFIED SEVERE PROTEIN-CALORIE MALNUTRITION (17) Vomiting Code(s): R11.10 - VOMITING, UNSPECIFIED Qualifiers: Vomiting type: unspecified Nausea presence: with nausea Assessment/Plan - Problems (1) Moderate to severe pulmonary hypertension Assessment/Plan: Hx diastolic CHF, moderate MS and AR. Code(s): I27.20 - PULMONARY HYPERTENSION, UNSPECIFIED (2) Afib Assessment/Plan: Now off digoxin. On metoprolol for HR and BP control; telemetry shows periods of AF with RVR; will increase metoprolol to 25 mg bid. Keep INR 2-3 with warfarin. Code(s): I48.91 - UNSPECIFIED ATRIAL FIBRILLATION Qualifiers: Atrial fibrillation type: chronic Qualified Code(s): I48.2 - Chronic atrial fibrillation (3) Arterial occlusion, lower extremity Assessment/Plan: Deep femoral artery occlusion distal to origin. Distal SFA occlusion. Popliteal AT and PT arteries: patent. Pt is now s/p LE Angiogram with angioplasty and TPA administration of left deep and superficial femoral artery; open left femoral thrombectomy (Dr. Martin). On warfarin; keep therapeutic INR.
[2018-06-23 03:15] LABS: SERUM IRON SATURATION 16 % (15-55); TOTAL IRON BINDING CAPACITY 225 ug/dL (250-450); UIBC 189 ug/dL (118-369)
== END 2018-06-22 15:43 | disposition home health service (06) | DRG 252 ==
LOC: JER 13:03 → JERBED 17:39 → J7W 20:40 → JICU 06-15 22:46 → J4W 06-19 21:00
PROVIDERS: ADMIT Internal Medicine; ATTEND Internal Medicine
PROC: 3E05017 Introduction of Other Thrombolytic into Peripheral Artery, Open Approach (ICD-10-PCS; 2018-06-15)
PROC: 30233N1 Transfusion of Nonautologous Red Blood Cells into Peripheral Vein, Percutaneous Approach (ICD-10-PCS; 2018-06-15)
PROC: 04CL0ZZ Extirpation of Matter from Left Femoral Artery, Open Approach (ICD-10-PCS; principal; 2018-06-15 17:00)
DX: I70.209 Unspecified atherosclerosis of native arteries of extremities, unspecified extremity (principal); E43 Unspecified severe protein-calorie malnutrition; I74.9 Embolism and thrombosis of unspecified artery; I31.3 Pericardial effusion (noninflammatory); I97.638 Postprocedural hematoma of a circulatory system organ or structure following other circulatory system procedure; I97.618 Postprocedural hemorrhage of a circulatory system organ or structure following other circulatory system procedure; D62 Acute posthemorrhagic anemia; I10 Essential (primary) hypertension; I48.2 Chronic atrial fibrillation; I95.81 Postprocedural hypotension; I83.008 Varicose veins of unspecified lower extremity with ulcer other part of lower leg; Z68.20 Body mass index [BMI] 20.0-20.9, adult; I27.20 Pulmonary hypertension, unspecified; D72.829 Elevated white blood cell count, unspecified; D69.6 Thrombocytopenia, unspecified; Y83.9 Surgical procedure, unspecified as the cause of abnormal reaction of the patient, or of later complication, without mention of misadventure at the time of the procedure
CPT/HCPCS: 36415; 36430; 36511; 71045-TC-FY; 75635-TC; 76000-TC-FY; 80053; 80061; 80162; 82248; 82550; 82728; 83036; 83540; 83550; 83605; 83721; 83735; 83880; 84100; 84443; 84484; 85025; 85027; 85044; 85610; 85730; 86850; 86900; 86901; 86922; 88304-TC; 93005; 93010; 93306-TC; 93926-TC; 94760; 97116-GP; 97162-GP; 99285-25; J0131; J1644; J1756; P9038; P9058

== ENCOUNTER 2019-06-26 10:45 | Inpatient (IN) | payer OTHER ==
--- NOTE | 2019-06-26 12:07 | PDOC ---
History of Present Illness - General Chief Complaint: Rectal Bleed Stated Complaint: ABD/RECTAL BLEEDING Time Seen by Provider: 06/26/19 12:01 - History of Present Illness Initial Comments: 06/26/19 12:32 HPI: 88 y/o F with hx of DVT, ?RUE aa occlusion, angiodysplasia of the colon c/b GI hemorrhage, Afib on warfarin, HTN, mitral stenosis presenting with 5 days of generalized weakness. She notes dark black loose stools over the same amount of time. She also endorses LLQ abd pain that is on nonradiating and 3/10 pain; difficult to characterize and without any specific pattern. She denies LH, dizziness, chest pain, SOB, n/v, falls, syncope. PMHx: as noted above ROS: as noted SHx: Denies tobacco use; no alcohol use; no rec drugs Allergies: NKDA ROS: GENERAL/CONSTITUTIONAL: No fever or chills. +generalized weakness. HEAD, EYES, EARS, NOSE AND THROAT: No change in vision. No ear pain or discharge. No sore throat. CARDIOVASCULAR: No chest pain or shortness of breath RESPIRATORY: No cough, wheezing, or hemoptysis. GASTROINTESTINAL: No nausea, vomiting, diarrhea or constipation. GENITOURINARY: No dysuria, frequency, or change in urination. MUSCULOSKELETAL: No joint or muscle swelling or pain. No neck or back pain. SKIN: No rash NEUROLOGIC: No headache, vertigo, loss of consciousness, or change in strength/ sensation. ENDOCRINE: No increased thirst. No abnormal weight change HEMATOLOGIC/LYMPHATIC: +hx of blood clots. ALLERGIC/IMMUNOLOGIC: No hives or skin allergy. PE: GENERAL: Awake, alert, and fully oriented, no acute distress HEAD: No signs of trauma, normocephalic, atraumatic EYES: EOMI, sclera anicteric, conjunctiva clear ENT: Auricles normal inspection, hearing grossly normal, nares patent, oropharynx clear without exudates. Moist mucosa NECK: Normal ROM, no lymphadenopathy LUNGS: No increased work of breathing, symmetrical chest rise, clear to auscultation bilaterally, no wheezes, crackles or rhonchi HEART: Regular rate, regular rhythm, normal S1 and S2, no murmur, peripheral pulses 2+ and equal bilaterally. ABDOMEN: Soft, nondistended, generalized abd ttp without guarding, normoactive bowel sounds. No masses. No CVAT MUSCULOSKELETAL: FROM NEUROLOGICAL: Cranial nerves II through XII grossly intact. Normal speech, normal gait, no focal sensorimotor deficits SKIN: Warm, Dry, normal turgor, no rashes or lesions noted Past History - Past Medical History Allergies/Adverse Reactions: Allergies Allergy/AdvReac Type Severity Reaction Status Date / Time No Known Allergies Allergy Verified 06/26/19 11:30 Home Medications: Ambulatory Orders Digoxin [Lanoxin -] 0.25 mg PO Q48H 09/12/17 Metoprolol Tartrate [Lopressor -] 25 mg PO BID 06/02/18 Warfarin Sodium [Coumadin] 2 mg PO DAILY 06/14/18 Anemia: No Asthma: No Cancer: Yes (Bladder Ca (in remission)) Cardiac Disorders: Yes (MITRAL VALVE STENOSIS, afib on Coumadin) CVA: Yes COPD: No Dementia: Yes (Forgetful) GI Disorders: Yes (H Pylori) HTN: Yes - Surgical History Cholecystectomy: Yes (50 yrs ago) - Immunization History Td Vaccination: No Immunization Up to Date: No - Psycho Social/Smoking Cessation Hx Smoking History: Never smoked Have you smoked in the past 12 months: No Information on smoking cessation initiated: No Hx Alcohol Use: No Drug/Substance Use Hx: No Substance Use Type: None *Physical Exam - Vital Signs Last Vital Signs Temp Pulse Resp BP Pulse Ox 98.1 F 67 17 111/60 98 06/26/19 11:26 06/26/19 11:26 06/26/19 11:26 06/26/19 11:26 06/26/19 11:26 ED Treatment Course - LABORATORY CBC & Chemistry Diagram: 06/26/19 12:13 06/26/19 12:13 Medical Decision Making - Medical Decision Making 06/26/19 12:46 88 y/o F with hx of DVT, ?RUE aa occlusion, angiodysplasia of the colon c/b GI hemorrhage, Afib on warfarin, HTN, mitral stenosis presenting with 5 days of generalized weakness associated with LLQ abd pain and black stools. VSS, AF. PE with generalized abd ttp without guarding. -t&s, cbc, cmp, coags, trop, ua, ekg 06/26/19 14:52 FOBT positive Hb 12.[address] Lockwood regarding admission for serial H+H and agrees with plan admitted to Dr Beltre for subthera INR, GI bleed; requesting cardio consult with Becky Discharge - Discharge Information Problems reviewed: Yes Clinical Impression/Diagnosis: Subtherapeutic international normalized ratio (INR) GI bleed Qualifiers: GI bleed type/associated pathology: melena Qualified Code(s): K92.1 - Melena Afib Qualifiers: Atrial fibrillation type: unspecified Qualified Code(s): I48.91 - Unspecified atrial fibrillation Mitral valve stenosis Qualifiers: Cardiac valve disease etiology: etiology unspecified Qualified Code(s): I05.0 - Rheumatic mitral stenosis Condition: Stable - Admission Yes - Follow up/Referral Referrals: Paul Beltre MD [Primary Care Provider] - - Patient Discharge Instructions - Post Discharge Activity
[2019-06-26 13:28] LABS: BASO % 0.5 % (0-2.0); EOS % 1.5 % (0-4.5); HEMATOCRIT 36.9 % (32.4-45.2); HEMOGLOBIN 12.3 GM/dL (10.7-15.3); LYMPH % 24.6 % (8-40); MCH 31.7 pg (25.7-33.7); MCHC 33.3 g/dl (32.0-36.0); MEAN CELL VOLUME 95.2 fl (80-96); MEAN PLT VOLUME 8.7 fl (7.5-11.1); MONO % 12.1 % (3.8-10.2); NEUT % 61.3 % (42.8-82.8); PLATELET COUNT 149 K/MM3 (134-434); RBC 3.87 M/mm3 (3.60-5.2); RDW 14.8 % (11.6-15.6); WHITE BLOOD COUNT 5.2 K/mm3 (4.0-10.0)
[2019-06-26 13:42] LABS: INR 1.8 (0.83-1.09); PROTHROMBIN TIME (PATIENT) 21.4 SEC (9.7-13.0)
[2019-06-26 13:45] LABS: ACTIVATED PTT 36.7 SECONDS (25.2-36.5)
[2019-06-26 14:12] LABS: ALBUMIN 3.5 g/dl (3.4-5.0); BILIRUBIN,TOTAL 1.2 mg/dL (0.2-1); BLOOD UREA NITROGEN 22.5 mg/dL (7-18); CALCIUM 9.8 mg/dL (8.5-10.1); POTASSIUM 4.5 mmol/L (3.5-5.1); TOT PROT 6.9 g/dl (6.4-8.2)
--- NOTE | 2019-06-26 14:47 | PDOC ---
Documentation entered by Steven Mcleod SCRIBE, acting as scribe for Neris Villela MD. Neris Villela MD: This documentation has been prepared by the Shani cisneros Nirvannie, SCRIBE, under my direction and personally reviewed by me in its entirety. I confirm that the documentation accurately reflects all work, treatment, procedures, and medical decision making performed by me. Attending Attestation - Resident Resident Name: Margaret Baker - ED Attending Attestation I have performed the following: I have examined & evaluated the patient, The case was reviewed & discussed with the resident, I agree w/resident's findings & plan, Exceptions are as noted - HPI HPI: 06/26/19 14:42 The patient is a 88 year old female, with a significant past medical history of HTN, mitral valve stenosis, AFib (on warfarin), CVA, Dementia, H Pylori, DVT, angiodysplasia of the colon c/b GI hemorrhage who presents to the emergency department with 5 days of generalized weakness and melena. She denies recent chest pain or shortness of breath. Allergies: NKA Past surgical history: Cholecystectomy Primary Care Physician: Dr. Beltre - Physicial Exam PE: 06/26/19 14:42 GENERAL: In no acute distress LUNGS: Breath sounds equal, clear to auscultation bilaterally. No wheezes, and no crackles HEART: Regular rate and rhythm, normal S1 and S2, no murmurs, rubs or gallops ABDOMEN: +Mild diffuse tenderness. Soft, normoactive bowel sounds. No guarding , no rebound. No masses - Medical Decision Making 06/26/19 14:44 Pt presents to the ED complaining of generalized weakness and black, tarry stools for the last 4 days. Denies nausea, vomiting or fever. Denies abdominal pain. History of GIB in the past secondary to AVM. black guiac positive stool. Case discussed with Dr. Lockwood, who recommends admission. Will check labs and admit to medicine.
--- NOTE | 2019-06-26 15:47 | HP ---
Admitting History and Physical - Admission Chief Complaint: Black stools and weakness . Stopped Coumadin yesterday. History of Present Illness: 88 y.o F presented to the ER with black stools. History GI bleed in the past. RHD. Mitral stenosis. Chronic AFIB. 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 LE varicose veins. Chronic ulcer left humphrey . 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 No: Ascites Hepatobiliary: No: Cirrhosis, Cholelithiasis Renal/: Yes: Cancer (bladder (in remission)). No: BPH Reproductive: Yes: Postmenopausal Rheumatology: Yes: Other (RHD) - Past Surgical History Past Surgical History: Yes: Cholecystectomy (Open), Colonoscopy, Upper Endoscopy - Smoking History Smoking history: Never smoked Have you smoked in the past 12 months: No - Alcohol/Substance Use Hx Alcohol Use: No - Social History ADL: Family Assistance History of Recent Travel: No Home Medications - Allergies Allergies/Adverse Reactions: Allergies Allergy/AdvReac Type Severity Reaction Status Date / Time No Known Allergies Allergy Verified 06/26/19 11:30 - Home Medications Home Medications: Ambulatory Orders Digoxin [Lanoxin -] 0.25 mg PO Q48H 09/12/17 Metoprolol Tartrate [Lopressor -] 25 mg PO BID 06/02/18 Warfarin Sodium [Coumadin] 2 mg PO DAILY 06/14/18 Family Medical History Family History: Unremarkable Review of Systems - Review of Systems Constitutional: reports: Weakness. denies: Chills, Diaphoresis, Fever Eyes: reports: No Symptoms HENT: reports: No Symptoms Neck: reports: No Symptoms Cardiovascular: reports: Edema, Shortness of Breath. denies: Chest Pain Respiratory: reports: Exercise Intolerance, SOB, SOB on Exertion. denies: Cough , Hemoptysis, PND, Snoring Gastrointestinal: reports: Melena, Rectal Bleeding. denies: Abdominal Pain, Bloating, Vomiting, Vomiting Blood Genitourinary: reports: No Symptoms Breasts: reports: No Symptoms Reported Musculoskeletal: reports: Muscle Weakness Integumentary: reports: No Symptoms Neurological: denies: Change in LOC, Change in Speech Endocrine: reports: No Symptoms Hematology/Lymphatic: denies: Easily Bruised, Excessive Bleeding Psychiatric: reports: No Symptoms Physical Examination Vital Signs: Vital Signs Temperature 98.1 F 06/26/19 11:26 Pulse Rate 67 06/26/19 11:26 Respiratory Rate 17 06/26/19 11:26 Blood Pressure 111/60 06/26/19 11:26 O2 Sat by Pulse Oximetry (%) 98 06/26/19 11:26 Constitutional: Yes: No Distress, Anxious, Pallor, Thin Eyes: Yes: Conjunctiva Clear, EOM Intact HENT: Yes: Atraumatic, Normocephalic. No: Drooling Neck: Yes: Supple. No: Trachea Midline, Decreased ROM, Lymphadenopathy, Tenderness Cardiovascular: Yes: Pulse Irregular, JVD, S1, S2, Varicosities (LE). No: Regular Rate and Rhythm, Bradycardia, Tachycardia Respiratory: Yes: Regular, CTA Bilaterally. No: Accessory Muscle Use, Stridor, Tachypnea, Wheezes Gastrointestinal: Yes: Normal Bowel Sounds, Soft. No: Abdomen, Obese, Ascites, Palpable Mass, Tenderness ...Rectal Exam: Yes: Deferred Renal/: No: Anuria, Bladder Distention, CVA Tenderness - Left, CVA Tenderness - Right Breast(s): Yes: WNL Musculoskeletal: Yes: Muscle Weakness Extremities: Yes: Cyanosis. No: Amputation, Calf Tenderness, Cold Edema: Yes Peripheral Pulses WNL: Yes Integumentary: Yes: WNL Neurological: Yes: WNL ...Motor Strength: WNL Psychiatric: Yes: WNL Labs: CBC, BMP 06/26/19 12:13 06/26/19 12:13 Laboratory Results - last 24 hr 06/26/19 06/26/19 06/26/19 12:13 12:13 12:13 WBC 5.2 RBC 3.87 Hgb 12.3 Hct 36.9 D MCV 95.2 MCH 31.7 MCHC 33.3 RDW 14.8 D Plt Count 149 D MPV 8.7 D Absolute Neuts (auto) 3.2 Neutrophils % 61.3 D Lymphocytes % 24.6 D Monocytes % 12.1 H Eosinophils % 1.5 Basophils % 0.5 Nucleated RBC % 0 PT with INR 21.40 H INR 1.80 H PTT (Actin FS) 36.7 H Sodium Potassium Chloride Carbon Dioxide Anion Gap BUN Creatinine Est GFR (CKD-EPI)AfAm Est GFR (CKD-EPI)NonAf Random Glucose Calcium Total Bilirubin AST ALT Alkaline Phosphatase Creatine Kinase 55 Troponin I < 0.02 Total Protein Albumin Stool Occult Blood Blood Type Antibody Screen 06/26/19 06/26/19 06/26/19 12:13 12:13 12:13 WBC RBC Hgb Hct MCV MCH MCHC RDW Plt Count MPV Absolute Neuts (auto) Neutrophils % Lymphocytes % Monocytes % Eosinophils % Basophils % Nucleated RBC % PT with INR INR PTT (Actin FS) Sodium 142 Potassium 4.5 Chloride 111 H Carbon Dioxide 27 Anion Gap 4 L BUN 22.5 H Creatinine 1.0 Est GFR (CKD-EPI)AfAm 59.08 Est GFR (CKD-EPI)NonAf 50.97 Random Glucose 84 Calcium 9.8 Total Bilirubin 1.2 H AST 22 ALT 19 Alkaline Phosphatase 78 Creatine Kinase Troponin I Total Protein 6.9 Albumin 3.5 Stool Occult Blood Positive Blood Type AB NEGATIVE Antibody Screen Negative Problem List - Problems (1) GI bleed Assessment/Plan: Previosly angiodisplasia, gastritis. Likely UGI bleed. Will admit for observation. Hold Coumadin for now. Follow CBC. GI consult Code(s): K92.2 - GASTROINTESTINAL HEMORRHAGE, UNSPECIFIED Qualifiers: GI bleed type/associated pathology: melena Qualified Code(s): K92.1 - Melena (2) Mitral valve stenosis Assessment/Plan: Mild to moderate MS. Will control HR with Toprol, Dig and Hold coumadin. Code(s): I05.0 - RHEUMATIC MITRAL STENOSIS Qualifiers: Cardiac valve disease etiology: etiology unspecified Qualified Code(s): I05.0 - Rheumatic mitral stenosis (3) Moderate to severe pulmonary hypertension Code(s): I27.20 - PULMONARY HYPERTENSION, UNSPECIFIED (4) Afib Assessment/Plan: Risk of embolic recurrent events explained to patient and daughter Jackie. Have to D/C Coumadin until bleeding stop. Code(s): I48.91 - UNSPECIFIED ATRIAL FIBRILLATION Qualifiers: Atrial fibrillation type: unspecified Qualified Code(s): I48.91 - Unspecified atrial fibrillation
[2019-06-26 18:01] LABS: INR 1.86 (0.83-1.09); PROTHROMBIN TIME (PATIENT) 22.1 SEC (9.7-13.0)
--- NOTE | 2019-06-26 21:03 | CON.GI ---
Consult Consult Specialty:: Gastroenterology Referred by:: Dr. Beltre Reason for Consultation:: GI bleed - History of Present Illness Chief Complaint: Weakness and very dark stools History of Present Illness: 88F has been experiencing progressive weakness this week and noted a very dark loose BM today. She denies abdominal pain or vomiting. Her INR was 1.8 on admission. She had an EGD and a colonoscopy with me on 09/15/17 when she presented with similar bleeding. The EGD revealed only atrophic gastritis. Colonoscopy revealed s suspected hepatic flexure angiodysplasia bleed which was cauterized. Mild sigmoid diverticulosis was also found. She has no blood in her stool when seen in my office on 01/05/19. 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 Cardio/Vascular: Yes: AFIB, Mitral Stenosis, Other (Right brachial embolism 2018 requiring embolectomy) Gastrointestinal: Yes: Gastritis, GI Bleed (09/15 hepatic flexure AVM bleed cauterized) Renal/: Yes: Cancer (bladder (in remission)) Rheumatology: Yes: Other (RHD) - Past Surgical History Past Surgical History: Yes: Cholecystectomy (Open), Colonoscopy, Upper Endoscopy - Alcohol/Substance Use Hx Alcohol Use: No - Smoking History Smoking history: Never smoked Have you smoked in the past 12 months: No - Social History Usual Living Arrangement: With Child ADL: Family Assistance Occupation: retired Place of : Other ([place]) Came to [place] (year): age 22 History of Recent Travel: No Home Medications - Allergies Allergies/Adverse Reactions: Allergies Allergy/AdvReac Type Severity Reaction Status Date / Time No Known Allergies Allergy Verified 06/26/19 11:30 - Home Medications Home Medications: Ambulatory Orders Digoxin [Lanoxin -] 0.25 mg PO DAILY 06/26/19 Metoprolol Tartrate 50 mg PO DAILY 06/26/19 Pantoprazole Sodium 40 mg PO DAILY 06/26/19 Warfarin Sodium [Coumadin] 3 mg PO DAILY 06/26/19 Family Medical History Family Hx Cancer: Sister (had gastric cancer) Family Hx Diabetes: Father Family Hx Nuerologic Problems: Mother (CVA) Physical Exam-GI Vital Signs: Vital Signs Temperature 97.6 F 06/26/19 19:45 Pulse Rate 63 06/26/19 19:45 Respiratory Rate 18 06/26/19 19:45 Blood Pressure 124/66 06/26/19 19:45 O2 Sat by Pulse Oximetry (%) 99 06/26/19 18:20 CBC,CMP WBC 5.2 K/mm3 (4.0-10.0) 06/26/19 12:13 RBC 3.87 M/mm3 (3.60-5.2) 06/26/19 12:13 Hgb 12.3 GM/dL (10.7-15.3) 06/26/19 12:13 Hct 36.9 % (32.4-45.2) D 06/26/19 12:13 MCV 95.2 fl (80-96) 06/26/19 12:13 MCH 31.7 pg (25.7-33.7) 06/26/19 12:13 MCHC 33.3 g/dl (32.0-36.0) 06/26/19 12:13 RDW 14.8 % (11.6-15.6) D 06/26/19 12:13 Plt Count 149 K/MM3 (134-434) D 06/26/19 12:13 MPV 8.7 fl (7.5-11.1) D 06/26/19 12:13 Absolute Neuts (auto) 3.2 K/mm3 (1.5-8.0) 06/26/19 12:13 Neutrophils % 61.3 % (42.8-82.8) D 06/26/19 12:13 Lymphocytes % 24.6 % (8-40) D 06/26/19 12:13 Monocytes % 12.1 % (3.8-10.2) H 06/26/19 12:13 Eosinophils % 1.5 % (0-4.5) 06/26/19 12:13 Basophils % 0.5 % (0-2.0) 06/26/19 12:13 Nucleated RBC % 0 % (0-0) 06/26/19 12:13 Sodium 142 mmol/L (136-145) 06/26/19 12:13 Potassium 4.5 mmol/L (3.5-5.1) 06/26/19 12:13 Chloride 111 mmol/L (98-107) H 06/26/19 12:13 Carbon Dioxide 27 mmol/L (21-32) 06/26/19 12:13 Anion Gap 4 MMOL/L (8-16) L 06/26/19 12:13 BUN 22.5 mg/dL (7-18) H 06/26/19 12:13 Creatinine 1.0 mg/dL (0.55-1.3) 06/26/19 12:13 Est GFR (CKD-EPI)AfAm 59.08 06/26/19 12:13 Est GFR (CKD-EPI)NonAf 50.97 06/26/19 12:13 Random Glucose 84 mg/dL (74-106) 06/26/19 12:13 Calcium 9.8 mg/dL (8.5-10.1) 06/26/19 12:13 Total Bilirubin 1.2 mg/dL (0.2-1) H 06/26/19 12:13 AST 22 U/L (15-37) 06/26/19 12:13 ALT 19 U/L (13-61) 06/26/19 12:13 Alkaline Phosphatase 78 U/L (45-117) 06/26/19 12:13 Creatine Kinase 55 U/L (26-192) 06/26/19 12:13 Troponin I < 0.02 ng/ml (0.00-0.05) 06/26/19 12:13 Total Protein 6.9 g/dl (6.4-8.2) 06/26/19 12:13 Albumin 3.5 g/dl (3.4-5.0) 06/26/19 12:13 Current Medications Generic Name Dose Route Start Last Admin Trade Name Freq PRN Reason Stop Dose Admin Digoxin 0.125 mg 06/27/19 10:00 Lanoxin - PO Q48H ASUNCION Metoprolol Succinate 50 mg 06/26/19 22:00 Toprol Xl - PO BID ASUNCION Pantoprazole Sodium 40 mg 06/26/19 22:00 Protonix - PO BID ASUNCION Constitutional: Yes: No Distress Eyes: Yes: Conjunctiva Clear HENT: Yes: Atraumatic Neck: Yes: Trachea Midline Cardiovascular: Yes: Pulse Irregular, Other (2/6 DEUCE at base) Respiratory: Yes: CTA Bilaterally Gastrointestinal Inspection: Yes: Scars (healed oblique RUQ incision) ...Auscultate: Yes: Hypoactive Bowel Sounds ...Palpate: Yes: Soft, Other ...Percussion: Yes: Tympanitic ...Rectal Exam: Yes: Guaiac Positive (black loose strongly guaiac positive stool ) Edema: No Neurological: Yes: Alert, Oriented Labs: CBC, BMP 06/26/19 12:13 06/26/19 12:13 INR, PTT INR 1.86 (0.83-1.09) H 06/26/19 17:12 Problem List - Problems (1) Diverticulosis Code(s): K57.90 - DVRTCLOS OF INTEST, PART UNSP, W/O PERF OR ABSCESS W/O BLEED (2) Afib Code(s): I48.91 - UNSPECIFIED ATRIAL FIBRILLATION Qualifiers: Atrial fibrillation type: unspecified Qualified Code(s): I48.91 - Unspecified atrial fibrillation (3) Anemia Code(s): D64.9 - ANEMIA, UNSPECIFIED (4) Angiodysplasia of colon with hemorrhage Code(s): K55.21 - ANGIODYSPLASIA OF COLON WITH HEMORRHAGE (5) Bladder cancer Code(s): C67.9 - MALIGNANT NEOPLASM OF BLADDER, UNSPECIFIED Qualifiers: Bladder location: unspecified site Qualified Code(s): C67.9 - Malignant neoplasm of bladder, unspecified (6) GI bleed Code(s): K92.2 - GASTROINTESTINAL HEMORRHAGE, UNSPECIFIED Qualifiers: GI bleed type/associated pathology: melena Qualified Code(s): K92.1 - Melena (7) Gastritis Code(s): K29.70 - GASTRITIS, UNSPECIFIED, WITHOUT BLEEDING (8) HTN (hypertension) Code(s): I10 - ESSENTIAL (PRIMARY) HYPERTENSION Qualifiers: Hypertension type: unspecified Qualified Code(s): I10 - Essential (primary ) hypertension (9) Mitral valve stenosis Code(s): I05.0 - RHEUMATIC MITRAL STENOSIS Qualifiers: Cardiac valve disease etiology: etiology unspecified Qualified Code(s): I05.0 - Rheumatic mitral stenosis Assessment/Plan Impression: -- Given the melena I suspect that Diane has bleeding from a small bowel vascular ectasia or perhaps again from the hepatic flexure ectasia. I discussed a repeat EGD, enteroscopy and colonoscopy with Diane and again informed her of the potential for such complications as perforation and hemorrhage. She wants to avoid the colonoscopy and will discuss the EGD/enteroscopy with her kids. -- Diverticulosis - bleeding from this source would be expected to be bright red as would ischemic colitis which would also include colicky pain Plan: -- PPI drip empirically -- Hold warfarin -- If bleeding increases will pursue CTA --If consent is granted will do EGD/enteroscopy when INR drops a bit more
--- NOTE | 2019-06-26 21:30 | CON.CARD ---
Consult Consult Specialty:: Cardiology - History of Present Illness History of Present Illness: The patient is a 88 year old female, with a significant past medical history of HTN, mitral valve stenosis, AFib (on warfarin), CVA, Dementia, H Pylori, DVT, angiodysplasia of the colon c/b GI hemorrhage who presents to the emergency department with 5 days of generalized weakness and melena. She denies recent chest pain or shortness of breath. 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 Cardio/Vascular: Yes: AFIB, Mitral Stenosis, Other (Right brachial embolism 2018 requiring embolectomy) Pulmonary: No: Asthma, COPD, O2 Dependent Gastrointestinal: Yes: Gastritis, GI Bleed (09/15 hepatic flexure AVM bleed cauterized) Hepatobiliary: No: Cirrhosis, Cholelithiasis Renal/: Yes: Cancer (bladder (in remission)) Rheumatology: Yes: Other (RHD) - Past Surgical History Past Surgical History: Yes: Cholecystectomy (Open), Colonoscopy, Upper Endoscopy - Alcohol/Substance Use Hx Alcohol Use: No - Smoking History Smoking history: Never smoked Have you smoked in the past 12 months: No - Social History Usual Living Arrangement: With Child ADL: Family Assistance Occupation: retired History of Recent Travel: No Home Medications - Allergies Allergies/Adverse Reactions: Allergies Allergy/AdvReac Type Severity Reaction Status Date / Time No Known Allergies Allergy Verified 06/26/19 11:30 - Home Medications Home Medications: Ambulatory Orders Digoxin [Lanoxin -] 0.25 mg PO DAILY 06/26/19 Metoprolol Tartrate 50 mg PO DAILY 06/26/19 Pantoprazole Sodium 40 mg PO DAILY 06/26/19 Warfarin Sodium [Coumadin] 3 mg PO DAILY 06/26/19 Review of Systems - Review of Systems Constitutional: reports: Weakness Eyes: reports: No Symptoms HENT: reports: No Symptoms Neck: reports: No Symptoms Cardiovascular: reports: No Symptoms Respiratory: reports: No Symptoms Gastrointestinal: reports: Melena Genitourinary: reports: No Symptoms Breasts: reports: No Symptoms Reported Musculoskeletal: reports: No Symptoms Integumentary: reports: No Symptoms Neurological: reports: No Symptoms Endocrine: reports: No Symptoms Hematology/Lymphatic: reports: No Symptoms Psychiatric: reports: No Symptoms Vital Signs: Vital Signs Temperature 97.6 F 06/26/19 19:45 Pulse Rate 63 06/26/19 19:45 Respiratory Rate 18 06/26/19 19:45 Blood Pressure 124/66 06/26/19 19:45 O2 Sat by Pulse Oximetry (%) 96 06/26/19 19:45 Constitutional: Yes: Well Nourished, No Distress, Calm Eyes: Yes: WNL, Conjunctiva Clear, EOM Intact HENT: Yes: WNL, Atraumatic, Normocephalic Neck: Yes: WNL, Supple, Trachea Midline Respiratory: Yes: WNL, Regular, CTA Bilaterally Gastrointestinal: Yes: WNL, Normal Bowel Sounds Renal/: Yes: WNL Cardiovascular: Yes: WNL, Regular Rate and Rhythm Musculoskeletal: Yes: WNL Extremities: Yes: WNL Integumentary: Yes: WNL Neurological: Yes: WNL, Alert, Oriented ...Motor Strength: WNL Psychiatric: Yes: WNL, Alert, Oriented - Other Data Labs, Other Data: CBC, BMP 06/26/19 12:13 06/26/19 12:13 INR, PTT INR 1.86 (0.83-1.09) H 06/26/19 17:12 Troponin, BNP 06/26/19 12:13 Troponin I < 0.02 Troponin, BNP 06/26/19 12:13 Troponin I < 0.02 Assessment/Plan rhematic MV stenosis AF GI bleed Plan hold AC GI eval - Problems (1) Atrial fibrillation with slow ventricular response Assessment/Plan: Telemetry: AF with slow VR; HR into 30s bpm; upper HR 60s-70s bpm. Digoxin level 0.6 (would keep 0.4-0.8 for maximal efficacy and minimal side- effects). May need to hold metoprolol ER evening dose. Keep electrolytes WNL (replete magnesium). GI bleed: Restart warfarin (with IV heparin bridge) when cleared by GI. Code(s): I48.91 - UNSPECIFIED ATRIAL FIBRILLATION (2) Moderate mitral stenosis Assessment/Plan: ECHO: normal LVEF; significant biatrial enlargement; moderate MS. Code(s): I05.0 - RHEUMATIC MITRAL STENOSIS (3) Hypomagnesemia Assessment/Plan: replete, and keep level 2.0-2.4 F/u all electrolytes Code(s): E83.42 - HYPOMAGNESEMIA
[2019-06-26] MEDS ORDERED: PANTOPRAZOLE 40 MG TABLET PO SCH (22:00)
[2019-06-26] MEDS: PANTOPRAZOLE SODIUM 80 MG in SODIUM CHLORIDE 100 ML IVPB SCH (22:50)
[2019-06-27 06:42] LABS: BASO % 0.5 % (0-2.0); EOS % 3.6 % (0-4.5); HEMATOCRIT 33.9 % (32.4-45.2); HEMOGLOBIN 11.3 GM/dL (10.7-15.3); LYMPH % 31.7 % (8-40); MCH 31.4 pg (25.7-33.7); MCHC 33.3 g/dl (32.0-36.0); MEAN CELL VOLUME 94.5 fl (80-96); MEAN PLT VOLUME 8.4 fl (7.5-11.1); MONO % 13.4 % (3.8-10.2); NEUT % 50.8 % (42.8-82.8); PLATELET COUNT 131 K/MM3 (134-434); RBC 3.59 M/mm3 (3.60-5.2); RDW 14.4 % (11.6-15.6); WHITE BLOOD COUNT 4.3 K/mm3 (4.0-10.0)
[2019-06-27 07:19] LABS: BILIRUBIN,TOTAL 1.8 mg/dL (0.2-1); BLOOD UREA NITROGEN 17.2 mg/dL (7-18); CALCIUM 8.5 mg/dL (8.5-10.1); MAGNESIUM 1.7 mg/dL (1.8-2.4); PHOSPHOROUS 3.5 mg/dL (2.5-4.9); POTASSIUM 3.9 mmol/L (3.5-5.1)
--- NOTE | 2019-06-27 09:27 | EKG ---
Test Reason : Blood Pressure : / mmHG Vent. Rate : 075 BPM Atrial Rate : 326 BPM P-R Int : 000 ms QRS Dur : 080 ms QT Int : 398 ms P-R-T Axes : 000 066 261 degrees QTc Int : 444 ms ATRIAL FIBRILLATION ABNORMAL ECG WHEN COMPARED WITH ECG OF 14-JUN-2018 18:47, NONSPECIFIC T WAVE ABNORMALITY, IMPROVED IN INFERIOR LEADS Confirmed by Efrain Deutsch MD ([id number]) on 06/27/2019 9:26:56 AM Referred By: Confirmed By:Efrain Deutsch MD
[2019-06-27] MEDS: DIGOXIN 0.125 MG TABLET (FP) PO SCH (09:31)
[2019-06-27] MEDS: PANTOPRAZOLE SODIUM 80 MG in SODIUM CHLORIDE 100 ML IVPB SCH ×2 (09:32→18:06)
--- NOTE | 2019-06-27 11:23 | PN ---
Progress Note, Physician Chief Complaint: Pt (with grandson, Raffaele, present and translating) has no chest pain, palpitations , or dizziness; + mild abdominal discomfort. Walks to bathroom. Her grandson says she is active at home, cooking, working in the garden. History of Present Illness: 88 y/o woman (juan Katz), with PMHx of moderate mitral stenosis, DVT, ?RUE aa occlusion, angiodysplasia of the colon, GI hemorrhage, Afib on warfarin, HTN, presenting with 5 days of generalized weakness. She notes dark black loose stools over the same amount of time. She also endorses LLQ abd pain that is on nonradiating and 3/10 pain; difficult to characterize and without any specific pattern. She denies LH, dizziness, chest pain, SOB, n/v, falls, syncope. - Current Medication List Current Medications: Active Medications Digoxin (Lanoxin -) 0.125 mg PO Q48H [facility] Last Admin: 06/27/19 09:31 Dose: 0.125 mg Pantoprazole Sodium 80 mg/ (Sodium Chloride) 100 mls @ 10 mls/hr IVPB Q10H [facility] Last Admin: 06/27/19 09:32 Dose: 10 mls/hr Metoprolol Succinate (Toprol Xl -) 50 mg PO BID [facility] Last Admin: 06/27/19 09:31 Dose: 50 mg - Objective Vital Signs: Vital Signs Temperature 98.2 F 06/27/19 06:35 Pulse Rate 67 06/27/19 09:31 Respiratory Rate 18 06/27/19 08:51 Blood Pressure 125/52 L 06/27/19 08:51 O2 Sat by Pulse Oximetry (%) 96 06/26/19 19:45 Constitutional: Yes: Calm, Thin Eyes: Yes: WNL HENT: Yes: WNL Neck: Yes: WNL Cardiovascular: Yes: Bradycardia, Pulse Irregular Respiratory: Yes: Regular Gastrointestinal: Yes: Soft. No: Tenderness ...Rectal Exam: Yes: Deferred Genitourinary: No: Anuria Breast(s): Yes: WNL Extremities: Yes: Cool Edema: No Peripheral Pulses WNL: Yes Integumentary: Yes: WNL Neurological: Yes: Alert, Oriented, Weakness Psychiatric: Yes: Alert, Oriented Labs: CBC, BMP 06/27/19 05:45 06/27/19 05:45 INR, PTT INR 1.86 (0.83-1.09) H 06/26/19 17:12 Abnormal Lab Results 06/26/19 06/26/19 06/26/19 12:13 12:13 12:13 RBC Plt Count Monocytes % 12.1 H PT with INR 21.40 H INR 1.80 H PTT (Actin FS) 36.7 H Chloride 111 H Anion Gap 4 L BUN 22.5 H Magnesium Total Bilirubin 1.2 H Total Protein Albumin Digoxin 06/26/19 06/27/19 06/27/19 17:12 05:45 05:45 RBC 3.59 L Plt Count 131 L Monocytes % 13.4 H PT with INR 22.10 H INR 1.86 H PTT (Actin FS) Chloride Anion Gap BUN Magnesium Total Bilirubin Total Protein Albumin Digoxin 0.63 L 06/27/19 05:45 RBC Plt Count Monocytes % PT with INR INR PTT (Actin FS) Chloride 109 H Anion Gap 5 L BUN Magnesium 1.7 L Total Bilirubin 1.8 H Total Protein 6.0 L Albumin 3.0 L Digoxin - ....Imaging Other: Image Reviewed (telemetry: AF with slow ventricular response (minimal HR high 30s bpm; maximum 70 bpm))) Problem List - Problems (1) Atrial fibrillation with slow ventricular response Assessment/Plan: Telemetry: AF with slow VR; HR into 30s bpm; upper HR 60s-70s bpm. Digoxin level 0.6 (would keep 0.4-0.8 for maximal efficacy and minimal side- effects). May need to hold metoprolol ER evening dose. Keep electrolytes WNL (replete magnesium). GI bleed: Restart warfarin (with IV heparin bridge) when cleared by GI. Code(s): I48.91 - UNSPECIFIED ATRIAL FIBRILLATION (2) Moderate mitral stenosis Assessment/Plan: ECHO: normal LVEF; significant biatrial enlargement; moderate MS. Code(s): I05.0 - RHEUMATIC MITRAL STENOSIS (3) Hypomagnesemia Assessment/Plan: replete, and keep level 2.0-2.4 F/u all electrolytes Code(s): E83.42 - HYPOMAGNESEMIA
[2019-06-27] MEDS ORDERED: MAGNESIUM OXIDE 400 MG TABLET (FP) PO ONE (12:45)
--- NOTE | 2019-06-27 13:15 | PN ---
Physical Exam: SUBJECTIVE: Patient seen and examined at the bedside. comfortable at rest. grandson at bedside. 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 Presents to the ED for black tarry stooles. problem list RHD. Mitral stenosis. Chronic AFIB. 2018 Right axillary artery embolism GI bleed with PRBC Transfussion 2018 Previously CVA/TIA LE varicose veins Chronic ulcer left humphrey History of bladder cancer Acute GI bleed Period Temp Pulse Resp BP Sys/Coulter Pulse Ox Last 24 Hr 97.6 F-98.2 F 57-72 16-18 113-125/47-66 96-99 GENERAL: The patient is awake, alert, in no acute distress. HEAD: Normal with no signs of trauma. EYES: PERRL, extraocular movements intact, sclera anicteric, conjunctiva clear. No ptosis. ENT: Ears normal, nares patent, oropharynx clear without exudates, moist mucous membranes. NECK: Trachea midline, full range of motion, supple. LUNGS: Breath sounds equal, clear to auscultation bilaterally, no wheezes, no crackles HEART: Regular rate and rhythm ABDOMEN: Soft, nontender, nondistended, normoactive bowel sounds EXTREMITIES: 2+ pulses, warm, well-perfused, no edema. NEUROLOGICAL: Normal speech, gait not observed. Laboratory Results - last 24 hr 06/26/19 06/26/19 06/26/19 12:13 12:13 12:13 WBC 5.2 RBC 3.87 Hgb 12.3 Hct 36.9 D MCV 95.2 MCH 31.7 MCHC 33.3 RDW 14.8 D Plt Count 149 D MPV 8.7 D Absolute Neuts (auto) 3.2 Neutrophils % 61.3 D Lymphocytes % 24.6 D Monocytes % 12.1 H Eosinophils % 1.5 Basophils % 0.5 Nucleated RBC % 0 PT with INR 21.40 H INR 1.80 H PTT (Actin FS) 36.7 H Sodium Potassium Chloride Carbon Dioxide Anion Gap BUN Creatinine Est GFR (CKD-EPI)AfAm Est GFR (CKD-EPI)NonAf Random Glucose Calcium Phosphorus Magnesium Total Bilirubin AST ALT Alkaline Phosphatase Creatine Kinase 55 Troponin I < 0.02 Total Protein Albumin Stool Occult Blood Digoxin Blood Type Antibody Screen 06/26/19 06/26/19 06/26/19 12:13 12:13 12:13 WBC RBC Hgb Hct MCV MCH MCHC RDW Plt Count MPV Absolute Neuts (auto) Neutrophils % Lymphocytes % Monocytes % Eosinophils % Basophils % Nucleated RBC % PT with INR INR PTT (Actin FS) Sodium 142 Potassium 4.5 Chloride 111 H Carbon Dioxide 27 Anion Gap 4 L BUN 22.5 H Creatinine 1.0 Est GFR (CKD-EPI)AfAm 59.08 Est GFR (CKD-EPI)NonAf 50.97 Random Glucose 84 Calcium 9.8 Phosphorus Magnesium Total Bilirubin 1.2 H AST 22 ALT 19 Alkaline Phosphatase 78 Creatine Kinase Troponin I Total Protein 6.9 Albumin 3.5 Stool Occult Blood Positive Digoxin Blood Type AB NEGATIVE Antibody Screen Negative 06/26/19 06/27/19 06/27/19 17:12 05:45 05:45 WBC 4.3 RBC 3.59 L Hgb 11.3 Hct 33.9 MCV 94.5 MCH 31.4 MCHC 33.3 RDW 14.4 Plt Count 131 L MPV 8.4 Absolute Neuts (auto) 2.2 Neutrophils % 50.8 Lymphocytes % 31.7 D Monocytes % 13.4 H Eosinophils % 3.6 D Basophils % 0.5 Nucleated RBC % 0 PT with INR 22.10 H INR 1.86 H PTT (Actin FS) Sodium Potassium Chloride Carbon Dioxide Anion Gap BUN Creatinine Est GFR (CKD-EPI)AfAm Est GFR (CKD-EPI)NonAf Random Glucose Calcium Phosphorus Magnesium Total Bilirubin AST ALT Alkaline Phosphatase Creatine Kinase Troponin I Total Protein Albumin Stool Occult Blood Digoxin 0.63 L Blood Type Antibody Screen 06/27/19 05:45 WBC RBC Hgb Hct MCV MCH MCHC RDW Plt Count MPV Absolute Neuts (auto) Neutrophils % Lymphocytes % Monocytes % Eosinophils % Basophils % Nucleated RBC % PT with INR INR PTT (Actin FS) Sodium 142 Potassium 3.9 Chloride 109 H Carbon Dioxide 28 Anion Gap 5 L BUN 17.2 Creatinine 1.0 Est GFR (CKD-EPI)AfAm 59.08 Est GFR (CKD-EPI)NonAf 50.97 Random Glucose 76 Calcium 8.5 Phosphorus 3.5 Magnesium 1.7 L Total Bilirubin 1.8 H AST 19 ALT 17 Alkaline Phosphatase 70 Creatine Kinase Troponin I Total Protein 6.0 L Albumin 3.0 L Stool Occult Blood Digoxin Blood Type Antibody Screen Active Medications Generic Name Dose Route Start Last Admin Trade Name Anh PRN Reason Stop Dose Admin Digoxin 0.125 mg 06/27/19 10:00 06/27/19 09:31 Lanoxin - PO 0.125 mg Q48H ASUNCION Administration Pantoprazole Sodium 80 mg/ 100 mls @ 10 mls/hr 06/26/19 21:45 06/27/19 09:32 Sodium Chloride IVPB 10 mls/hr Q10H ASUNCION Administration 8 MG/HR Metoprolol Succinate 50 mg 06/26/19 22:00 06/27/19 09:31 Toprol Xl - PO 50 mg BID ASUNCION Administration ASSESSMENT/PLAN: Problem List - Problems (1) GI bleed Assessment/Plan: admitted with gi bleed and had another episode this am. will repeat cbc on protonix drip coumadin on hold until bleeding subsides EGD/colonoscopy per GI Code(s): K92.2 - GASTROINTESTINAL HEMORRHAGE, UNSPECIFIED Qualifiers: GI bleed type/associated pathology: unspecified gastrointestinal hemorrhage type Qualified Code(s): K92.2 - Gastrointestinal hemorrhage, unspecified (2) Atrial fibrillation with slow ventricular response Assessment/Plan: Risk of embolic recurrent events explained to patient and daughter Jackie by Dr. Saab. Coumadin on hold until bleeding stops monitor on tele cardiology following Code(s): I48.91 - UNSPECIFIED ATRIAL FIBRILLATION (3) Moderate mitral stenosis Assessment/Plan: Mild to moderate MS. Will control HR with Toprol, Dig and Hold coumadin. Code(s): I05.0 - RHEUMATIC MITRAL STENOSIS (4) HTN (hypertension) Assessment/Plan: controlled on current medications Code(s): I10 - ESSENTIAL (PRIMARY) HYPERTENSION Qualifiers: Hypertension type: unspecified Qualified Code(s): I10 - Essential (primary ) hypertension (5) Mitral valve stenosis Code(s): I05.0 - RHEUMATIC MITRAL STENOSIS Qualifiers: Cardiac valve disease etiology: etiology unspecified Qualified Code(s): I05.0 - Rheumatic mitral stenosis (6) Severe protein-calorie malnutrition Code(s): E43 - UNSPECIFIED SEVERE PROTEIN-CALORIE MALNUTRITION (7) Subtherapeutic international normalized ratio (INR) Code(s): R79.1 - ABNORMAL COAGULATION PROFILE (8) DVT prophylaxis Assessment/Plan: coumadin on hold on protonix drip Code(s): [id number] - Visit type - Emergency Visit Emergency Visit: Yes ED Registration Date: 06/27/19 Care time: The patient presented to the Emergency Department on the above date and was hospitalized for further evaluation of their emergent condition. - New Patient This patient is new to me today: Yes Date on this admission: 06/27/19 - Critical Care Critical Care patient: No - Discharge Referral Referred to [facility] Med P.C.: No
[2019-06-27 15:40] LABS: INR 1.52 (0.83-1.09)
--- NOTE | 2019-06-27 18:50 | PN.GI ---
GI Progress Note Subjective: GI NOte: Had hematochezia today x 1 episode but Hb has dropped minimally. I have now advised colonoscopy as well as an enteroscopy. I discussed both procedures again in detail and reinformed Diane in her [place] language of the potential for perforation and hemorrhage and for the need for a bowel prep. She wants to defer for now. Given this I will advance her diet and see how it influences her bleeding. - Objective Vital Signs: Vital Signs Temperature 97.8 F 06/27/19 15:00 Pulse Rate 76 06/27/19 15:00 Respiratory Rate 18 06/27/19 08:51 Blood Pressure 149/53 L 06/27/19 15:00 O2 Sat by Pulse Oximetry (%) 96 06/26/19 19:45 Laboratory Tests 06/26/19 06/27/19 12:13 05:45 Hgb 12.3 11.3 Constitutional: Calm ...Auscultate: Yes: Normoactive Bowel Sounds ...Palpate: Yes: Soft, Other (nontender) Labs: CBC, BMP 06/27/19 05:45 06/27/19 05:45 INR, PTT INR 1.52 (0.83-1.09) H 06/27/19 14:50 Assessment/Plan Impression: -- Melena has now become hematochezia indicative of a lower GI source of bleeding. I again discussed a repeat EGD, enteroscopy and colonoscopy with Diane and again informed her of the potential for such complications as perforation and hemorrhage. I also discussed the situation in detail with her daughter Jackie.. Diane wants to defer her decisions regarding colonoscopy and EGD/ enteroscopy. -- Diverticulosis Plan: -- PPI drip empirically -- Hold warfarin -- Advanced to solids. If bleeding increases will pursue CTA --If consent is granted will do EGD/enteroscopy and colonoscopy Problem List - Problems (1) Hematochezia Code(s): K92.1 - MELENA (2) GI bleed Code(s): K92.2 - GASTROINTESTINAL HEMORRHAGE, UNSPECIFIED Qualifiers: GI bleed type/associated pathology: melena Qualified Code(s): K92.1 - Melena (3) Diverticulosis Code(s): K57.90 - DVRTCLOS OF INTEST, PART UNSP, W/O PERF OR ABSCESS W/O BLEED (4) Afib Code(s): I48.91 - UNSPECIFIED ATRIAL FIBRILLATION Qualifiers: Atrial fibrillation type: unspecified Qualified Code(s): I48.91 - Unspecified atrial fibrillation (5) Anemia Code(s): D64.9 - ANEMIA, UNSPECIFIED (6) Angiodysplasia of colon with hemorrhage Code(s): K55.21 - ANGIODYSPLASIA OF COLON WITH HEMORRHAGE (7) Bladder cancer Code(s): C67.9 - MALIGNANT NEOPLASM OF BLADDER, UNSPECIFIED Qualifiers: Bladder location: unspecified site Qualified Code(s): C67.9 - Malignant neoplasm of bladder, unspecified (8) Gastritis Code(s): K29.70 - GASTRITIS, UNSPECIFIED, WITHOUT BLEEDING (9) HTN (hypertension) Code(s): I10 - ESSENTIAL (PRIMARY) HYPERTENSION Qualifiers: Hypertension type: unspecified Qualified Code(s): I10 - Essential (primary ) hypertension (10) Mitral valve stenosis Code(s): I05.0 - RHEUMATIC MITRAL STENOSIS Qualifiers: Cardiac valve disease etiology: etiology unspecified Qualified Code(s): I05.0 - Rheumatic mitral stenosis
[2019-06-28] MEDS: PANTOPRAZOLE SODIUM 80 MG in SODIUM CHLORIDE 100 ML IVPB SCH ×2 (03:30→13:35)
--- NOTE | 2019-06-28 11:44 | PN.GI ---
GI Progress Note Subjective: GI NOte: Had a liquidy black BM today. Her son Patrice is present. I again discussed EGD and colonoscopy and repeated the potential complications for Patrice's sake. She has now consented for both. CBC is pending - Objective Vital Signs: Vital Signs Temperature 97.6 F 06/28/19 05:00 Pulse Rate 52 L 06/28/19 05:00 Respiratory Rate 20 06/28/19 05:00 Blood Pressure 122/52 L 06/28/19 05:00 O2 Sat by Pulse Oximetry (%) 96 06/27/19 21:00 Constitutional: Calm ...Auscultate: Yes: Normoactive Bowel Sounds ...Palpate: Yes: Soft, Other (nontender) Labs: CBC, BMP 06/27/19 05:45 06/27/19 05:45 INR, PTT INR 1.52 (0.83-1.09) H 06/27/19 14:50 Assessment/Plan Impression: -- Melena and hematochezia persist. I again discussed a repeat EGD, enteroscopy and colonoscopy with Diane and again informed her of the potential for such complications as perforation and hemorrhage. I also discussed the situation in detail with her son Patrice. Consent has been granted -- Diverticulosis Plan: -- Continue PPI drip -- Hold warfarin -- Solids today. Liquids tomorrow -- Bowel prep tomorrow in preparation for EGD/enteroscopy and colonoscopy on 06/30 -- Pursue CTA if bleeding increases Problem List - Problems (1) Hematochezia Code(s): K92.1 - MELENA (2) GI bleed Code(s): K92.2 - GASTROINTESTINAL HEMORRHAGE, UNSPECIFIED Qualifiers: GI bleed type/associated pathology: melena Qualified Code(s): K92.1 - Melena (3) Diverticulosis Code(s): K57.90 - DVRTCLOS OF INTEST, PART UNSP, W/O PERF OR ABSCESS W/O BLEED (4) Afib Code(s): I48.91 - UNSPECIFIED ATRIAL FIBRILLATION Qualifiers: Atrial fibrillation type: unspecified Qualified Code(s): I48.91 - Unspecified atrial fibrillation (5) Anemia Code(s): D64.9 - ANEMIA, UNSPECIFIED (6) Angiodysplasia of colon with hemorrhage Code(s): K55.21 - ANGIODYSPLASIA OF COLON WITH HEMORRHAGE (7) Bladder cancer Code(s): C67.9 - MALIGNANT NEOPLASM OF BLADDER, UNSPECIFIED Qualifiers: Bladder location: unspecified site Qualified Code(s): C67.9 - Malignant neoplasm of bladder, unspecified (8) Gastritis Code(s): K29.70 - GASTRITIS, UNSPECIFIED, WITHOUT BLEEDING (9) HTN (hypertension) Code(s): I10 - ESSENTIAL (PRIMARY) HYPERTENSION Qualifiers: Hypertension type: unspecified Qualified Code(s): I10 - Essential (primary ) hypertension (10) Mitral valve stenosis Code(s): I05.0 - RHEUMATIC MITRAL STENOSIS Qualifiers: Cardiac valve disease etiology: etiology unspecified Qualified Code(s): I05.0 - Rheumatic mitral stenosis
[2019-06-28 13:28] LABS: HEMATOCRIT 34.2 % (32.4-45.2); HEMOGLOBIN 11.5 GM/dL (10.7-15.3); MCH 32.2 pg (25.7-33.7); MCHC 33.7 g/dl (32.0-36.0); MEAN CELL VOLUME 95.5 fl (80-96); MEAN PLT VOLUME 8.4 fl (7.5-11.1); PLATELET COUNT 134 K/MM3 (134-434); RBC 3.58 M/mm3 (3.60-5.2); RDW 14.9 % (11.6-15.6); WHITE BLOOD COUNT 5.2 K/mm3 (4.0-10.0)
--- NOTE | 2019-06-28 13:29 | PN ---
Progress Note, Physician History of Present Illness: The patient is a 88 year old female, with a significant past medical history of HTN, mitral valve stenosis, AFib (on warfarin), CVA, Dementia, H Pylori, DVT, angiodysplasia of the colon c/b GI hemorrhage who presents to the emergency department with 5 days of generalized weakness and melena. She denies recent chest pain or shortness of breath. PMH A fib CVA - no residual weakness ( subtherapeutic INR ) 2012 HHD HTN Moderate AR Moderate Mitral stenosis mean gradient 7-8 mmHg 2018 Rheumatic heart disease - Current Medication List Current Medications: Active Medications Bisacodyl (Dulcolax -) 20 mg PO ONCE ONE Stop: 06/29/19 20:01 Digoxin (Lanoxin -) 0.125 mg PO Q48H [facility] Last Admin: 06/27/19 09:31 Dose: 0.125 mg Pantoprazole Sodium 80 mg/ (Sodium Chloride) 100 mls @ 10 mls/hr IVPB Q10H [facility] Last Admin: 06/27/19 18:06 Dose: 10 mls/hr Metoprolol Succinate (Toprol Xl -) 50 mg PO DAILY [facility] Last Admin: 06/28/19 10:49 Dose: Not Given Polyethylene Glycol (Miralax (For Daily Use) -) 17 gm PO TID [facility] Polyethylene Glycol/Electrolytes (Golytely Solution -) 4,000 ml PO ONCE ONE Stop: 06/29/19 09:01 - Objective Vital Signs: Vital Signs Temperature 98 F 06/28/19 09:00 Pulse Rate 71 06/28/19 09:00 Respiratory Rate 20 06/28/19 09:00 Blood Pressure 122/52 L 06/28/19 09:00 O2 Sat by Pulse Oximetry (%) 96 06/28/19 09:00 Eyes: Yes: WNL, Conjunctiva Clear, EOM Intact HENT: Yes: WNL, Atraumatic, Normocephalic Neck: Yes: WNL, Supple, Trachea Midline Cardiovascular: Yes: Pulse Irregular, Murmur (DM 2/4), S1, S2 Respiratory: Yes: WNL, Regular, CTA Bilaterally Gastrointestinal: Yes: WNL, Normal Bowel Sounds Genitourinary: Yes: WNL Musculoskeletal: Yes: WNL Extremities: Yes: WNL Edema: No Integumentary: Yes: WNL Neurological: Yes: WNL, Alert, Oriented ...Motor Strength: WNL Psychiatric: Yes: WNL Labs: INR, PTT INR 1.52 (0.83-1.09) H 06/27/19 14:50 Assessment/Plan rhematic MV stenosis AF GI bleed Plan Awaiting endoscopy/colonoscope hold AC GI eval - Problems (1) Atrial fibrillation with slow ventricular response Assessment/Plan: Telemetry: AF with slow VR; HR into 30s bpm; upper HR 60s-70s bpm. Digoxin level 0.6 (would keep 0.4-0.8 for maximal efficacy and minimal side- effects). May need to hold metoprolol ER evening dose. Keep electrolytes WNL (replete magnesium). GI bleed: Restart warfarin (with IV heparin bridge) when cleared by GI. Code(s): I48.91 - UNSPECIFIED ATRIAL FIBRILLATION (2) Moderate mitral stenosis Assessment/Plan: ECHO: normal LVEF; significant biatrial enlargement; moderate MS. Code(s): I05.0 - RHEUMATIC MITRAL STENOSIS (3) Hypomagnesemia Assessment/Plan: replete, and keep level 2.0-2.4 F/u all electrolytes Code(s): E83.42 - HYPOMAGNESEMIA
[2019-06-28] MEDS: POLYETHYLENE GLYCOL 3350 119 GM BTL PO SCH ×2 (13:35→21:55)
[2019-06-28 13:41] LABS: INR 1.45 (0.83-1.09); PROTHROMBIN TIME (PATIENT) 17.2 SEC (9.7-13.0)
--- NOTE | 2019-06-28 13:44 | PN ---
Physical Exam: SUBJECTIVE: Patient seen and examined at the bedside. some discomfort on her lower abdomen, otherwise comfortable. 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 Presents to the ED on 06/27/2019 for black tarry stools. Today she had a liquid black BM and is now consenting to EGD and colonoscopy. NPO at midnight. Coumadin on hold since 06/25/2019. will order pre-op labs. problem list RHD. Mitral stenosis. Chronic AFIB. 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 HEAD: Normal with no signs of trauma. EYES: PERRL, extraocular movements intact, sclera anicteric, conjunctiva clear. No ptosis. ENT: Ears normal, nares patent, oropharynx clear without exudates, moist mucous membranes. NECK: Trachea midline, full range of motion, supple. LUNGS: Breath sounds equal, clear to auscultation bilaterally, no wheezes, no crackles HEART: Regular rate and rhythm ABDOMEN: Soft, nontender, nondistended, normoactive bowel sounds EXTREMITIES: 2+ pulses, warm, well-perfused, no edema. NEUROLOGICAL: Normal speech, gait not observed. Laboratory Results - last 24 hr 06/27/19 06/28/19 06/28/19 14:50 13:10 13:10 WBC 5.2 RBC 3.58 L Hgb 11.5 Hct 34.2 MCV 95.5 MCH 32.2 MCHC 33.7 RDW 14.9 Plt Count 134 MPV 8.4 PT with INR 18.00 H 17.20 H INR 1.52 H 1.45 H Active Medications Generic Name Dose Route Start Last Admin Trade Name Freq PRN Reason Stop Dose Admin Bisacodyl 20 mg 06/29/19 20:00 Dulcolax - PO 06/29/19 20:01 ONCE ONE Digoxin 0.125 mg 06/27/19 10:00 06/27/19 09:31 Lanoxin - PO 0.125 mg Q48H ASUNCION Administration Pantoprazole Sodium 80 mg/ 100 mls @ 10 mls/hr 06/26/19 21:45 06/28/19 13:35 Sodium Chloride IVPB 10 mls/hr Q10H ASUNCION Administration 8 MG/HR Metoprolol Succinate 50 mg 06/28/19 10:00 06/28/19 10:49 Toprol Xl - PO Not Given DAILY ASUNCION Polyethylene Glycol 17 gm 06/28/19 14:00 06/28/19 13:35 Miralax (For Daily Use) - PO 17 grams TID ASUNCION Administration Polyethylene Glycol/Electrolytes 4,000 ml 06/29/19 09:00 Golytely Solution - PO 06/29/19 09:01 ONCE ONE ASSESSMENT/PLAN: Problem List - Problems (1) GI bleed Assessment/Plan: admitted with gi bleed and had another episode this am of dark liquid BM. hmg/hct stable, with a very slight drop from previous On a protonix drip bowel prep today for EGD and colonoscopy. Code(s): K92.2 - GASTROINTESTINAL HEMORRHAGE, UNSPECIFIED Qualifiers: GI bleed type/associated pathology: unspecified gastrointestinal hemorrhage type Qualified Code(s): K92.2 - Gastrointestinal hemorrhage, unspecified (2) Atrial fibrillation with slow ventricular response Assessment/Plan: Risk of embolic recurrent events explained to patient and daughter Jackie by Dr. Saab. Coumadin on hold until bleeding stops monitor on tele cardiology following Code(s): I48.91 - UNSPECIFIED ATRIAL FIBRILLATION (3) Moderate mitral stenosis Assessment/Plan: Mild to moderate MS. Will control HR with Toprol, Dig. (hold coumadin for GI bleed). Code(s): I05.0 - RHEUMATIC MITRAL STENOSIS (4) HTN (hypertension) Assessment/Plan: controlled on current medications toprol reduced to daily dosing by cardiology for afib with slow response Code(s): I10 - ESSENTIAL (PRIMARY) HYPERTENSION Qualifiers: Hypertension type: unspecified Qualified Code(s): I10 - Essential (primary ) hypertension (5) Mitral valve stenosis Code(s): I05.0 - RHEUMATIC MITRAL STENOSIS Qualifiers: Cardiac valve disease etiology: etiology unspecified Qualified Code(s): I05.0 - Rheumatic mitral stenosis (6) Severe protein-calorie malnutrition Assessment/Plan: dietary consulted Code(s): E43 - UNSPECIFIED SEVERE PROTEIN-CALORIE MALNUTRITION (7) Subtherapeutic international normalized ratio (INR) Assessment/Plan: monitor daily while coumadin is on hold Code(s): R79.1 - ABNORMAL COAGULATION PROFILE (8) DVT prophylaxis Assessment/Plan: coumadin on hold on protonix drip SCDs Code(s): [id number] - Visit type - Emergency Visit Emergency Visit: Yes ED Registration Date: 06/27/19 Care time: The patient presented to the Emergency Department on the above date and was hospitalized for further evaluation of their emergent condition. - New Patient This patient is new to me today: No - Critical Care Critical Care patient: No - Discharge Referral Referred to [facility] Med P.C.: No
[2019-06-28 14:24] LABS: ALBUMIN 3.1 g/dl (3.4-5.0); BILIRUBIN,TOTAL 1.2 mg/dL (0.2-1); BLOOD UREA NITROGEN 13.3 mg/dL (7-18); CALCIUM 8.6 mg/dL (8.5-10.1); CREATININE 1.1 mg/dL (0.55-1.3); MAGNESIUM 1.8 mg/dL (1.8-2.4); TOT PROT 6.1 g/dl (6.4-8.2)
[2019-06-28 14:41] LABS: URINE APPEARANCE CLEAR; URINE BILIRUBIN NEGATIVE (NEGATIVE); URINE COLOR YELLOW; URINE GLUCOSE (UA) NEGATIVE (NEGATIVE); URINE KETONE NEGATIVE (NEGATIVE); URINE LEUK ESTERASE NEGATIVE (NEGATIVE); URINE NITRITE NEGATIVE (NEGATIVE); URINE PROTEIN NEGATIVE (NEGATIVE); URINE UROBILINOGEN 0.2 mg/dL (0.2-1.0)
[2019-06-28 16:58] VITALS: BMI 18.1
[2019-06-29] MEDS: PANTOPRAZOLE SODIUM 80 MG in SODIUM CHLORIDE 100 ML IVPB SCH ×2 (02:27→13:11)
[2019-06-29] MEDS: POLYETHYLENE GLYCOL 3350 119 GM BTL PO SCH ×3 (06:27→22:13)
--- NOTE | 2019-06-29 08:38 | PN ---
Progress Note, Physician Chief Complaint: Awaiting EGD today. OFF Coumadin due to GI bleed. History of Present Illness: History GI bleed in the past. RHD. Mitral stenosis. Chronic AFIB. 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 LE varicose veins. Chronic ulcer left humphrey . History of bladder cancer - Current Medication List Current Medications: Active Medications Bisacodyl (Dulcolax -) 20 mg PO ONCE ONE Stop: 06/29/19 20:01 Digoxin (Lanoxin -) 0.125 mg PO Q48H [facility] Last Admin: 06/27/19 09:31 Dose: 0.125 mg Pantoprazole Sodium 80 mg/ (Sodium Chloride) 100 mls @ 10 mls/hr IVPB Q10H [facility] Last Admin: 06/29/19 02:27 Dose: 10 mls/hr Metoprolol Succinate (Toprol Xl -) 50 mg PO DAILY [facility] Last Admin: 06/28/19 10:49 Dose: Not Given Polyethylene Glycol (Miralax (For Daily Use) -) 17 gm PO TID [facility] Last Admin: 06/29/19 06:27 Dose: 17 grams Polyethylene Glycol/Electrolytes (Golytely Solution -) 4,000 ml PO ONCE ONE Stop: 06/29/19 09:01 - Objective Vital Signs: Vital Signs Temperature 98.4 F 06/29/19 05:00 Pulse Rate 83 06/29/19 05:00 Respiratory Rate 20 06/29/19 05:00 Blood Pressure 119/73 06/29/19 05:00 O2 Sat by Pulse Oximetry (%) 95 06/28/19 21:00 Constitutional: Yes: Calm, Pallor Eyes: Yes: Conjunctiva Clear, EOM Intact HENT: Yes: Atraumatic, Normocephalic Neck: Yes: Supple, Trachea Midline Cardiovascular: Yes: Pulse Irregular, JVD, Murmur, S1, S2. No: Bradycardia, Tachycardia, Rub Respiratory: Yes: Regular, CTA Bilaterally Gastrointestinal: Yes: Normal Bowel Sounds, Soft. No: Abdomen, Obese, Ascites, Distention, Vomiting ...Rectal Exam: Yes: Deferred Genitourinary: No: Anuria, Bladder Distention, CVA Tenderness - Left Breast(s): Yes: WNL Musculoskeletal: Yes: WNL Extremities: Yes: Other (VARICOSE VEINs). No: Calf Tenderness, Cold, Cyanosis, Erythema Edema: No Peripheral Pulses WNL: Yes Integumentary: Yes: WNL Neurological: Yes: WNL ...Motor Strength: WNL Psychiatric: Yes: WNL Labs: CBC, BMP 06/28/19 13:10 06/28/19 13:10 INR, PTT INR 1.45 (0.83-1.09) H 06/28/19 13:10 Laboratory Results - last 24 hr 06/28/19 06/28/19 06/28/19 13:10 13:10 13:10 WBC 5.2 RBC 3.58 L Hgb 11.5 Hct 34.2 MCV 95.5 MCH 32.2 MCHC 33.7 RDW 14.9 Plt Count 134 MPV 8.4 PT with INR 17.20 H INR 1.45 H Sodium 141 Potassium 4.0 Chloride 108 H Carbon Dioxide 28 Anion Gap 4 L BUN 13.3 Creatinine 1.1 Est GFR (CKD-EPI)AfAm 52.65 Est GFR (CKD-EPI)NonAf 45.42 Random Glucose 92 Calcium 8.6 Magnesium 1.8 Total Bilirubin 1.2 H AST 19 ALT 20 Alkaline Phosphatase 73 Total Protein 6.1 L Albumin 3.1 L Urine Color Urine Appearance Urine pH Ur Specific [place] Urine Protein Urine Glucose (UA) Urine Ketones Urine Blood Urine Nitrite Urine Bilirubin Urine Urobilinogen Ur Leukocyte Esterase Blood Type Antibody Screen 06/28/19 06/29/19 13:55 06:59 WBC RBC Hgb Hct MCV MCH MCHC RDW Plt Count MPV PT with INR INR Sodium Potassium Chloride Carbon Dioxide Anion Gap BUN Creatinine Est GFR (CKD-EPI)AfAm Est GFR (CKD-EPI)NonAf Random Glucose Calcium Magnesium Total Bilirubin AST ALT Alkaline Phosphatase Total Protein Albumin Urine Color Yellow Urine Appearance Clear Urine pH 5.0 Ur Specific [place] 1.013 Urine Protein Negative Urine Glucose (UA) Negative Urine Ketones Negative Urine Blood Negative Urine Nitrite Negative Urine Bilirubin Negative Urine Urobilinogen 0.2 Ur Leukocyte Esterase Negative Blood Type AB NEGATIVE Antibody Screen Negative Problem List - Problems (1) GI bleed Assessment/Plan: Previosly angiodisplasia, gastritis. EGD/COLONOSCOPY Hold Coumadin for now. Follow CBC. GI consult f/u Code(s): K92.2 - GASTROINTESTINAL HEMORRHAGE, UNSPECIFIED Qualifiers: GI bleed type/associated pathology: melena Qualified Code(s): K92.1 - Melena (2) Mitral valve stenosis Assessment/Plan: Mild to moderate MS. Will control HR with Toprol, Dig and Hold coumadin. Code(s): I05.0 - RHEUMATIC MITRAL STENOSIS Qualifiers: Cardiac valve disease etiology: etiology unspecified Qualified Code(s): I05.0 - Rheumatic mitral stenosis (3) Moderate to severe pulmonary hypertension Code(s): I27.20 - PULMONARY HYPERTENSION, UNSPECIFIED (4) Afib Assessment/Plan: Risk of embolic recurrent events explained to patient and daughter Jackie. Have to D/C Coumadin until bleeding stop.Telemetry, cardiology f/u Code(s): I48.91 - UNSPECIFIED ATRIAL FIBRILLATION Qualifiers: Atrial fibrillation type: unspecified Qualified Code(s): I48.91 - Unspecified atrial fibrillation
[2019-06-29] MEDS ORDERED: PEG 3350/NA SULF BICARB CL/KCL 4000 ML SOLN.RECON PO ONE (09:00)
[2019-06-29] MEDS: DIGOXIN 0.125 MG TABLET (FP) PO SCH (09:44)
[2019-06-29 10:25] LABS: HEMATOCRIT 32.8 % (32.4-45.2); HEMOGLOBIN 10.9 GM/dL (10.7-15.3); MCH 31.6 pg (25.7-33.7); MCHC 33.4 g/dl (32.0-36.0); MEAN CELL VOLUME 94.7 fl (80-96); MEAN PLT VOLUME 8.5 fl (7.5-11.1); PLATELET COUNT 129 K/MM3 (134-434); RBC 3.46 M/mm3 (3.60-5.2); RDW 14.8 % (11.6-15.6)
[2019-06-29 10:51] LABS: BILIRUBIN,TOTAL 1.4 mg/dL (0.2-1); CALCIUM 8.5 mg/dL (8.5-10.1); MAGNESIUM 1.8 mg/dL (1.8-2.4); POTASSIUM 4.2 mmol/L (3.5-5.1); TOT PROT 5.9 g/dl (6.4-8.2)
--- NOTE | 2019-06-29 14:56 | PN ---
Progress Note, Physician Chief Complaint: Pt is not happy to have to drink the liquids required frior to GI procedures. No chest pain or dyspnea. History of Present Illness: 88 y/o woman (juan Katz), with PMHx of moderate mitral stenosis, DVT, ?RUE aa occlusion, angiodysplasia of the colon, GI hemorrhage, Afib on warfarin, HTN, presenting with 5 days of generalized weakness. She notes dark black loose stools over the same amount of time. She also endorses LLQ abd pain that is on nonradiating and 3/10 pain; difficult to characterize and without any specific pattern. She denies LH, dizziness, chest pain, SOB, n/v, falls, syncope. - Current Medication List Current Medications: Active Medications Bisacodyl (Dulcolax -) 20 mg PO ONCE ONE Stop: 06/29/19 20:01 Digoxin (Lanoxin -) 0.125 mg PO Q48H [facility] Last Admin: 06/29/19 09:44 Dose: 0.125 mg Pantoprazole Sodium 80 mg/ (Sodium Chloride) 100 mls @ 10 mls/hr IVPB Q10H [facility] Last Admin: 06/29/19 13:11 Dose: 10 mls/hr Metoprolol Succinate (Toprol Xl -) 50 mg PO DAILY [facility] Last Admin: 06/29/19 12:34 Dose: 50 mg Polyethylene Glycol (Miralax (For Daily Use) -) 17 gm PO TID [facility] Last Admin: 06/29/19 13:11 Dose: Not Given - Objective Vital Signs: Vital Signs Temperature 98.2 F 06/29/19 09:00 Pulse Rate 63 06/29/19 09:44 Respiratory Rate 20 06/29/19 09:00 Blood Pressure 114/47 L 06/29/19 09:00 O2 Sat by Pulse Oximetry (%) 95 06/29/19 09:00 Constitutional: Yes: Calm Eyes: Yes: WNL HENT: Yes: WNL Labs: CBC, BMP 06/29/19 06:59 06/29/19 06:00 INR, PTT INR 1.45 (0.83-1.09) H 06/28/19 13:10 Problem List - Problems (1) Atrial fibrillation with slow ventricular response Assessment/Plan: Telemetry: AF with slow VR; HR into 30s bpm; upper HR 60s-70s bpm. Digoxin level 0.6 (would keep 0.4-0.8 for maximal efficacy and minimal side- effects). May need to hold metoprolol ER evening dose. Keep electrolytes WNL (replete magnesium). GI bleed: Restart warfarin (with IV heparin bridge) when cleared by GI. Code(s): I48.91 - UNSPECIFIED ATRIAL FIBRILLATION (2) Moderate mitral stenosis Assessment/Plan: ECHO: normal LVEF; significant biatrial enlargement; moderate MS. Code(s): I05.0 - RHEUMATIC MITRAL STENOSIS (3) Hypomagnesemia Assessment/Plan: replete, and keep level 2.0-2.4 F/u all electrolytes Code(s): E83.42 - HYPOMAGNESEMIA
[2019-06-29 18:44] LABS: INR 1.15 (0.83-1.09); PROTHROMBIN TIME (PATIENT) 13.6 SEC (9.7-13.0)
[2019-06-29] MEDS ORDERED: BISACODYL 5 MG TABLET.DR (FP) PO ONE (20:00)
[2019-06-30] MEDS: PANTOPRAZOLE SODIUM 80 MG in SODIUM CHLORIDE 100 ML IVPB SCH (01:00)
[2019-06-30] MEDS: POLYETHYLENE GLYCOL 3350 119 GM BTL PO SCH (05:48)
[2019-06-30 07:48] LABS: BASO % 0.6 % (0-2.0); EOS % 0.2 % (0-4.5); HEMATOCRIT 31.6 % (32.4-45.2); HEMOGLOBIN 10.7 GM/dL (10.7-15.3); LYMPH % 19.5 % (8-40); MCHC 33.9 g/dl (32.0-36.0); MEAN CELL VOLUME 94.5 fl (80-96); MEAN PLT VOLUME 8.5 fl (7.5-11.1); MONO % 15.8 % (3.8-10.2); NEUT % 63.9 % (42.8-82.8); PLATELET COUNT 122 K/MM3 (134-434); RBC 3.35 M/mm3 (3.60-5.2); RDW 14.5 % (11.6-15.6); WHITE BLOOD COUNT 3.8 K/mm3 (4.0-10.0)
[2019-06-30 08:08] LABS: ALBUMIN 3.1 g/dl (3.4-5.0); BILIRUBIN,TOTAL 1.7 mg/dL (0.2-1); BLOOD UREA NITROGEN 9.7 mg/dL (7-18); CALCIUM 8.2 mg/dL (8.5-10.1); MAGNESIUM 1.6 mg/dL (1.8-2.4); POTASSIUM 3.7 mmol/L (3.5-5.1)
[2019-06-30] MEDS ORDERED: HEPARIN NA (PORCINE) 5,000 UNITS/ML 1ML VIAL IVPUSH PRN (09:29)
--- NOTE | 2019-06-30 09:47 | PN ---
Progress Note, Physician Chief Complaint: Awaiting EGD/colonoscopy today Clear water after prep for colonoscopy, no blood. History of Present Illness: History GI bleed in the past. RHD. Mitral stenosis. Chronic AFIB. 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 LE varicose veins. Chronic ulcer left humphrey . History of bladder cancer - Current Medication List Current Medications: Active Medications Digoxin (Lanoxin -) 0.125 mg PO Q48H [facility] Last Admin: 06/29/19 09:44 Dose: 0.125 mg Heparin Sodium (Porcine) (Heparin -) 1,000 unit IVPUSH PRN PRN PRN Reason: Heparin Pantoprazole Sodium 80 mg/ (Sodium Chloride) 100 mls @ 10 mls/hr IVPB Q10H [facility] Last Admin: 06/30/19 01:00 Dose: 10 mls/hr HEPARIN SOD,PORK IN 0.45% NACL (Heparin-1/2ns 25,000 Units/500) 25,000 unit in 500 mls @ 16 mls/hr IVPB TITR [facility]; Protocol Metoprolol Succinate (Toprol Xl -) 50 mg PO DAILY [facility] Last Admin: 06/30/19 09:37 Dose: 50 mg Polyethylene Glycol (Miralax (For Daily Use) -) 17 gm PO TID [facility] Last Admin: 06/30/19 05:48 Dose: Not Given - Objective Vital Signs: Vital Signs Temperature 98.1 F 06/30/19 05:43 Pulse Rate 88 06/30/19 05:43 Respiratory Rate 20 06/30/19 05:43 Blood Pressure 107/40 L 06/30/19 05:43 O2 Sat by Pulse Oximetry (%) 94 L 06/29/19 21:00 Constitutional: Yes: Anxious, Mild Distress, Pallor, Thin Eyes: Yes: Conjunctiva Clear, EOM Intact HENT: Yes: Atraumatic, Normocephalic. No: Drooling, Nasal Congestion Neck: Yes: Supple, Trachea Midline. No: Lymphadenopathy, Rigid, Tenderness, Thyromegaly Cardiovascular: Yes: Pulse Irregular, JVD, Murmur, S1, S2. No: Rub Respiratory: Yes: Regular, CTA Bilaterally Gastrointestinal: Yes: Normal Bowel Sounds, Soft. No: Abdomen, Obese, Ascites, Palpable Mass, Vomiting ...Rectal Exam: Yes: Deferred Genitourinary: No: Anuria, Bladder Distention, CVA Tenderness - Left, CVA Tenderness - Right Breast(s): Yes: WNL Musculoskeletal: Yes: Muscle Weakness, Other Extremities: Yes: Other (varicose veins). No: Amputation, Calf Tenderness, Cold , Cool, Cyanosis Peripheral Pulses WNL: Yes Neurological: Yes: WNL ...Motor Strength: WNL Psychiatric: Yes: WNL Labs: CBC, BMP 06/30/19 05:54 06/30/19 05:54 INR, PTT INR 1.15 (0.83-1.09) H 06/29/19 17:45 Problem List - Problems (1) GI bleed Assessment/Plan: EGD /COLONOSCOPY-pending today If no bleeding lesion will restart Heparin IV if OK with GI Dr Lockwood. Follow CBC. Code(s): K92.2 - GASTROINTESTINAL HEMORRHAGE, UNSPECIFIED Qualifiers: GI bleed type/associated pathology: melena Qualified Code(s): K92.1 - Melena (2) Mitral valve stenosis Assessment/Plan: Mild to moderate MS. Will control HR with Toprol, Dig . Code(s): I05.0 - RHEUMATIC MITRAL STENOSIS Qualifiers: Cardiac valve disease etiology: etiology unspecified Qualified Code(s): I05.0 - Rheumatic mitral stenosis (3) Moderate to severe pulmonary hypertension Code(s): I27.20 - PULMONARY HYPERTENSION, UNSPECIFIED (4) Afib Assessment/Plan: Risk of embolic recurrent events is high.a. If GI agrees will start unfractionated Heparin. Code(s): I48.91 - UNSPECIFIED ATRIAL FIBRILLATION Qualifiers: Atrial fibrillation type: unspecified Qualified Code(s): I48.91 - Unspecified atrial fibrillation
--- NOTE | 2019-06-30 12:22 | EKG ---
Test Reason : Blood Pressure : / mmHG Vent. Rate : 095 BPM Atrial Rate : 076 BPM P-R Int : 000 ms QRS Dur : 084 ms QT Int : 380 ms P-R-T Axes : 000 086 250 degrees QTc Int : 477 ms ATRIAL FIBRILLATION NONSPECIFIC ST AND T WAVE ABNORMALITY PROLONGED QT ABNORMAL ECG Confirmed by GELY PETER MD ([id number]) on 06/30/2019 12:22:04 PM Referred By: Confirmed By:GELY PETER MD
[2019-06-30] MEDS ORDERED: PT OWN MED DRAWER 7, Y5N ONE (16:40)
--- NOTE | 2019-06-30 16:42 | PN ---
Progress Note (short form) - Note Progress Note: GI Procedures NOte> Please see scanned EGD and colonoscopy reports. No focus of active bleeding identified. Colonic angiodysplasias were again seen. I suspect that the bleeding was from a single slightly distended external hemorrhoid. I discussed the findings with Madyson and her daughter Jackie. Will resume Coumadin and heparin.Dr Mckay will be covering this weekend Problem List - Problems (1) Hematochezia Code(s): K92.1 - MELENA (2) GI bleed Code(s): K92.2 - GASTROINTESTINAL HEMORRHAGE, UNSPECIFIED Qualifiers: GI bleed type/associated pathology: melena Qualified Code(s): K92.1 - Melena (3) Diverticulosis Code(s): K57.90 - DVRTCLOS OF INTEST, PART UNSP, W/O PERF OR ABSCESS W/O BLEED (4) Afib Code(s): I48.91 - UNSPECIFIED ATRIAL FIBRILLATION Qualifiers: Atrial fibrillation type: unspecified Qualified Code(s): I48.91 - Unspecified atrial fibrillation (5) Anemia Code(s): D64.9 - ANEMIA, UNSPECIFIED (6) Angiodysplasia of colon with hemorrhage Code(s): K55.21 - ANGIODYSPLASIA OF COLON WITH HEMORRHAGE (7) Bladder cancer Code(s): C67.9 - MALIGNANT NEOPLASM OF BLADDER, UNSPECIFIED Qualifiers: Bladder location: unspecified site Qualified Code(s): C67.9 - Malignant neoplasm of bladder, unspecified (8) Gastritis Code(s): K29.70 - GASTRITIS, UNSPECIFIED, WITHOUT BLEEDING (9) HTN (hypertension) Code(s): I10 - ESSENTIAL (PRIMARY) HYPERTENSION Qualifiers: Hypertension type: unspecified Qualified Code(s): I10 - Essential (primary ) hypertension (10) Mitral valve stenosis Code(s): I05.0 - RHEUMATIC MITRAL STENOSIS Qualifiers: Cardiac valve disease etiology: etiology unspecified Qualified Code(s): I05.0 - Rheumatic mitral stenosis
[2019-06-30] MEDS: HEPARIN SOD,PORK IN 0.45% NACL 25,000 UNIT/500 ML INFUS.BAG IVPB SCH (17:03)
[2019-06-30 17:56] LABS: INR 1.23 (0.83-1.09); PROTHROMBIN TIME (PATIENT) 14.6 SEC (9.7-13.0)
[2019-06-30] MEDS ORDERED: WARFARIN NA 5 MG TABLET (UD) PO ONE (18:00)
[2019-06-30] MEDS: PANTOPRAZOLE 40 MG TABLET PO SCH (22:19)
[2019-07-01 07:49] LABS: BASO % 0.4 % (0-2.0); EOS % 1.2 % (0-4.5); HEMATOCRIT 30.5 % (32.4-45.2); HEMOGLOBIN 10.4 GM/dL (10.7-15.3); LYMPH % 35.4 % (8-40); MCH 32.3 pg (25.7-33.7); MCHC 34.1 g/dl (32.0-36.0); MEAN CELL VOLUME 94.7 fl (80-96); MEAN PLT VOLUME 8.5 fl (7.5-11.1); MONO % 16.9 % (3.8-10.2); NEUT % 46.1 % (42.8-82.8); PLATELET COUNT 107 K/MM3 (134-434); RBC 3.22 M/mm3 (3.60-5.2); RDW 14.8 % (11.6-15.6); WHITE BLOOD COUNT 3.4 K/mm3 (4.0-10.0)
[2019-07-01 07:58] LABS: INR 1.39 (0.83-1.09); PROTHROMBIN TIME (PATIENT) 16.4 SEC (9.7-13.0)
[2019-07-01] MEDS: DIGOXIN 0.125 MG TABLET (FP) PO SCH (09:01)
[2019-07-01] MEDS: PANTOPRAZOLE 40 MG TABLET PO SCH ×2 (09:01→21:50)
[2019-07-01] MEDS: POLYETHYLENE GLYCOL 3350 119 GM BTL PO SCH (09:02)
--- NOTE | 2019-07-01 09:26 | PN ---
Physical Exam: SUBJECTIVE: Patient seen and examined. denies any pain, no vomiting or nausea. no chest pain. 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 Presents to the ED on 06/27/2019 for black tarry stools. problem list RHD. Mitral stenosis. Chronic AFIB. 2018 Right axillary artery embolism GI bleed with PRBC Transfussion 2018 Previously CVA/TIA LE varicose veins Chronic ulcer left humphrey History of bladder cancer Acute GI bleed Vital Signs Period Temp Pulse Resp BP Sys/Coulter Pulse Ox Last 24 Hr 97.9 F-98.7 F 59-89 20-23 110-153/45-83 93-100 GENERAL: The patient is awake, alert, in no acute distress. HEAD: Normal with no signs of trauma. EYES: PERRL, extraocular movements intact, sclera anicteric, conjunctiva clear. No ptosis. ENT: Ears normal, nares patent, oropharynx clear without exudates, moist mucous membranes. NECK: Trachea midline, full range of motion, supple. LUNGS: Breath sounds equal, clear to auscultation bilaterally, no wheezes, no crackles HEART: Regular rate and rhythm ABDOMEN: Soft, nontender, nondistended, normoactive bowel sounds EXTREMITIES: 2+ pulses, warm, well-perfused, no edema. NEUROLOGICAL: Normal speech, gait not observed. Laboratory Results - last 24 hr 06/30/19 07/01/19 07/01/19 16:30 05:18 05:18 WBC 3.4 L RBC 3.22 L Hgb 10.4 L Hct 30.5 L MCV 94.7 MCH 32.3 MCHC 34.1 RDW 14.8 Plt Count 107 L MPV 8.5 Absolute Neuts (auto) 1.6 Neutrophils % 46.1 D Lymphocytes % 35.4 D Monocytes % 16.9 H Eosinophils % 1.2 D Basophils % 0.4 Nucleated RBC % 0 PT with INR 14.60 H 16.40 H INR 1.23 H 1.39 H Active Medications Generic Name Dose Route Start Last Admin Trade Name Freq PRN Reason Stop Dose Admin Digoxin 0.125 mg 06/27/19 10:00 07/01/19 09:01 Lanoxin - PO 0.125 mg Q48H [facility] Administration Heparin Sodium (Porcine) 1,000 unit 06/30/19 09:29 Heparin - IVPUSH PRN PRN Heparin HEPARIN SOD,PORK IN 0.45% NACL 25,000 unit in 500 mls @ 16 mls/hr 06/30/19 16: 00 06/30/19 17:03 Heparin-1/2ns 25,000 Units/500 IVPB 800 units/hr TITR [facility] 16 mls/hr Administration Protocol 800 UNITS/HR Metoprolol Succinate 50 mg 06/28/19 10:00 07/01/19 09:01 Toprol Xl - PO 50 mg DAILY [facility] Administration Pantoprazole Sodium 40 mg 06/30/19 22:00 07/01/19 09:01 Protonix - PO 40 mg BID [facility] Administration Polyethylene Glycol 17 gm 07/01/19 10:00 07/01/19 09:02 Miralax (For Daily Use) - PO 17 gm DAILY [facility] Administration ASSESSMENT/PLAN: Problem List - Problems (1) GI bleed Assessment/Plan: EGD and colonoscopy completed. No obvious source of bleeding identified. Colonic angiodysplasias seen as well as a single slightly distended external hemorrhoid. Per GI, can resume anticoagulation patient on a heparin drip with a bridge to coumadin Code(s): K92.2 - GASTROINTESTINAL HEMORRHAGE, UNSPECIFIED Qualifiers: GI bleed type/associated pathology: unspecified gastrointestinal hemorrhage type Qualified Code(s): K92.2 - Gastrointestinal hemorrhage, unspecified (2) Atrial fibrillation with slow ventricular response Assessment/Plan: on toprol monitor on tele cardiology following Code(s): I48.91 - UNSPECIFIED ATRIAL FIBRILLATION (3) Moderate mitral stenosis Assessment/Plan: Mild to moderate MS. Will control HR with Toprol, Digoxin Code(s): I05.0 - RHEUMATIC MITRAL STENOSIS (4) HTN (hypertension) Assessment/Plan: controlled on current medications toprol reduced to daily dosing by cardiology for afib with slow response Code(s): I10 - ESSENTIAL (PRIMARY) HYPERTENSION Qualifiers: Hypertension type: unspecified Qualified Code(s): I10 - Essential (primary ) hypertension (5) Mitral valve stenosis Code(s): I05.0 - RHEUMATIC MITRAL STENOSIS Qualifiers: Cardiac valve disease etiology: etiology unspecified Qualified Code(s): I05.0 - Rheumatic mitral stenosis (6) Severe protein-calorie malnutrition Assessment/Plan: dietary consulted Code(s): E43 - UNSPECIFIED SEVERE PROTEIN-CALORIE MALNUTRITION (7) Thrombocytopenia Assessment/Plan: monitor platelets daily. Code(s): D69.6 - THROMBOCYTOPENIA, UNSPECIFIED (8) Subtherapeutic international normalized ratio (INR) Assessment/Plan: monitor daily on a heparin drip with bridge to coumadin inr 1.3, goal inr between 2-3 Code(s): R79.1 - ABNORMAL COAGULATION PROFILE (9) DVT prophylaxis Assessment/Plan: heparin drip with coumadin bridge Code(s): [id number] - Visit type - Emergency Visit Emergency Visit: Yes ED Registration Date: 06/27/19 Care time: The patient presented to the Emergency Department on the above date and was hospitalized for further evaluation of their emergent condition. - New Patient This patient is new to me today: No - Critical Care Critical Care patient: No - Discharge Referral Referred to [facility] No
[2019-07-01] MEDS ORDERED: MAGNESIUM OXIDE 400 MG TABLET (FP) PO ONE (15:00)
[2019-07-01 16:53] LABS: ALBUMIN 2.7 g/dl (3.4-5.0); BILIRUBIN,TOTAL 0.9 mg/dL (0.2-1); BLOOD UREA NITROGEN 10.5 mg/dL (7-18); CALCIUM 8.1 mg/dL (8.5-10.1); MAGNESIUM 1.7 mg/dL (1.8-2.4); POTASSIUM 3.7 mmol/L (3.5-5.1); TOT PROT 5.8 g/dl (6.4-8.2)
[2019-07-01] MEDS: HEPARIN SOD,PORK IN 0.45% NACL 25,000 UNIT/500 ML INFUS.BAG IVPB SCH (18:00)
[2019-07-01] MEDS ORDERED: WARFARIN NA 5 MG TABLET (UD) PO ONE (18:00)
--- NOTE | 2019-07-01 19:38 | RAPID ---
Physical Examination Vital Signs: Vital Signs Temperature 97.6 F 07/01/19 18:00 Pulse Rate 71 07/01/19 18:00 Respiratory Rate 20 07/01/19 18:00 Blood Pressure 134/61 07/01/19 18:00 O2 Sat by Pulse Oximetry (%) 96 06/30/19 21:00 HR 72, BP 101/53, BGM 145 Findings/Remarks: Rapid Response called after patient slumped backwards after having large BM. Was lethargic after being placed in bed. Pt is Gambian-speaking, Translation provided by Attending(Ari). Endorsing feeling "dizzy" and "bad". Constitutional: Yes: Cachectic, Thin, Other (pale-appearing) Eyes: Yes: Conjunctiva Clear (conjunctival pallor). No: Sclera Icterus HENT: Yes: Atraumatic, Normocephalic, Other (moist tongue) Neck: Yes: Supple, Trachea Midline. No: Lymphadenopathy Cardiovascular: Yes: Regular Rate and Rhythm. No: Murmur Respiratory: Yes: CTA Bilaterally. No: Accessory Muscle Use, Rales, Wheezes Gastrointestinal: Yes: Soft. No: Distention, Tenderness Peripheral Pulses WNL: Yes Peripheral Pulses: Right Radial: 2+, Left Doralis Pedis: 2+, Right Dorsalis Pedis: 2+ Integumentary: Yes: Other (pale skin) Neurological: Yes: Alert, Other (following commands. Weak effort on fund raiser) Labs: CBC, BMP 07/01/19 05:18 07/01/19 15:42 Rapid Response - Rapid Response Assessment: 88F w/ history significant for GIB, CVA, afib, admitted for melena. Had colonscopy/EGD done earlier today w/ colonic angiodysplagia noted. Rapid response called for near-syncope likely dt vasovagal from large BM Recommendations/Interventions: - BGM 145 - fu CBC, CMP - fu EKG - orthostatics neg: supine( 72, 101/53); sitting(79, 1087/50)
[2019-07-01 19:52] LABS: HEMOGLOBIN 9.2 GM/dL (10.7-15.3); MCH 31.7 pg (25.7-33.7); MCHC 32.9 g/dl (32.0-36.0); MEAN CELL VOLUME 96.4 fl (80-96); MEAN PLT VOLUME 8.7 fl (7.5-11.1); PLATELET COUNT 110 K/MM3 (134-434); RDW 15.1 % (11.6-15.6); WHITE BLOOD COUNT 6.3 K/mm3 (4.0-10.0)
[2019-07-01 20:13] LABS: ANION GAP 7 MMOL/L (8-16); BLOOD UREA NITROGEN 13.4 mg/dL (7-18); CALCIUM 7.9 mg/dL (8.5-10.1); CHLORIDE 102 mmol/L (98-107); CO2 25 mmol/L (21-32); GLUCOSE,RANDOM 146 mg/dL (74-106); POTASSIUM 3.3 mmol/L (3.5-5.1); SODIUM 135 mmol/L (136-145)
[2019-07-01] MEDS ORDERED: POTASSIUM CHLORIDE ORAL LIQUID 20 MEQ/15 ML PO ONE (20:49)
[2019-07-01] MEDS ORDERED: POTASSIUM CHLORIDE 20 MEQ PREMIX IVPB 100 ML IVPB ONE (20:50)
[2019-07-01] MEDS ORDERED: ONDANSETRON 4 MG/2 ML VIAL IVPUSH ONE (21:59)
[2019-07-01] MEDS: KCL 10 MEQ IVPB 10 MEQ/100 ML INFUS.BAG IVPB SCH (22:31)
[2019-07-02] MEDS: KCL 10 MEQ IVPB 10 MEQ/100 ML INFUS.BAG IVPB SCH (00:37)
[2019-07-02] MEDS ORDERED: SODIUM CHLORIDE 1,000 ML IV STA ×2 (01:02→02:26)
[2019-07-02] MEDS ORDERED: MAGNESIUM SULF 50% (8.12 MEQ/2 ML-1 GM VIAL) IVPB ONE (01:03)
[2019-07-02 01:37] LABS: MAGNESIUM 1.7 mg/dL (1.8-2.4)
[2019-07-02 01:48] LABS: INR 1.8 (0.83-1.09); PROTHROMBIN TIME (PATIENT) 21.4 SEC (9.7-13.0)
[2019-07-02] MEDS ORDERED: PROTAMINE SULFATE 50 MG/5 ML VIAL IVPUSH ONE ×3 (03:37)
--- NOTE | 2019-07-02 03:48 | PN ---
HC Provider Note Provider Note: Anesthesia Intubation Note Called to bedside for concern of airway obstruction secondary to expanding neck hematoma pt preoxygenated via face mask 80 mg succinylcholine DLx1 Mac 4 grade 1 view vocal cords, 7.5 ETT tube placed atraumatically Aba Bashir.
--- NOTE | 2019-07-02 04:09 | PN ---
Progress Note (short form) - Note Progress Note: After rapid Response Pt. was noted to have continued hypotension, with BP 95/43 (1:20 AM), 73/38 (1:58 AM), and 79/41 (2:03 AM). Pt. was increasingly lethargic. Decision was made to transfer Pt. to the ICU in order to start pressors, however ICU beds were full so decision was made to place central line at bedside to start pressors until ICU bed could be made available. Consent was obtained from Son with risks and benefits explained. Pt. remained FULL CODE. During unsuccessful line placement at 3 AM Pt. began to have bradycardia with the lower point being in the 20s. Code 99 was called at 3:15 AM. Pt. was noted to have pulse after 1 round of epinepherine was pushed. Pt. was noted to have expanding neck hematoma adjacent to the central line. Line was removed and pressure was applied. Pt. had PTT greater than 400. 5mg Protamine Sulfate was ordered in addition to FFP. Anaesthesia was called and Pt. was intubated. Pt. was transferred to the ICU.
[2019-07-02 04:39] LABS: ARTERIAL BLD GAS O2 SATURATION 99.2 % (95-98); ARTERIAL BLOOD GAS BASE EXCESS -18.8 meq/l (-2-2); ARTERIAL BLOOD GAS PCO2 23.1 mmHg (35-45); ARTERIAL BLOOD GAS PO2 301 mmHg (80-100)
[2019-07-02 04:42] LABS: ARTERIAL BLOOD GAS pH 7.17 (7.35-7.45)
--- NOTE | 2019-07-02 04:50 | HOSP ---
Subjective - Review of Symptoms Events since last encounter: 88-year-old woman who was noted to become progressively hypotensive on 07/01/2019 in the evening, did not successfully respond to IV fluid challenge. Unsuccessful attempt to place IJ central line around 2:30 AM by midlevel provider. Patient shortly after developed cardiac arrest and code 99 was called. Noted to be coagulopathic as she was on heparin drip with supratherapeutic PTT. Protamine was administered IV to reverse heparin coagulopathy. Patient intubated for airway protection and respiratory failure. She was transferred to the ICU for further management. Blood gas, chemistry, CBC, PT, PTT were sent from ICU. Chest x-ray to confirm position of ET tube. I discussed with family in great length about patient's condition and recent occurrences and they understood. Obtained blood products transfusion consent in order to transfuse 2 units of FFP's. Physical Examination Vital Signs: Vital Signs Temperature 98.1 F 07/01/19 20:19 Pulse Rate 117 H 07/02/19 04:05 Respiratory Rate 14 07/02/19 04:00 Blood Pressure 123/53 L 07/01/19 20:19 O2 Sat by Pulse Oximetry (%) 100 07/02/19 04:05 Labs: CBC, BMP 07/01/19 19:30 07/01/19 19:30
[2019-07-02] MEDS ORDERED: SODIUM BICARBONATE 8.4% 50 MEQ/50 ML DISP.SYRIN IVPUSH ONE (05:00)
[2019-07-02 05:11] LABS: BASO % 0.4 % (0-2.0); EOS % 0.2 % (0-4.5); LYMPH % 23.1 % (8-40); MCH 32.5 pg (25.7-33.7); MCHC 31.7 g/dl (32.0-36.0); MEAN CELL VOLUME 102.4 fl (80-96); MEAN PLT VOLUME 9.1 fl (7.5-11.1); MONO % 7.3 % (3.8-10.2); PLATELET COUNT 50 K/MM3 (134-434); RBC 0.98 M/mm3 (3.60-5.2); RDW 15.6 % (11.6-15.6); WHITE BLOOD COUNT 8.2 K/mm3 (4.0-10.0)
--- NOTE | 2019-07-02 05:13 | CONSULT ---
Consult Consult Specialty:: puml/cc Referred by:: Alexsander Miller Reason for Consultation:: cardiac arrest - History of Present Illness Chief Complaint: cardiac arrest History of Present Illness: 88 year old female admitted to the hospital with increase weakness and dark loose BM. INR was 1.8 on admission. Last EGD (06/28): No focus of active bleeding identified. Colonic angiodysplasias were seen. As per GI (Mandie) bleeding was from a single slightly distended external hemorrhoid, patient was restarted on Heparin drip and Coumadin. Course disease complicated by drop in SBP on 07/01, IVF bolus given with some improvement and CVC was attempted on the floor by resident (unsuccessful). During procedure noted to have low HR in 20s and hematoma on the neck for which code 99 was called, intubated by anesthesia and transferred to ICU. IN ICU pt received 4 PRBC and 2 FFP. - History Source History Provided By: Medical Record - Past Medical History VP PLATFORMS: Yes: Peripheral Neuropathy, TIA Cardio/Vascular: Yes: AFIB, Mitral Stenosis, Other (Right brachial embolism 2018 requiring embolectomy) Pulmonary: No: Asthma, COPD, O2 Dependent Gastrointestinal: Yes: Gastritis, GI Bleed (09/15 hepatic flexure AVM bleed cauterized) Hepatobiliary: No: Cirrhosis, Cholelithiasis Renal/: Yes: Cancer (bladder (in remission)) Rheumatology: Yes: Other (RHD) - Past Surgical History Past Surgical History: Yes: Cholecystectomy (Open), Colonoscopy, Upper Endoscopy - Alcohol/Substance Use Hx Alcohol Use: No - Smoking History Smoking history: Never smoked Have you smoked in the past 12 months: No - Social History Usual Living Arrangement: With Child ADL: Family Assistance Occupation: retired History of Recent Travel: No Home Medications - Allergies Allergies/Adverse Reactions: Allergies Allergy/AdvReac Type Severity Reaction Status Date / Time No Known Allergies Allergy Verified 06/26/19 11:30 - Home Medications Home Medications: Ambulatory Orders Digoxin [Lanoxin -] 0.25 mg PO DAILY 06/26/19 Metoprolol Tartrate 50 mg PO DAILY 06/26/19 Pantoprazole Sodium 40 mg PO DAILY 06/26/19 Warfarin Sodium [Coumadin] 3 mg PO DAILY 06/26/19 Family Medical History Family History: Unable to Obtain (patient intubated) Review of Systems Unable to obtain ROS, reason: patient intubated Physical Exam Vital Signs: Vital Signs Temperature 96 F 07/02/19 0500 Pulse Rate 118 H 07/02/19 0500 Respiratory Rate 25 07/02/19 05:00 Blood Pressure 88/70 L 07/02/19 0500 O2 Sat by Pulse Oximetry (%) 100 07/02/19 04:05 Constitutional: Yes: Moderate Distress Eyes: Yes: PERRL HENT: Yes: Atraumatic, Normocephalic Neck: Yes: Other (swelling) Cardiovascular: Yes: Tachycardia, Pulse Irregular Respiratory: Yes: CTA Bilaterally, Diminished, Mechanically Ventilated Gastrointestinal: Yes: Distention Labs: CBC, BMP 07/01/19 19:30 07/01/19 19:30 Imaging - Results EKG: Report Reviewed (Pesonal read: AFIB at vent rate 86 QTc 473), Image Reviewed Problem List - Problems (1) Hemorrhagic shock Assessment/Plan: Hemorrhagic shock -STAT PRBC transfusion -FFP x2 -Maintain MAP >65 Problems reviewed: Yes Code(s): R57.8 - OTHER SHOCK (2) Atrial fibrillation with slow ventricular response Assessment/Plan: -Hold all anticoagulation at this time - Problems reviewed: Yes Code(s): I48.91 - UNSPECIFIED ATRIAL FIBRILLATION (3) GI bleed Problems reviewed: Yes Code(s): K92.2 - GASTROINTESTINAL HEMORRHAGE, UNSPECIFIED Qualifiers: GI bleed type/associated pathology: melena Qualified Code(s): K92.1 - Melena (4) Respiratory failure Problems reviewed: Yes Code(s): J96.90 - RESPIRATORY FAILURE, UNSP, UNSP W HYPOXIA OR HYPERCAPNIA Qualifiers: Chronicity: acute Respiratory failure complication: unspecified whether with hypoxia or hypercapnia Qualified Code(s): J96.00 - Acute respiratory failure, unspecified whether with hypoxia or hypercapnia Assessment/Plan Assessment: -Respiratory failure -GI bleed s/p blood transfusion -Mitral stenosis -Chronic AFIB -R axillary artery embolism 2018 -CVA/TIA -Hx of bladder Ca Plan: Pulm: Respiratory failure 2/2 hemorrhagic shock; hematoma around neck -Titrate FiO2 for POX >95 -ABG, CRX in am -LVP -Neck CT w/o contrast CV: Hypovolemia 2/2 hemorrhagic shock, chronic AFIB -IVFs -Daily EKG -Tele monitor Renal: possible oliguria due to hypotension -Monitor strict I&O -Monitor and replete electrolytes as needed GI: GI bleed, questionable abdominal hematoma -NPO -CT abdomen w/o contrast Hem/DVT; -no anticoagulation due to active bleed -SCDs Neuro: AMS 2/2 hypovelemic shock -Goal RASS 0, -1 Dipso: Full code
[2019-07-02 05:14] LABS: HEMOGLOBIN 3.2 GM/dL (10.7-15.3)
[2019-07-02 05:43] LABS: INR 2.1 (0.83-1.09)
[2019-07-02 05:46] LABS: ACTIVATED PTT 46.7 SECONDS (25.2-36.5)
[2019-07-02] MEDS ORDERED: PHENYLEPHRINE HCL 20,000 MCG in SODIUM CHLORIDE 248 ML IVPB SCH (06:00)
[2019-07-02] MEDS ORDERED: SODIUM BICARBONATE 8.4% 50 MEQ/50 ML VIAL ONE ×2 (06:08→21:03)
[2019-07-02] MEDS ORDERED: PHENYLEPHRINE HCL 10 MG/1 ML SINGLE DOSE VIAL ONE ×4 (06:09→20:27)
[2019-07-02 07:37] LABS: ALBUMIN 1.2 g/dl (3.4-5.0); BILIRUBIN,TOTAL 0.3 mg/dL (0.2-1); CREATININE 1.5 mg/dL (0.55-1.3); POTASSIUM 3.6 mmol/L (3.5-5.1); TOT PROT 2.6 g/dl (6.4-8.2)
[2019-07-02 07:54] LABS: CALCIUM 6.1 mg/dL (8.5-10.1)
[2019-07-02] MEDS ORDERED: PHYTONADIONE 10 MG/1 ML AMP IVPB ONE (09:50)
--- NOTE | 2019-07-02 09:52 | PN ---
Physical Exam: SUBJECTIVE: Patient seen and examined in the ICU, son at bedside. Patient awake, intubated, restless. turkish speaking but points to her abdomen when asked about pain. OBJECTIVE: overnight notes reviewed patient abdomen is distended and firm ---- Patient is s/p EGD on 06/30/2019 for GI bleed and colonic angiodysplasias were seen as well as a single slightly distended external hemorrhoid. Patient started on a heparin drip on 06/30/2019 with a bridge to coumadin. Hospital course complicated when patient had a possible vasovagal episode yesterday evening, IVF given with some improvement, but BP continued to drop. A central line was attempted but unsuccessful. During procedure noted to have a pulse in the 20s and a hemotoma on left neck. Code 99 was called and patient intubated and transferred to the ICU. Patient now is s/p 4 units of prbc and 2 units of FFP. hmg/hct at 0430 3.2/10. repeat cbc with hmg 13.2/41.6. ----- vitals: heart rate irregular 120-140s, intubated, remains hypotensive, hypothermic on irwin hugger (95f), on phyenyleprine patient for a ct scan of abdomen once stable lactic acidosis 12, hypothermia, hypotension. tachycardia, leukocytosis. id consulted. blood cultures now. started on iv zosyn abd xray 07/02/2019: no signs of pneumoperitoneum. + abdominal distention abd u/s 07/02/2019: pending surgery consulted for acute abdomen Vital Signs Period Temp Pulse Resp BP Sys/Coulter Pulse Ox Last 24 Hr 96 F-99 F 58-145 14-34 88-146/39-110 96-100 GENERAL: The patient is awake, alert, restless, pallorous HEAD: Normal with no signs of trauma. left neck s/p central line placement with clean/dry dressing. EYES: sclera anicteric, conjunctiva clear. No ptosis. ENT: Ears normal, nares patent, oropharynx clear without exudates,intubated NECK: left neck wound s/p central line placement, developed hematoma after line placed LUNGS: intubated, diminished bilaterally HEART: irregular 120-140s. ABDOMEN:distended, tender, painful on exam. no bowel sounds auscultated. EXTREMITIES: no edema. small puncture wound below right femoral/no hematoma, no [place] NEUROLOGICAL: awake, intubated Laboratory Results - last 24 hr 06/29/19 07/01/19 07/01/19 06:59 15:42 15:42 WBC Corrected WBC (auto) RBC Hgb Hct MCV MCH MCHC RDW Plt Count MPV Absolute Neuts (auto) Total Counted Neutrophils % Neutrophils % (Manual) Band Neutrophils % Lymphocytes % Lymphocytes % (Manual) Monocytes % Monocytes % (Manual) Eosinophils % Eosinophils % (Manual) Basophils % Basophils % (Manual) Myelocytes % (Man) Promyelocytes % (Man) Blast Cells % (Manual) Nucleated RBC % Metamyelocytes Differential Comment Hypersegmented Neuts Plasma Cells Smudge Cells Other Cell Type Hypochromia Toxic Granulation Dohle Bodies Elina Rods Platelet Estimate Platelet Comment Polychromasia Poikilocytosis Basophilic Stippling Anisocytosis Microcytosis Macrocytosis Spherocytes Siderocytes Sickle Cells Target Cells Tear Drop Cells Ovalocytes Stomatocytes Helmet Cells Martínez-Bromley Bodies [place] Rings Alfonso Cells Acanthocytes (Spur) Rouleaux Fragmented RBCs Schistocytes PT with INR INR PTT (Actin FS) > 400.0 H Anticoagulation Therapy Puncture Site ABG pH ABG pCO2 at Pt Temp ABG pO2 at Pt Temp ABG HCO3 ABG O2 Sat (Measured) ABG O2 Content ABG Base Excess Ketan Test O2 Delivery Device Oxygen Flow Rate Vent Mode Vent Rate Mechanical Rate PEEP Pressure Support Vent Sodium 137 Potassium 3.7 Chloride 104 Carbon Dioxide 27 Anion Gap 6 L BUN 10.5 Creatinine 1.0 Est GFR (CKD-EPI)AfAm 59.08 Est GFR (CKD-EPI)NonAf 50.97 POC Glucometer Random Glucose 95 Lactic Acid Calcium 8.1 L Magnesium 1.7 L Total Bilirubin 0.9 AST 19 ALT 17 Alkaline Phosphatase 65 Troponin I Total Protein 5.8 L Albumin 2.7 L Blood Type AB NEGATIVE Antibody Screen Negative Crossmatch See Detail 07/01/19 07/01/19 07/01/19 19:07 19:30 19:30 WBC 6.3 Corrected WBC (auto) RBC 2.90 L Hgb 9.2 L Hct 28.0 L MCV 96.4 H MCH 31.7 MCHC 32.9 RDW 15.1 Plt Count 110 L MPV 8.7 Absolute Neuts (auto) Total Counted Neutrophils % Neutrophils % (Manual) Band Neutrophils % Lymphocytes % Lymphocytes % (Manual) Monocytes % Monocytes % (Manual) Eosinophils % Eosinophils % (Manual) Basophils % Basophils % (Manual) Myelocytes % (Man) Promyelocytes % (Man) Blast Cells % (Manual) Nucleated RBC % Metamyelocytes Differential Comment Hypersegmented Neuts Plasma Cells Smudge Cells Other Cell Type Hypochromia Toxic Granulation Dohle Bodies Elina Rods Platelet Estimate Platelet Comment Polychromasia Poikilocytosis Basophilic Stippling Anisocytosis Microcytosis Macrocytosis Spherocytes Siderocytes Sickle Cells Target Cells Tear Drop Cells Ovalocytes Stomatocytes Helmet Cells Martínez-Bromley Bodies [place] Rings Alfonso Cells Acanthocytes (Spur) Rouleaux Fragmented RBCs Schistocytes PT with INR INR PTT (Actin FS) Anticoagulation Therapy Puncture Site ABG pH ABG pCO2 at Pt Temp ABG pO2 at Pt Temp ABG HCO3 ABG O2 Sat (Measured) ABG O2 Content ABG Base Excess Ketan Test O2 Delivery Device Oxygen Flow Rate Vent Mode Vent Rate Mechanical Rate PEEP Pressure Support Vent Sodium 135 L Potassium 3.3 L Chloride 102 Carbon Dioxide 25 Anion Gap 7 L BUN 13.4 Creatinine 1.0 Est GFR (CKD-EPI)AfAm 59.08 Est GFR (CKD-EPI)NonAf 50.97 POC Glucometer 145 Random Glucose 146 H Lactic Acid Calcium 7.9 L Magnesium Total Bilirubin AST ALT Alkaline Phosphatase Troponin I < 0.02 Total Protein Albumin Blood Type Antibody Screen Crossmatch 07/02/19 07/02/19 07/02/19 01:00 01:00 01:00 WBC Corrected WBC (auto) RBC Hgb Hct MCV MCH MCHC RDW Plt Count MPV Absolute Neuts (auto) Total Counted Neutrophils % Neutrophils % (Manual) Band Neutrophils % Lymphocytes % Lymphocytes % (Manual) Monocytes % Monocytes % (Manual) Eosinophils % Eosinophils % (Manual) Basophils % Basophils % (Manual) Myelocytes % (Man) Promyelocytes % (Man) Blast Cells % (Manual) Nucleated RBC % Metamyelocytes Differential Comment Hypersegmented Neuts Plasma Cells Smudge Cells Other Cell Type Hypochromia Toxic Granulation Dohle Bodies Elina Rods Platelet Estimate Platelet Comment Polychromasia Poikilocytosis Basophilic Stippling Anisocytosis Microcytosis Macrocytosis Spherocytes Siderocytes Sickle Cells Target Cells Tear Drop Cells Ovalocytes Stomatocytes Helmet Cells Martínez-Bromley Bodies [place] Rings [place] Cells Acanthocytes (Spur) Rouleaux Fragmented RBCs Schistocytes PT with INR 21.40 H INR 1.80 H PTT (Actin FS) > 400.0 H Anticoagulation Therapy Puncture Site ABG pH ABG pCO2 at Pt Temp ABG pO2 at Pt Temp ABG HCO3 ABG O2 Sat (Measured) ABG O2 Content ABG Base Excess Ketan Test O2 Delivery Device Oxygen Flow Rate Vent Mode Vent Rate Mechanical Rate PEEP Pressure Support Vent Sodium Potassium Chloride Carbon Dioxide Anion Gap BUN Creatinine Est GFR (CKD-EPI)AfAm Est GFR (CKD-EPI)NonAf POC Glucometer Random Glucose Lactic Acid Calcium Magnesium 1.7 L Total Bilirubin AST ALT Alkaline Phosphatase Troponin I 0.03 Total Protein Albumin Blood Type Antibody Screen Crossmatch 07/02/19 07/02/19 07/02/19 04:25 04:30 04:30 WBC 8.2 Corrected WBC (auto) RBC 0.98 L Hgb 3.2 L* Hct 10.0 L MCV 102.4 H MCH 32.5 MCHC 31.7 L RDW 15.6 Plt Count 50 L D MPV 9.1 Absolute Neuts (auto) 5.7 Total Counted Neutrophils % 69.0 D Neutrophils % (Manual) Band Neutrophils % Lymphocytes % 23.1 D Lymphocytes % (Manual) Monocytes % 7.3 Monocytes % (Manual) Eosinophils % 0.2 D Eosinophils % (Manual) Basophils % 0.4 Basophils % (Manual) Myelocytes % (Man) Promyelocytes % (Man) Blast Cells % (Manual) Nucleated RBC % 0 Metamyelocytes Differential Comment Hypersegmented Neuts Plasma Cells Smudge Cells Other Cell Type Hypochromia Toxic Granulation Dohle Bodies Elina Rods Platelet Estimate Platelet Comment Polychromasia Poikilocytosis Basophilic Stippling Anisocytosis Microcytosis Macrocytosis Spherocytes Siderocytes Sickle Cells Target Cells Tear Drop Cells Ovalocytes Stomatocytes Helmet Cells Martínez-Bromley Bodies [place] Rings Alfonso Cells Acanthocytes (Spur) Rouleaux Fragmented RBCs Schistocytes PT with INR 25.00 H INR 2.10 H PTT (Actin FS) 46.7 H Anticoagulation Therapy No Result Required. Puncture Site Right radial ABG pH 7.17 L* ABG pCO2 at Pt Temp 23.1 L ABG pO2 at Pt Temp 301 H ABG HCO3 8.1 L ABG O2 Sat (Measured) 99.2 H ABG O2 Content 5.5 ABG Base Excess -18.8 L Ketan Test No Result Required. O2 Delivery Device Mech vent Oxygen Flow Rate 100% Vent Mode A/c Vent Rate 14 Mechanical Rate Yes PEEP 5.0 Pressure Support Vent 400 Sodium Potassium Chloride Carbon Dioxide Anion Gap BUN Creatinine Est GFR (CKD-EPI)AfAm Est GFR (CKD-EPI)NonAf POC Glucometer Random Glucose Lactic Acid Calcium Magnesium Total Bilirubin AST ALT Alkaline Phosphatase Troponin I Total Protein Albumin Blood Type Antibody Screen Crossmatch 07/02/19 07/02/19 07/02/19 04:30 04:30 05:15 WBC Cancelled Corrected WBC (auto) Cancelled RBC Cancelled Hgb Cancelled Hct Cancelled MCV Cancelled MCH Cancelled MCHC Cancelled RDW Cancelled Plt Count Cancelled MPV Cancelled Absolute Neuts (auto) Cancelled Total Counted Cancelled Neutrophils % Cancelled Neutrophils % (Manual) Cancelled Band Neutrophils % Cancelled Lymphocytes % Cancelled Lymphocytes % (Manual) Cancelled Monocytes % Cancelled Monocytes % (Manual) Cancelled Eosinophils % Cancelled Eosinophils % (Manual) Cancelled Basophils % Cancelled Basophils % (Manual) Cancelled Myelocytes % (Man) Cancelled Promyelocytes % (Man) Cancelled Blast Cells % (Manual) Cancelled Nucleated RBC % Cancelled Metamyelocytes Cancelled Differential Comment Cancelled Hypersegmented Neuts Cancelled Plasma Cells Cancelled Smudge Cells Cancelled Other Cell Type Cancelled Hypochromia Cancelled Toxic Granulation Cancelled Dohle Bodies Cancelled Elina Rods Cancelled Platelet Estimate Cancelled Platelet Comment Cancelled Polychromasia Cancelled Poikilocytosis Cancelled Basophilic Stippling Cancelled Anisocytosis Cancelled Microcytosis Cancelled Macrocytosis Cancelled Spherocytes Cancelled Siderocytes Cancelled Sickle Cells Cancelled Target Cells Cancelled Tear Drop Cells Cancelled Ovalocytes Cancelled Stomatocytes Cancelled Helmet Cells Cancelled Martínez-Bromley Bodies Cancelled [place] Rings Cancelled Alfonso Cells Cancelled Acanthocytes (Spur) Cancelled Rouleaux Cancelled Fragmented RBCs Cancelled Schistocytes Cancelled PT with INR INR PTT (Actin FS) Anticoagulation Therapy Puncture Site ABG pH ABG pCO2 at Pt Temp ABG pO2 at Pt Temp ABG HCO3 ABG O2 Sat (Measured) ABG O2 Content ABG Base Excess Ketan Test O2 Delivery Device Oxygen Flow Rate Vent Mode Vent Rate Mechanical Rate PEEP Pressure Support Vent Sodium 141 Potassium 3.6 Chloride 114 H Carbon Dioxide 9 L Anion Gap 19 H BUN 15.0 Creatinine 1.5 H Est GFR (CKD-EPI)AfAm 36.18 Est GFR (CKD-EPI)NonAf 31.22 POC Glucometer Random Glucose 281 H Lactic Acid 12.0 H* Calcium 6.1 L* Magnesium Total Bilirubin 0.3 AST 23 ALT 10 L Alkaline Phosphatase 32 L Troponin I Total Protein 2.6 L Albumin 1.2 L Blood Type Antibody Screen Crossmatch 07/02/19 05:15 WBC Corrected WBC (auto) RBC Hgb Hct MCV MCH MCHC RDW Plt Count MPV Absolute Neuts (auto) Total Counted Neutrophils % Neutrophils % (Manual) Band Neutrophils % Lymphocytes % Lymphocytes % (Manual) Monocytes % Monocytes % (Manual) Eosinophils % Eosinophils % (Manual) Basophils % Basophils % (Manual) Myelocytes % (Man) Promyelocytes % (Man) Blast Cells % (Manual) Nucleated RBC % Metamyelocytes Differential Comment Hypersegmented Neuts Plasma Cells Smudge Cells Other Cell Type Hypochromia Toxic Granulation Dohle Bodies Elina Rods Platelet Estimate Platelet Comment Polychromasia Poikilocytosis Basophilic Stippling Anisocytosis Microcytosis Macrocytosis Spherocytes Siderocytes Sickle Cells Target Cells Tear Drop Cells Ovalocytes Stomatocytes Helmet Cells Martínez-Bromley Bodies [place] Rings Alfonso Cells Acanthocytes (Spur) Rouleaux Fragmented RBCs Schistocytes PT with INR INR PTT (Actin FS) Anticoagulation Therapy Puncture Site ABG pH ABG pCO2 at Pt Temp ABG pO2 at Pt Temp ABG HCO3 ABG O2 Sat (Measured) ABG O2 Content ABG Base Excess Ketan Test O2 Delivery Device Oxygen Flow Rate Vent Mode Vent Rate Mechanical Rate PEEP Pressure Support Vent Sodium Potassium Chloride Carbon Dioxide Anion Gap BUN Creatinine Est GFR (CKD-EPI)AfAm Est GFR (CKD-EPI)NonAf POC Glucometer Random Glucose Lactic Acid Calcium Magnesium Total Bilirubin AST ALT Alkaline Phosphatase Troponin I Total Protein Albumin Blood Type AB NEGATIVE Antibody Screen Negative Crossmatch See Detail Active Medications Generic Name Dose Route Start Last Admin Trade Name Freq PRN Reason Stop Dose Admin Digoxin 0.125 mg 06/27/19 10:00 07/01/19 09:01 Lanoxin - PO 0.125 mg Q48H ASUNCION Administration Heparin Sodium (Porcine) 1,000 unit 06/30/19 09:29 Heparin - IVPUSH PRN PRN Heparin HEPARIN SOD,PORK IN 0.45% NACL 25,000 unit in 500 mls @ 16 mls/hr 06/30/19 16: 00 07/02/19 02:19 Heparin-1/2ns 25,000 Units/500 IVPB 0 units/hr TITR ASUNCION 0 mls/hr Titration Protocol 800 UNITS/HR Phenylephrine HCl 20,000 mcg/ 250 mls @ 75 mls/hr 07/02/19 06:00 Sodium Chloride IVPB ASDIR ASUNCION Protocol 100 MCG/MIN Pantoprazole Sodium 40 mg 06/30/19 22:00 07/01/19 21:50 Protonix - PO 40 mg BID ASUNCION Administration Polyethylene Glycol 17 gm 07/01/19 10:00 07/01/19 09:02 Miralax (For Daily Use) - PO 17 gm DAILY ASUNCION Administration Protamine Sulfate 5 mg 07/02/19 03:37 Protamine Sulfate IVPUSH 07/02/19 03:38 ONCE ONE ASSESSMENT/PLAN: Problem List - Problems (1) Admitted to intensive care unit Assessment/Plan: overnight developed hypotension, became unstable and sent to the icu for hemorrhagic shock. now on pressors and remains intubated. care per icu team. vitals remain unstable. Code(s): Z78.9 - OTHER SPECIFIED HEALTH STATUS (2) Septic shock Assessment/Plan: septic shock in the setting of acute abdomen (bowel perf vs. hemorrhagic shock) CT scan pending, but patient too unstable to be sent off to ct scan at this time chest xray without acute pathology. lactic acid 12, wbc 13.3., remains hypothermic and hypotensive. abd xray and abd u/s at bedside blood cultures collected and pending discussed with ID, patient started on zosyn Code(s): A41.9 - SEPSIS, UNSPECIFIED ORGANISM; R65.21 - SEVERE SEPSIS WITH SEPTIC SHOCK (3) Hemorrhagic shock Assessment/Plan: developed hematoma of left neck after attempt of central line placement with hmg of 3.2. s/p 4 units of prbc and 2 units of ffp abdomen distended, no signs of pneumoperitoneum per abd xray, abd u/s pending surgery consulted and ngt placed Code(s): R57.8 - OTHER SHOCK (4) Acute blood loss anemia Assessment/Plan: s/p 4 units of prbc/2 units of ffp Code(s): D62 - ACUTE POSTHEMORRHAGIC ANEMIA (5) Lactic acidosis Assessment/Plan: elevated as 12, repeat lactic acid pending Code(s): E87.2 - ACIDOSIS (6) Acute abdomen Assessment/Plan: surgery consulted NGT place to decompress abdomen monitor output remains NPO IR consulted Code(s): R10.0 - ACUTE ABDOMEN (7) Atrial fibrillation with slow ventricular response Assessment/Plan: on ekg monitor tech Code(s): I48.91 - UNSPECIFIED ATRIAL FIBRILLATION (8) Mitral valve stenosis Code(s): I05.0 - RHEUMATIC MITRAL STENOSIS Qualifiers: Cardiac valve disease etiology: etiology unspecified Qualified Code(s): I05.0 - Rheumatic mitral stenosis (9) Thrombocytopenia Assessment/Plan: icu monitoring Code(s): D69.6 - THROMBOCYTOPENIA, UNSPECIFIED (10) DVT prophylaxis Code(s): EMQ9118 - (11) Coagulopathy Code(s): D68.9 - COAGULATION DEFECT, UNSPECIFIED Visit type - Emergency Visit Emergency Visit: Yes ED Registration Date: 06/27/19 Care time: The patient presented to the Emergency Department on the above date and was hospitalized for further evaluation of their emergent condition. - New Patient This patient is new to me today: No - Critical Care Critical Care patient: Yes Total Critical Care Time (in minutes): 60 Critical Care Statement: The care of this patient involved high complexity decision making to prevent further life threatening deterioration of the patient 's condition and/or to evaluate & treat vital organ system(s) failure or risk of failure. - Discharge Referral Referred to [facility] No
[2019-07-02] MEDS: POLYETHYLENE GLYCOL 3350 119 GM BTL PO SCH (10:13)
[2019-07-02] MEDS: PANTOPRAZOLE 40 MG TABLET PO SCH (10:13)
[2019-07-02] MEDS: CALCIUM GLUCONATE 10% - 1,000 MG/10 ML VIAL IVPB SCH ×2 (10:19→11:24)
[2019-07-02 10:26] LABS: HEMATOCRIT 41.6 % (32.4-45.2); HEMOGLOBIN 13.2 GM/dL (10.7-15.3); MCH 29.3 pg (25.7-33.7); MCHC 31.7 g/dl (32.0-36.0); MEAN CELL VOLUME 92.4 fl (80-96); RBC 4.51 M/mm3 (3.60-5.2); RDW 17.3 % (11.6-15.6); WHITE BLOOD COUNT 13.3 K/mm3 (4.0-10.0)
[2019-07-02 10:45] LABS: INR 1.52 (0.83-1.09)
[2019-07-02] MEDS ORDERED: PANTOPRAZOLE SODIUM 40 MG VIAL IVPUSH SCH (10:45)
[2019-07-02 10:48] LABS: ACTIVATED PTT 42.8 SECONDS (25.2-36.5)
[2019-07-02] MEDS ORDERED: DEXMEDETOMIDINE HCL 200 MCG/2 ML IVPB STA (10:51)
[2019-07-02] MEDS ORDERED: DEXMEDETOMIDINE HCL 200 MCG in SODIUM CHLORIDE 48 ML IVPB SCH (11:30)
--- NOTE | 2019-07-02 11:52 | CON.ID ---
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) - Past Surgical History Past Surgical History: Yes: Cholecystectomy (Open), Colonoscopy, Upper Endoscopy - Alcohol/Substance Use Hx Alcohol Use: No - Smoking History Smoking history: Never smoked Have you smoked in the past 12 months: No - Social History Usual Living Arrangement: With Child ADL: Family Assistance Occupation: retired History of Recent Travel: No Home Medications - Allergies Allergies/Adverse Reactions: Allergies Allergy/AdvReac Type Severity Reaction Status Date / Time No Known Allergies Allergy Verified 06/26/19 11:30 - Home Medications Home Medications: Ambulatory Orders Digoxin [Lanoxin -] 0.25 mg PO DAILY 06/26/19 Metoprolol Tartrate 50 mg PO DAILY 06/26/19 Pantoprazole Sodium 40 mg PO DAILY 06/26/19 Warfarin Sodium [Coumadin] 3 mg PO DAILY 06/26/19 Physical Exam Vital Signs: Vital Signs Temperature 96 F L 07/02/19 04:30 Pulse Rate 157 H 07/02/19 10:12 Respiratory Rate 07/02/19 11:46 Blood Pressure 82/46 L 07/02/19 10:12 O2 Sat by Pulse Oximetry (%) 100 07/02/19 04:30 Labs: CBC, BMP 07/02/19 10:00 07/02/19 04:30
[2019-07-02] MEDS ORDERED: ACETAMINOPHEN 1000 MG/100 ML VIAL (NON FORMULARY) IVPB PRN (12:14)
[2019-07-02] MEDS ORDERED: DEXTROSE 5%-NORMAL SALINE 1,000 ML IV SCH (12:15)
[2019-07-02] MEDS ORDERED: PIPERACILLIN/TAZOBACTAM 2.25 GM VIAL IVPB ONE ×2 (12:59→18:16)
[2019-07-02] MEDS ORDERED: DEXTROSE 5%-WATER - 50 ML IVPB ONE ×2 (12:59→18:16)
[2019-07-02 13:02] LABS: ARTERIAL BLOOD GAS PCO2 21.5 mmHg (35-45); ARTERIAL BLOOD GAS PO2 250 mmHg (80-100)
[2019-07-02] MEDS: PIPERACILLIN/TAZOB 2.25 GM 2.25 GM in DEXTROSE 5%-WATER - 50 ML IVPB SCH ×2 (13:02→19:20)
[2019-07-02 13:03] LABS: ARTERIAL BLD GAS O2 SATURATION 98.1 % (95-98); ARTERIAL BLOOD GAS BASE EXCESS -28.6 meq/l (-2-2)
[2019-07-02 13:04] LABS: ALLENS TEST POSITIVE; ARTERIAL BLOOD GAS pH 6.87 (7.35-7.45)
[2019-07-02] MEDS ORDERED: SODIUM BICARBONATE 8.4% 50 MEQ/50 ML VIAL IVPUSH ONE (13:04)
[2019-07-02 13:35] LABS: PLATELET COUNT 95 K/MM3 (134-434)
[2019-07-02 13:36] LABS: MEAN PLT VOLUME 11.1 fl (7.5-11.1)
--- NOTE | 2019-07-02 14:08 | EKG ---
Test Reason : Blood Pressure : / mmHG Vent. Rate : 145 BPM Atrial Rate : 156 BPM P-R Int : 000 ms QRS Dur : 082 ms QT Int : 314 ms P-R-T Axes : 000 063 196 degrees QTc Int : 487 ms ATRIAL FIBRILLATION WITH RAPID VENTRICULAR RESPONSE NONSPECIFIC ST AND T WAVE ABNORMALITY ABNORMAL ECG Confirmed by MD SKINNY, CECILIA ([id number]) on 07/02/2019 2:07:44 PM Referred By: Dereck ARMSTRONG Confirmed By:CECILIA BABB MD
--- NOTE | 2019-07-02 14:14 | EKG ---
Test Reason : Blood Pressure : / mmHG Vent. Rate : 086 BPM Atrial Rate : 208 BPM P-R Int : 000 ms QRS Dur : 080 ms QT Int : 396 ms P-R-T Axes : 000 055 166 degrees QTc Int : 473 ms ATRIAL FIBRILLATION PROLONGED QT ABNORMAL ECG Confirmed by MD BABB GREGORY ([id number]) on 07/02/2019 2:14:00 PM Referred By: Confirmed By:CECILIA BABB MD
[2019-07-02 14:26] LABS: BLOOD UREA NITROGEN 18.3 mg/dL (7-18); POTASSIUM 4.1 mmol/L (3.5-5.1)
[2019-07-02] MEDS ORDERED: SODIUM BICARBONATE 8.4% - 150 MEQ in DEXTROSE 5%-WATER - 850 ML IV SCH ×2 (15:00→18:00)
[2019-07-02] MEDS ORDERED: VASOPRESSIN 20 UNITS/ML VIAL IV ONE (15:23)
[2019-07-02] MEDS ORDERED: VASOPRESSIN 50 UNITS in SODIUM CHLORIDE 97.5 ML IVPB SCH (15:30)
[2019-07-02] MEDS ORDERED: SODIUM BICARBONATE 8.4% - 150 MEQ in DEXTROSE 5%-WATER - 850 ML IV ONE (16:30)
--- NOTE | 2019-07-02 19:09 | PROC ---
Procedure Note Procedure: Central venous Line placed in the Rt IJ for medication administration and monitoring. Aseptic tchnique used thoughout. Lidocaine 3cc given. Dark red blood pulled back easily from each port. CXR ordered for placement and possible pneumothorax.
[2019-07-02] MEDS ORDERED: NOREPINEPHRINE BITARTRATE 8,000 MCG in DEXTROSE 5%-WATER - 492 ML IV SCH (19:15)
[2019-07-02] MEDS ORDERED: NOREPINEPHRINE BITARTRATE 4 MG/4 ML ML IV ONE (19:32)
[2019-07-02 20:07] VITALS: BP 88/76; TEMP 96.6
[2019-07-02 21:24] LABS: BASO % 0.2 % (0-2.0); CORRECTED WBC 2.05 K/mm3; EOS % 0.1 % (0-4.5); LYMPH % 15.4 % (8-40); MCH 31.8 pg (25.7-33.7); MCHC 38.5 g/dl (32.0-36.0); MEAN CELL VOLUME 82.5 fl (80-96); MEAN PLT VOLUME 8.3 fl (7.5-11.1); MONO % 9.6 % (3.8-10.2); NEUT % 74.7 % (42.8-82.8); RBC 0.33 M/mm3 (3.60-5.2); RDW 16.5 % (11.6-15.6); WHITE BLOOD COUNT 2.4 K/mm3 (4.0-10.0)
[2019-07-02 21:29] VITALS: PULSE 82
[2019-07-02 21:30] LABS: HEMATOCRIT 2.7 % (32.4-45.2)
[2019-07-02 21:31] LABS: PLATELET COUNT 8 K/MM3 (134-434)
--- NOTE | 2019-07-02 22:30 | PROC ---
Procedure Note Procedure: ICU A-LINE INSERTION NOTE: INDICATION: Shock requiring Multiple Vaso-Active Medications & required frequent ABGs. CONSENT: Pt is intubated, uncon/unresp. Thus, consent was obtained from pt's son. That was signed, documented & placed in the pt's chart. PROCEDURE: Weak and thready peripheral pulses are appreciated and so the decision was made to place an axillary arterial Line. I did place the pt's R UE in a raise position of comfort using a soft sling. I did evaluate the pt's R axillary artery w/ US and I did appreciate the vessel to be healthy, patent, & easily accessible. The site was prepped & draped in the usual sterile fashion. STOP TIME OUT I did conduct a Time Out w/ the pt's urse at the bedside. The site was anesthetized w/ 3cc of 1% Lidocaine. A 20G needle was inserted into the R axillary artery on the first attempt w/ pulsating bright red blood return. I then inserted a guide-wire through the needle into the pt's R axillary artery & I removed the needle. A 20G X 10cm long catheter was then inserted into the R axillary artery over the wire via the Seldinger technique. The wire was removed & appreciated to be intact & whole. The arterial line was connected & a good tracing & arterial waveform w/ a dicrotic notch was confirmed. The catheter was secured in place w/ 2.0 Nylon sutures X2 and a sterile dressing was applied. Post procedure re-eval confirmed unchanged circulation to the R hand. EBL < 3cc. Pt tolerated the procedure well. I have no complications to report. Kian Tang, ACNP-BC [id number] [facility] PULM / CCM
[2019-07-02 22:41] LABS: PLATELET ESTIMATE DECREASED
[2019-07-02 23:44] LABS: MAGNESIUM 2.6 mg/dL (1.8-2.4)
--- NOTE | 2019-07-03 14:49 | DS ---
Physical Examination Vital Signs: Vital Signs Temperature 96.6 F L 07/02/19 20:00 Pulse Rate 82 07/02/19 20:30 Respiratory Rate 25 H 07/02/19 21:00 Blood Pressure 88/76 L 07/02/19 20:00 O2 Sat by Pulse Oximetry (%) 100 07/02/19 21:00 Labs: CBC, BMP 07/02/19 21:05 07/02/19 10:00 Discharge Summary Problems reviewed: Yes Reason For Visit: GI bleeding Procedures: Principal: EGD. Colonoscopy. ICU care Condition: - Instructions Referrals: Paul Beltre MD [Primary Care Provider] - Daryl Jensen [Staff Physician] - Disposition: - Home Medications Comprehensive Discharge Medication List: Ambulatory Orders Digoxin [Lanoxin -] 0.25 mg PO DAILY 06/26/19 Metoprolol Tartrate 50 mg PO DAILY 06/26/19 Pantoprazole Sodium 40 mg PO DAILY 06/26/19 Warfarin Sodium [Coumadin] 3 mg PO DAILY 06/26/19
== END 2019-07-02 22:10 | disposition expired | DRG 377 ==
LOC: JER 10:45 → INTOOBSV 14:57 → JERBED 14:57 → J4W 18:39 → OBSVTOIN 06-27 13:53 → J4W 06-30 22:46 → JICU 07-02 04:25
PROVIDERS: ADMIT Internal Medicine; ATTEND Internal Medicine
PROC: 0DJ08ZZ Inspection of Upper Intestinal Tract, Via Natural or Artificial Opening Endoscopic (ICD-10-PCS; 2019-06-30)
PROC: 0DJD8ZZ Inspection of Lower Intestinal Tract, Via Natural or Artificial Opening Endoscopic (ICD-10-PCS; 2019-06-30)
PROC: 5A1935Z Respiratory Ventilation, Less than 24 Consecutive Hours (ICD-10-PCS; principal; 2019-07-02)
PROC: 0BH17EZ Insertion of Endotracheal Airway into Trachea, Via Natural or Artificial Opening (ICD-10-PCS; 2019-07-02)
PROC: 02HV33Z Insertion of Infusion Device into Superior Vena Cava, Percutaneous Approach (ICD-10-PCS; 2019-07-02)
PROC: 30233L1 Transfusion of Nonautologous Fresh Plasma into Peripheral Vein, Percutaneous Approach (ICD-10-PCS; 2019-07-02)
PROC: 30233K1 Transfusion of Nonautologous Frozen Plasma into Peripheral Vein, Percutaneous Approach (ICD-10-PCS; 2019-07-02)
PROC: 30233N1 Transfusion of Nonautologous Red Blood Cells into Peripheral Vein, Percutaneous Approach (ICD-10-PCS; 2019-07-02)
DX: K55.21 Angiodysplasia of colon with hemorrhage (principal); E43 Unspecified severe protein-calorie malnutrition; J96.00 Acute respiratory failure, unspecified whether with hypoxia or hypercapnia; R65.21 Severe sepsis with septic shock; A41.9 Sepsis, unspecified organism; E87.2 Acidosis; D62 Acute posthemorrhagic anemia; Z68.1 Body mass index [BMI] 19.9 or less, adult; I05.0 Rheumatic mitral stenosis; I48.91 Unspecified atrial fibrillation; E83.42 Hypomagnesemia; R57.8 Other shock; R57.1 Hypovolemic shock; K44.9 Diaphragmatic hernia without obstruction or gangrene; I95.9 Hypotension, unspecified; D69.6 Thrombocytopenia, unspecified; I27.20 Pulmonary hypertension, unspecified; K57.91 Diverticulosis of intestine, part unspecified, without perforation or abscess with bleeding; D72.829 Elevated white blood cell count, unspecified
CPT/HCPCS: 31500; 36415; 36430; 36511; 36600; 71045-TC-FY; 74190-TC-FY; 76700-TC; 80048; 80053; 80162; 81003; 82272; 82550; 82803; 82962; 83605; 83735; 84100; 84484; 85025; 85027; 85610; 85730; 86850; 86900; 86901; 86922; 87040; 93005; 93010; 94002; 97116-GP; 97161-GP; 99284-25; G0378; J7030; P9017; P9038; P9058